=== PATIENT | female | born 1990 | race Caucasian/White ===

== ENCOUNTER 2023-05-03 14:02 | Outpatient (OUT) | payer OTHER, SELFPAY ==
--- NOTE | 2023-05-03 14:05 | US_ITS ---
[address] [address] Patient Name: ROCHELLE GUARDADO MRN: [id number] date: 1990 Sex: F Assigned Patient Location: US Current Patient Location: Accession/Order Number: [id number] Exam Date: 05/03/2023 14:07 Report Date: 05/04/2023 07:42 At the request of: JHON JIMENEZ Procedure: US OB >= 14 weeks Fetus EXAMINATION: US OB >= 14 weeks Fetus HISTORY: MISSED MENSES COMPARISON: No relevant comparison available. TECHNIQUE: Transabdominal sonographic examination was performed for obstetrical and evaluation. FINDINGS: Number: 1 Heart Rate: 130.0 bpm H.B. /min Amniotic Fluid Volume: Subjectively normal Placental Location: Fundal Cervix Length: 3.6 cm , closed The uterus is normal, anteverted, anteflexed The right ovary is not visualized Left ovary is normal BIOMETRY: BPD: 3.4 cm 16 weeks 3 days , greater than 97% HC: 13.0 cm 16 weeks 4 days, greater than 97% AC: 10.7 cm 16 weeks 4 days, greater than 97% FL: 1.9 cm 15 weeks 5 days , greater than 97% EFW:149.8 grams; 5 ounces, greater than 97% FL/AC: 18.0 FL/BPD: 57.4 HC/AC: 1.2 GESTATIONAL AGE: Age by EDC: 12 weeks 1 day Age by current US: 16 weeks 2 days ANTONIO by current US: 11/14/2023 ANTONIO by EDC: 10/16/2023 US/US OB >= 14 weeks Fetus IMPRESSION: Large for gestational age, this could be related to inaccurate clinical age Viable mabry intrauterine gestation measuring 16 weeks 2 days *Reference: [facility] Practice Guideline for the performance of Obstetric Ultrasound Examinations, February 18, 2007. Electronically authenticated by: ASHLEY TOBIN Date: 05/04/2023 07:42
== END 2023-05-03 14:03 | disposition home or self-care (01) ==
LOC: US 14:02
PROVIDERS: Visit Provider Obstetrics & Gynecology
DX: N92.6 Irregular menstruation, unspecified (principal); O36.62X0 Maternal care for excessive fetal growth, second trimester, not applicable or unspecified; Z3A.16 16 weeks gestation of pregnancy
CPT/HCPCS: 76815

== ENCOUNTER 2023-05-29 13:56 | Outpatient (OUT) | payer OTHER, SELFPAY ==
[2023-05-31 05:07] LABS: AFP Value 35.7 ng/mL (.); Gestat. Age Based On Ultrasound (.); Insulin Dep Diabetes No (.); Maternal Age At EDD 33.6 yr (.); OSBR Risk 1 IN 10000 (.); Results Report (.)
== END 2023-05-29 13:57 | disposition home or self-care (01) ==
LOC: LAB 13:59
PROVIDERS: PCP Family Medicine; Visit Provider Obstetrics & Gynecology
DX: Z34.92 Encounter for supervision of normal pregnancy, unspecified, second trimester (principal)
CPT/HCPCS: 36415; 82105

== ENCOUNTER 2023-06-05 12:59 | Outpatient (OUT) | payer OTHER, SELFPAY ==
--- NOTE | 2023-06-05 | US_ITS ---
[address] [address] Patient Name: ROCHELLE GUARDADO MRN: [id number] date: 1990 Sex: F Assigned Patient Location: US Current Patient Location: US Accession/Order Number: [id number] Exam Date: 06/05/2023 13:03 Report Date: 06/05/2023 14:18 At the request of: JHON JIMENEZ Procedure: US OB anatomy EXAMINATION: US OB anatomy, US OB cervical length HISTORY: ANATOMY COMPARISON: No relevant comparison available. TECHNIQUE: Transabdominal sonographic examination was performed for obstetrical and evaluation. FINDINGS: Number: 1 Heart Rate: 122.0 bpm H.B. /min Amniotic Fluid Volume: Subjectively normal position: Cephalic presentation, longitudinal lie Placental Location: And posterior. Placental edge is 4.1 cm from the internal os Cervix Length: 4.2 cm , closed Normal anatomy: Lateral ventricles, cerebellum, posterior fossa, orbits, four-chamber heart, RVOT, LVOT, diaphragm, stomach, kidneys, abdominal cord insertion, bladder, umbilical arteries, three-vessel cord, spine, extremities Suboptimal visualization: Nose/lips BIOMETRY: BPD: 5.0 cm 21 weeks 2 days , 21 weeks 2 days, 60% HC: 18.5 cm 20 weeks 6 days, 20 weeks 6 days, 33% AC: 16.1 cm 21 weeks 2 days, 21 weeks 2 days, 51% FL: 3.6 cm 21 weeks 2 days , 21 weeks 2 days, 52% EFW:407.6 grams; 14 ounces, 57% FL/AC: 22.1 FL/BPD: 70.8 HC/AC: 1.2 GESTATIONAL AGE: Age by EDC: 21 weeks 0 days Age by current US: 21 weeks 1 days ANTONIO by current US: 10/15/2023 ANTONIO by EDC: 10/16/2023 US/US OB anatomy IMPRESSION: Suboptimal visualization of the nose and lips Otherwise normal anatomy scan Closed cervix measuring 4.2 cm in length *Reference: [facility] Practice Guideline for the performance of Obstetric Ultrasound Examinations, February 18, 2007. Electronically authenticated by: ASHLEY TOBIN Date: 06/05/2023 14:18
--- NOTE | 2023-06-05 | US_ITS ---
[address] [address] Patient Name: ROCHELLE GUARDADO MRN: [id number] date: 1990 Sex: F Assigned Patient Location: US Current Patient Location: US Accession/Order Number: [id number] Exam Date: 06/05/2023 13:04 Report Date: 06/05/2023 14:18 At the request of: JHON JIMENEZ Procedure: US OB cervical length EXAMINATION: US OB anatomy, US OB cervical length HISTORY: ANATOMY COMPARISON: No relevant comparison available. TECHNIQUE: Transabdominal sonographic examination was performed for obstetrical and evaluation. FINDINGS: Number: 1 Heart Rate: 122.0 bpm H.B. /min Amniotic Fluid Volume: Subjectively normal position: Cephalic presentation, longitudinal lie Placental Location: And posterior. Placental edge is 4.1 cm from the internal os Cervix Length: 4.2 cm , closed Normal anatomy: Lateral ventricles, cerebellum, posterior fossa, orbits, four-chamber heart, RVOT, LVOT, diaphragm, stomach, kidneys, abdominal cord insertion, bladder, umbilical arteries, three-vessel cord, spine, extremities Suboptimal visualization: Nose/lips BIOMETRY: BPD: 5.0 cm 21 weeks 2 days , 21 weeks 2 days, 60% HC: 18.5 cm 20 weeks 6 days, 20 weeks 6 days, 33% AC: 16.1 cm 21 weeks 2 days, 21 weeks 2 days, 51% FL: 3.6 cm 21 weeks 2 days , 21 weeks 2 days, 52% EFW:407.6 grams; 14 ounces, 57% FL/AC: 22.1 FL/BPD: 70.8 HC/AC: 1.2 GESTATIONAL AGE: Age by EDC: 21 weeks 0 days Age by current US: 21 weeks 1 days ANTONIO by current US: 10/15/2023 ANTONIO by EDC: 10/16/2023 US/US OB cervical length IMPRESSION: Suboptimal visualization of the nose and lips Otherwise normal anatomy scan Closed cervix measuring 4.2 cm in length *Reference: [facility] Practice Guideline for the performance of Obstetric Ultrasound Examinations, February 18, 2007. Electronically authenticated by: ASHLEY TOBIN Date: 06/05/2023 14:18
== END 2023-06-05 13:00 | disposition home or self-care (01) ==
LOC: US 12:59
PROVIDERS: PCP Family Medicine; Visit Provider Obstetrics & Gynecology
DX: Z36.89 Encounter for other specified antenatal screening (principal); Z3A.21 21 weeks gestation of pregnancy
CPT/HCPCS: 76805; 76817

== ENCOUNTER 2023-06-09 10:26 | Outpatient (OUT) | payer OTHER, SELFPAY ==
--- OUTSIDE RECORDS SUMMARY | 2023-06-09 10:31 | XMS_ITS | CCD ---
Author Name Unknown Address [address] [place] [address] Organization [facility] Care Team Providers Care Communication Engineer Name Role Phone DR ИВАН NUR Attending Unavailable DR ИВАН NUR Consulting Unavailable DR ИВАН NUR Admitting Unavailable JHON JIMENEZ Attending Unavailable Problems Active Problems Problem Classification Problem Date Documented Da te Episodic/Chronic Other upper respiratory infections (1 source) Acute pharyngitis, unspecified; Translations: [ACUTE PHARYNGITIS UNSPECIFIED] Onset: 05-07-2021 Episodic Unclassified (3 sources) CONTACT W/AND (SUSP) EXPOS COVID-19; Translations: [CONTACT W/AND (SUSP) EXPOS COVID-19] Onset: 05-07-2021 Past or Other Problems Problem Classification Problem Date Documented Da te Episodic/Chronic Unclassified (1 source) CONTACT W/AND (SUSP) EXPOS COVID-19; Translations: [CONTACT W/AND (SUSP) EXPOS COVID-19] Onset: 05-03-2021 Results Test Name Value Interpretation Reference Range Facil ity Covid-19 PCR (CVDTBH)on 04-20 SARS-CoV-2 (COVID-19) RNA JOSEFINA+probe Ql (Unsp spec) Not detected Normal NOT DETECTED [facility] Comment on above: Result Comment: This test is not yet kathy roved or cleared by the [place] FDA. When there are no FDA-approved or cleared tests available, and other criteria are met, FDA can make tests available under an emergency access mechanism called an Emergency Use Authorization (EUA). The EUA for this test is supported by the Dough Catcher of Health and Human Service's (HHS's) declaration that circumstances exist to justify the emergency use of in vitro diagnostics for the detection and/or diagnosis of the virus that causes COVID-19. This EUA will remain in effect (meaning this test can be used) for the duration of the COVID-19 declaration justifying emergency of IVDs, unless it is terminated or revoked by FDA (after which the test may no longer be used). When diagnostic testing is negative, the possibility of a false negative should be considered in the context of a patient's recent exposures and the presence of clinical signs and symptoms consistent with SARS-CoV-2. Performed By: #### [facility] #### [facility] [address] [address] [address] Sebastián Santo Encounters Encounter Date Encounter Type Care Provider Facility Start: 06-05-2023 End: 06-05-2023 ambulatory JHON TONY Not Available Start: 05-03-2023 End: 05-03-2023 ambulatory JHON TONY Not Available Start: 05-03-2021 End: 05-03-[address] ИВАН NUR Facility: Payers Date Payer Category Payer Unknown [id number] [id number] 1990 Unknown [id number] [id number] 1990 Unknown [id number] 1959 Private Health Insurance [id number] 1959 Unknown [id number] Summary Purpose Family History No Family History Records FoundNo Family History Records Found Advance Directives No Advanced Directives Records FoundNo Advanced Directives Records Found Additional Source Comments INFORMATION SOURCE (unrecogn ized section and content) DATE CREATED AUTHOR 06/17/2021 [facility] DATE CREATED AUTHOR EMMIE FERRERA 06/06/2023 [facility] EPIC FOR RECORDS PERTAINING TO PATIENTS WHO ARE OR HAVE BEEN ENROLLED IN A CHEMICAL DEPENDENCY/SUBSTANCEABUSE PROGRAM, SOME INFORMATION MAY BE OMITTED. This clinical summary was aggregated from multiple sources. Caution should be exercised in using it in the provision of clinical care. This summary normalizes information from multiple sources, and as a consequence, information in this document may materially change the coding, format and clinical context of patient data. In addition, data may be omitted in some cases. CLINICAL DECISIONS SHOULD BE BASED ON THE PRIMARY CLINICAL RECORDS. [facility] [employer] [facility]. provides no warranty or guarantee of the accuracy or completeness of information in this document.
[2023-06-09 11:10] LABS: BOX Test Sent Out Y
[2023-06-09 11:31] LABS: Basophils Percent Auto 0.3 % (0.2-2.0); Eosinophils Absolute Auto 0.1 10^3/uL (0.0-0.7); Eosinophils Percent Auto 1.2 % (0.9-7.0); Hematocrit 33.3 % (36.0-48.0); Hemoglobin 10.9 g/dL (12.0-16.0); Immature Granulocytes Abs Auto 0.03 10^3/uL (0.00-0.03); Immature Granulocytes Pct Auto 0.4 % (0.0-0.5); Lymphocytes Absolute Auto 1.5 10^3/uL (1.2-3.8); Lymphocytes Percent Auto 19.6 % (20.5-60.0); Mean Corpuscular HGB Conc 32.7 g/dL (29.9-35.2); Mean Corpuscular Hemoglobin 29.4 pg (26.7-34.0); Mean Corpuscular Volume 89.8 fL (81.0-99.0); Mean Platelet Volume 11.7 fL (9.5-13.5); Monocytes Absolute Auto 0.4 10^3/uL (0.3-0.8); Neutrophils Absolute Auto 5.6 10^3/uL (1.4-6.5); Neutrophils Percent Auto 73.5 % (43.0-75.0); Platelet Count 260 10^3/uL (150-450); Red Blood Count 3.71 10^6/uL (4.20-5.40); Red Cell Distribution Width 12.6 % (11.0-15.0); White Blood Count 7.6 10^3/uL (4.0-11.0)
[2023-06-09 12:24] LABS: Estimated Average Glucose 100 mg/dL; Glycohemoglobin A1C 5.1 % (4.5-6.2)
[2023-06-10 08:11] LABS: HBsAg Screen Negative (Negative); HCV Ab Non Reactive (Non Reactive)
[2023-06-10 09:11] LABS: HIV Ab/p24 Ag Screen Non Reactive (Non Reactive)
[2023-06-10 10:07] LABS: Rapid Plasma Reagin, Quant Non Reactive titer (NonRea<1:1)
== END 2023-06-09 10:27 | disposition home or self-care (01) ==
LOC: LAB 10:28
PROVIDERS: PCP Family Medicine; Visit Provider Obstetrics & Gynecology
DX: N92.6 Irregular menstruation, unspecified (principal); Z36.0 Encounter for antenatal screening for chromosomal anomalies
CPT/HCPCS: 36415; 83036; 85025; 86592; 86762; 86803; 86850; 86900; 86901; 87086; 87340; 87389

== ENCOUNTER 2023-07-03 09:45 | Outpatient (OUT) | payer OTHER, SELFPAY ==
--- NOTE | 2023-07-03 09:48 | US_ITS ---
[address] [address] Patient Name: ROCHELLE GUARDADO MRN: [id number] date: 1990 Sex: F Assigned Patient Location: [facility] Current Patient Location: [facility] Accession/Order Number: [id number] Exam Date: 07/03/2023 09:48 Report Date: 07/03/2023 10:46 At the request of: JHON JIMENEZ Procedure: US OB incomplete anatomy EXAM: US OB incomplete anatomy HISTORY: INCOMPLETE ANATOMY COMPARISON: 06/05/2023 TECHNIQUE: Transabdominal FINDINGS: position: Cephalic presentation, longitudinal lie Heart rate: 124 beats minute Normal anatomy: Nose and lips US/US OB incomplete anatomy IMPRESSION: Normal nose and lips Electronically authenticated by: ASHLEY TOBIN Date: 07/03/2023 10:46
--- OUTSIDE RECORDS SUMMARY | 2023-07-03 09:56 | XMS_ITS | CCD ---
Author Name Unknown Address [email or web address] [place] [address] Organization [facility] Care Team Providers Care Bilingual Speech Therapist Name Role Phone DR ИВАН NUR Attending [...] spec) Not detected Normal NOT DETECTED [facility] Comment on above: Result Comment: This test is not yet kathy roved or cleared by the [place] FDA. When there are no FDA-approved or cleared tests available, and other criteria are met, FDA can make tests available under an emergency access mechanism called an Emergency Use Authorization (EUA). The EUA for this test is supported by the [employer] Joist of Health and Human Service's (HHS's) declaration [...] consistent with SARS-CoV-2. Performed By: #### [facility] #### [facility] [address] [address] [address] Sebastián Santo Encounters Encounter Date Encounter Type Care Provider Facility Start: 06-05-2023 End: 06-05-2023 ambulatory JHON TONY Not Available Start: 05-03-2023 End: 05-03-2023 ambulatory JHON TONY Not Available Start: 05-03-2021 End: 05-03-[address] ИВАН NUR Facility: Payers Date Payer Category Payer Unknown [id number] 1990 Unknown [id number] 1990 Unknown [id number] 1959 Private Health Insurance [id number] 1959 Unknown [id number] Summary Purpose Family History No Family History Records FoundNo Family History Records Found Advance Directives No Advanced Directives Records FoundNo Advanced Directives Records Found Additional Source Comments INFORMATION SOURCE (unrecogn ized section and content) DATE CREATED AUTHOR 06/17/2021 [facility] DATE CREATED AUTHOR EMMIE FERRERA 06/06/2023 [facility] EPIC FOR RECORDS PERTAINING TO PATIENTS [...] BE BASED ON THE PRIMARY CLINICAL RECORDS. [facility] [employer] [facility]. provides no warranty or guarantee of the accuracy or completeness of information in this document.
== END 2023-07-03 09:46 | disposition home or self-care (01) ==
LOC: NOMS 09:45
PROVIDERS: PCP Family Medicine; Visit Provider Obstetrics & Gynecology
DX: Z36.2 Encounter for other antenatal screening follow-up (principal)
CPT/HCPCS: 76815

== ENCOUNTER 2023-07-10 09:37 | Outpatient (OUT) | payer OTHER, SELFPAY ==
--- OUTSIDE RECORDS SUMMARY | 2023-07-03 11:18 | XMS_ITS | CCD ---
Author Name Unknown Address [address] [place] [address] Organization [facility] Care Team Providers Care Consumer Marketing Analyst Name Role Phone DR ИВАН NUR Attending Unavailable DR ИВАН NUR Consulting Unavailable DR ИАВН NUR Admitting Unavailable JHON JIMENEZ Attending Unavailable [...] spec) Not detected Normal NOT DETECTED [facility] Comment on above: Result Comment: This test is not yet kathy roved or cleared by the [place] FDA. When there are no FDA-approved or cleared tests available, and other criteria are met, FDA can make tests available under an emergency access mechanism called an Emergency Use Authorization (EUA). The EUA for this test is supported by the Normalizer of Health and Human Service's (HHS's) declaration [...] consistent with SARS-CoV-2. Performed By: #### [facility] #### [facility] [address] [address] [address] Sebastián Santo Encounters Encounter Date Encounter Type Care Provider Facility Start: 06-05-2023 End: 06-05-2023 ambulatory JHON TONY Not Available Start: 05-03-2023 End: 05-03-2023 ambulatory JHON TONY Not Available Start: 05-03-2021 End: 05-03-[address] ИВАН NUR Facility: Payers Date Payer Category Payer Unknown [id number] [id number] 1990 Unknown [id number] 1990 Unknown [id number] 1959 Private Health Insurance [id number] 1959 Unknown [id number] Summary Purpose Family History No Family History Records FoundNo Family History Records Found Advance Directives No Advanced Directives Records FoundNo Advanced Directives Records Found Additional Source Comments INFORMATION SOURCE (unrecogn ized section and content) DATE CREATED AUTHOR 06/17/2021 [facility] DATE CREATED AUTHOR EMMIE FERRERA 06/06/2023 [facility] EPIC FOR RECORDS PERTAINING TO PATIENTS [...] BE BASED ON THE PRIMARY CLINICAL RECORDS. [facility] [employer] [facility]. provides no warranty or guarantee of the accuracy or completeness of information in this document.
--- OUTSIDE RECORDS SUMMARY | 2023-07-10 09:41 | XMS_ITS | CCD ---
Author Name Unknown Address [address] [place] [address] Organization [facility] Care Team Providers Care Automobile Sales Representative Name Role Phone DR ИВАН MURPHY Attending Unavailable DR ИВАН MURPHY Consulting Unavailable DR ИВАН MURPHY Admitting Unavailable Иван Murphy MD Primary Care Provider [phone] JHON GIBSON Attending Unavailable JHON GIBSON Attending Unavailable Allergies Allergy Classification Reported Allergen(s) Allergy Type Date of Onset Reaction(s) Facility (3 sources) Bananas Propensity to adverse reactions 4 Swelling [facility] Work Phone: Medications Current Medications Medication Drug Class(es) Dates Sig (Normalized) Sig (Original) magnesium oxide 400 mg oral tablet (3 sources) Start: 05-03-2023 End: 08-31-2023 take 1 tablet by mouth once in the morning magnesium oxide (Mag-Ox) 400 mg tablet Indications: Second trimester Take 1 tablet (400 mg) by mouth in the morning. 30 tablet 3 05/03/2023 08/31/2023 Active pramipexole dihydrochloride 0.125 mg oral tablet (3 sources) Nonergot Dopamine Agonist Start: 02-05-2023 take 2 tablets by mouth once daily at bedtime pramipexole (Mirapex) 0.125 MG tablet TAKE 2 TABLETS BY MOUTH EVERY DAY AT BEDTIME 0 02/05/2023 Active Problems Active Problems Problem Classification Problem Date Documented Date Episodic/Chronic Immunizations and screening for infectious disease (4 sources) Patient encounter status; Translations: [Encounter for screening for infections with a predominantly sexual mode of transmission] 07-03-2023 Episodic Other and delivery including normal (2 sources) Second trimester ; Translations: [Encounter for supervision of normal , unspecified, second trimester] 06-29-2023 Episodic Other upper respiratory infections (1 source) Acute [...] Name Value Interpretation Reference Range Facil ity VAGINITIS (HTRX)on 4 BVAB 2,3 (BACTERIAL VAGINOSIS ASSOCIATED BACTERIA 2, 3); MOBILUNCUS SPP 0 [facility] BVAB 2,3 (BACTERIAL VAGINOSIS ASSOCIATED BACTERIA 2, 3); MOBILUNCUS SPP Not detected [facility] CHLAMYDIA TRACHOMATIS 0 [facility] CHLAMYDIA TRACHOMATIS Not detected [facility] GARDNERELLA VAGINALIS 0 [facility] GARDNERELLA VAGINALIS Not detected [facility] NEISSERIA GONORRHOEAE 0 [facility] NEISSERIA GONORRHOEAE Not detected [facility] TRICHOMONAS VAGINALIS 0 [facility] TRICHOMONAS VAGINALIS Not detected [facility] Urinalysis macro (dipstick) panel (U)on 07-03-2023 Bilirubin, UA Negative Negative - 4(70) +++ mg/dL [facility] Blood, UA Negative Negative - 50 Farzad/mcL [facility] Clarity, UA Clear [facility] re Color, UA Yellow [facility] Healthcar e Glucose, UA Negative Negative - 1999(110) ++++ mg/dL [facility] Interpretation and review of laboratory results Normal [facility] Ketones, UA Negative Negative - 160(16) ++++ mg/dL [facility] Leukocytes, UA Negative Negative - 500+++ Donnell/mcL [facility] Nitrite, UA Negative Negative - Positive [facility] pH, UA 6.0 5 - 9 [facility] Protein, UA Negative Negative - 1999(20) ++++ mg/dL [facility] Spec Grav, UA 1.020 1 - 1.03 [facility] Urobilinogen, UA 0.2 0.2 - 12 mg/dL [facility] Health[facility] e Cytology Cervical or vaginal smear or scraping studyon 12-05-2022 [facility] Health[facility] e Covid-19 PCR [facility]on 04-20 SARS-CoV-2 (COVID-19) RNA JOSEFINA+probe Ql (Unsp spec) Not detected Normal NOT DETECTED [facility] Comment on above: Result Comment: This test is not yet approved or cleared by the [place] FDA. When there are no FDA-approved or cleared tests available, and other criteria are met, FDA can make tests available under an emergency access mechanism called an Emergency Use Authorization (EUA). The EUA for this test is supported by the Pad Machine Operator of Health and Human Service's (HHS's) declaration [...] consistent with SARS-CoV-2. Performed By: #### [facility] #### [facility] [address] [place] [address] Dr. Sebastián Santo Vital Signs Date Time Vital Sign Value Performing Clinician Faci lity 07-03-2023 10:39-0500 Body weight 92.08 kg [employer] Work Phone: [facility] 07-03-2023 10:39-0500 Diastolic blood pressure 62 mm[Hg] [employer] Work Phone: [facility] 07-03-2023 10:39-0500 Systolic blood pressure 110 mm[Hg] [employer] Work Phone: [facility] Healthcare Encounters Encounter Date Encounter Type Care Provider Facility Start: 07-03-2023 External Result Encounter Jhon Paige DO Work Phone: [facility] Unsolicited Start: 07-03-2023 External Result Encounter Jhon Gibson DO Work Phone: [facility] Unsolicited Start: 07-03-2023 End: 07-03-2023 ambulatory JHON BROWNO Not Available Start: 07-03-2023 End: 07-03-2023 Office outpatient visit 15 minutes Jhon Gibson DO Work Phone: [facility] Comment on above: Second trimester pre gnancy; Screen for STD (sexually transmitted disease); Diabetes mellitus screening Start: 06-05-2023 End: 06-05-2023 ambulatory JHON BROWNO Not Available Start: 05-03-2023 End: 05-03-2023 ambulatory JHON BROWNO Not Available Start: 05-03-2021 End: 05-03-[address] ИВАН MURPHY Facility: Procedures Date Procedure Procedure Detail Performing Clinician Start: 07-03-2023 VAGINITIS (HTRX) Jhon Gibson DO Work Phone: Start: 07-03-2023 Urnls dip stick/tabl et rgnt non-auto w/o micrscp Jhon Browno DO Work Phone: Start: 12-05-2022 Microscopic observat ion [Identifier] in Cervix by Cyto stain Jhon Gibson DO Work Phone: Start: 12-05-2022 Cytp cerv/vag auto t hin layer prep mnl screen Jhon Gibson DO Work Phone: Plan of Treatment Date Care Activity Detail Author Start: 12-06-2027 Screening for malign ant neoplasm of cervix [facility] Start: 07-24-2023 End: 07-24-2023 Patient encounter procedure 07/24/2023 10:00 AM EST Routine [facility] [address] [place] [id number] Isa Avendano PA [address] [place] [address] [facility] Start: 07-03-2023 End: 07-03-2024 CBC panel - Blood by Automated count CBC Lab Routine Diabetes mellitus screening Expected: 07/03/2023 (Approximate), Expires: 07/03/2024 [facility] Comment on above: Expected: 07/03/2023 (Approximate), Expires: 07/03/2024 Start: 07-03-2023 End: 07-03-2024 Measurement of glucose 1 hour after glucose challenge for glucose tolerance test Glucose tolerance, 1 hour Lab Routine Diabetes mellitus screening Expected: 07/03/2023 (Approximate), Expires: 07/03/2024 [facility] Comment on above: Expected: 07/03/2023 (Approximate), Expires: 07/03/2024 Start: 01-19-2023 Influenza vaccination Influenza Vacc ine (#1) [facility] CHLAMYDIA TRACHOMATI S (GENITO/STI) CHLAMYDIA TRACHOMATIS (GENITO/STI) Lab Routine Screen for STD (sexually transmitted disease) Ordered: 07/03/2023 [facility] Comment on above: Ordered: 07/03/2023 Neisseria gonorrhoea e DNA [Presence] in Unspecified specimen by JOSEFINA with probe detection Neisseria gonorrhea DNA probe, direct Lab Routine Screen for STD (sexually transmitted disease) Ordered: 07/03/2023 [facility] Comment on above: Ordered: 07/03/2023 SURESWAB(R) ADVANCED VAGINITIS PLUS, TMA SURESWAB(R) ADVANCED VAGINITIS PLUS, TMA Pathology and Cytology Routine Screen for STD (sexually transmitted disease) Ordered: 07/03/2023 [facility] Work Phone: Comment on above: Ordered: 07/03/2023 Payers Date Payer Category Payer Medicaid [employer] [facility] [id number] 2022-Present [address] [address] [place] [address] [id number] 1990 Unknown [id number] 1990 Unknown [id number] 1259 1990 Unknown [id number] 1259 1990 Unknown [id number] 1259 1959 Private Health Insurance [id number] 1959 Unknown [id number] Social History Date Type Detail Facility Tobacco smoking stat [facility] Tobacco smoking consumption unknown [facility] Start: 01-23-2023 [facility] Start: 1990 Sex Assigned At Female [facility] Start: 05-01-2023 Gender identity Identifies as female gender (finding) [facility] Start: 05-01-2023 Sexual orientation Heterosexual (fin ding) [facility] History of Present illness Narrative 07-03-2023 Lizbet Pfeiffer LPN - 07/03/2023 10:50 AM EST Note Date & Type Note Facility 07-03-2023 History of Presen t illness Narrative Reason for Appointment: Patient ID: Merle Cyr is a 33 y.o. female who presents for Routine Visit Patient presents today for STD Check and Return OB appointment. Current Medications: has a current medication list which includes the following prescription(s): magnesium oxide and pramipexole. Medical History: Active Ambulatory Problems Diagnosis Date Noted No Active Ambulatory Problems Resolved Ambulatory Problems Diagnosis Date Noted No Resolved Ambulatory Problems No Additional Past Medical History No family history on file. Social History Tobacco Use Smoking status: Not on file Smokeless tobacco: Not on file Substance Use Topics Alcohol use: Not on file Drug use: Not on file History reviewed. No pertinent surgical history. Allergies Allergen Reactions Banana Swelling Review of Systems: Review of Systems Constitutional: Negative. HENT: Negative. Eyes: Negative. Respiratory: Negative. Cardiovascular: Negative. Gastrointestinal: Negative. Genitourinary: Negative. Musculoskeletal: Negative. Skin: Negative. Neurological: Negative. All other systems reviewed and are negative. Hematological: Negative. Endocrine: Negative. Allergic/Immunologic: Negative. Objective Physical Exam Constitutional: Appearance: Normal appearance. She is well-developed. Cardiovascular: Rate and Rhythm: Normal rate and regular rhythm. Pulmonary: Effort: Pulmonary effort is normal. Breath sounds: Normal breath sounds. Abdominal: General: Bowel sounds are normal. There is no distension. Palpations: Abdomen is soft. Tenderness: There is no abdominal tenderness. There is no guarding or rebound. Musculoskeletal: General: No swelling. Normal range of motion. Right lower leg: No edema. Left lower leg: No edema. Neurological: Mental Status: She is alert and oriented to person, place, and time. Skin: General: Skin is warm and dry. Psychiatric: Mood and Affect: Mood normal. Behavior: Behavior normal. Vitals and nursing note reviewed. Exam conducted with a cut off saw operator metal present. Vitals: There is no height or weight on file to calculate BMI. BP: 110/62 Patient's last menstrual period was 01/28/2023. Assessment/Plan Encounter Diagnoses Name Primary? Second trimester Screen for STD (sexually transmitted disease) Diabetes mellitus screening Patient presents today for an annual exam/routine obstetrics appointment. Patient is currently 25w0d . Patient is doing well and states she has no complaints. Pap/cultures was obtained without difficulty and patient was given [facility] order to have obtained. Follow Up: Patient is to return to our office in 4 weeks for routine OB appointment Documented by Lizbet Pfeiffer LPN on behalf of: Jhon Gibson DO documented in this encounter [facility] Evaluation note Note Date & Type Note Facility Evaluation note Diagnosis Second trimester state, incidental Screen for STD (sexually transmitted disease) Screening examination for venereal disease Diabetes mellitus screening Screening for diabetes mellitus documented in this encounter [facility] Summary Purpose Family History No Family History Records FoundNo Family History Records Found Advance Directives No Advanced Directives Records FoundNo Advanced Directives Records Found Additional Source Comments INFORMATION SOURCE (unrecogn ized section and content) DATE CREATED AUTHOR 06/17/2021 [facility] DATE CREATED AUTHOR AUTHOR'S ORGANIZ ATION 07/04/2023 [facility] dical Specialists EPIC Reason for Visit (unrecogniz ed section and content) Reason Comments Routine Visit Care Teams (unrecognized sec tion and content) Automobile Sales Representative Relationship Specialty Start Date End Date Иван Murphy MD [address] [place] [address] PCP - General Family Medicine 05/03/23 Automobile Sales Representative Relationship Specialty Start Date End Date Иван Murphy MD [address] [facility] [place] [phone] PCP - General Family Medicine 05/03/23 FOR RECORDS PERTAINING TO PATIENTS WHO ARE [...] BE BASED ON THE PRIMARY CLINICAL RECORDS. [facility]. provides no warranty or guarantee of the accuracy or completeness of information in this document.
[2023-07-10 10:45] LABS: Basophils Percent Auto 0.2 % (0.2-2.0); Eosinophils Absolute Auto 0.1 10^3/uL (0.0-0.7); Eosinophils Percent Auto 1.3 % (0.9-7.0); Hematocrit 33.3 % (36.0-48.0); Hemoglobin 10.8 g/dL (12.0-16.0); Immature Granulocytes Abs Auto 0.13 10^3/uL (0.00-0.03); Immature Granulocytes Pct Auto 1.2 % (0.0-0.5); Lymphocytes Absolute Auto 1.6 10^3/uL (1.2-3.8); Mean Corpuscular HGB Conc 32.4 g/dL (29.9-35.2); Mean Corpuscular Hemoglobin 29.4 pg (26.7-34.0); Mean Corpuscular Volume 90.7 fL (81.0-99.0); Mean Platelet Volume 10.7 fL (9.5-13.5); Monocytes Absolute Auto 0.6 10^3/uL (0.3-0.8); Monocytes Percent Auto 5.9 % (1.7-12.0); Neutrophils Absolute Auto 8.2 10^3/uL (1.4-6.5); Neutrophils Percent Auto 76.4 % (43.0-75.0); Platelet Count 264 10^3/uL (150-450); Red Blood Count 3.67 10^6/uL (4.20-5.40); Red Cell Distribution Width 12.7 % (11.0-15.0); White Blood Count 10.8 10^3/uL (4.0-11.0)
[2023-07-10 11:34] LABS: Glucose 1 Hour 133 mg/dL (<130)
== END 2023-07-10 09:38 | disposition home or self-care (01) ==
LOC: LAB 09:37
PROVIDERS: PCP Family Medicine; Visit Provider Obstetrics & Gynecology
DX: Z13.1 Encounter for screening for diabetes mellitus (principal)
CPT/HCPCS: 36415; 82950; 85025

== ENCOUNTER 2023-07-17 11:43 | Outpatient (OUT) | payer OTHER, SELFPAY ==
[2023-07-17 12:38] LABS: Glucose Fasting 83 mg/dL (<95)
[2023-07-17 13:20] LABS: Glucose 1 Hour 163 mg/dL (<180)
[2023-07-17 14:32] LABS: Glucose 2 Hour 120 mg/dL (<155)
[2023-07-17 15:30] LABS: Glucose 3 Hour 56 mg/dL (<140)
== END 2023-07-17 11:44 | disposition home or self-care (01) ==
LOC: LAB 11:43
PROVIDERS: PCP Family Medicine; Visit Provider Obstetrics & Gynecology
DX: R73.09 Other abnormal glucose (principal)
CPT/HCPCS: 36415; 82951; 82952

== ENCOUNTER 2023-08-21 13:52 | Outpatient (OUT) | payer OTHER, SELFPAY ==
--- NOTE | 2023-08-21 13:56 | US_ITS ---
[address] [address] Patient Name: ROCHELLE GUARDADO MRN: [id number] date: 1990 Sex: F Assigned Patient Location: [facility] Current Patient Location: [facility] Accession/Order Number: [id number] Exam Date: 08/21/2023 14:02 Report Date: 08/21/2023 15:01 At the request of: JHON JIMENEZ Procedure: US OB growth EXAMINATION: US OB growth HISTORY: SIZE INCONSISTENT WITH DATES COMPARISON: Ultrasound OB anatomy 06/05/2023 FINDINGS: Heart Rate: 123.0 bpm Number: 1.0 Position: CEPHALIC Amniotic Fluid Volume: 17.8 cm Maximum Vertical Pocket: 5.2 cm BIOMETRY: BPD: 8.2 cm cm; 32 weeks 6 days; 67% HC: 31.1 cmcm; 34 weeks 5 days ; 83% AC: 28.1 cm cm; 32 weeks 1 days; 52% FL: 6.3 cm cm; 32 weeks 3 days; 48% EFW: 1990.4 grams; 56% FL/AC: 22.3 FL/BPD: 76.6 HC/AC: 1.1 GESTATIONAL AGE: Age by EDC: 32 weeks 0 days ANTONIO by EDC: 10/16/2023 Age by US: 33 weeks 0 days ANTONIO by US: 10/09/2023 US/US OB growth IMPRESSION: 1. Single live intrauterine with growth detailed above. Electronically authenticated by: LEN GONZALEZ Date: 08/21/2023 15:01
== END 2023-08-21 13:53 | disposition home or self-care (01) ==
LOC: NOMS 13:53
PROVIDERS: PCP Family Medicine; Visit Provider Obstetrics & Gynecology
DX: O26.843 Uterine size-date discrepancy, third trimester (principal); Z3A.33 33 weeks gestation of pregnancy
CPT/HCPCS: 76816

== ENCOUNTER 2023-09-18 20:27 | Outpatient (REF) | payer OTHER, SELFPAY ==
--- OUTSIDE RECORDS SUMMARY | 2023-09-18 20:34 | XMS_ITS | CCD ---
Author Organization [facility] Care Team Providers Care Houseman Name Role Phone DR ИВАН NUR Attending Unavailable DR ИВАН NUR Consulting Unavailable DR ИВАН NUR Admitting Unavailable Иван Nur MD Primary Care Provider [phone] JHON GIBSON Attending Unavailable JHON GIBSON Attending Unavailable ISA CARRERA Attending Unavailable JHON GIBSON Attending Unavailable ISA CARRERA Attending Unavailable JHON GIBSON Attending Unavailable Allergies Allergy Classification Reported Allergen(s) Allergy Type Date of Onset Reaction(s) Facility (3 sources) Bananas Propensity to adverse reactions 4 Swelling [facility] Work Phone: Medications Current Medications Medication [...] Interpretation Reference Range Facil ity VAGINITIS (HTRX)on BVAB 2,3 (BACTERIAL VAGINOSIS ASSOCIATED BACTERIA 2, 3); MOBILUNCUS SPP 0 [facility] BVAB 2,3 (BACTERIAL VAGINOSIS ASSOCIATED BACTERIA 2, 3); MOBILUNCUS SPP Not detected [facility] CHLAMYDIA TRACHOMATIS 0 [facility] CHLAMYDIA TRACHOMATIS Not detected [facility] GARDNERELLA VAGINALIS 0 [facility] GARDNERELLA VAGINALIS Not detected [facility] NEISSERIA GONORRHOEAE 0 [facility] NEISSERIA GONORRHOEAE Not detected [facility] TRICHOMONAS VAGINALIS 0 [facility] TRICHOMONAS VAGINALIS Not detected [facility] Urinalysis macro (dipstick) panel (U)on 07-03-2023 Bilirubin, UA Negative Negative - 4(70) +++ mg/dL [facility] Blood, UA Negative Negative - 50 Farzad/mcL [facility] Clarity, [facility], [facility]A Yellow [facility] Health[facility] e Glucose, UA Negative Negative - 1999(110) ++++ mg/dL [facility] Interpretation and review of laboratory results Normal [facility] Ketones, UA Negative Negative - 160(16) ++++ mg/dL [facility] Leukocytes, UA Negative Negative - 500+++ Donnell/mcL [facility] Nitrite, UA Negative Negative - Positive [facility] pH, UA 6.0 5 - 9 [facility] Health[facility] Protein, UA Negative Negative - 1999(20) ++++ mg/dL [facility] Spec Grav, UA 1.020 1 - 1.03 [facility] care Urobilinogen, UA 0.2 0.2 - 12 mg/dL [facility] Cytology Cervical or vaginal smear or scraping studyon 12-05-2022 [facility] Covid-19 PCR ([facility])on 04-20 SARS-CoV-2 (COVID-19) RNA JOSEFINA+probe Ql (Unsp spec) Not detected Normal NOT DETECTED [facility] Comment on above: Result Comment: This test is not yet approved or cleared by the [place] FDA. When there are no FDA-approved or cleared tests available, and other criteria are met, FDA can make tests available under an emergency access mechanism called an Emergency Use Authorization (EUA). The EUA for this test is supported by the Records Clerk of Health and Human Service's (HHS's) declaration [...] consistent with SARS-CoV-2. Performed By: #### [facility] #### [facility] [address] [place] [address] Dr. Sebastián Santo Vital Signs Date Time Vital Sign Value Performing Clinician Faci lity 07-03-2023 10:39-0500 Body weight 92.08 kg [employer] Work Phone: [facility] 07-03-2023 10:39-0500 Diastolic blood pressure 62 mm[Hg] [employer] Work Phone: [facility] 07-03-2023 10:39-0500 Systolic blood pressure 110 mm[Hg] Jhon [employer] Work Phone: [facility] Encounters Encounter Date Encounter Type Care Provider Facility Start: 09-04-2023 End: 09-04-2023 ambulatory JHON PAIGE Not Available Start: 08-21-2023 End: 08-21-2023 ambulatory ISA CARRERA Not Available Start: 08-07-2023 End: 08-07-2023 ambulatory JHON PAIGE Not Available Start: 07-24-2023 End: 07-24-2023 ambulatory ISA CARRERA Not Available Start: 07-03-2023 External Result Encounter Jhon Paige DO Work Phone: [facility] Unsolicited Start: 07-03-2023 External Result Encounter Jhon Paige DO Work Phone: [facility] Unsolicited Start: 07-03-2023 End: 07-03-2023 ambulatory JHON PAIGE Not Available Start: 07-03-2023 End: 07-03-2023 Office outpatient visit 15 minutes Jhon Paige DO Work Phone: [facility] Comment on above: Second trimester pre gnancy; Screen for STD (sexually transmitted disease); Diabetes mellitus screening Start: 06-05-2023 End: 06-05-2023 ambulatory JHON PAIGE Not Available Start: 05-03-2023 End: 05-03-2023 ambulatory JHON PAIGE Not Available Start: 05-03-2021 End: 05-03-[address] ИВАН NUR Facility: Procedures Date Procedure Procedure Detail Performing Clinician Start: 07-03-2023 VAGINITIS (HTRX) Jhon Paige DO Work Phone: Start: 07-03-2023 Urnls dip stick/tabl et rgnt non-auto w/o micrscp Jhon Paige DO Work Phone: Start: 12-05-2022 Microscopic observat ion [Identifier] in Cervix by Cyto stain Jhon Paige DO Work Phone: Start: 12-05-2022 Cytp cerv/vag auto t hin layer prep mnl screen Jhon Paige DO Work Phone: Plan of Treatment Date Care Activity Detail Author Start: 12-06-2027 Screening for malign ant neoplasm of cervix [facility] Start: 07-24-2023 End: 07-24-2023 Patient encounter procedure 07/24/2023 10:00 AM EST Routine [facility] [address] [place] [address] Isa Carrera PA [address] [place] [address] [facility] Start: 07-03-2023 End: 07-03-2024 CBC panel - Blood by Automated count CBC Lab Routine Diabetes mellitus screening Expected: 07/03/2023 (Approximate), Expires: 07/03/2024 [facility] Comment on above: Expected: 07/03/2023 (Approximate), Expires: 07/03/2024 Start: 07-03-2023 End: 07-03-2024 Measurement of glucose 1 hour after glucose challenge for glucose tolerance test Glucose tolerance, 1 hour Lab Routine Diabetes mellitus screening Expected: 07/03/2023 (Approximate), Expires: 07/03/2024 [facility] Comment on above: Expected: 07/03/2023 (Approximate), Expires: 07/03/2024 Start: 01-19-2023 Influenza vaccination Influenza Vacc ine (#1) [facility] CHLAMYDIA TRACHOMATI S (GENITO/STI) CHLAMYDIA TRACHOMATIS (GENITO/STI) Lab Routine Screen for STD (sexually transmitted disease) Ordered: 07/03/2023 [facility] Comment on above: Ordered: 07/03/2023 Neisseria gonorrhoea e DNA [Presence] in Unspecified specimen by JOSEFINA with probe detection Neisseria gonorrhea DNA probe, direct Lab Routine Screen for STD (sexually transmitted disease) Ordered: 07/03/2023 [facility] Comment on above: Ordered: 07/03/2023 SURESWAB(R) ADVANCED VAGINITIS PLUS, TMA SURESWAB(R) ADVANCED VAGINITIS PLUS, TMA Pathology and Cytology Routine Screen for STD (sexually transmitted disease) Ordered: 07/03/2023 [facility] Work Phone: Comment on above: Ordered: 07/03/2023 Payers Date Payer Category Payer Medicaid [employer] [facility] [id number] 2022-Present [address] [address] [place] [address] [id number] 1990 Unknown [id number] 593 1990 Unknown [id number]. 1259 1990 Unknown [id number] [id number]. 1259 1990 Unknown [id number]. 1259 1990 Unknown [id number]. 9 1990 Unknown [id number] [id number]. 1259 1990 Unknown [id number]. 9 1990 Unknown [id number]. 1259 1959 Private Health Insurance [id number] 1959 Unknown [id number] Social History Date Type Detail Facility Tobacco smoking stat [facility] Tobacco smoking consumption unknown [facility] Start: [...] Narrative Reason for Appointment: Patient ID: Merle Guardado is a 33 y.o. female who presents [...] nursing note reviewed. Exam conducted with a import clerk present. Vitals: There is no height or [...] obtained without difficulty [facility]. Follow Up: Patient [...] and content) DATE CREATED AUTHOR 06/17/2021 [facility] DATE CREATED AUTHOR AUTHOR'S ORGANIZ ATION 09/05/2023 [facility] dical Specialists EPIC Reason for Visit (unrecogniz ed section and content) Reason Comments Routine Visit Care Teams (unrecognized sec tion and content) Houseman Relationship Specialty Start Date End Date Иван Nur MD [address] [place] [address] PCP - General Family Medicine 05/03/23 Houseman Relationship Specialty Start Date End Date Иван Nur MD [address] [place] [address] PCP - General Family Medicine 05/03/23 FOR [...] BE BASED ON THE PRIMARY CLINICAL RECORDS. [facility] whoactually [facility]. provides no warranty or guarantee of the accuracy or completeness of information in this document.
== END 2023-09-18 20:28 | disposition home or self-care (01) ==
LOC: LAB 20:27
PROVIDERS: PCP Family Medicine; Visit Provider Obstetrics & Gynecology
DX: Z34.93 Encounter for supervision of normal pregnancy, unspecified, third trimester (principal)
CPT/HCPCS: 87081

== ENCOUNTER 2023-10-17 16:28 | Outpatient (OUT) | payer OTHER, SELFPAY ==
--- NOTE | 2023-10-17 16:36 | US_ITS ---
[address] [address] Patient Name: ROCHELLE GUARDADO MRN: [id number] date: 1990 Sex: F Assigned Patient Location: US Current Patient Location: Accession/Order Number: [id number] Exam Date: 10/17/2023 16:44 Report Date: 10/18/2023 07:07 At the request of: JHON JIMENEZ Procedure: US OB BPP w non-stress EXAMINATION: US OB BPP w non-stress HISTORY: 40 WEEKS GESTATION OF Z3A.40 COMPARISON: No relevant comparison available. TECHNIQUE: Ultrasound biophysical profile was performed in the radiology department. non-reactive stress testing was performed by nursing staff in the birthing center. FINDINGS: BREATHING MOVEMENTS: 2.0 GROSS BODY MOVEMENTS: 2.0 TONE: 2.0 QUALITATIVE AMNIOTIC FLUID VOLUME: 2.0 PRESENTATION: CEPHALIC HEART RATE: 122.2 bpm H.B./min AMNIOTIC FLUID VOLUME: 8.9 cm cm GESTATIONAL AGE: 40 weeks 1 days CONCLUSION: Total biophysical profile score: 8.0 Electronically authenticated by: ASHLEY TOBIN Date: 10/18/2023 07:07
--- NOTE | 2023-10-17 16:37 | US_ITS ---
[address] [address] Patient Name: ROCHELLE GUARDADO MRN: [id number] date: 1990 Sex: F Assigned Patient Location: [facility] Current Patient Location: Accession/Order Number: [id number] Exam Date: 10/17/2023 16:44 Report Date: 10/18/2023 07:08 At the request of: JHON JIMENEZ Procedure: US OB growth EXAMINATION: US OB growth HISTORY: 40 WEEKS GESTATION OF Z3A.40 COMPARISON: No relevant comparison available. FINDINGS: Heart Rate: 122.2 bpm Amniotic Fluid Volume: 8.9 cm Number: 1.0 Position: Cephalic presentation, longitudinal lie Maximum Vertical Pocket: 0.8 cm cm 1.9 cm cm 2.4 cm cm 3.9 cm cm BIOMETRY: BPD: 9.7 cm cm; 39 weeks 4 days; HC: 35.5 cmcm; 41 weeks 3 days AC: 36.1 cm cm; 40 weeks 0 days FL: 7.3 cm cm; 37 weeks 3 days; EFW: 3827.3 grams, 8 lbs. 7 oz., 65% FL/AC: 20.3 FL/BPD: 75.7 HC/AC: 1.0 GESTATIONAL AGE: Age by EDC: 40 weeks 1 days ANTONIO by EDC: 10/16/2023 Age by US: 39 weeks 4 days ANTONIO by US: 12/20/2023 US/US OB growth IMPRESSION: Interval growth as detailed above Electronically authenticated by: ASHLEY TOBIN Date: 10/18/2023 07:08
== END 2023-10-17 17:40 | disposition home or self-care (01) ==
LOC: US 16:28 → FBC 16:29
PROVIDERS: PCP Family Medicine; Visit Provider Obstetrics & Gynecology
DX: O48.0 Post-term pregnancy (principal); Z3A.40 40 weeks gestation of pregnancy
CPT/HCPCS: 76816; 76818

== ENCOUNTER 2023-10-20 07:25 | Outpatient (OUT) | payer OTHER, SELFPAY ==
--- NOTE | 2023-10-20 | US_ITS ---
[address] [address] Patient Name: ROCHELLE GUARDADO MRN: [id number] date: 1990 Sex: F Assigned Patient Location: US Current Patient Location: Accession/Order Number: [id number] Exam Date: 10/20/2023 14:40 Report Date: 10/22/2023 08:50 At the request of: JHON JIMENEZ Procedure: US OB BPP w non-stress EXAMINATION: US OB BPP w non-stress HISTORY: POST TERM Z34.40 O48.0 COMPARISON: Ultrasound OB biophysical 10/17/2023 TECHNIQUE: Ultrasound biophysical profile was performed in the radiology department. BREATHING MOVEMENTS: 2.0 GROSS BODY MOVEMENTS: 2.0 TONE: 2.0 QUALITATIVE AMNIOTIC FLUID VOLUME: 2.0 PRESENTATION: CEPHALIC HEART RATE: 122.2 bpm bpm. AMNIOTIC FLUID VOLUME: 8.3 cm GESTATIONAL AGE: 40 weeks 4 days CONCLUSION: Total biophysical profile score 8.0. Electronically authenticated by: LEN GONZALEZ Date: 10/22/2023 08:50
--- OUTSIDE RECORDS SUMMARY | 2023-10-20 00:06 | XMS_ITS ---
Patient Summarization (C-CDA 2.1 CCD) Created on: October 20, 2023 MERLE GUARDADO~DEBBY BYRD : 1990 Sex: Female Author Organization Sample organization Care Team Providers Care Printing Equipment Mechanic Name Role Phone DR ИВАН NUR Attending Unavailable DR ИВАН NUR Consulting Unavailable DR ИВАН NUR Admitting Unavailable Иван Nur MD Primary Care Provider [phone] PAIGE, JHON Attending Unavailable PAIGE, JHON Attending Unavailable DEBI, ISA Attending Unavailable PAIGE, JHON Attending Unavailable DEBI, ISA Attending Unavailable PAIGE, JHON Attending Unavailable PAIGE, JHON Attending Unavailable DEBI, ISA Attending Unavailable PAIGE, JHON Attending Unavailable DEBI, ISA Attending Unavailable PAIGE, JHON Attending Unavailable Allergies Allergy Classification Reported Allergen(s) Allergy Type Date of Onset Reaction(s) Facility (3 sources) Bananas Propensity to adverse reactions 4 Swelling [facility] Work Phone: Encounters Encounter Date Encounter Type Care Provider Facility Start: 10-16-2023 End: 10-16-2023 ambulatory JHON PAIGE Not Available Start: 10-09-2023 End: 10-09-2023 ambulatory ISA DEBI Not Available Start: 10-02-2023 End: 10-02-2023 ambulatory JHON PAIGE Not Available Start: 09-25-2023 End: 09-25-2023 ambulatory ISA DEBI Not Available Start: 09-18-2023 End: 09-18-2023 ambulatory JHON PAIGE Not Available Start: 09-04-2023 End: 09-04-2023 ambulatory JHON PAIGE Not Available Start: 08-21-2023 End: 08-21-2023 ambulatory ISA DEBI Not Available Start: 08-07-2023 End: 08-07-2023 ambulatory [...] 05-03-2021 End: 05-03-[address] ИВАН NUR Facility:[facility] Medications Current Medications Medication Drug Class(es) Dates [...] EVERY DAY AT BEDTIME 0 02/05/2023 Active Payers Date Payer Category Payer Medicaid [employer] [employer] [facility] [id number] 2022-Present [address] [address] [place] [address] [id number] 1990 Unknown [id number] 2.16.840.1.776714.3.579.2. 593 1990 Unknown [id number] 2.16.840.1.574077.3.579.2. 1258 1990 Unknown [id number] 2.16.840.1.664937.3.579.2. 1258 1990 Unknown [id number] 2.16.840.1.253092.3.579.2. 1258 1990 Unknown [id number] 2.16.840.1.596760.3.579.2. 1258 1990 Unknown [id number] 2.16.840.1.024557.3.579.2. 1258 1990 Unknown [id number] 2.16.840.1.877573.3.579.2. 1258 1990 Unknown [id number] 2.16.840.1.690004.3.579.2. 1258 1990 Unknown [id number] 2.16.840.1.296824.3.579.2. 1258 1990 Unknown [id number] 2.16.840.1.564706.3.579.2. 1258 1990 Unknown [id number] 2.16.840.1.599993.3.579.2. 1258 1990 Unknown [id number] 2.16.840.1.620057.3.579.2. 1258 1990 Unknown [id number] 2.16.840.1.029901.3.579.2. 9 1959 Private Health Insurance [id number] 1959 Unknown [id number] Plan of Treatment Date Care Activity Detail Author Start: 12-06-2027 Screening for malign ant neoplasm of cervix [facility] Start: 07-24-2023 End: 07-24-2023 Patient encounter procedure 07/24/2023 10:00 AM EST Routine [facility] [address] [place] [id number] Isa Carrera PA [address] [place] [address] [facility] Start: 07-03-2023 End: 07-03-2024 CBC panel - Blood by Automated count CBC Lab Routine Diabetes mellitus screening Expected: 07/03/2023 (Approximate), Expires: 07/03/2024 [facility] Comment on above: Expected: 07/03/2023 (Approximate), Expires: 07/03/2024 Start: 07-03-2023 End: 07-03-2024 Measurement of glucose 1 hour after glucose challenge for glucose tolerance test Glucose tolerance, 1 hour Lab Routine Diabetes mellitus screening Expected: 07/03/2023 (Approximate), Expires: 07/03/2024 [facility] Comment on above: Expected: 07/03/2023 (Approximate), Expires: 07/03/2024 Start: 01-19-2023 Influenza vaccination Influenza Vacc ine (#1) [facility] CHLAMYDIA TRACHOMATI S (GENITO/STI) CHLAMYDIA TRACHOMATIS (GENITO/STI) Lab Routine Screen for STD (sexually transmitted disease) Ordered: 07/03/2023 [facility] Comment on above: Ordered: 07/03/2023 Neisseria gonorrhoea e DNA [Presence] in Unspecified specimen by JOSEFINA with probe detection Neisseria gonorrhea DNA probe, direct Lab Routine Screen for STD (sexually transmitted disease) Ordered: 07/03/2023 [facility] Comment on above: Ordered: 07/03/2023 SURESWAB(R) ADVANCED VAGINITIS PLUS, TMA SURESWAB(R) ADVANCED VAGINITIS PLUS, TMA Pathology and Cytology Routine Screen for STD (sexually transmitted disease) Ordered: 07/03/2023 [facility] Work Phone: Comment on above: Ordered: 07/03/2023 Problems Active Problems Problem Classification Problem Date [...] [CONTACT W/AND (SUSP) EXPOS COVID-19] Onset: 05-03-2021 Procedures Date Procedure Procedure Detail Performing Clinician Start: 07-03-2023 VAGINITIS (HTRX) [employer] Phone: Start: 07-03-2023 Urnls dip stick/tabl et rgnt non-auto w/o micrscp Jhon [employer] Phone: Start: 12-05-2022 Microscopic observat ion [Identifier] in Cervix by Cyto stain [employer] Phone: Start: 12-05-2022 Cytp cerv/vag auto t hin layer prep mnl screen [employer] Phone: Results Test Name Value Interpretation Reference Range Facil ity VAGINITIS (HTRX)on BVAB 2,3 (BACTERIAL VAGINOSIS ASSOCIATED BACTERIA 2, 3); MOBILUNCUS SPP 0 [facility] BVAB 2,3 (BACTERIAL VAGINOSIS ASSOCIATED BACTERIA 2, 3); MOBILUNCUS SPP Not detected [facility] Healthcare CHLAMYDIA TRACHOMATIS 0 [facility] CHLAMYDIA TRACHOMATIS Not detected [facility] GARDNERELLA VAGINALIS 0 [facility] GARDNERELLA VAGINALIS Not detected [facility] NEISSERIA GONORRHOEAE 0 [facility] NEISSERIA GONORRHOEAE Not detected [facility] TRICHOMONAS VAGINALIS 0 [facility] TRICHOMONAS VAGINALIS Not detected [facility] Health[facility] e Urinalysis macro (dipstick) panel (U)on 07-03-2023 Bilirubin, UA Negative Negative - 4(70) +++ mg/dL [facility] Blood, UA Negative Negative - 50 Farzad/mcL [facility] Clarity, UA Clear [facility] re Color, UA Yellow [facility] Healthcar e Glucose, UA Negative Negative - 1999(110) ++++ mg/dL [facility] Interpretation and review of laboratory results Normal [facility] Ketones, UA Negative Negative - 160(16) ++++ mg/dL [facility] Leukocytes, UA Negative Negative - 500+++ Donnell/mcL [facility] Nitrite, UA Negative Negative - Positive [facility] pH, UA 6.0 5 - 9 [facility] e Protein, UA Negative Negative - 1999(20) ++++ mg/dL [facility] Spec Grav, UA 1.020 1 - 1.03 [facility] Urobilinogen, UA 0.2 0.2 - 12 mg/dL [facility] Cytology Cervical or vaginal smear or scraping studyon 12-05-2022 [facility] e Covid-19 PCR ([facility])on 04-20 SARS-CoV-2 (COVID-19) RNA JOSEFINA+probe Ql (Unsp spec) Not detected Normal NOT DETECTED [facility] Comment on above: Result Comment: This test is not yet approved or cleared by the [place] FDA. When there are no FDA-approved or cleared tests available, and other criteria are met, FDA can make tests available under an emergency access mechanism called an Emergency Use Authorization (EUA). The EUA for this test is supported by the [place] of Health and Human Service's (HHS's) declaration [...] consistent with SARS-CoV-2. Performed By: #### C [facility] #### [facility] Laboratory [address] [address] [address] Sebastián Santo Social History Date Type Detail Facility Start: 05-01-2023 Gender identity Identifies as female gender (finding) [facility] Start: 05-01-2023 Sexual orientation Heterosexual (fin ding) [facility] Start: 01-23-2023 [facility] Start: 1990 Sex Assigned At Female [facility] Tobacco smoking stat [facility] Tobacco smoking consumption unknown [facility] Vital Signs Date Time Vital Sign Value Performing Clinician Faci lity 07-03-2023 10:39-0500 Body weight 92.08 kg Ringly DO Work Phone: [facility] 07-03-2023 10:39-0500 Diastolic blood pressure 62 mm[Hg] [email or web address] Paige DO Work Phone: [facility] 07-03-2023 10:39-0500 Systolic blood pressure 110 mm[Hg] [employer] DO Work Phone: [facility] History of Present illness Narrative 07-03-2023 Lizbet [...] nursing note reviewed. 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 Vitals: There is no height or [...] obtained without difficulty and [facility]. Follow Up: Patient [...] and content) DATE CREATED AUTHOR 06/17/2021 [facility] DATE CREATED AUTHOR AUTHOR'S ORGANIZ ATION 10/17/2023 [facility] dicor Specialists EPIC Reason for Visit (unrecogniz ed section and content) Reason Comments Routine Visit Care Teams (unrecognized sec tion and content) Printing Equipment Mechanic Relationship Specialty Start Date End Date Иван Nur MD [address] [place] [address] PCP - General Family Medicine 05/03/23 Printing Equipment Mechanic Relationship Specialty Start Date End Date Иван Nur MD [address] [place] [address] PCP - General Family Medicine 05/03/23 FOR [...] BE BASED ON THE PRIMARY CLINICAL RECORDS. [facility] [employer] [facility]. provides no warranty or guarantee of the accuracy or completeness of information in this document.
--- OUTSIDE RECORDS SUMMARY | 2023-10-20 08:10 | XMS_ITS | CCD ---
Author Organization [facility] Care Team Providers Care Credit Risk Modeler Name Role Phone DR ИВАН NUR Attending Unavailable LIUDMILA, DR OATES Consulting Unavailable DR ИВАН NUR Admitting Unavailable Иван Nur MD Primary Care Provider [phone] PAIGE, JHON Attending Unavailable PAIGE, JHON Attending [...] ASSOCIATED BACTERIA 2, 3); MOBILUNCUS SPP 0 [facility] BVAB 2,3 (BACTERIAL VAGINOSIS ASSOCIATED BACTERIA 2, 3); MOBILUNCUS SPP Not detected [facility] CHLAMYDIA TRACHOMATIS 0 [facility] CHLAMYDIA TRACHOMATIS Not detected [facility] GARDNERELLA VAGINALIS 0 [facility] GARDNERELLA VAGINALIS Not detected [facility] NEISSERIA GONORRHOEAE 0 [facility] NEISSERIA GONORRHOEAE Not detected [facility] TRICHOMONAS VAGINALIS 0 [facility] TRICHOMONAS VAGINALIS Not detected [facility] Health[facility] e Urinalysis macro (dipstick) panel (U)on 07-03-2023 Bilirubin, UA Negative Negative - 4(70) +++ mg/dL [facility] Blood, UA Negative Negative - 50 Farzad/mcL [facility] Clarity, UA Clear [facility] re Color, UA Yellow [facility] Glucose, UA Negative Negative - 2000(110) ++++ mg/dL [facility] Interpretation and review of laboratory results Normal [facility] Ketones, UA Negative Negative - 160(16) ++++ mg/dL [facility] Leukocytes, UA Negative Negative - 500+++ Donnell/mcL [facility] Nitrite, UA Negative Negative - Positive [facility] pH, UA 6.0 5 - 9 [facility] Healthcar e Protein, UA Negative Negative - 1999(20) ++++ mg/dL [facility] Spec Grav, UA 1.020 1 - 1.03 [facility] Urobilinogen, UA 0.2 0.2 - 12 mg/dL [facility] Health[facility] e Cytology Cervical or vaginal smear or scraping studyon 12-05-2022 [facility] e Covid-19 PCR ([facility])on 04-20 SARS-CoV-2 (COVID-19) RNA JOSEFINA+probe Ql (Unsp spec) Not detected Normal NOT DETECTED [facility] Comment on above: Result Comment: This test is not yet approved or cleared by the [place] FDA. When there are no FDA-approved or cleared tests available, and other criteria are met, FDA can make tests available under an emergency access mechanism called an Emergency Use Authorization (EUA). The EUA for this test is supported by the [place] of Health and Human Service's (HHS's) declaration [...] consistent with SARS-CoV-2. Performed By: #### C [facility] #### [facility] Laboratory [address] [place] [address] Dr. Sebastián Santo Vital Signs Date Time Vital Sign Value Performing Clinician Ubaldo antoine 07-03-2023 10:39-0500 Body weight 92.08 kg [employer] Work Phone: [facility] 07-03-2023 10:39-0500 Diastolic blood pressure 62 mm[Hg] [employer] Work Phone: [facility] 07-03-2023 10:390500 Systolic blood pressure 110 mm[Hg] Jhon Paige DO Work Phone: [facility] Healthcare Encounters Encounter Date Encounter Type Care Provider Facility Start: 10-16-2023 End: 10-16-2023 ambulatory JHON PAIGE Not Available Start: 10-09-2023 End: 10-09-2023 ambulatory ISA DEBI Not Available Start: 10-02-2023 End: 10-02-2023 ambulatory JHON PAIGE Not Available Start: 09-25-2023 End: 09-25-2023 ambulatory ISA DEBI Not Available Start: 09-18-2023 End: 09-18-2023 ambulatory JHON PAIGE Not Available Start: 09-04-2023 End: 09-04-2023 ambulatory HJON PAIGE Not Available Start: 08-21-2023 End: 08-21-2023 ambulatory ISA DEBI Not Available Start: 08-07-2023 End: 08-07-2023 ambulatory JHON PAIGE Not Available Start: 07-24-2023 End: 07-24-2023 ambulatory ISA DEBI Not Available Start: 07-03-2023 External Result Encounter Jhon Paige DO Work Phone: [facility] External Department Unsolicited Start: 07-03-2023 External Result Encounter Jhon Paige DO Work Phone: [facility] External Department Unsolicited Start: 07-03-2023 End: 07-03-2023 ambulatory JHON PAIGE Not Available Start: 07-03-2023 End: 07-03-2023 Office outpatient visit 15 minutes Jhon Paige DO Work Phone: [facility] OB Comment on above: Second trimester pre gnancy; Screen for STD (sexually transmitted disease); Diabetes mellitus screening Start: 06-05-2023 End: 06-05-2023 ambulatory JHON PAIGE Not Available Start: 05-03-2023 End: 05-03-2023 ambulatory JHON PAIGE Not Available Start: 05-03-2021 End: 05-03-[address] ИВАН NUR Facility:[facility]1 Procedures Date Procedure Procedure Detail Performing Clinician Start: 07-03-2023 VAGINITIS (HTRX) Jhon Paige DO Work Phone: Start: 07-03-2023 Urnls dip stick/tabl et rgnt non-auto w/o micrscp Jhon Paige DO Work Phone: Start: 12-05-2022 Microscopic observat ion [Identifier] in Cervix by Cyto stain [facility] DO Work Phone: Start: 12-05-2022 Cytp cerv/vag auto t hin layer prep mnl screen [facility] DO Work Phone: Plan of Treatment Date Care Activity Detail Author Start: 12-06-2027 Screening for malign ant neoplasm of cervix [facility] Start: 07-24-2023 End: 07-24-2023 Patient encounter procedure 07/24/2023 10:00 AM EST Routine [facility] [address] [place] [id number] Isa Avendano PA [address] [place] [address] [facility] Start: 07-03-2023 End: 07-03-2024 CBC panel - Blood by Automated count CBC Lab Routine Diabetes mellitus screening Expected: 07/03/2023 (Approximate), Expires: 07/03/2024 [facility] Comment on above: Expected: 07/03/2023 (Approximate), Expires: 07/03/2024 Start: 07-03-2023 End: 07-03-2024 Measurement of glucose 1 hour after glucose challenge for glucose tolerance test Glucose tolerance, 1 hour Lab Routine Diabetes mellitus screening Expected: 07/03/2023 (Approximate), Expires: 07/03/2024 [facility] Comment on above: Expected: 07/03/2023 (Approximate), Expires: 07/03/2024 Start: 01-19-2023 Influenza vaccination Influenza Vacc ine (#1) [facility] CHLAMYDIA TRACHOMATI S (GENITO/STI) CHLAMYDIA TRACHOMATIS (GENITO/STI) Lab Routine Screen for STD (sexually transmitted disease) Ordered: 07/03/2023 [facility] Comment on above: Ordered: 07/03/2023 Neisseria gonorrhoea e DNA [Presence] in Unspecified specimen by JOSEFINA with probe detection Neisseria gonorrhea DNA probe, direct Lab Routine Screen for STD (sexually transmitted disease) Ordered: 07/03/2023 [facility] Comment on above: Ordered: 07/03/2023 SURESWAB(R) ADVANCED VAGINITIS PLUS, TMA SURESWAB(R) ADVANCED VAGINITIS PLUS, TMA Pathology and Cytology Routine Screen for STD (sexually transmitted disease) Ordered: 07/03/2023 [facility] Work Phone: Comment on above: Ordered: 07/03/2023 Payers Date Payer Category Payer Medicaid [employer] [employer] [facility] [id number] 2022-Present [address] [address] [place] [address] [id number] 1990 Unknown [id number] 2.16.840.1.110916.3.579.2. 593 1990 Unknown [id number] 2.16.840.1.885789.3.579.2. 1258 1990 Unknown [id number] 2.16.840.1.499500.3.579.2. 1258 1990 Unknown [id number] 2.16.840.1.337730.3.579.2. 1258 1990 Unknown [id number] 2.16.840.1.464585.3.579.2. 1258 1990 Unknown [id number] 2.16.840.1.090681.3.579.2. 1258 1990 Unknown [id number] 2.16.840.1.980440.3.579.2. 1258 1990 Unknown [id number] 2.16.840.1.882372.3.579.2. 1258 1990 Unknown [id number] 2.16.840.1.792874.3.579.2. 1259 1990 Unknown [id number] 2.16.840.1.040795.3.579.2. 9 1990 Unknown [id number] 2.16.840.1.300842.3.579.2. 9 1990 Unknown [id number] 2.16.840.1.608389.3.579.2. 9 1990 Unknown [id number] 2.16.840.1.048115.3.579.2. 1259 1959 Private Health Insurance [id number] 1959 Unknown [id number] Social History Date Type Detail Facility Tobacco smoking stat [facility] Tobacco smoking consumption unknown [facility] Start: 01-23-2023 [facility] Start: 1990 Sex Assigned At Female [facility] Start: 05-01-2023 Gender identity Identifies as female gender (finding) [facility] Start: 05-01-2023 Sexual orientation Heterosexual (fin ding) [facility] History of Present illness Narrative 07-03-2023 Lizbet VegasJALEN meraz - 07/03/2023 10:50 AM EST Note Date [...] nursing note reviewed. Exam conducted with a customer field representative present. Vitals: There is no height or [...] obtained without difficulty and [facility]. Follow Up: [...] DATE CREATED AUTHOR 06/17/2021 [facility] DATE CREATED AUTHOR AUTHOR'S ORGANIZ ATION 10/17/2023 [facility]mn Specialists EPIC Reason for Visit (unrecogniz ed section and content) Reason Comments Routine Visit Care Teams (unrecognized sec tion and content) Credit Risk Modeler Relationship Specialty Start Date End Date Иван Nur MD [address] [place] [address] PCP - General Family Medicine 05/03/23 Credit Risk Modeler Relationship Specialty Start Date End Date Иван Nur MD [address] [place] [address] PCP - General Family Medicine 05/03/23 FOR [...] BE BASED ON THE PRIMARY CLINICAL RECORDS. [facility] [employer] [facility]. provides no warranty or guarantee of the accuracy or completeness of information in this document.
[2023-10-20 15:13] VITALS: BP 121/76; PULSE 99
== END 2023-10-20 15:40 | disposition home or self-care (01) ==
LOC: US 08:07 → FBC 14:31
PROVIDERS: PCP Family Medicine; Visit Provider Obstetrics & Gynecology
DX: O48.0 Post-term pregnancy (principal); Z3A.40 40 weeks gestation of pregnancy
CPT/HCPCS: 76818

== ENCOUNTER 2023-10-23 16:29 | Inpatient (IN) | payer OTHER, SELFPAY ==
[2023-10-23] VITALS (13 sets, daily range): BP systolic 98–135; BP diastolic 55–79; PULSE 85–97; TEMP 35.9–37.1
--- OUTSIDE RECORDS SUMMARY | 2023-10-23 16:42 | XMS_ITS | CCD ---
Author Organization [facility] Care Team Providers Care Hand Salter Name Role Phone DR ИВАН NUR Attending Unavailable LIUDMILA, DR OATES Consulting Unavailable DR ИВАН NUR Admitting Unavailable Иван Nur MD Primary Care Provider [phone] PAIGE, JHON Attending Unavailable PAIGE, JHON Attending [...] sources) Bananas Propensity to adverse reactions 4 [facility] Work Phone: Medications Current Medications Medication [...] BACTERIA 2, 3); MOBILUNCUS SPP 0 [facility] BVAB 2,3 (BACTERIAL VAGINOSIS ASSOCIATED BACTERIA 2, 3); MOBILUNCUS SPP Not detected [facility] CHLAMYDIA TRACHOMATIS 0 [facility] CHLAMYDIA TRACHOMATIS Not detected [facility] GARDNERELLA VAGINALIS 0 [facility] GARDNERELLA VAGINALIS Not detected [facility] NEISSERIA GONORRHOEAE 0 [facility] NEISSERIA GONORRHOEAE Not detected [facility] TRICHOMONAS VAGINALIS 0 [facility] TRICHOMONAS VAGINALIS Not detected [facility] Urinal[facility] macro (dipstick) panel (U)on 07-03-2023 Bilirubin, UA Negative Negative - 4(70) +++ mg/dL [facility] Blood, UA Negative Negative - 50 Farzad/mcL [facility] Clarity, UA [facility] re Color, UA Yellow [facility] Glucose, UA Negative Negative - 2000(110) ++++ mg/dL [facility] Interpretation and review of laboratory results Normal [facility] Ketones, UA Negative Negative - 160(16) ++++ mg/dL [facility] Leukocytes, UA Negative Negative - 500+++ Donnell/mcL [facility] Nitrite, UA Negative Negative - Positive [facility] pH, UA 6.0 5 - 9 [facility] Protein, UA Negative Negative - 1999(20) ++++ mg/dL [facility] Spec Grav, UA 1.020 1 - 1.03 [facility] Urobilinogen, UA 0.2 0.2 - 12 mg/dL [facility] Cytology Cervical or vaginal smear or scraping studyon 12-05-2022 [facility] e Covid-19 PCR ([facility])on 04-20 SARS-CoV-2 (COVID-19) RNA JOSEFINA+probe Ql (Unsp spec) Not detected Normal NOT DETECTED [facility] Comment on above: Result Comment: This test is not yet approved or cleared by the [place] FDA. When there are no FDA-approved or cleared tests available, and other criteria are met, FDA can make tests available under an emergency access mechanism called an Emergency Use Authorization (EUA). The EUA for this test is supported by the [place] of Health and Human Service's (HHS's) declaration [...] consistent with SARS-CoV-2. Performed By: #### C [facility] #### [facility] [address] [place] [address] Dr. Sebastián Santo Vital Signs Date Time Vital Sign Value Performing Clinician Ubaldo antoine 07-03-2023 10:39-0500 Body weight 92.08 kg [employer] Work Phone: [facility] 07-03-2023 10:39-0500 Diastolic blood pressure 62 mm[Hg] [employer] Work Phone: [facility] 07-03-2023 10:390500 Systolic blood pressure 110 mm[Hg] Jhon Paige DO Work Phone: [facility] Healthcare Encounters Encounter Date Encounter Type Care [...] Result Encounter Jhon Paige DO Work Phone: [facility] External Department Unsolicited Start: 07-03-2023 External Result Encounter Jhon Paige DO Work Phone: [facility] External Department Unsolicited Start: 07-03-2023 End: 07-03-2023 ambulatory JHON PAIGE Not Available Start: 07-03-2023 End: 07-03-2023 Office outpatient visit 15 minutes Jhon Paige DO Work Phone: [facility] B[facility] OB Comment on above: Second trimester [...] ion [Identifier] in Cervix by Cyto stain [facility] DO Work Phone: Start: 12-05-2022 Cytp cerv/vag auto t hin layer prep mnl screen [facility] DO Work Phone: Plan of Treatment Date Care Activity Detail Author Start: 12-06-2027 Screening for malign ant neoplasm of cervix [facility] Start: 07-24-2023 End: 07-24-2023 Patient encounter procedure 07/24/2023 10:00 AM EST Routine [facility] [address] [place] [id number] Isa Avendano PA [address] [place] [address] [facility] Start: 07-03-2023 End: 07-03-2024 CBC panel - Blood by Automated count CBC Lab Routine Diabetes mellitus screening Expected: 07/03/2023 (Approximate), Expires: 07/03/2024 [facility] Comment on above: Expected: 07/03/2023 (Approximate), Expires: 07/03/2024 Start: 07-03-2023 End: 07-03-2024 Measurement of glucose 1 hour after glucose challenge for glucose tolerance test Glucose tolerance, 1 hour Lab Routine Diabetes mellitus screening Expected: 07/03/2023 (Approximate), Expires: 07/03/2024 [facility] Comment on above: Expected: 07/03/2023 (Approximate), Expires: 07/03/2024 Start: 01-19-2023 Influenza vaccination Influenza Vacc ine (#1) [facility] CHLAMYDIA TRACHOMATI S (GENITO/STI) CHLAMYDIA TRACHOMATIS (GENITO/STI) Lab Routine Screen for STD (sexually transmitted disease) Ordered: 07/03/2023 [facility] Comment on above: Ordered: 07/03/2023 Neisseria gonorrhoea e DNA [Presence] in Unspecified specimen by JOSEFINA with probe detection Neisseria gonorrhea DNA probe, direct Lab Routine Screen for STD (sexually transmitted disease) Ordered: 07/03/2023 [facility] Comment on above: Ordered: 07/03/2023 SURESWAB(R) ADVANCED VAGINITIS PLUS, TMA SURESWAB(R) ADVANCED VAGINITIS PLUS, TMA Pathology and Cytology Routine Screen for STD (sexually transmitted disease) Ordered: 07/03/2023 [facility] Work Phone: Comment on above: Ordered: 07/03/2023 Payers Date Payer Category Payer Medicaid [employer] [facility] [id number] 2022-Present [address] [address] [place] [address] [id number] 1990 Unknown [id number] 2.16.840.1.039407.3.579.2. 593 1990 Unknown [id number] 2.16.840.1.765571.3.579.2. 1258 1990 Unknown [id number] 2.16.840.1.891527.3.579.2. 1258 1990 Unknown [id number] 2.16.840.1.457569.3.579.2. 1258 1990 Unknown [id number] 2.16.840.1.982133.3.579.2. 1258 1990 Unknown [id number] 2.16.840.1.348056.3.579.2. 1258 1990 Unknown [id number] 2.16.840.1.179692.3.579.2. 1258 1990 Unknown [id number] 2.16.840.1.990298.3.579.2. 1258 1990 Unknown [id number] 2.16.840.1.001406.3.579.2. 1259 1990 Unknown [id number] 2.16.840.1.121397.3.579.2. 9 1990 Unknown [id number] 2.16.840.1.495990.3.579.2. 9 1990 Unknown [id number] 2.16.840.1.528313.3.579.2. 9 1990 Unknown [id number] 2.16.840.1.061200.3.579.2. 1259 1959 Private Health Insurance [id number] 1959 Unknown [id number] Social History Date Type Detail Facility Tobacco smoking stat [facility] Tobacco smoking consumption unknown [facility] Start: [...] nursing note reviewed. Exam conducted with a nurse liaison present. Vitals: There is no height or [...] obtained without difficulty [facility]. Follow [...] DATE CREATED AUTHOR 06/17/2021 [facility] DATE CREATED AUTHOR AUTHOR'S ORGANIZ ATION 10/17/2023 [facility] d[facility] Specialists EPIC Reason for Visit (unrecogniz ed section and content) Reason Comments Routine Visit Care Teams (unrecognized sec tion and content) Hand Salter Relationship Specialty Start Date End Date Иван Nur MD [address] [place] [address] PCP - General Family Medicine 05/03/23 Hand Salter Relationship Specialty Start Date End Date Иван Nur MD [address] [place] [address] PCP - General Family Medicine 05/03/23 FOR [...] BE BASED ON THE PRIMARY CLINICAL RECORDS. [facility]. provides no warranty or guarantee of the accuracy or completeness of information in this document.
[2023-10-23 17:08] LABS: Hemoglobin 9.9 g/dL (12.0-16.0); Mean Corpuscular Hemoglobin 27.7 pg (26.7-34.0); Mean Corpuscular Volume 83.8 fL (81.0-99.0); Platelet Count 258 10^3/uL (150-450); Red Blood Count 3.58 10^6/uL (4.20-5.40); Red Cell Distribution Width 14.2 % (11.0-15.0); White Blood Count 7.7 10^3/uL (4.0-11.0)
[2023-10-23 17:34] LABS: Amphetamine Screen Urine NEGATIVE (NEGATIVE); Barbiturates Screen Urine NEGATIVE (NEGATIVE); Benzodiazepines Screen Urine NEGATIVE (NEGATIVE); Buprenorphine Screen Urine NEGATIVE (NEGATIVE); Cannabinoid Screen Urine NEGATIVE (NEGATIVE); Cocaine Screen Urine NEGATIVE (NEGATIVE); Methadone Screen Urine NEGATIVE (NEGATIVE); Methamphetamines Screen Urine NEGATIVE (NEGATIVE); Opiate Screen Urine NEGATIVE (NEGATIVE); Oxycodone Screen Urine NEGATIVE (NEGATIVE); Phencyclidine Screen Urine NEGATIVE (NEGATIVE); Tricyclic Antidepressant Urine NEGATIVE (NEGATIVE)
[2023-10-24] VITALS (52 sets, daily range): BP systolic 90–200; BP diastolic 51–99; PULSE 77–130; TEMP 36.4–36.8
[2023-10-24] MEDS: ZOLPIDEM TARTRATE 5 MG TABLET PO (01:50)
[2023-10-24] MEDS: 0.9 % SODIUM CHLORIDE 1,000 ML 125 ML IV ×3 (06:09→17:44)
[2023-10-24] MEDS: AMPICILLIN SODIUM 2,000 MG in 0.9 % SODIUM CHLORIDE 100 ML 200 MG IV (06:09)
[2023-10-24] MEDS: OXYTOCIN/0.9 % SODIUM CHLORIDE 10 UNITS/500 ML PLAST..BAG 6 UNIT IV ×2 (06:10→18:31)
[2023-10-24] MEDS: AMPICILLIN SODIUM 1,000 MG in 0.9 % SODIUM CHLORIDE 50 ML 100 MG IV ×3 (10:13→18:34)
[2023-10-24] MEDS: ROPIVACAINE HCL/PF 400 MG/200 ML PREMIX 8 MG EPIDURAL (12:47)
[2023-10-24] MEDS: LIDOCAINE HCL 1% 200 MG/20 ML MDV INJ (20:28)
[2023-10-24] MEDS: OXYTOCIN/0.9 % SODIUM CHLORIDE 20 UNITS/1,000 ML PLAST..BAG 125 UNIT IV (20:34)
--- NOTE | 2023-10-24 20:44 | PM.OBPRCVD ---
Procedure Intrapartal events: None Induction method: per pitocin protocol Delivery augmentation: rupture of membranes and pitocin Delivery monitor: external FHT and external uterine Route of delivery: Episiotomy Description: midline L&D Laceration Description: perineal - 2nd degree Delivery repair: Vicryl Estimated blood loss (mL): 350 Anesthesia type: Epidural Disposition: floor Infant Delivery date: 10/24/23 Gender: male presentation: vertex Placental delivery description: Spontaneous cord description: 3 Vessels and Nuchal Cord (TIMES 1)
[2023-10-24] MEDS: BENZOCAINE/MENTHOL 85 GRAM SPRAY BOTTLE 1 APPLIC TOPICAL (23:38)
[2023-10-24] MEDS: GLYCERIN/WITCH HAZEL PADS 1 PAD TOPICAL (23:38)
[2023-10-24] MEDS: IBUPROFEN 600 MG TABLET PO (23:38)
[2023-10-25] VITALS (8 sets, daily range): BP systolic 103–131; BP diastolic 58–69; PULSE 85–108; TEMP 36.3–36.9
[2023-10-25] MEDS: TEMAZEPAM 15 MG CAPSULE PO (03:34)
[2023-10-25 05:55] LABS: Basophils Percent Auto 0.1 % (0.2-2.0); Eosinophils Percent Auto 0.2 % (0.9-7.0); Hematocrit 24.1 % (36.0-48.0); Hemoglobin 7.8 g/dL (12.0-16.0); Immature Granulocytes Abs Auto 0.07 10^3/uL (0.00-0.03); Immature Granulocytes Pct Auto 0.6 % (0.0-0.5); Lymphocytes Absolute Auto 1.5 10^3/uL (1.2-3.8); Lymphocytes Percent Auto 12.4 % (20.5-60.0); Mean Corpuscular HGB Conc 32.4 g/dL (29.9-35.2); Mean Corpuscular Hemoglobin 27.9 pg (26.7-34.0); Mean Corpuscular Volume 86.1 fL (81.0-99.0); Mean Platelet Volume 11.4 fL (9.5-13.5); Monocytes Absolute Auto 0.8 10^3/uL (0.3-0.8); Monocytes Percent Auto 6.8 % (1.7-12.0); Neutrophils Absolute Auto 9.9 10^3/uL (1.4-6.5); Neutrophils Percent Auto 79.9 % (43.0-75.0); Platelet Count 231 10^3/uL (150-450); Red Cell Distribution Width 14.2 % (11.0-15.0); White Blood Count 12.3 10^3/uL (4.0-11.0)
[2023-10-25] MEDS: IBUPROFEN 600 MG TABLET PO ×3 (07:44→22:32)
[2023-10-25] MEDS: DOCUSATE SODIUM 100 MG CAPSULE PO ×2 (09:32→22:32)
--- NOTE | 2023-10-25 11:21 | PM.OBPN ---
OB - PN: Subj Subjective Patient comments: incisional pain (COMPLAINS OF PERINEAL DISCOMFORT, (HAD MIDLINE EPISIOTOMY AND SECOND DEGREE REPAIR)) [place] status: doing well and well Exam Constitutional Vital Signs, click to edit/add: Last Vital Signs Temp 97.4 F L 10/25/23 07:35 Pulse 85 10/25/23 07:36 Resp 14 10/25/23 07:35 BP 121/69 10/25/23 07:36 O2 Del Method Room Air 10/25/23 07:35 Documenting provider has reviewed patient's vital signs: yes Common normals: no apparent distress, average body habitus, oriented x3, no limitations, healthy appearing, alert and well nourished HENMT Common normals: normocephalic and head/scalp atraumatic Eye Common normals: PERRL Pupil: accommodation reflex normal Neck & C-Spine Common normals: full ROM and supple Respiratory Common normals: normal respiratory effort and no retractions Cardio Common normals: regular rate and regular rhythm GI Common normals: Normal to inspection, nondistended, normoactive bowel sounds present, soft to palpation and non-tender Common normals: no CVA tenderness Back & Pelvis Common normals: no thoracic nor lumbar tenderness Extremity Common normals: normal to inspection, full ROM and no calf tenderness Neuro Common normals: CN's II-XII intact bilaterally, moves all extremities, no focal motor deficits and no sensory deficits noted Psych Common normals: mental status grossly normal, thought process normal, cooperative, affect normal and speech normal Results Labs Labs: Short CBC 10/25/23 Range/Units 05:48 WBC 12.3 H (4.0-11.0) 10^3/uL Hgb 7.8 L (12.0-16.0) g/dL Hct 24.1 L (36.0-48.0) % Plt Count 231 (150-450) 10^3/uL OB - PN: A/P Assessment and Plan (1) Normal vaginal delivery: Assessment and Plan: BESIDES TOPICAL TREATMENTS, DISCUSSED USING SITZ BATH FOR PERINEAL DISCOMFORT FROM 2ND DEGREE REPAIR AFTER MIDLINE EPISIOTOMY. ALSO, DISCONTINUED RESTORIL FOR SLEEP WHICH DID NOT WORK. STARTED ZOLPIDEM 10 MG PH QHS. PATIENT IS BREAST FEEDING HOWEVER OK TO TAKE ZOLPIDEM. HEMOGLOBIN LOW BUT ASYMPTOMATIC. WILL START PO IRON QD. Plan SEE ABOVE Plan - Vaginal Delivery day: 1 Plan: routine care Time Spent with Patient Time: Total time spent is greater than 50% in coordination of care (as documented) at patient's floor/unit and/or counseling patient: Total time spent with greater than 50% in coordination of care (as documented) at patient's floor/unit and/or counseling patient: less than 15 minutes
[2023-10-25] MEDS: IRON PS COMPLEX/B12/FOLIC ACID CAPSULE 1 CAP PO (13:19)
[2023-10-25] MEDS: ZOLPIDEM TARTRATE 10 MG TABLET PO (22:34)
--- NOTE | 2023-10-26 08:01 | PM.OBPN ---
OB - PN: Subj Subjective Patient comments: no complaints and pain well controlled [place] status: doing well Exam Constitutional Vital Signs, click to edit/add: Last Vital Signs Temp 98.4 F 10/25/23 22:27 Pulse 108 H 10/25/23 22:27 Resp 16 10/25/23 22:27 BP 131/66 10/25/23 22:27 O2 Del Method Room Air 10/25/23 22:27 Documenting provider has reviewed patient's vital signs: yes Common normals: no apparent distress Respiratory Common normals: normal respiratory effort and clear to auscultation bilaterally Cardio Common normals: regular rate and regular rhythm GI Common normals: Normal to inspection, nondistended, normoactive bowel sounds present Extremity Common normals: normal to inspection and no calf tenderness OB - PN: A/P Assessment and Plan (1) Normal vaginal delivery: Plan - Vaginal Delivery day: 2 Plan: routine care, discharge home and follow up 6 weeks Time Spent with Patient Time: Total time spent is greater than 50% in coordination of care (as documented) at patient's floor/unit and/or counseling patient: Total time spent with greater than 50% in coordination of care (as documented) at patient's floor/unit and/or counseling patient: less than 15 minutes
[2023-10-26 08:30] VITALS: TEMP 36.7
[2023-10-26] MEDS: DOCUSATE SODIUM 100 MG CAPSULE PO (08:36)
[2023-10-26] MEDS: IBUPROFEN 600 MG TABLET PO (08:36)
[2023-10-26] MEDS: IRON PS COMPLEX/B12/FOLIC ACID CAPSULE 1 CAP PO (08:37)
[2023-10-26 08:40] VITALS: BP 111/64; PULSE 86
== END 2023-10-26 13:05 | disposition home or self-care (01) | DRG 560 ==
PROVIDERS: Admitting Provider Obstetrics & Gynecology; PCP Family Medicine; Visit Provider Obstetrics & Gynecology
DX: O48.0 Post-term pregnancy (principal); O99.824 Streptococcus B carrier state complicating childbirth; O70.1 Second degree perineal laceration during delivery; O69.81X0 Labor and delivery complicated by cord around neck, without compression, not applicable or unspecified; Z3A.41 41 weeks gestation of pregnancy; Z37.0 Single live birth
CPT/HCPCS: 36415; 59050; 59410; 76818; 80307; 85025; 85027; 86850; 86900; 86901; 96365; 96366; 96368; 96376

== ENCOUNTER 2023-10-30 12:13 | Outpatient (OUT) | payer OTHER, SELFPAY ==
[2023-10-30 12:18] VITALS: BP 115/79; PULSE 88; TEMP 36.8; O2SAT 96
--- OUTSIDE RECORDS SUMMARY | 2023-10-30 12:40 | XMS_ITS | CCD ---
Author Organization [facility] Care Team Providers Care Structural Engineering Project Manager Name Role Phone DR ИВАН NUR Attending Unavailable LIUDMILA, DR OATES Consulting Unavailable DR ИВАН NUR Admitting Unavailable Иван Nur MD Primary Care Provider [phone] PAIGE, JHON Attending Unavailable PAIGE, JHON Attending Unavailable DEBI, ISA Attending Unavailable PAIGE, JHON Attending Unavailable DEBI, ISA Attending Unavailable PAIGE, JHON Attending Unavailable PAIGE, JHON Attending Unavailable DEBI, ISA Attending Unavailable PAIGE, JHON Attending Unavailable DEBI, ISA Attending Unavailable PAIGE, JHON Attending Unavailable PAIGE, JHON Attending Unavailable Allergies [...] ASSOCIATED BACTERIA 2, 3); MOBILUNCUS SPP 0 [facility] BVAB 2,3 (BACTERIAL VAGINOSIS ASSOCIATED BACTERIA 2, 3); MOBILUNCUS SPP Not detected [facility] CHLAMYDIA TRACHOMATIS 0 [facility] CHLAMYDIA TRACHOMATIS Not detected [facility] GARDNERELLA VAGINALIS 0 [facility] GARDNERELLA VAGINALIS Not detected [facility] NEISSERIA GONORRHOEAE 0 [facility] NEISSERIA GONORRHOEAE Not detected [facility] TRICHOMONAS VAGINALIS 0 [facility] TRICHOMONAS VAGINALIS Not detected [facility] Urinalysis macro (dipstick) panel (U)on 07-03-2023 Bilirubin, UA Negative Negative - 4(70) +++ mg/dL [facility] Blood, UA Negative Negative - 50 Farzad/mcL [facility] Clarity, UA Clear [facility] re Color, UA Yellow [facility] Glucose, UA Negative Negative - 2000(110) ++++ mg/dL [facility] Interpretation and review of laboratory results Normal [facility] Ketones, UA Negative Negative - 160(16) ++++ mg/dL [facility] Leukocytes, UA Negative Negative - 500+++ Donnell/mcL [facility] Nitrite, UA Negative Negative - Positive [facility] pH, UA 6.0 5 - 9 [facility] e Protein, UA Negative Negative - 1999(20) ++++ mg/dL [facility] Spec Grav, UA 1.020 1 - 1.03 [facility] Urobilinogen, UA 0.2 0.2 - 12 mg/dL [facility] Cytology Cervical or vaginal smear or scraping studyon 12-05-2022 [facility])on 04-20 SARS-CoV-2 (COVID-19) RNA JOSEFINA+probe Ql (Unsp spec) Not detected Normal NOT DETECTED [facility] Comment on above: Result Comment: This test is not yet approved or cleared by the [place] FDA. When there are no FDA-approved or cleared tests available, and other criteria are met, FDA can make tests available under an emergency access mechanism called an Emergency Use Authorization (EUA). The EUA for this test is supported by the [place] of Health and Human Service's (HHS's) declaration [...] consistent with SARS-CoV-2. Performed By: #### [facility] #### [facility] [address] [place] [address] Dr. Sebastián Santo Vital Signs Date Time Vital Sign Value Performing Clinician Ubaldo antoine 07-03-2023 10:39-0500 Body weight 92.08 kg [employer] Work Phone: [facility] 07-03-2023 10:39-0500 Diastolic blood pressure 62 mm[Hg] [employer] DO Work Phone: [facility] 07-03-2023 10:390500 Systolic blood pressure 110 mm[Hg] Jhon Paige DO Work Phone: [facility] Encounters Encounter Date Encounter Type Care Provider Facility Start: 10-23-2023 End: 10-23-2023 ambulatory JHON PAIGE Not Available Start: 10-16-2023 End: 10-16-2023 ambulatory JHON PAIGE [...] Available Start: 08-07-2023 End: 08-07-2023 ambulatory JHON APIGE Not Available Start: 07-24-2023 End: 07-24-2023 ambulatory ISA DEBI Not Available Start: 07-03-2023 External Result Encounter Jhon Paige DO Work Phone: [facility] External Department Unsolicited Start: 07-03-2023 External Result Encounter Jhon Paige DO Work Phone: [facility] External Department Unsolicited Start: 07-03-2023 End: 07-03-2023 Office outpatient visit 15 minutes Jhon Paige DO Work Phone: [facility] Comment on above: Second trimester pre gnancy; Screen for STD (sexually transmitted disease); Diabetes mellitus screening Start: 07-03-2023 End: 07-03-2023 ambulatory JHON PAIGE Not Available Start: 06-05-2023 End: 06-05-2023 ambulatory JHON PAIGE Not Available Start: 05-03-2023 End: 05-03-2023 ambulatory JHON PAIGE Not Available Start: 05-03-2021 End: 05-03-[address] ИВАН NUR Facility:[facility] Procedures Date Procedure Procedure Detail Performing Clinician Start: 07-03-2023 VAGINITIS (HTRX) Jhon [facility] Work Phone: Start: 07-03-2023 Urnls dip stick/tabl et rgnt non-auto w/o micrscp [facility] Work Phone: Start: 12-05-2022 Microscopic observat ion [Identifier] in Cervix by Cyto stain Jhon [employer] DO Work Phone: Start: 12-05-2022 Cytp cerv/vag auto t hin layer prep mnl screen [facility] Work Phone: Plan of Treatment Date Care Activity Detail Author Start: 12-06-2027 Screening for malign ant neoplasm of cervix [facility] Start: 07-24-2023 End: 07-24-2023 Patient encounter procedure 07/24/2023 10:00 AM EST Routine [facility] [address] [phone] Isa Avendano PA [address] [place] [address] [facility] OB Start: 07-03-2023 End: 07-03-2024 CBC panel - Blood by Automated count CBC Lab Routine Diabetes mellitus screening Expected: 07/03/2023 (Approximate), Expires: 07/03/2024 [facility] Comment on above: Expected: 07/03/2023 (Approximate), Expires: 07/03/2024 Start: 07-03-2023 End: 07-03-2024 Measurement of glucose 1 hour after glucose challenge for glucose tolerance test Glucose tolerance, 1 hour Lab Routine Diabetes mellitus screening Expected: 07/03/2023 (Approximate), Expires: 07/03/2024 [facility] Comment on above: Expected: 07/03/2023 (Approximate), Expires: 07/03/2024 Start: 01-19-2023 Influenza vaccination Influenza Vacc ine (#1) [facility] CHLAMYDIA TRACHOMATI S (GENITO/STI) CHLAMYDIA TRACHOMATIS (GENITO/STI) Lab Routine Screen for STD (sexually transmitted disease) Ordered: 07/03/2023 [facility] Comment on above: Ordered: 07/03/2023 Neisseria gonorrhoea e DNA [Presence] in Unspecified specimen by JOSEFINA with probe detection Neisseria gonorrhea DNA probe, direct Lab Routine Screen for STD (sexually transmitted disease) Ordered: 07/03/2023 [facility] Comment on above: Ordered: 07/03/2023 SURESWAB(R) ADVANCED VAGINITIS PLUS, TMA SURESWAB(R) ADVANCED VAGINITIS PLUS, TMA Pathology and Cytology Routine Screen for STD (sexually transmitted disease) Ordered: 07/03/2023 [facility] Work Phone: Comment on above: Ordered: 07/03/2023 Payers Date Payer Category Payer Medicaid [employer] [facility] [id number] 2022-Present [address] [address] [place] [address] [id number] 1990 Unknown [id number] 2.16.840.1.962458.3.579.2. 593 1990 Unknown [id number] 2.16.840.1.776882.3.579.2. 1258 1990 Unknown [id number] 2.16.840.1.482121.3.579.2. 1258 1990 Unknown [id number] 2.16.840.1.491620.3.579.2. 1258 1990 Unknown [id number] 2.16.840.1.956162.3.579.2. 1258 1990 Unknown [id number] 2.16.840.1.416830.3.579.2. 1258 1990 Unknown [id number] 2.16.840.1.756728.3.579.2. 1258 1990 Unknown [id number] 2.16.840.1.337503.3.579.2. 9 1990 Unknown [id number] 2.16.840.1.100809.3.579.2. 1258 1990 Unknown [id number] 2.16.840.1.444065.3.579.2. 9 1990 Unknown [id number] 2.16.840.1.009128.3.579.2. 1258 1990 Unknown [id number] 2.16.840.1.799433.3.579.2. 1258 1990 Unknown [id number] 2.16.840.1.266526.3.579.2. 1258 1990 Unknown [id number] 2.16.840.1.903482.3.579.2. 1259 1959 Private Health Insurance [id number] 1959 Unknown [id number] Social History Date Type Detail Facility Tobacco smoking stat [facility] Tobacco smoking consumption unknown [facility] Start: 01-23-2023 [facility] Start: 1990 Sex Assigned At Female [facility] Start: 05-01-2023 Gender identity Identifies as female gender (finding) [facility] Start: 05-01-2023 Sexual orientation Heterosexual (fin ding) [facility] History of Present illness Narrative 07-03-2023 Lizbetareli Pfeiffer LPN - 07/03/2023 10:50 AM EST [...] nursing note reviewed. Exam conducted with a pharmacy tech customer service present. Vitals: There is no height or [...] obtained without difficulty and patient was given [facility] order to have obtained. Follow Up: Patient [...] content) DATE CREATED AUTHOR 06/17/2021 [facility] DATE CREATED AUTHOR AUTHOR'S ORGANIZ ATION 10/24/2023 [facility] dical Specialists EPIC Reason for Visit (unrecogniz ed section and content) Reason Comments Routine Visit Care Teams (unrecognized sec tion and content) Structural Engineering Project Manager Relationship Specialty Start Date End Date Иван Nur MD [address] [place] [address] PCP - General Family Medicine 05/03/23 Structural Engineering Project Manager Relationship Specialty Start Date End Date Иван Nur MD [address] [place] [address] PCP - General Family Medicine 05/03/23 FOR [...] BE BASED ON THE PRIMARY CLINICAL RECORDS. [facility]. provides no warranty or guarantee of the accuracy or completeness of information in this document.
--- NOTE | 2023-10-30 12:41 | PC.NURSE ---
Merle and 6 day old Ray arrive for follow up appointment. Merle VSS and assessment WNL. Milk is in and continues to use shield for latching. Has no concerns about care for self but would like to stop using the shield for feeds. Baby Ray with VSS and assessment WNL. Weight is up from discharge, 6-8 yellow stools and frequently feeding. Every 2 hours wakes for feed, nurses 20 min 1 breast and 15 on second breast using the shield. Baby to breast without shield and with asymmetrical latch and positioning latches easily without the shield. Parents surprised with latching. Baby released latch X2 and re latched easily. Mom confident in ability to continue feeding without shield. Aware of [facility] group and plans to attend 11/06/2023 for weight check and support.
== END 2023-10-30 12:47 | disposition home or self-care (01) ==
LOC: FBCO 12:13
PROVIDERS: PCP Family Medicine; Visit Provider Obstetrics & Gynecology
DX: Z39.2 Encounter for routine postpartum follow-up (principal)

== ENCOUNTER 2024-01-17 19:08 | Outpatient (REF) | payer OTHER, SELFPAY ==
--- OUTSIDE RECORDS SUMMARY | 2024-01-17 19:12 | XMS_ITS | CCD ---
Author Organization [facility] Care Team Providers Care Pumper Gauger Name Role Phone DR ИВАН NUR Attending Unavailable LIUDMILA, DR OATES Consulting Unavailable DR ИВАН NUR Admitting Unavailable Иван Nur MD Primary Care Provider [phone] PAIGE JHON Attending Unavailable PAIGE, JHON Attending Unavailable DEBI, ISA Attending Unavailable PAIGE, JHON Attending Unavailable DEBI, ISA Attending Unavailable PAIGE, JHON Attending Unavailable PAIGE, JHON Attending Unavailable DEBI, ISA Attending Unavailable PAIGE, JHON Attending Unavailable DEBI, ISA Attending Unavailable PAIGE, JHON Attending Unavailable PAIGE, JHON Attending Unavailable DEBI, ISA Attending Unavailable Allergies Allergy Classification Reported Allergen(s) [...] ASSOCIATED BACTERIA 2, 3); MOBILUNCUS SPP 0 [facility] BVAB 2,3 (BACTERIAL VAGINOSIS ASSOCIATED BACTERIA 2, 3); MOBILUNCUS SPP Not detected [facility] CHLAMYDIA TRACHOMATIS 0 [facility] CHLAMYDIA TRACHOMATIS Not detected [facility] GARDNERELLA VAGINALIS 0 [facility] GARDNERELLA VAGINALIS Not detected [facility] NEISSERIA GONORRHOEAE 0 [facility] NEISSERIA GONORRHOEAE Not detected [facility] TRICHOMONAS VAGINALIS 0 [facility] TRICHOMONAS VAGINALIS Not detected [facility] Urinalysis macro (dipstick) panel (U)on 07-03-2023 Bilirubin, UA Negative Negative - 4(70) +++ mg/dL [facility] Blood, UA Negative Negative - 50 Farzad/mcL [facility] Clarity, UA Clear [facility] re Color, UA Yellow [facility] Glucose, UA Negative Negative - 2000(110) ++++ mg/dL [facility] Interpretation and review of laboratory results Normal [facility] Ketones, UA Negative Negative - 160(16) ++++ mg/dL [facility] Leukocytes, UA Negative Negative - 500+++ Donnell/mcL [facility] Nitrite, UA Negative Negative - Positive [facility] pH, UA 6.0 5 - 9 [facility] e Protein, UA Negative Negative - 1999(20) ++++ mg/dL [facility] Spec Grav, UA 1.020 1 - 1.03 [facility] Urobilinogen, UA 0.2 0.2 - 12 mg/dL [facility] Cytology Cervical or vaginal smear or scraping studyon 12-05-2022 [facility] Covid-19 PCR ([facility])on 04-20 SARS-CoV-2 (COVID-19) RNA JOSEFINA+probe Ql (Unsp spec) Not detected Normal NOT DETECTED [facility] Comment on above: Result Comment: This test is not yet approved or cleared by the [place] FDA. When there are no FDA-approved or cleared tests available, and other criteria are met, FDA can make tests available under an emergency access mechanism called an Emergency Use Authorization (EUA). The EUA for this test is supported by the [place] of Health and Human Service's (HHS's) declaration [...] consistent with SARS-CoV-2. Performed By: #### C [facility] #### [facility] [address] [place] [address] Dr. Sebastián Santo Vital Signs Date Time Vital Sign Value Performing Clinician Ubaldo antoine 07-03-2023 10:39-0500 Body weight 92.08 kg [employer] Work Phone: [facility] 07-03-2023 10:39-0500 Diastolic blood pressure 62 mm[Hg] [employer] Work Phone: [facility] 07-03-2023 10:390500 Systolic blood pressure 110 mm[Hg] Jhon Paige DO Work Phone: [facility] Healthcare Encounters Encounter Date Encounter Type Care Provider Facility Start: 12-03-2023 End: 12-03-2023 ambulatory ISA DEBI Not Available Start: 10-23-2023 End: 10-23-2023 ambulatory JHON PAIGE [...] Result Encounter Jhon Paige DO Work Phone: [facility] External Department Unsolicited Start: 07-03-2023 End: 07-03-2023 Office outpatient visit 15 minutes Jhon Paige DO Work Phone: [facility] BCP OB Comment on above: Second [...] stick/tabl et rgnt non-auto w/o micrscp Jhon [facility] DO Work Phone: Start: 12-05-2022 Microscopic observat ion [Identifier] in Cervix by Cyto stain Jhon Paige DO Work Phone: Start: 12-05-2022 Cytp cerv/vag auto t hin layer prep mnl screen [facility] DO Work Phone: Plan of Treatment Date Care Activity Detail Author Start: 12-06-2027 Screening for malign ant neoplasm of cervix [facility] Healthcare Start: 07-24-2023 End: 07-24-2023 Patient encounter procedure 07/24/2023 10:00 AM EST Routine [facility] [address] [place] [address] Isa Avendano PA [address] [address] [facility] Start: 07-03-2023 End: 07-03-2024 CBC panel - Blood by Automated count CBC Lab Routine Diabetes mellitus screening Expected: 07/03/2023 (Approximate), Expires: 07/03/2024 [facility] Comment on above: Expected: 07/03/2023 (Approximate), Expires: 07/03/2024 Start: 07-03-2023 End: 07-03-2024 Measurement of glucose 1 hour after glucose challenge for glucose tolerance test Glucose tolerance, 1 hour Lab Routine Diabetes mellitus screening Expected: 07/03/2023 (Approximate), Expires: 07/03/2024 [facility] Comment on above: Expected: 07/03/2023 (Approximate), Expires: 07/03/2024 Start: 01-19-2023 Influenza vaccination Influenza Vacc ine (#1) [facility] CHLAMYDIA TRACHOMATI S (GENITO/STI) CHLAMYDIA TRACHOMATIS (GENITO/STI) Lab Routine Screen for STD (sexually transmitted disease) Ordered: 07/03/2023 [facility] Comment on above: Ordered: 07/03/2023 Neisseria gonorrhoea e DNA [Presence] in Unspecified specimen by JOSEFINA with probe detection Neisseria gonorrhea DNA probe, direct Lab Routine Screen for STD (sexually transmitted disease) Ordered: 07/03/2023 [facility] Comment on above: Ordered: 07/03/2023 SURESWAB(R) ADVANCED VAGINITIS PLUS, TMA SURESWAB(R) ADVANCED VAGINITIS PLUS, TMA Pathology and Cytology Routine Screen for STD (sexually transmitted disease) Ordered: 07/03/2023 [facility] Work Phone: Comment on above: Ordered: 07/03/2023 Payers Date Payer Category Payer Medicaid [employer] [facility] [id number] 2022-Present [address] [address] [place] [address] [id number] 1990 Unknown [id number] [id number]. 593 1990 Unknown [id number] 2.16840.1.919450.3.579.2. 1258 1990 Unknown [id number] 2.16840.1.964836.3.579.2. 1258 1990 Unknown [id number] 2.16.840.1.282381.3.579.2. 1258 1990 Unknown [id number] 2.16.840.1.169370.3.579.2. 1258 1990 Unknown [id number] 2.16.840.1.609024.3.579.2. 1258 1990 Unknown [id number] 2.16.840.1.207059.3.579.2. 1258 1990 Unknown [id number] 2.16.840.1.711410.3.579.2. 9 1990 Unknown [id number] 2.16.840.1.928681.3.579.2. 1258 1990 Unknown [id number] 2.16.840.1.576415.3.579.2. 1258 1990 Unknown [id number] 2.16.840.1.814868.3.579.2. 1258 1990 Unknown [id number] 2.16.840.1.544603.3.579.2. 1258 1990 Unknown [id number] 2.16.840.1.303011.3.579.2. 1258 1990 Unknown [id number] 2.16.840.1.232569.3.579.2. 1258 1990 Unknown [id number] 2.16.840.1.643295.3.579.2. 9 1959 Private Health Insurance [id number] 1959 Unknown [id number] Social History Date Type Detail Facility Tobacco smoking stat [facility] Tobacco smoking consumption unknown [facility] Start: 01-23-2023 [facility] Start: 1990 Sex Assigned At Female [facility] Start: 05-01-2023 Gender identity Identifies as female gender (finding) [facility] Start: 05-01-2023 Sexual orientation Heterosexual (fin ding) [facility] History of Present illness Narrative 07-03-2023 [...] nursing note reviewed. Exam conducted with a problem manager present. Vitals: There is no height or [...] without difficulty and patient was given [facility] order to have obtained. Follow Up: Patient [...] pital DATE CREATED AUTHOR AUTHOR'S ORGANIZ ATION 12/07/2023 [facility] EPIC Reason for Visit (unrecogniz ed section and content) Reason Comments Routine Visit Care Teams (unrecognized sec tion and content) Pumper Gauger Relationship Specialty Start Date End Date Иван Nur MD [address] [place] [address] PCP - General Family Medicine 05/03/23 Pumper Gauger Relationship Specialty Start Date End Date Иван Nur MD [address] [place] [address] PCP - General Family Medicine 05/03/23 FOR [...] BE BASED ON THE PRIMARY CLINICAL RECORDS. [facility] [employer] [facility]. provides no warranty or guarantee of the accuracy or completeness of information in this document.
[2024-01-23 13:08] LABS: Age Gdln ACOG Testing Note (.); HPV Aptima Negative (Negative); IGP, Aptima HPV, rfx 16/18,45 Note (.)
== END 2024-01-17 19:09 | disposition home or self-care (01) ==
LOC: LAB 19:08
PROVIDERS: PCP Family Medicine; Visit Provider Physician Assistant
DX: Z01.419 Encounter for gynecological examination (general) (routine) without abnormal findings (principal)
CPT/HCPCS: 87624; 88175

== ENCOUNTER 2024-07-29 11:46 | Outpatient (RCR) | payer OTHER, SELFPAY | END 2024-08-18 13:04 | disposition home or self-care (01) | LOC: LAB 11:46 | PROVIDERS: PCP Family Medicine; Visit Provider Obstetrics & Gynecology | DX: N92.6 Irregular menstruation, unspecified (principal) | CPT/HCPCS: 36415; 84702 ==

== ENCOUNTER 2024-09-01 13:07 | Outpatient (OUT) | payer OTHER, SELFPAY ==
[2024-09-01 13:57] LABS: Basophils Percent Auto 0.3 % (0.2-2.0); Eosinophils Absolute Auto 0.1 10^3/uL (0.0-0.7); Eosinophils Percent Auto 0.6 % (0.9-7.0); Hematocrit 36.4 % (36.0-48.0); Hemoglobin 11.9 g/dL (12.0-16.0); Immature Granulocytes Abs Auto 0.02 10^3/uL (0.00-0.03); Immature Granulocytes Pct Auto 0.3 % (0.0-0.5); Lymphocytes Absolute Auto 1.6 10^3/uL (1.2-3.8); Lymphocytes Percent Auto 20.7 % (20.5-60.0); Mean Corpuscular HGB Conc 32.7 g/dL (29.9-35.2); Mean Corpuscular Hemoglobin 27.7 pg (26.7-34.0); Mean Corpuscular Volume 84.8 fL (81.0-99.0); Monocytes Absolute Auto 0.4 10^3/uL (0.3-0.8); Monocytes Percent Auto 5.4 % (1.7-12.0); Neutrophils Absolute Auto 5.8 10^3/uL (1.4-6.5); Neutrophils Percent Auto 72.7 % (43.0-75.0); Platelet Count 277 10^3/uL (150-450); Red Blood Count 4.29 10^6/uL (4.20-5.40); Red Cell Distribution Width 12.8 % (11.0-15.0); White Blood Count 7.9 10^3/uL (4.0-11.0)
[2024-09-01 14:00] LABS: Estimated Average Glucose 103 mg/dL; Glycohemoglobin A1C 5.2 % (4.5-6.2)
[2024-09-01 14:49] LABS: Amphetamine Screen Urine NEGATIVE (NEGATIVE); Barbiturates Screen Urine NEGATIVE (NEGATIVE); Benzodiazepines Screen Urine NEGATIVE (NEGATIVE); Buprenorphine Screen Urine NEGATIVE (NEGATIVE); Cannabinoid Screen Urine NEGATIVE (NEGATIVE); Cocaine Screen Urine NEGATIVE (NEGATIVE); Methadone Screen Urine NEGATIVE (NEGATIVE); Methamphetamines Screen Urine NEGATIVE (NEGATIVE); Opiate Screen Urine NEGATIVE (NEGATIVE); Oxycodone Screen Urine NEGATIVE (NEGATIVE); Phencyclidine Screen Urine NEGATIVE (NEGATIVE); Tricyclic Antidepressant Urine NEGATIVE (NEGATIVE)
[2024-09-01 16:43] LABS: BOX Test Reference Lab UNITY; BOX Test Sent Out UNITY BOX
[2024-09-02 06:07] LABS: HIV Ab/p24 Ag Screen Non Reactive (Non Reactive)
[2024-09-02 07:07] LABS: HBsAg Screen Negative (Negative); HCV Ab Non Reactive (Non Reactive)
[2024-09-02 12:08] LABS: Rapid Plasma Reagin, Quant Non Reactive titer (NonRea<1:1)
== END 2024-09-01 13:08 | disposition home or self-care (01) ==
LOC: LAB 13:10
PROVIDERS: PCP Family Medicine; Visit Provider Obstetrics & Gynecology
DX: Z34.01 Encounter for supervision of normal first pregnancy, first trimester (principal); Z36.0 Encounter for antenatal screening for chromosomal anomalies; N92.6 Irregular menstruation, unspecified
CPT/HCPCS: 36415; 80307; 83036; 85025; 86592; 86762; 86803; 86850; 86900; 86901; 87086; 87340; 87389

== ENCOUNTER 2024-11-01 10:33 | Outpatient (OUT) | payer OTHER, SELFPAY ==
--- OUTSIDE RECORDS SUMMARY | 2024-11-01 10:37 | XMS_ITS | CCD ---
Author Organization [facility] Care Team Providers Care Hoop Machine Operator Name Role Phone DR ИВАН MURPHY Attending Unavailable DR ИВАН MURPHY Consulting Unavailable DR ИВАН MURPHY Admitting Unavailable Иван Murphy MD Primary Care Provider [phone] Иван Murphy MD Primary Care Provider [phone] JHON GIBSON Attending Unavailable JHON GIBSON Attending Unavailable JHON GIBSON Attending Unavailable ISA CARRERA Attending Unavailable ISA CARRERA Attending Unavailable Allergies Allergy Classification Reported Allergen(s) Allergy Type Date of Onset Reaction(s) Facility (16 sources) [facility] Propensity to adverse reactions 4 [facility] Work Phone: Medications Current Medications Medication Drug Class(es) Dates Sig (Normalized) Sig (Original) diphenhydrAMINE hydrochloride 25 mg oral tablet (5 sources) Histamine-1 Receptor Antagonist diphenhydrAMINE (BENADryl) 25 MG tablet Take 25 mg by mouth as needed at bedtime for itching Active magnesium oxide 400 mg oral tablet (3 sources) Start: 05-03-2023 End: 08-31-2023 take 1 tablet by mouth once in the morning magnesium oxide (Mag-Ox) 400 mg tablet Indications: Second trimester Take 1 tablet (400 mg) by mouth in the morning. 30 tablet 3 05/03/2023 08/31/2023 Active norethindrone 0.35 mg oral tablet (7 sources) Start: 12-03-2023 End: 12-02-2024 take 1 tablet by mouth once daily norethindrone (Micronor) 0.35 MG tablet Indications: 6 weeks follow-up Take 1 tablet (0.35 mg) by mouth Daily 28 tablet 11 12/03/2023 08/15/2024 Discontinued (Ineffective) pramipexole dihydrochloride 0.125 mg oral tablet (3 sources) Nonergot Dopamine Agonist Start: 02-05-2023 take 2 tablets by mouth once daily at bedtime pramipexole (Mirapex) 0.125 MG tablet TAKE 2 TABLETS BY MOUTH EVERY DAY AT BEDTIME 0 02/05/2023 Active Completed/Discontinued Medications Medication Drug Class(es) Dates Sig (Normalized) Sig (Original) citalopram 20 mg oral tablet (10 sources) Serotonin Reuptake Inhibitor Start: 12-03-2023 End: 09-15-2024 take 1 tablet by mouth once daily citalopram (CeleXA) 20 MG tablet Indications: 6 weeks follow-up Take 1 tablet (20 mg) by mouth Daily 30 tablet 5 12/03/2023 09/15/2024 Discontinued venlafaxine 75 mg oral tablet (9 sources) Serotonin and Norepinephrine Reuptake Inhibitor Start: 01-17-2024 End: 09-15-2024 take 1 tablet by mouth once daily venlafaxine (Effexor) 75 MG tablet Indications: Anxiety, generalized (CMS/HCC) Take 1 tablet (75 mg) by mouth Daily 30 tablet 2 01/17/2024 09/15/2024 Discontinued Problems Active Problems Problem Classification Problem Date Documented Date Episodic/Chronic Anxiety disorders (2 sources) Generalized anxiety disorder; Translations: [Generalized anxiety disorder] 01-17-2024 Chronic Immunizations and screening for infectious disease (6 sources) Patient encounter status; Translations: [Encounter for screening for infections with a predominantly sexual mode of transmission] 07-03-2023 Episodic Menstrual disorders (1 source) Missed period; Translations: [Irregular menstruation, unspecified] 08-15-2024 Chronic Other and delivery including normal (7 sources) Second trimester ; Translations: [Encounter for supervision of normal , unspecified, second trimester] 06-29-2023 Episodic Other upper respiratory infections (1 source) Acute pharyngitis, unspecified; Translations: [ACUTE PHARYNGITIS UNSPECIFIED] Onset: 05-07-2021 Episodic Polyhydramnios and other problems of amniotic cavity (2 sources) Subchorionic hematoma; Translations: [Other specified disorders of amniotic fluid and membranes, second trimester, not applicable or unspecified] 09-15-2024 Episodic Residual codes; unclassified (1 source) Gestation period, 11 weeks; Translations: [11 weeks gestation of ] 08-15-2024 Episodic Residual codes; unclassified (2 sources) Gestation period, 16 weeks; Translations: [16 weeks gestation of ] 09-15-2024 Episodic Residual codes; unclassified (1 source) Gestation period, 20 weeks; Translations: [20 weeks gestation of ] 10-16-2024 Episodic Unclassified (3 sources) CONTACT W/AND (SUSP) EXPOS COVID-19; Translations: [CONTACT W/AND (SUSP) EXPOS COVID-19] Onset: 05-07-2021 Past or Other Problems Problem Classification Problem Date Documented Da te Episodic/Chronic Blindness and vision defects (2 sources) Blurring of visual image; Translations: [Other visual disturbances] 01-17-2024 Episodic Conditions associated with dizziness or vertigo (2 sources) Dizziness; Translations: [Dizziness and giddiness] 01-17-2024 Episodic Prolonged (13 sources) Post-term of 40 to 42 weeks; Translations: [Post-term ] Onset: 10-16-2023 10-16-2023 Episodic Residual codes; unclassified (13 sources) Gestation period, 40 weeks; Translations: [40 weeks gestation of ] Onset: 10-16-2023 10-16-2023 Episodic Unclassified (1 source) CONTACT W/AND (SUSP) EXPOS COVID-19; Translations: [CONTACT W/AND (SUSP) EXPOS COVID-19] Onset: 05-03-2021 Results Test Name Value Interpretation Reference Range Facility RECURRENT VAGINITIS (HTRX)on 10-17-2024 [facility]AE [facility] ATOP[facility]BI[facility] VAGINAE Not detected [facility] Healthcare BVAB 2,3 (BACTERIAL VAGINOSIS ASSOCIATED BACTERIA 2, 3); MOBILUNCUS SPP 0 [facility] BVAB 2,3 (BACTERIAL VAGINOSIS ASSOCIATED BACTERIA 2, 3); MOBILUNCUS SPP Not detected [facility] AQUILINO ALBICANS, PARAPSILOSIS, TROPICALIS 0 [facility] AQUILINO ALBICANS, PARAPSILOSIS, TROPICALIS Not detected [facility] Healthcare AQUILINO GLABRATA 0 [facility] AQUILINO GLABRATA Not detected [facility] KRUSEI Not detected [facility] CHLAMYDIA TRACHOMATIS 0 [facility] CHLAMYDIA TRACHOMATIS Not detected [facility] GARDNERELLA VAGINALIS 0 [facility] GARDNERELLA VAGINALIS Not detected [facility] MEGASPHAERA (TYPES 1, 2) 0 [facility] MEGASPHAERA (TYPES 1, 2) Not detected [facility] MYCOPLASMA GENITALIUM 0 [facility] MYCOPLASMA GENITALIUM Not detected [facility] NEISSERIA GONORRHOEAE 0 [facility] NEISSERIA GONORRHOEAE Not detected [facility] TRICHOMONAS VAGINALIS 0 [facility] TRICHOMONAS VAGINALIS Not detected [facility] Urinalysis macro (dipstick) panel (U)on 10-16-2024 Bilirubin, UA Negative Negative - 4(70) +++ mg/dL [facility] Blood, UA Negative Negative - 50 Farzad/mcL [facility] Clarity, UA Clear [facility], UA Yellow [facility] Healthcar e Glucose, UA Negative Negative - 1999(110) ++++ mg/dL [facility] Interpretation and review of laboratory results Abnormal [facility] Ketones, UA Negative Negative - 160(16) ++++ mg/dL [facility] Leukocytes, UA Trace Negative - 500+++ Donnell/mcL [facility] Nitrite, UA Negative Negative - Positive [facility] pH, UA 7 5 - [facility] Protein, UA Negative Negative - 1999(20) ++++ mg/dL [facility] Spec Grav, UA 1.015 1 - 1.03 [facility] Urobilinogen, UA 0.2 0.2 - 12 mg/dL [facility] OB FOLLOW UP TRANSABDOMIN AL APPROACHon 09-15-2024 US OB FOLLOW UP TRANSABDOMINAL APPROACH EXAM: US OB FOLLOW UP TRANSABDOMINAL APPROACH HISTORY: Follow up endometrial cyst versus subchorionic hemorrhage. ANTONIO 03/01/2025. . COMPARISON: U/S Ob 08/15/2024 TECHNIQUE: Two-dimensional transvaginal grayscale, color and spectral Doppler ultrasound imaging of the pelvis was performed. FINDINGS: The uterus demonstrates a normal homogeneous echotexture. The cervical os is closed. No fluid is present within the cul-de-sac. There is a single, live intrauterine gestation identified with a heart rate of 132 beats per minute and a crown-rump length measurement of 10.6 cm, correlating to a gestational age of 16 weeks 3 days (+/- 10 days). There is no subchorionic hemorrhage visualized. A yolk sac is not visualized. A posterior placenta is noted. IMPRESSION: 1. Single, live intrauterine gestation 16 weeks, 1 days by LMP. Today's ultrasound measurements correlate with a gestational age of 16 weeks 3 days (+/- 10 days). The cystic structure visualized adjacent to the gestational sac on the prior study is not appreciated on today's exam. Interpreted by: Electronically signed by WILLIS FITZPATRICK II, MD, PHD at 16-Sep-2024 07:13:40 PM [facility] Normal Not Available Comment on above: Order Comment: Estim ated Date of Delivery: 03/01/25 Gestational Age as of 09/15/2024: 16w1d Urinalysis macro (dipstick) panel (U)Ordered By: Steph Brooks on 09-15-2024 Bilirubin, UA Negative Negative - 4(70) +++ mg/dL [facility] [employer] Work Phone: Blood, UA Negative Negative - 50 Farzad/mcL [facility] [employer] Work Phone: Clarity, UA Clear [employer] Work Phone: Color, UA Yellow [employer] [facility] Work Phone: Glucose, UA Negative Negative - 1999(110) ++++ mg/dL [employer] Work Phone: Interpretation and review of laboratory results Normal [facility] [employer] Work Phone: Ketones, UA Negative Negative - 160(16) ++++ mg/dL [employer] Work Phone: Leukocytes, UA Negative Negative - 500+++ Donnell/mcL [employer] [facility] Work Phone: Nitrite, UA Negative Negative - Positive [employer] Work Phone: pH, UA 7 5 - 9 [employer] Work Phone: Protein, UA Negative Negative - 2000(20) ++++ mg/dL [employer] Work Phone: Spec Grav, UA 1.02 1 - 1.03 [facility] [employer] care Work Phone: Urobilinogen, UA 0.2 0.2 - 12 mg/dL [facility] [employer] Work Phone: [facility] [employer] Work Phone: MLR HEMOGLOBIN A1Con 025 Glucose [Mass/Vol] 103 mg/dL [facility] HbA1c (Bld) [Mass fraction] 5.2 % 4.5 - 6.2 % [facility] Comment on above: ADA RECOMMENDED LIMI T 4.0 - 6.0 ADA THERAPEUTIC TARGET < 7.0 ACTION SUGGESTED > 7.0 [facility] [employer] HCG ( test) Ql (U)o n 08-15-2024 Interpretation and review of laboratory results Abnormal [facility] Preg Test, Ur Positive Negative [facility] US OB TRANSVAGINALon 025 US OB TRANSVAGINAL EXAM: US OB TRANSVAGINAL HISTORY: Dating. COMPARISON: None available. TECHNIQUE: Two-dimensional transvaginal grayscale ultrasound imaging of the pelvis was performed. Color Doppler evaluation of the ovaries was also performed. FINDINGS: The uterus demonstrates a normal homogeneous echotexture. The cervix measures 3.6 cm in length and the cervical os is closed. The right ovary measures 2.5 x 1.3 x 1.5 cm and demonstrates a normal echotexture. There is normal color Doppler flow. The left ovary measures 2.8 x 2.1 x 2.2 cm and demonstrates a normal echotexture. There is normal color Doppler flow. There is a presumed corpus luteal cyst visualized. No fluid is present within the cul-de-sac. There is a single, live intrauterine gestation identified with a heart rate of 169 beats per minute and a crown-rump length measurement of 5 cm, correlating to a gestational age of 11 weeks 5 days (+/- 7 days). There is a 1.7 cm cystic structure adjacent to the gestational sac. A yolk sac is visualized. IMPRESSION: 1. Single, live intrauterine gestation with today's ultrasound measurements correlating to a gestational age of 11 weeks 5 days (+/- 7 days). ANTONIO by today's ultrasound is 03/01/2025. 2. Cystic structure adjacent to the gestational sac. This may represent a subchorionic hemorrhage or an endometrial cyst. A short-term follow-up ultrasound is recommended to monitor for resolution. 3. Normal color Doppler evaluation of the bilateral ovaries. Electronically Signed:Electronically signed by WILLIS FITZPATRICK II, MD, PHD at 18-Aug-2024 10:45:55 AM [facility] Normal Not Available Comment on above: Order Comment: US OB TRANSVAGINAL No LMP recorded. Urinalysis macro (dipstick) panel (U)on 08-15-2024 Bilirubin, UA Negative Negative - 4(70) +++ mg/dL [facility] Blood, UA Negative Negative - 50 Farzad/mcL [facility] Clarity, UA Clear [facility] [employer] Color, UA Yellow [facility] [employer] Glucose, UA Negative Negative - 1999(110) ++++ mg/dL [facility] Interpretation and review of laboratory results Normal [facility] Ketones, UA Negative Negative - 160(16) ++++ mg/dL [facility] Leukocytes, UA Negative Negative - 500+++ Donnell/mcL [facility] Nitrite, UA Negative Negative - Positive [facility] pH, UA 6 5 - 9 [facility] [employer] Protein, UA Negative Negative - 1999(20) ++++ mg/dL [facility] Spec Grav, UA 1.02 1 - 1.03 [facility] Urobilinogen, UA 0.2 0.2 - 12 mg/dL [facility] [employer] [facility] Healthcar e TBH PREG QUANT HCGon 025 HCG QUANTITATIVE 95838 mIU/mL [facility] Comment on above: 5-50 0.2-1 WEEK 50-500 1-2 WEEKS 100-5,000 2-3 WEEKS 500-10,000 3-4 WEEKS 1,000-50,000 4-5 WEEKS 10,000-100,000 5-6 WEEKS 15,000-200,000 6-8 WEEKS 10,000-100,000 2-3 MONTHS [facility] TBH PREG QUANT HCGon 025 HCG QUANTITATIVE 26577 mIU/mL [facility]care Comment on above: 5-50 0.2-1 WEEK 50-500 1-2 WEEKS 100-5,000 2-3 WEEKS 500-10,000 3-4 WEEKS 1,000-50,000 4-5 WEEKS 10,000-100,000 5-6 WEEKS 15,000-200,000 6-8 WEEKS 10,000-100,000 2-3 MONTHS [facility] [employer] IGP,APTIMA HPV,AGE GDLNon AGE GDLN ACOG TESTING Note . [facility] Comment on above: TESTS RESULT FLAG UN ITS REF RANGE LAB Clinician Provided Cytology Information Source.............Cervix;Endocervix No. of containers..01 ThinPrep Vial Age Algo ACOG Tatianan... FLAG LEGEND: L-Low Normal,H-High Normal,LL-Alert Low,HH-Alert High <-Panic Low,>-Panic High,A-Abnormal,AA-Critical Abnormal Performed at: 01 =[address] [id number] Betty Rodriguez MD, HPV APTIMA Negative Negative [facility] [employer] Comment on above: This nucleic acid am plification test detects fourteen high- risk HPV types (16,18,31,33,35,39,45,51,52,56,58,59,66,68) without differentiation. Performed at: =[address] [id number] Courtesy Car Driver: Betty Rodriguez MD, Phone: [phone] Performed at: [address] [place] [id number] Courtesy Car Driver: Betty Rodriguez MD, Phone: [phone] IGP, APTIMA HPV, RFX 16/18,45 Note . [facility] Comment on above: TESTS RESULT FLAG UN ITS REF RANGE LAB DIAGNOSIS: 02 NEGATIVE FOR INTRAEPITHELIAL LESION OR MALIGNANCY. Specimen adequacy: 02 Satisfactory for evaluation. No endocervical component is identified. Performed by: Rhiannon Garcia, Game Protector . 02 Note: Note 02 The Pap smear is a screening test designed to aid in the detection of premalignant and malignant conditions of the uterine cervix. It is not a diagnostic procedure and should not be used as the sole means of detecting cervical cancer. Both false-positive and false-negative reports do occur. Test Methodology: Note 02 The [employer](R[employer] Abrading Machine Tender was unable to read this specimen. Therefore a manual review was performed. FLAG LEGEND: L-Low Normal,H-High Normal,LL-Alert Low,HH-Alert High <-Panic Low,>-Panic High,A-Abnormal,AA-Critical Abnormal Performed at: 02 [facility] [address] [place] [address] Betty Rodriguez MD, HPV Genotype Reflex Note 02 Criteria not met, HPV Genotype not performed. Criteria not met, HPV Genotype not performed. BRUSH-SPATULA CERVIX ENDOCERVIX [facility] Healthcar e VAGINITIS (HTRX)on BVAB 2,3 (BACTERIAL VAGINOSIS ASSOCIATED BACTERIA 2, 3); MOBILUNCUS SPP 0 [facility] BVAB 2,3 (BACTERIAL VAGINOSIS ASSOCIATED BACTERIA 2, 3); MOBILUNCUS SPP Not detected [facility] CHLAMYDIA TRACHOMATIS 0 [facility] CHLAMYDIA TRACHOMATIS Not detected [facility] GARDNERELLA VAGINALIS 0 [facility] GARDNERELLA VAGINALIS Not detected [facility] NEISSERIA GONORRHOEAE 0 [facility] NEISSERIA GONORRHOEAE Not detected [facility] TRICHOMONAS VAGINALIS 0 [facility] TRICHOMONAS VAGINALIS Not detected [facility] Urinalysis macro (dipstick) panel (U)on 07-03-2023 Bilirubin, UA Negative Negative - 4(70) +++ mg/dL [facility] Blood, UA Negative Negative - 50 Farzad/mcL [facility] Clarity, UA Clear [facility] re Color, UA Yellow [facility] e Glucose, UA Negative Negative - 1999(110) ++++ mg/dL [facility] Interpretation and review of laboratory results Normal [facility] Ketones, UA Negative Negative - 160(16) ++++ mg/dL [facility] Leukocytes, UA Negative Negative - 500+++ Donnell/mcL [facility] Nitrite, UA Negative Negative - Positive [facility] pH, UA 6.0 5 - 9 [facility] e Protein, UA Negative Negative - 1999(20) ++++ mg/dL [facility] Spec Grav, UA 1.020 1 - 1.03 [facility] Urobilinogen, UA 0.2 0.2 - 12 mg/dL [facility] Cytology Cervical or vaginal smear or scraping studyon 12-05-2022 [facility] Covid-19 PCR (CVDTB)on 04-20 SARS-CoV-2 (COVID-19) RNA JOSEFINA+probe Ql (Unsp [...] for this test is supported by the [place] of Health and Human Service's (HHS's) declaration [...] SARS-CoV-2. Performed By: #### C [facility] #### [facility] [address] [place] [address] Dr. Sebastián Santo Vital Signs Date Time Vital Sign Value Performing Clinician Ubaldo lity 10-16-2024 10:34-0400 Body weight 95.94 kg Jhon Paige DO Work Phone: [facility] 10-16-2024 10:34-0400 Diastolic blood pressure 66 mm[Hg] Jhon Paige DO Work Phone: [facility] 10-16-2024 10:34-0400 Systolic blood pressure 100 mm[Hg] Jhon Paige DO Work Phone: [facility] 09-15-2024 11:39-0400 Body weight 94.4 kg Jhon Paige DO Work Phone: [facility] 09-15-2024 11:39-0400 Diastolic blood pressure 60 mm[Hg] Jhon Paige DO Work Phone: [facility] 09-15-2024 11:39-0400 Systolic blood pressure 100 mm[Hg] Jhon Paige DO Work Phone: [facility] 08-15-2024 10:30-0400 Body weight 92.53 kg [facility] Nurse [facility] 08-15-2024 10:30-0400 Diastolic blood pressure 72 mm[Hg] [facility] Nurse [facility] 08-15-2024 10:30-0400 Systolic blood pressure 118 mm[Hg] [facility] 01-17-2024 10:37-0400 Body weight 86.82 kg Isa LOERA Work Phone: [facility] 01-17-2024 10:37-0400 Diastolic blood pressure 74 mm[Hg] Isa LOERA Work Phone: [facility] 01-17-2024 10:37-0400 Systolic blood pressure 118 mm[Hg] Isa LOERA Work Phone: [facility] 07-03-2023 10:39-0500 Body weight 92.08 kg Jhon Paige DO Work Phone: [facility] 07-03-2023 10:39-0500 Diastolic blood pressure 62 mm[Hg] Jhon Paige DO Work Phone: [facility] 07-03-2023 10:39-0500 Systolic blood pressure 110 mm[Hg] Jhon Paige DO Work Phone: [facility] Healthcare Encounters Encounter Date Encounter Type Care Provider Facility Start: 10-16-2024 End: 10-16-2024 Bamboo flowsheet Jhon Paige DO Work Phone: [facility] Start: 10-16-2024 End: 10-17-2024 Bamboo flowsheet Jhon Paige DO Work Phone: [facility] Start: 10-16-2024 End: 10-17-2024 External Result Encounter Jhon Paige DO Work Phone: [facility] External Department Unsolicited Start: 10-16-2024 End: 10-16-2024 flow sheet Jhon Paige DO Work Phone: [facility] Comment on above: Screening, , for anatomic survey; Second trimester ; STD exposure; 20 weeks gestation of Start: 10-16-2024 End: 10-16-2024 ambulatory JHON PAIGE Not Available Start: 09-15-2024 End: 09-15-2024 Office outpatient visit 15 minutes Jhon Paige DO Work Phone: [facility] Comment on above: Subchorionic hematom a in second trimester, single or unspecified fetus; Second trimester ; 16 weeks gestation of Start: 09-15-2024 End: 09-15-2024 ambulatory JHON PAIGE Not Available Start: 09-01-2024 End: 09-01-2024 [facility] Result Encounter Jhon Paige DO Work Phone: [facility] External Department Unsolicited Start: 09-01-2024 End: 09-01-2024 [facility] Result Encounter Jhon Paige DO Work Phone: [facility] External Department Unsolicited Start: 08-15-2024 End: 08-15-2024 Office outpatient visit 5 minutes [facility] Pa[facility] Nurse [facility] Comment on above: GA: 11w5d Start: 08-15-2024 End: 08-15-2024 ambulatory JHON PAIGE Not Available Start: 07-31-2024 End: 07-31-2024 [facility] Result Encounter Jhon Paige DO Work Phone: [facility] External Department Unsolicited Start: 07-31-2024 End: 07-31-2024 [facility] Result Encounter Jhon Paige DO Work Phone: [facility] External Department Unsolicited Start: 07-29-2024 End: 07-29-2024 [facility] Result Encounter Hjon Paige DO Work Phone: [facility] External Department Unsolicited Start: 07-29-2024 End: 07-29-2024 [facility] Result Encounter Jhon Paige DO Work Phone: [facility] External Department Unsolicited Start: 01-17-2024 End: 01-17-2024 Bamboo flowsheet Isa LOERA Work Phone: [facility] Start: 01-17-2024 End: 01-23-2024 Bamboo flowsheet Isa LOERA Work Phone: [facility] Start: 01-17-2024 End: 01-23-2024 [facility] Result Encounter Isa LOERA Work Phone: [facility] External Department Unsolicited Start: 01-17-2024 End: 01-17-2024 Office outpatient visit 15 minutes Isa LOERA Work Phone: [facility] Comment on above: Well woman exam with routine gynecological exam; Anxiety, generalized (CMS/HCC); Dizziness; Vision blurred Start: 01-17-2024 End: 01-17-2024 Patient encounter procedure Isa LOERA Work Phone: [facility] Work Phone: Start: 01-17-2024 End: 01-17-2024 ambulatory ISA DEBI Not Available Start: 12-03-2023 End: 12-03-2023 ambulatory ISA CARRERA Not Available Start: 10-23-2023 End: 10-23-2023 ambulatory JHON PAIGE Not Available Start: 07-03-2023 External Result Encounter Core y Paige DO Work Phone: [facility] External Department Unsolicited Start: 07-03-2023 External Result Encounter Core y Paige DO Work Phone: [facility] External Department Unsolicited Start: 07-03-2023 End: 07-03-2023 Office outpatient visit 15 minutes Jhon Paige DO Work Phone: [facility] Comment on above: Second trimester pre gnancy; Screen for STD (sexually transmitted disease); Diabetes mellitus screening Start: 05-03-2021 End: 05-03-[address] ИВАН MURPHY Facility: Procedures Date Procedure Procedure Detail Performing Clinician Start: 10-16-2024 RECURRENT VAGINITIS (HTRX) Jhon Paige DO Work Phone: Start: 10-16-2024 Urnls dip stick/tabl et rgnt non-auto w/o micrscp Jhon Paige DO Work Phone: Start: 09-15-2024 Urnls dip stick/tabl et rgnt non-auto w/o micrscp Jhon Paige DO Work Phone: Start: 09-01-2024 MLR HEMOGLOBIN A1C Core y Paige DO Work Phone: Start: 08-15-2024 End: 08-15-2024 Urnls dip stick/tablet rgnt non-auto w/o micrscp Jhon Paige DO Work Phone: Start: 07-31-2024 [facility] Core y Paige DO Work Phone: Start: 07-29-2024 [facility] Core y Paige DO Work Phone: Start: 01-17-2024 IGP,APTIMA HPV,AGE GDLN Isa LOERA Work Phone: Start: 01-17-2024 Microscopic observat ion [Identifier] in Cervix by Cyto stain Jhon Desall DO Work Phone: Start: 07-03-2023 VAGINITIS (HTRX) Jhon xAd Work Phone: Start: 07-03-2023 Urnls dip stick/tabl et rgnt non-auto w/o micrscp Jhon Paige DO Work Phone: Start: 12-05-2022 Microscopic observat ion [Identifier] in Cervix by Cyto stain Jhon xAd Work Phone: Start: 12-05-2022 Cytp cerv/vag auto t hin layer prep mnl screen Jhon xAd Work Phone: Plan of Treatment Date Care Activity Detail Author Start: 12-06-2027 Screening for malign ant neoplasm of cervix [facility] Start: 12-05-2027 Screening for malign ant neoplasm of cervix [facility] Start: 01-16-2027 Screening for malign ant neoplasm of cervix Pap Smear [facility] Start: 01-26-2025 End: 01-26-2025 Patient encounter procedure 01/26/2025 11:00 AM EDT Office Visit [facility] [address] [place] [place] [id number] Isa Carrera PA [address] [place] [address] [facility] Start: 01-21-2025 End: 01-21-2025 Patient encounter procedure 01/21/2025 10:00 AM EDT Office Visit [facility] [address] [place] [place] [phone] Isa Carrera PA [address] [place] [address] [facility] Start: 01-19-2025 Influenza vaccination Influenz a Vaccine (Season Ended) [facility] Start: 11-17-2024 End: 11-17-2024 Patient encounter procedure 11/17/2024 10:10 AM EDT Routine [facility] [address] [place] [place] [phone] Jhon Gibson DO [address] [place] [address] [facility] Start: 10-16-2024 End: 11-16-2024 Alpha fetoprotein, maternal Alpha fetoprotein, maternal Lab Routine 20 weeks gestation of Expected: 10/16/2024 (Approximate), Expires: 11/16/2024 [facility] Comment on above: Expected: 10/16/2024 (Approximate), Expires: 11/16/2024 Start: 10-16-2024 End: 01-16-2025 US for US OB 14+ weeks anatomy scan Imaging Routine Screening, , for anatomic survey Expected: 10/16/2024, Expires: 01/16/2025 [facility] Comment on above: Expected: 10/16/2024 , Expires: 01/16/2025 Start: 10-16-2024 End: 10-16-2024 Patient encounter procedure [facility] Comment on above: Arrived Start: 09-15-2024 End: 01-15-2025 US for [facility] Work Phone: Comment on above: Expected: 09/15/2024 , Expires: 01/15/2025 Start: 09-15-2024 End: 09-15-2024 Patient encounter procedure 09/15/2024 11:30 AM EDT Routine [facility] [address] [place] [place] [address] Jhon Gibson, DO [address] [place] [address] [facility] Start: 09-15-2024 End: 09-15-2024 Professional / ancillary services management 09/15/2024 11:00 AM EDT Ancillary Procedure [facility] [address] [place] [place] [phone] [facility] Start: 09-15-2024 End: 09-15-2024 Patient encounter procedure 09/15/2024 10:10 AM EDT Routine [facility] [address] [place] [place] [phone] Jhon Gibson, DO [address] [place] [address] [facility] Start: 08-15-2024 End: 08-15-2025 ABO/Rh ABO/Rh Lab Routine Missed menses , unspecified gestational age Expected: 08/15/2024 (Approximate), Expires: 08/15/2025 [facility] Comment on above: Expected: 08/15/2024 (Approximate), Expires: 08/15/2025 Start: 08-15-2024 End: 08-15-2025 Blood type and Indirect antibody screen panel - Blood Type and screen Lab Routine Missed menses , unspecified gestational age Expected: 08/15/2024 (Approximate), Expires: 08/15/2025 [facility] Work Phone: Comment on above: Expected: 08/15/2024 (Approximate), Expires: 08/15/2025 Start: 08-15-2024 End: 08-15-2025 Drugs of abuse panel - Urine by Screen method Rapid drug screen, urine Lab Routine , unspecified gestational age Encounter for supervision of normal first in first trimester Expected: 08/15/2024 (Approximate), Expires: 08/15/2025 [facility] Comment on above: Expected: 08/15/2024 (Approximate), Expires: 08/15/2025 Start: 08-15-2024 End: 08-15-2024 ambulatory 08/15/2024 10:00 AM EDT Initial [facility] [address] [address] [facility] Start: 08-15-2024 End: 08-15-2024 Professional / ancillary services management 08/15/2024 9:30 AM EDT Ancillary Procedure [facility] [address] [address] [facility] Start: 01-20-2024 Influenza vaccination Influenza Vacc ine (#1) [facility] Start: 01-17-2024 End: 01-16-2025 CBC panel - Blood by Automated count CBC Lab Routine Dizziness Vision blurred Expected: 01/17/2024 (Approximate), Expires: 01/16/2025 [facility] Comment on above: Expected: 01/17/2024 (Approximate), Expires: 01/16/2025 Start: 01-17-2024 End: 01-16-2025 Thyrotropin [Units/volume] in Serum or Plasma TSH Lab Routine Dizziness Vision blurred Expected: 01/17/2024 (Approximate), Expires: 01/16/2025 [facility] Comment on above: Expected: 01/17/2024 (Approximate), Expires: 01/16/2025 Start: 01-17-2024 End: 01-17-2024 Patient encounter procedure 01/17/2024 10:00 AM EDT Office Visit [facility] [address] [place] [phone] Isa Carrera PA [address] [place], [place] [phone] Arrived [facility] Comment on above: Arrived Start: 07-24-2023 End: 07-24-2023 Patient encounter procedure 07/24/2023 10:00 AM EST Routine [facility] [address] [place] [address] Isa Carrera PA [address] [place] [address] [place] [address] [facility] Start: 07-03-2023 End: 07-03-2024 CBC panel - Blood by Automated count CBC Lab Routine Diabetes mellitus screening Expected: 07/03/2023 (Approximate), Expires: 07/03/2024 [facility] Comment on above: Expected: 07/03/2023 (Approximate), Expires: 07/03/2024 Start: 07-03-2023 End: 07-03-2024 Measurement of glucose 1 hour after glucose challenge for glucose tolerance test Glucose tolerance, 1 hour Lab Routine Diabetes mellitus screening Expected: 07/03/2023 (Approximate), Expires: 07/03/2024 [facility] Comment on above: Expected: 07/03/2023 (Approximate), Expires: 07/03/2024 Start: 01-19-2023 Influenza vaccination Influenza Vacc ine (#1) [facility] Bacteria identified in Urine by Culture Urine culture Microbiology Routine Missed menses Ordered: 08/15/2024 [facility] Comment on above: Ordered: 08/15/2024 CBC W Auto Different ial panel - Blood CBC and differential Lab Routine Missed menses , unspecified gestational age Ordered: 08/15/2024 [facility] Comment on above: Ordered: 08/15/2024 CHLAMYDIA TRACHOMATI S (GENITO/STI) CHLAMYDIA TRACHOMATIS (GENITO/STI) Lab Routine Screen for STD (sexually transmitted disease) Ordered: 07/03/2023 [facility] Comment on above: Ordered: 07/03/2023 CHLAMYDIA TRACHOMATI S (GENITO/STI) CHLAMYDIA TRACHOMATIS (GENITO/STI) Lab Routine STD exposure Ordered: 10/16/2024 [facility] Comment on above: Ordered: 10/16/2024 Cytology Cervical or vaginal smear or scraping study Pap Smear Pathology and Cytology Routine Well woman exam with routine gynecological exam Ordered: 01/17/2024 [facility] Work Phone: Comment on above: Ordered: 01/17/2024 Hemoglobin A1c/Hemoglobin.total in Blood Hemoglobin A1c Lab Routine Missed menses , unspecified gestational age Ordered: 08/15/2024 [facility] Comment on above: Ordered: 08/15/2024 Hepatitis B virus surface Ag [Presence] in Serum or Plasma by Immunoassay Hepatitis B surface antigen Lab Routine Missed menses , unspecified gestational age Ordered: 08/15/2024 [facility] Comment on above: Ordered: 08/15/2024 Hepatitis C virus Ab [Presence] in Serum or Plasma by Immunoassay Hepatitis C antibody Lab Routine Missed menses , unspecified gestational age Ordered: 08/15/2024 [facility] Comment on above: Ordered: 08/15/2024 HIV-1/HIV-2 antigen/antibody combination immunoassay HIV-1 and HIV-2 antibodies Lab Routine Missed menses , unspecified gestational age Ordered: 08/15/2024 [facility] Comment on above: Ordered: 08/15/2024 Human papilloma viru s DNA [Presence] in Unspecified specimen by Probe with amplification HPV DNA probe, amplified Microbiology Routine Well woman exam with routine gynecological exam Ordered: 01/17/2024 [facility] Comment on above: Ordered: 01/17/2024 Neisseria gonorrhoea e DNA [Presence] in Unspecified specimen by JOSEFINA with probe detection Neisseria gonorrhea DNA probe, direct Lab Routine Screen for STD (sexually transmitted disease) Ordered: 07/03/2023 [facility] Comment on above: Ordered: 07/03/2023 Neisseria gonorrhoea e DNA [Presence] in Unspecified specimen by JOSEFINA with probe detection Neisseria gonorrhea DNA probe, direct Lab Routine STD exposure Ordered: 10/16/2024 [facility] Comment on above: Ordered: 10/16/2024 Reagin Ab [Presence] in Serum by RPR RPR Lab Routine Missed menses , unspecified gestational age Ordered: 08/15/2024 [facility] Comment on above: Ordered: 08/15/2024 Rubella antibody, IgG Rubella an tibody, IgG Lab Routine Missed menses , unspecified gestational age Ordered: 08/15/2024 [facility] Comment on above: Ordered: 08/15/2024 SURESWAB(R) ADVANCED VAGINITIS PLUS, TMA SURESWAB(R) ADVANCED VAGINITIS PLUS, TMA Pathology and Cytology Routine Screen for STD (sexually transmitted disease) Ordered: 07/03/2023 [facility] Work Phone: Comment on above: Ordered: 07/03/2023 SURESWAB(R) ADVANCED VAGINITIS PLUS, TMA SURESWAB(R) ADVANCED VAGINITIS PLUS, TMA Pathology and Cytology Routine STD exposure Ordered: 10/16/2024 [facility] [employer] Work Phone: Comment on above: Ordered: 10/16/2024 Payers Date Payer Category Payer Medicaid [employer] [facility] [id number] 2022-Present [address] [address] [place] [address] [id number] 2022 Medicaid (Managed Care) [facility] [id number] 1990 Unknown [id number] 1990 Unknown [id number] 1258 1990 Unknown [id number] 1258 1990 Unknown [id number] 1258 1990 Unknown [id number] 1258 1990 Unknown [id number] 1258 1990 Unknown [id number] 1259 1990 Unknown [id number] 1259 1990 Unknown [id number] 1259 1959 Private Health Insurance [id number] 1959 Unknown [id number] Social History Date Type Detail Facility Tobacco smoking stat [facility] Tobacco smoking consumption unknown [facility] Start: 01-23-2023 [facility] Start: 1990 Sex Assigned At Female [facility] Start: 05-01-2023 Gender identity Identifies as female gender (finding) [facility] Start: 05-01-2023 Sexual orientation Heterosexual (fin ding) [facility] History of Present illness Narrative 10-16-2024 Ivonne Levy LPN - 10/16/2024 10:10 AM EDT Note Date & Type Note Facility 10-16-2024 History of Presen t illness Narrative Reason for Appointment: Patient ID: Merle Cyr is a 34 y.o. female who presents for Routine Visit Patient presents today for Return OB appointment. MEDICATIONS Current Outpatient Medications Medication Instructions diphenhydrAMINE (BENADRYL) 25 mg, Nightly PRN ALLERGIES Allergies Allergen Reactions Banana Swelling PROBLEMS Active Ambulatory Problems Diagnosis Date Noted Post-term , 40-42 weeks of gestation 10/16/2023 40 weeks gestation of 10/16/2023 Resolved Ambulatory Problems Diagnosis Date Noted No Resolved Ambulatory Problems No Additional Past Medical History HISTORY PAST MEDICAL HISTORY SOCIAL HISTORY No past medical history on file. Social History Tobacco Use Smoking status: Not on file Smokeless tobacco: Not on file Substance Use Topics Alcohol use: Not on file Drug use: Not on file FAMILY HISTORY No family history on file. SURGICAL HISTORY No past surgical history on file. REVIEW OF SYSTEMS Review of Systems: Review of Systems Constitutional: Negative. HENT: Negative. Eyes: Negative. Respiratory: Negative. Cardiovascular: Negative. Gastrointestinal: Negative. Genitourinary: Negative. Musculoskeletal: Negative. Skin: Negative. Neurological: Negative. All other systems reviewed and are negative. Hematological: Negative. Endocrine: Negative. Allergic/Immunologic: Negative. OBJECTIVE Objective: Physical Exam Constitutional: Appearance: Normal appearance. She is well-developed. Genitourinary: Vulva normal. Cardiovascular: Rate and Rhythm: Normal rate and [...] nursing note reviewed. Exam conducted with a college director present. Vitals: There is no height or weight on file to calculate BMI. BP: 100/66 No LMP recorded. Patient is . ASSESSMENT & PLAN ICD-10-CM 1. Screening, , for anatomic survey Z36.89 US OB 14+ weeks anatomy scan US OB 14+ weeks anatomy scan 2. Second trimester Z34.92 POCT urinalysis dipstick manually resulted 3. STD exposure Z20.2 SURESWAB(R) ADVANCED VAGINITIS PLUS, TMA CHLAMYDIA TRACHOMATIS (GENITO/STI) Neisseria gonorrhea DNA probe, direct 4. 20 weeks gestation of Z3A.20 Alpha fetoprotein, maternal Alpha fetoprotein, maternal Patient presents today for a routine obstetrics appointment. Patient is currently 20w4d with a Estimated Date of Delivery: 03/01/25. Patient was given orders for MSAFP and anatomy scan. Obtained vaginal cultures at today's appointment. Patient to return to clinic in 4 weeks for routine OB appointment. Documented by Ivonne Levy LPN... on behalf of: Jhon Gibson DO documented in this encounter [facility] History of Present illness Narrative 09-15-2024 Ivonne Levy LPN - 09/15/2024 11:30 AM EDT Note Date & Type Note Facility 09-15-2024 History of Presen t illness Narrative Reason for Appointment: Patient ID: Merle Cyr is a 34 y.o. female who presents for Routine Visit Patient presents today for Return OB appointment. MEDICATIONS Current Outpatient Medications Medication Instructions diphenhydrAMINE (BENADRYL) 25 mg, Nightly PRN ALLERGIES Allergies Allergen Reactions Banana Swelling PROBLEMS Active Ambulatory Problems Diagnosis Date Noted Post-term , 40-42 weeks of gestation 10/16/2023 40 weeks gestation of 10/16/2023 Resolved Ambulatory Problems Diagnosis Date Noted No Resolved Ambulatory Problems No Additional Past Medical History HISTORY PAST MEDICAL HISTORY SOCIAL HISTORY History reviewed. No pertinent past medical history. Social History Tobacco Use Smoking status: Not on file Smokeless tobacco: Not on file Substance Use Topics Alcohol use: Not on file Drug use: Not on file FAMILY HISTORY No family history on file. SURGICAL HISTORY History reviewed. No pertinent surgical history. REVIEW OF SYSTEMS Review of Systems: Review of Systems OBJECTIVE Objective: OBGyn Exam Vitals: There is no height or weight on file to calculate BMI. BP: 100/60 No LMP recorded. Patient is . ASSESSMENT & PLAN ICD-10-CM 1. Subchorionic hematoma in second trimester, single or unspecified fetus O41.8X20 US OB follow up transabdominal approach O46.8X2 2. Second trimester Z34.92 POCT urinalysis dipstick manually resulted 3. 16 weeks gestation of Z3A.16 New OB: Patient presents today for 1st time obstetrics appointment with provider. Patient is currently 16w1d . Patients history has been reviewed in great detail including any potential risks. Patient stated she currently has no complaints. Expectations throughout regarding labs, ultrasounds, and appointments have been discussed with the patient in detail. It was reiterated that the patient is to drink 6-8 glasses of water a day, eat 6 small meals a day, do not consume raw or undercooked meat, and stay away from [facility]. Patient has been consulted regarding any further do's and don'ts of . Patient voiced understanding and all questions and concerns were answered. Advised patient to take Baby Aspirin 81mg daily. Discussed that right before ANTONIO patient will turn AMA, but will defer referral at this time. Orders Placed This Encounter Procedures US OB follow up transabdominal approach POCT urinalysis dipstick manually resulted Follow Up: Patient is to return in 4 weeks for routine OB appointment. Documented by Ivonne Levy LPN on behalf of: Jhon Gibson DO documented in this encounter [facility] History of Present illness Narrative 08-15-2024 Trena Roman REBECCA - 08/15/2024 10:00 AM EDT Note Date & Type Note Facility 08-15-2024 History of Presen t illness Narrative Reason for Appointment: Patient ID: Merle Cyr is a 34 y.o. female who presents for Amenorrhea Patient presents today for a Nurse OB Intake appointment. Patient is 11w5d with a Estimated Date of Delivery: 03/01/25 OB History Para Term AB Living 2 1 1 1 SAB IAB Ectopic Multiple Live Births 1 # Outcome Date GA Lbr Grayson/2nd Weight Sex Type Anes PTL Lv 2 Current 1 Term 10/24/23 41w1d M Vag-Spont Y ARLENE Current Medications: has a current medication list which includes the following prescription(s): citalopram and venlafaxine. Medical History: Active Ambulatory Problems Diagnosis Date Noted Post-term , 40-42 weeks of gestation 10/16/2023 40 weeks gestation of 10/16/2023 Resolved Ambulatory Problems Diagnosis Date Noted No Resolved Ambulatory Problems No Additional Past Medical History No family history on file. Social History Tobacco Use Smoking status: Not on file Smokeless tobacco: Not on file Substance Use Topics Alcohol use: Not on file Drug use: Not on file History reviewed. No pertinent surgical history. Allergies Allergen Reactions Banana Swelling Vitals: There is no height or weight on file to calculate BMI. BP: 118/72 No LMP recorded. Patient is . Assessment/Plan Diagnoses and all orders for this visit: Missed menses - Type and screen; Future - ABO/Rh; Future - CBC and differential - Hemoglobin A1c - RPR - Rubella antibody, IgG - Hepatitis B surface antigen - Hepatitis C antibody - HIV-1 and HIV-2 antibodies - Urine culture - POCT , urine manually resulted - POCT urinalysis dipstick manually resulted , unspecified gestational age - Type and screen; Future - ABO/Rh; Future - CBC and differential - Hemoglobin A1c - RPR - Rubella antibody, IgG - Hepatitis B surface antigen - Hepatitis C antibody - HIV-1 and HIV-2 antibodies - Rapid drug screen, urine; Future Encounter for supervision of normal first in first trimester - Rapid drug screen, urine; Future 11 weeks gestation of Nurse Note: Pt unsure of Baisden Billion to one at this time. Pt was advised to make sure she does both labs and Baisden together if she decides. Follow Up: Patient is to have labs drawn at directed and return to office for initial OB appointment with provider. Patient may call office as needed with any concerns or questions. Nurse Visit Completed by: Trena Roman MA documented in this encounter [facility] History of Present illness Narrative 01-17-2024 EVARISTO Jessica - 01/17/2024 10:00 AM EDT Note Date & Type Note Facility 01-17-2024 History of Presen t illness Narrative Reason for Appointment: Patient ID: Merle Cyr is a 33 y.o. female who presents for Well Women Visit Patient presents today for Annual Exam. MEDICATIONS Current Outpatient Medications Medication Instructions citalopram (CELEXA) 20 mg, Oral, Daily norethindrone (MICRONOR) 0.35 mg, Oral, Daily ALLERGIES Allergies Allergen Reactions Banana Swelling PROBLEMS Active Ambulatory Problems Diagnosis Date Noted Post-term , 40-42 weeks of gestation 10/16/2023 40 weeks gestation of 10/16/2023 Resolved Ambulatory Problems Diagnosis Date Noted No Resolved Ambulatory Problems No Additional Past Medical History HISTORY PAST MEDICAL HISTORY SOCIAL HISTORY History reviewed. No pertinent past medical history. Social History Tobacco Use Smoking status: Not on file Smokeless tobacco: Not on file Substance Use Topics Alcohol use: Not on file Drug use: Not on file FAMILY HISTORY No family history on file. SURGICAL HISTORY History reviewed. No pertinent surgical history. REVIEW OF SYSTEMS Review of Systems: Review of Systems Constitutional: Negative. HENT: Negative. Eyes: Negative. Respiratory: Negative. Cardiovascular: Negative. Gastrointestinal: Negative. Genitourinary: Negative. Musculoskeletal: Negative. Skin: Negative. Neurological: Negative. All other systems reviewed and are negative. Hematological: Negative. Endocrine: Negative. Allergic/Immunologic: Negative. OBJECTIVE Objective: Physical Exam Constitutional: Appearance: Normal appearance. Genitourinary: Right Adnexa: not tender and no mass present. Left Adnexa: not tender and no mass present. No cervical discharge. Breasts: Breasts are soft. Right: Normal. Left: Normal. HENT: Head: Normocephalic. Nose: Nose normal. Mouth/Throat: Mouth: Mucous membranes are moist. Cardiovascular: Rate and Rhythm: Normal rate. Pulmonary: Effort: Pulmonary effort is normal. Abdominal: General: Bowel sounds are normal. Palpations: Abdomen is soft. Musculoskeletal: General: Normal range of motion. Cervical back: Normal range of motion. Neurological: General: No focal deficit present. Mental Status: She is alert. Skin: General: Skin is warm and dry. Psychiatric: Mood and Affect: Mood normal. Vitals and nursing note reviewed. Exam conducted with a college director present. Vitals: There is no height or weight on file to calculate BMI. BP: 118/74 No LMP recorded. ASSESSMENT & PLAN ICD-10-CM 1. Well woman exam with routine gynecological exam Z01.419 Pap Smear HPV DNA probe, amplified Annual Exam: Patient presents today for an annual exam. Patient states she is doing well except for depression, pt feels celexa not helping. We are going to wean the celexa down and start patient on effexor. Pap obtained with out difficulty. Pt also states she is losing her hair and feeling lightheaded occasionally. CBC and Tsh ordered. Orders Placed This Encounter Procedures HPV DNA probe, amplified Follow Up: Patient is to return in one year for annual unless needed otherwise. Documented by Mary Chauhan LPN on behalf of: EVARISTO Jessica documented in this encounter [facility] History of Present illness Narrative [...] nursing note reviewed. Exam conducted with a college director present. Vitals: There is no height or [...] obtained without difficulty and patient was given [facility] order to have obtained. Follow Up: [...] mellitus documented in this encounter [facility] Evaluation note Note Date & Type Note Facility Evaluation note Diagnosis Well woman exam with routine gynecological exam Routine gynecological examination Anxiety, generalized (CMS/HCC) Dizziness Dizziness and giddiness Vision blurred Other specified visual disturbances documented in this encounter [facility] Evaluation note Note Date & Type Note Facility Evaluation note Diagnosis Missed menses , unspecified gestational age Encounter for supervision of normal first in first trimester 11 weeks gestation of documented in this encounter [facility] Evaluation note Note Date & Type Note Facility Evaluation note Diagnosis Subchorionic hematoma in second trimester, single or unspecified fetus Second trimester state, incidental 16 weeks gestation of documented in this encounter [facility] Evaluation note Note Date & Type Note Facility Evaluation note Diagnosis Screening, , for anatomic survey Encounter for anatomic survey Second trimester state, incidental STD exposure 20 weeks gestation of documented in this encounter [facility] Summary Purpose Family History No Family History Records FoundNo Family History Records Found Advance Directives No Advanced Directives Records FoundNo Advanced Directives Records Found Additional Source Comments INFORMATION SOURCE (unrecogn ized section and content) DATE CREATED AUTHOR 06/17/2021 Loyd Armas [facility] DATE CREATED AUTHOR AUTHOR'S ORGANIZ ATION 10/18/2024 [facility] EPIC Reason for Visit (unrecogniz ed section and content) Reason Comments Routine Visit Reason Comments Well Women Visit Reason Comments Amenorrhea Care Teams (unrecognized sec tion and content) Hoop Machine Operator Relationship Specialty Start Date End Date Иван Murphy MD [address] [place] [address] PCP - General Family Medicine 05/03/23 Hoop Machine Operator Relationship Specialty Start Date End Date Иван Murphy MD [address] [place] [address] PCP - General Family Medicine 05/03/23 Hoop Machine Operator Relationship Specialty Start Date End Date Иван Murphy MD [address] [place] [facility] [place] [address] PCP - General Family Medicine 05/03/23 Hoop Machine Operator Relationship Specialty Start Date End Date Иван Murphy MD [address] [place] [facility] [address] PCP - General Family Medicine 05/03/23 Hoop Machine Operator Relationship Specialty Start Date End Date Иван Murphy MD [address] [place] [facility] [address] PCP - General Family Medicine 05/03/23 Hoop Machine Operator Relationship Specialty Start Date End Date Иван Murphy MD [address] [place] [facility] [address] PCP - General Family Medicine 05/03/23 Hoop Machine Operator Relationship Specialty Start Date End Date Иван Murphy MD [address] [place] [facility] [address] PCP - General Family Medicine 05/03/23 Hoop Machine Operator Relationship Specialty Start Date End Date Иван Murphy MD [address] [place] [facility] [place] [address] PCP - General Family Medicine 05/03/23 Hoop Machine Operator Relationship Specialty Start Date End Date Иван Murphy MD [address] [place] [facility] [place] [address] PCP - General Family Medicine 05/03/23 FOR [...] BE BASED ON THE PRIMARY CLINICAL RECORDS. [facility]. provides no warranty or guarantee of the accuracy or completeness of information in this document.
[2024-11-04 23:08] LABS: AFP Value 52.2 ng/mL (.); Gest. Age on Collection Date 22.9 weeks (.); Gestat. Age Based On Ultrasound (.); Insulin Dep Diabetes No (.); OSBR Risk 1 IN 10000 (.); Results Report (.)
== END 2024-11-01 10:34 | disposition home or self-care (01) ==
PROVIDERS: PCP Family Medicine; Visit Provider Obstetrics & Gynecology
DX: Z34.92 Encounter for supervision of normal pregnancy, unspecified, second trimester (principal); Z3A.20 20 weeks gestation of pregnancy
CPT/HCPCS: 36415; 82105

== ENCOUNTER 2024-11-08 10:20 | Outpatient (OUT) | payer OTHER, SELFPAY ==
--- OUTSIDE RECORDS SUMMARY | 2024-06-25 10:15 | XMS_ITS ---
Author Organization The [facility] in [place] Address [address] [place] [address] Care Team Providers Care Prop Attendant Name Role Phone Arcadio Murphy Primary Care [...] 06/25/2024 Encounters Encounter Location Date Provider Diagnosis [facility] [address] [place] [address] 06/25/2024 Arcadio Murphy GERD (gastroesophage al reflux [...] Merle CYR NDOB: [birth year] (34 yo F)Acc No.[id number]:06/25/2024 Progress Note Patient: Merle MONROE Provider: Gabriela Murphy ([facility])MD :1990 A ge:34 Y S ex:Female Date:06/25/2024 Address:[address] [place] [address] [place], [id number] Check In:02:06 PM ESTCheck O ut:02:29 PM [...] (Check Out) true * Provider: Gabriela Murphy ([facility])MD Date: 0 06/25/2024 Generated for Printi ng/Faxing/eTransmitting on: 0 11/08/2024 10:22 AM EDT History and Physical Notes * [...] rge, inflammation, or lesions MOUTH: mucous membranes amandepe st, normal oropharynx and posterior pharynx without [...]
--- OUTSIDE RECORDS SUMMARY | 2024-06-26 05:03 | XMS_ITS ---
Author Organization The [facility] in [place] Address [address] [place] [address] Care Team Providers Care Laundry Worker Name Role Phone Arcadio Murphy Primary Care Provider REASON FOR VISIT Ozempic Encounters Encounter Location Date Provider Diagnosis [facility] [address] [place] [address] 06/26/2024 Arcadio Murphy Plan Of Treatment No Information Progress Notes * Merle GUARDADO NDOB: [birth year] (34 yo F)Acc No.[id number]:06/26/2024 Patient: Juliocesar LA Merle Vaughn :1990 A ge:34 Y S ex:Female Address:[address] [place] [address], [phone] * true * Date: Generated for Printi ng/Fagurinderg/eTransmitting on: 0 11/08/2024 10:22 AM EDT
--- OUTSIDE RECORDS SUMMARY | 2024-07-29 11:39 | XMS_ITS ---
Author Organization The [facility] in [place] Address [address] [place] [address] Care Team Providers Care Gas Fitter Apprentice Name Role Phone Arcadio Murphy Primary Care Provider REASON FOR VISIT Encounters Encounter Location Date Provider Diagnosis [facility] [address] [place] [address] 07/29/2024 Arcadio Murphy Plan Of Treatment No Information Progress Notes * Merle GUARDADO NDOB: [birth year] (34 yo F)Acc No.[id number]:07/29/2024 Patient: Calvin MONROElolis Vaughn :1990 A ge:34 Y S ex:Female Address:[address] [place] [address], [phone] * true * Date: Generated for Printi ng/Faxing/eTransmitting on: 0 11/08/2024 10:23 AM EDT
--- NOTE | 2024-11-08 | US_ITS ---
The [address] [address] Patient Name: ROCHELLE GUARDADO MRN: [id number] date: 1990 Sex: F Assigned Patient Location: Current Patient Location: Accession/Order Number: [id number] Exam Date: 11/10/2024 07:47 Report Date: 11/10/2024 07:56 At the request of: JHON JIMENEZ DO Procedure: US OB anatomy CLINICAL DATA: anatomy COMPARISON: None OB CERVICAL LENGTH The cervix was evaluated with the transvaginal probe. There is mild funneling. The estimated cervical length is 3.6 cm. US/US OB cervical length IMPRESSION: CERVICAL FINDINGS, DESCRIBED. ULTRASOUND OB ANATOMY There is a single live intrauterine gestation in variable presentation. The amniotic fluid volume is subjectively normal. There is cardiac and somatic activity with heart rate of 142 beats per minutes. The placenta is posterior and as visualized within normal limits for appearance and position. The pony roll finisher had difficulty visualizing the spine and 4 extremities due to position and movement. The stomach, bladder, kidneys, three-vessel cord with insertion, facial features, four-chamber heart with right and left outflow tracts, diaphragm and male genitalia are seen. The following measurements were obtained: Biparietal diameter 5.5 cm 22 weeks 6 days 13% Head circumference 20.9 cm 23 weeks 0 days 8% Abdominal circumference 18.8 cm 23 weeks 4 days 33% Femur length 4.1 cm 23 weeks 1 day 16% The composite ultrasound age based on these measurements is 23 weeks 1 day +/- 1 week 4 days. The estimated date of delivery is March 06, 2025. The estimated weight is 1 lb. 5 oz. +/- 3 ounces (19%) IMPRESSION: SINGLE LIVE INTRAUTERINE GESTATION WITH ULTRASOUND AGE OF 23 WEEKS 1 DAY. SUBOPTIMAL VISUALIZATION OF THE SPINE AND EXTREMITIES. Impression dictated by: Lizbet Carmona M.D. 11/10/2024 7:56 AM Dictation Location: [place] [address] Electronically authenticated by: [id number] Y Date: 11/10/2024 07:56
--- NOTE | 2024-11-08 | US_ITS ---
The [address] [address] Patient Name: ROCHELLE GUARDADO MRN: [id number] date: 1990 Sex: F Assigned Patient Location: Current Patient Location: Accession/Order Number: [id number] Exam Date: 11/10/2024 07:47 Report Date: 11/10/2024 07:56 At the request of: JHON JIMENEZ DO Procedure: US OB anatomy CLINICAL DATA: anatomy COMPARISON: None OB CERVICAL LENGTH The cervix was evaluated with the transvaginal probe. There is mild funneling. The estimated cervical length is 3.6 cm. US/US OB anatomy IMPRESSION: CERVICAL FINDINGS, DESCRIBED. ULTRASOUND OB ANATOMY There is a single live intrauterine gestation in variable presentation. The amniotic fluid volume is subjectively normal. There is cardiac and somatic activity with heart rate of 142 beats per minutes. The placenta is posterior and as visualized within normal limits for appearance and position. The corporate coordinator had difficulty visualizing the spine and 4 extremities due to position and movement. The stomach, bladder, kidneys, three-vessel cord with insertion, facial features, four-chamber heart with right and left outflow tracts, diaphragm and male genitalia are seen. The following measurements were obtained: Biparietal diameter 5.5 cm 22 weeks 6 days 13% Head circumference 20.9 cm 23 weeks 0 days 8% Abdominal circumference 18.8 cm 23 weeks 4 days 33% Femur length 4.1 cm 23 weeks 1 day 16% The composite ultrasound age based on these measurements is 23 weeks 1 day +/- 1 week 4 days. The estimated date of delivery is March 06, 2025. The estimated weight is 1 lb. 5 oz. +/- 3 ounces (19%) IMPRESSION: SINGLE LIVE INTRAUTERINE GESTATION WITH ULTRASOUND AGE OF 23 WEEKS 1 DAY. SUBOPTIMAL VISUALIZATION OF THE SPINE AND EXTREMITIES. Impression dictated by: Lizbet Carmona M.D. 11/10/2024 7:56 AM Dictation Location: [place] [address] Electronically authenticated by: [id number] Y Date: 11/10/2024 07:56
--- OUTSIDE RECORDS SUMMARY | 2024-11-08 10:22 | XMS_ITS | Encounter Summary ---
Author Organization [facility] Address [address] [place] [address] Care Team Providers Care Low Heel Builder Name Role Phone Chencho Murphy MD Primary Care Provider [phone] Encounter Details Date Type Department Care Team (Late st Contact Info) Description 10/18/2023 Clinisync Result Encounter [facility] External Department Unsolicited Jhon Gibson DO [facility] [address] [place], [facility] Social History Tobacco Use Types Packs/Day Years Used Date Smoking Tobacco: Never Assessed Comments Yes Sex and Gender Information Value Date Recorded Sex Assigned at Female 05/01/2023 11:06 AM EST Legal Sex Female 9:44 AM EST Gender Identity Female 05/01/2023 11:06 AM EST Sexual Orientation Straight 05/01/2023 11 :06 AM EST documented as of this encounter Plan of Treatment Upcoming Encounters Date Type Department Care Team (Late st Contact Info) Description 11/17/2024 10:10 AM EDT Routine [facility] [address] [place] [address] Jhon Gibson DO [address] [place] [address] 01/26/2025 11:00 AM EDT Office Visit [facility] [address] [place] [address] Isa Avendano PA [address] [place] [address] [phone] (work) documented as of this encounter Procedures Procedure Name Priority Date/Time Associated Diagnosis Comments US OB BPP W NON-STRESS 10/18/2023 7:07 AM EDT documented in this encounter Results * US OB BPP W NON-STRESS (10/18/2023 7:07 AM EDT) Anatomical Region Laterality Modality Other 10/18/2023 7:07 AM EDT Narrative 10/18/2023 7:10 AM EDT [place] [id number] Ultrasound Report Signed Patient: MERLE GUARDADO MR#: [id number] : 1990 Acct:[id number] Age/Sex: 33 / F ADM Date: 10/17/23 Loc: US Attending Dr: Jhon Gibson D.O. Ordering Physician: Jhon Gibson D.O. Date of Service: 10/17/23 Procedure(s): US OB BPP w non-stress Accession Number(s): [id number] cc: Jhon Gibson D.O.; Chencho Murphy M.D. [address] [id number] Patient Name: MERLE GUARDADO MRN: [id number] date: 1990 Sex: F Assigned Patient Location: US Current Patient Location: Accession/Order Number: [id number] Exam Date: 10/17/2023 16:44 Report Date: 10/18/2023 07:07 At the request of: JHON GIBSON Procedure: US OB BPP w non-stress EXAMINATION: US OB BPP w non-stress HISTORY: 40 WEEKS GESTATION OF Z3A.40 COMPARISON: No relevant comparison available. TECHNIQUE: Ultrasound biophysical profile was performed in the radiology department. non-reactive stress testing was performed by nursing staff in the birthing center. FINDINGS: BREATHING MOVEMENTS: 2.0 GROSS BODY MOVEMENTS: 2.0 TONE: 2.0 QUALITATIVE AMNIOTIC FLUID VOLUME: 2.0 PRESENTATION: CEPHALIC HEART RATE: 122.2 bpm H.B./min AMNIOTIC FLUID VOLUME: 8.9 cm cm GESTATIONAL AGE: 40 weeks 1 days CONCLUSION: Total biophysical profile score: 8.0 Electronically authenticated by: ASHLEY TOBIN Date: 10/18/2023 07:07 Dictated By: Ashley Tobin M.D. Signed By: 10/18/23709 DD/ 6 TD/TT: Rotor Casting Machine Setup Operator: Procedure Note Radiology, Radiologist, MD - 10/18/2023 [place] [address] Ultrasound Report Signed Patient: MERLE GUARDADO NMR#: [id number] : 1990Acct:[id number] Age/Sex: 33 / FADM Date: 10/17/23 Loc: US Attending Dr: Jhon Gibson D.O. Ordering Physician: Jhon Gibson D.O. Date of Service: 10/17/23 Procedure(s): US OB BPP w non-stress Accession Number(s): [id number] cc: Jhon Gibson D.O.; Chencho Murphy M.D. The [place] [id number] Patient Name: MERLE GUARDADO MRN: [id number] date: 1990 Sex: F Assigned Patient Location: US Current Patient Location: Accession/Order Number: [id number] Exam Date: 10/17/2023 16:44 Report Date: 10/18/2023 07:07 At the request of: JHON GIBSON Procedure: US OB BPP w non-stress EXAMINATION: US OB BPP w non-stress HISTORY: 40 WEEKS GESTATION OF Z3A.40 COMPARISON: No relevant comparison available. TECHNIQUE: Ultrasound biophysical profile was performed in the radiology department. non-reactive stress testing was performed by nursingstaff in the birthing center. FINDINGS: BREATHING MOVEMENTS: 2.0 GROSS BODY MOVEMENTS: 2.0 TONE: 2.0 QUALITATIVE AMNIOTIC FLUID VOLUME: 2.0 PRESENTATION: CEPHALIC HEART RATE: 122.2 bpm H.B./min AMNIOTIC FLUID VOLUME: 8.9 cm cm GESTATIONAL AGE: 40 weeks 1 days CONCLUSION: Total biophysical profile score: 8.0 Electronically authenticated by: ASHLEY TOBIN Date: 10/18/2023 07:07 Dictated By: Ashley Tobin M.D. Signed By:10/18/2310 DD/ 6 TD/TT: Rotor Casting Machine Setup Operator: us Jhon Gibson DO [facility] Final Result documented in this encounter Visit Diagnoses Not on filedocumented in this encounter Care Teams Low Heel Builder Relationship Specialty Start Date End Date Chencho Murphy MD [address] [place] [address] PCP - General Family Medicine 05/03/23 documented as of this encounter
--- OUTSIDE RECORDS SUMMARY | 2024-11-08 10:23 | XMS_ITS | Encounter Summary ---
Author Organization [facility] Address [address] [place] [address] Care Team Providers Care Assurance Specialist Name Role Phone Chencho Murphy MD Primary Care Provider [phone] Encounter Details Date Type Department Care Team (Late st Contact Info) Description 12/03/2023 Abstract [facility] [address] [place] [address] [place] Gibson DO [address] [place], [place] [address] Social History Tobacco Use Types Packs/Day Years [...] AM EDT Routine [facility] [address] [place] [address] [place] Gibson DO [address] [place], [place] [id number] 01/26/2025 11:00 AM EDT Office Visit [facility] OB [address] [place] [address] Isa Avendano PA [address] [place] [address] [place], [place] [id number] documented as of this encounter Visit Diagnoses Not on filedocumented in this encounter Care Teams Assurance Specialist Relationship Specialty Start Date End Date Chencho Murphy MD [address] [place] [address] PCP - General Family Medicine 05/03/23 documented as of this encounter
--- OUTSIDE RECORDS SUMMARY | 2024-11-08 10:23 | XMS_ITS | Clinical Summary ---
Author Organization [facility] Address [address] [place] [address] Care Team Providers Care Octave Board Racker Name Role Phone Chencho Murphy MD Primary Care Provider [phone] Allergies Active Allergy Reactions Criticality Noted Date Comments Banana Swelling 05/02/2014 Medications diphenhydrAMINE (BENADryl) 25 MG tablet Take 25 mg by mouth as needed at bedtime for itching Active Active Problems Problem Noted Date Diagnosed Date Post-term , 40-42 weeks of gestation ([facility]) 10/16/2023 40 weeks gestation of ([facility]) 2023 Estimated Date of Delivery Comme nts Yes 03/01/2025 Based on Ultraso und Encounters Date Type Department Care Team Description 11/01/2024 Clinisync Result Encounter [facility] External Department Unsolicited Boston Gibson DO 10/16/2024 10:10 AM EDT Routine [facility] [address] [place] [address] Boston Gibson DO Screening, , for anatomic survey ([facility]); Second trimester ([facility]); STD exposure; 20 weeks gestation of ([facility]) 10/16/2024 External Result Encounter [facility] External Department Unsolicited Boston Gibson, 10/16/2024 Bamboo flowsheet [facility] [address] [place] [address] Boston Gibson DO 09/15/2024 11:30 AM EDT Routine [facility] [address] [place] [phone] Boston Gibson DO Subchorionic hematoma in second trimester, single or unspecified fetus ([facility]); Second trimester ([facility]); 16 weeks gestation of ([facility]) 09/15/2024 11:00 AM EDT Ancillary Procedure [facility] [place] [address] [place] [phone] Subchorionic hematoma in second trimester, single or unspecified fetus ([facility]) 09/01/2024 Clinisync Result Encounter [facility] External Department Unsolicited Boston Gibson DO 08/20/2024 Telephone [facility] [place] [address] [place] [phone] Mary Chauhan LPN 08/15/2024 10:00 AM EDT Initial [facility] [place] [address] [place] [phone] GA: [id number] 08/15/2024 9:30 AM EDT Ancillary Procedure [facility] [place] [address] [place] [address] Missed menses from Last 3 Months Social History Tobacco Use Types Packs/Day Years Used Date Smoking Tobacco: Never Assessed Estimated Date of Delivery Comme nts Yes 03/01/2025 Based on Ultraso und Sex and Gender Information Value Date Recorded Sex Assigned at Female 05/01/2023 11:06 AM EST Legal Sex Female 9:44 AM EST Gender Identity Female 05/01/2023 11:06 AM EST Sexual Orientation Straight 05/01/2023 11 :06 AM EST Last Filed Vital Signs Vital Sign Reading Time Taken Comments Blood Pressure 100/66 10/16/2024 10:34 AM EDT Pulse - - Temperature - - Respiratory Rate - - Oxygen Saturation - - Inhaled Oxygen Concentration - - Weight 95.9 kg (211 lb 8 oz) 10/16/2024 10:34 AM EDT Height - - Body Mass Index - - Plan of Treatment Upcoming Encounters Date Type Department Care Team (Late st Contact Info) Description 11/17/2024 10:10 AM EDT Routine [facility] [address] [facility] [place] [place] [address] Boston Gibson DO [address] [facility] [address] [place] [place], [place] [phone] 01/26/2025 11:00 AM EDT Office Visit [facility] [address] [facility] [address] Isa Avendano PA [address] [facility] [place] [address] Health Maintenance Due Date Last Done Comments Influenza Vaccine (Season Ended) 2025 Pap Smear 01/16/2027 01/17/2024, 12/05/2022 Cervical Cancer Screening 12/05/2027 HPV/Cotest 12/05/2027 12/04/2022 Procedures Procedure Name Priority Date/Time Associated Diagnosis Comments AFP, SERUM, OPEN SPINA BIFIDA Routine 11/01/2024 10:45 AM EDT RECURRENT VAGINITIS (HTRX) Routine 10/16/2024 11:40 AM EDT POCT URINALYSIS DIPSTICK Routine 10/16/2024 10:39 AM EDT Second trimester ([facility]) POCT URINALYSIS DIPSTICK Routine 09/15/2024 11:45 AM EDT Second trimester ([facility]) US OB FOLLOW UP TRANSABDOMINAL APPROACH Routine 09/15/2024 11:28 AM EDT Subchorionic hematoma in second trimester, single or unspecified fetus ([facility]) HBSAG SCREEN Routine 09/01/2024 1:30 PM EDT RAPID PLASMA REAGIN, QUANT Routine 09/01/2024 1:30 PM EDT HCV ANTIBODY RFX TO QUANT PCR Routine 09/01/2024 1:30 PM EDT ALL RUBELLA IGG AB Routine 09/01/2024 1: 30 PM EDT HIV AB/P24 AG WITH REFLEX Routine 09/01/2024 1:30 PM EDT BOX TEST Routine 09/01/2024 1:30 PM EDT ALL TYPE AND SCREEN Routine 09/01/2024 1 :30 PM EDT ALL CBC WITH AUTO DIFF Routine 1:30 PM EDT MLR HEMOGLOBIN A1C Routine 09/01/2024 1: 30 PM EDT [facility] DRUG SCREEN RAPID (URINE) Routine 09/01/2024 1:15 PM EDT POCT , URINE Routine 08/15/2024 10:35 AM EDT Missed menses POCT URINALYSIS DIPSTICK Routine 08/15/2024 10:34 AM EDT Missed menses US OB TRANSVAGINAL Routine 08/15/2024 9: 53 AM EDT Missed menses PAP SMEAR Routine 01/17/2024 12:00 AM EDT from Last 3 Months or Most Recently Relevant to Health Maintenance Results * AFP, SERUM, OPEN SPINA BIFIDA (11/01/2024 10:45 AM EDT) RESULTS Report . [facility] TEST RESULTS: *Screen Negative* . [facility] GEST. AGE ON COLLECTION DATE 22.9 . weeks [facility] GESTAT. AGE BASED ON Ultrasound . [facility] Comment: 20.6 on 10/16/2024 Recalculations are not recommended when gestational dating by LMP and ultrasound are within 10 days. [age]TONIO [age] [facility] RACE . [facility] WEIGHT 211 . lbs [facility] INSULIN DEP DIABETES No . [facility] MULTIPLE GESTATION No . TB AFP VALUE 52.2 . ng/mL [facility] AFP MOM 0.77 . [facility] [place] [address] [place] [address] . [facility] INTERPRETATION Comment . [facility] Comment: Interpretation: Screen Negative This result is screen negative for OSB. The AFP MoM calculated is based on the gestational age provided. MS-AFP can identify up to 80% of open neural tube defects. Closed neural tube defects and some open defects may not be detected by this test. This test does not screen for Down Syndrome or Trisomy 18. If screening for Down Syndrome or Trisomy 18 is desired, contact [facility] to discuss available options. The [employer] [employer] recommends amniocentesis be offered to women age 35 and older. COMMENT: Comment . [facility] Comment: Romelia Villarreal, Ph.D., [facility] Director References: Available Upon Request. Multiples Of Median Cutoffs For AFP Elevations Feliz 2.5 Black 2.8 IDD 2.0 Twins 4.5 Abbreviation Definitions IDD - Insulin Dep Diabetes OSBR - Open Spina Bifida Risk For further inquiries contact [employer] [facility] at [phone]. This test was developed and its performance characteristics determined by [employer]. It has not been cleared or approved by the Food and Drug Administration. Performed at: [facility] [address] [id number] Health Researcher: Andres Faust [facility], Phone: [phone] 11/01/2024 10:4 5 AM EDT 11/01/2024 10:46 AM EDT Narrative RICHARD - 11/04/2024 11:08 PM EDT N N ULTRASOUND [id number] 4 20 N 1 Y 211 N N N N N White/ us Boston Paige DO LAB BLOOD ORDERABLES Final Resul t [facility] * RECURRENT VAGINITIS (HTRX) (10/16/2024 11:40 AM EDT) ATOPOBIUM VAGINAE 0.000 19.961 - 24.689 ppm 10/17/2024 6:31 AM EDT [facility] ATOPOBIUM VAGINAE Not Detected 19.961 - 24.689 ppm 10/17/2024 6:31 AM EDT [facility] BVAB 2,3 (BACTERIAL VAGINOSIS ASSOCIATED BACTERIA 2, 3); MOBILUNCUS SPP 0.000 19.961 - 24.689 ppm 10/17/2024 6:31 AM EDT [facility] BVAB 2,3 (BACTERIAL VAGINOSIS ASSOCIATED BACTERIA 2, 3); MOBILUNCUS SPP Not Detected 19.961 - 24.689 ppm 10/17/2024 6:31 AM EDT [facility] AQUILINO ALBICANS, PARAPSILOSIS, TROPICALIS 0.000 19.961 - 30.770 ppm 10/17/2024 6:31 AM EDT [facility] AQUILINO ALBICANS, PARAPSILOSIS, TROPICALIS Not Detected 19.961 - 30.770 ppm 10/17/2024 6:31 AM EDT [facility] AQUILINO GLABRATA 0.000 23.000 - 32.138 ppm 10/17/2024 6:31 AM EDT [facility] AQUILINO GLABRATA Not Detected 23.000 - 32.138 ppm 10/17/2024 6:31 AM EDT [facility] AQUILINO KRUSEI 0.000 23.000 - 32.271 ppm 10/17/2024 6:31 AM EDT [facility] AQUILINO KRUSEI Not Detected 23.000 - 32.271 ppm 10/17/2024 6:31 AM EDT [facility] CHLAMYDIA TRACHOMATIS 0.000 23.000 - 31.467 ppm 10/17/2024 6:31 AM EDT [facility] CHLAMYDIA TRACHOMATIS Not Detected 23.000 - 31.467 ppm 10/17/2024 6:31 AM EDT [facility] GARDNERELLA VAGINALIS 0.000 19.961 - 24.689 ppm 10/17/2024 6:31 AM EDT [facility] GARDNERELLA VAGINALIS Not Detected 19.961 - 24.689 ppm 10/17/2024 6:31 AM EDT [facility] MEGASPHAERA (TYPES 1, 2) 0.000 19.961 - 24.689 ppm 10/17/2024 6:31 AM EDT [facility] MEGASPHAERA (TYPES 1, 2) Not Detected 19.961 - 24.689 ppm 10/17/2024 6:31 AM EDT [facility] NEISSERIA GONORRHOEAE 0.000 23.000 - 32.117 ppm 10/17/2024 6:31 AM EDT [facility] NEISSERIA GONORRHOEAE Not Detected 23.000 - 32.117 ppm 10/17/2024 6:31 AM EDT [facility] TRICHOMONAS VAGINALIS 0.000 23.000 - 32.119 ppm 10/17/2024 6:31 AM EDT [facility] TRICHOMONAS VAGINALIS Not Detected 23.000 - 32.119 ppm 10/17/2024 6:31 AM EDT [facility] MYCOPLASMA GENITALIUM 0.000 19.961 - 24.689 ppm 10/17/2024 6:31 AM EDT [facility] MYCOPLASMA GENITALIUM Not Detected 19.961 - 24.689 ppm 10/17/2024 6:31 AM EDT [facility] Tissue 10/16/2024 11:4 0 AM EDT 10/17/2024 1:49 AM EDT us Boston Gibson DO LAB BLOOD ORDERABLES Final Resul t [facility] [address] [place] [address] * (ABNORMAL) POCT urinalysis dipstick manually resulted (10/16/2024 10:39 AM EDT) Only the most recent of3 resultswithin the time period is included. Color, UA Yellow Clarity, UA Clear Glucose, UA Negative Negative - 2000(110) ++++ mg/dL Bilirubin, UA Negative Negative - 4(70) +++ mg/dL Ketones, UA Negative Negative - 160(16) ++++ mg/dL Spec Grav, UA 1.015 1 - 1.03 Blood, UA Negative Negative - 50 Farzad/mcL pH, UA 7.0 5 - 9 Protein, UA Negative Negative - 2000(20) ++++ mg/dL Urobilinogen, UA 0.2 0.2 - 12 mg/dL Leukocytes, UA Trace Negative - 500+++ Donnell/mcL Nitrite, UA Negative Negative - Positive Urine 10/16/2024 10:3 9 AM EDT us Boston Paige DO POINT OF CARE TEST ENTER/EDIT OR DERABLES Final Result * US OB follow up transabdominal approach (09/15/2024 11:28 AM EDT) Anatomical Region Laterality Modality Body Ultrasound 09/16/2024 7:14 PM EDT Narrative 09/16/2024 7:14 PM EDT EXAM: US OB FOLLOW UP TRANSABDOMINAL APPROACH [...] II, MD, PHD at 16-Sep-2024 07:13:40 PM [facility] Procedure Note Willis Fitzpatrick MD - 09/16/2024 EXAM: US OB FOLLOW UP TRANSABDOMINAL APPROACH HISTORY: Follow up endometrial cyst versus subchorionic hemorrhage. EDD1. . COMPARISON: U/S Ob 08/15/2024 TECHNIQUE: Two-dimensional transvaginal grayscale, color and spectralDoppler ultrasound imaging of the pelvis was performed. FINDINGS: The uterus demonstrates a normal homogeneous echotexture. The cervical osis closed. No fluid is present within the cul-de-sac. There is a single, live intrauterine gestation identified with a fetalheart rate of 132 beats per minute and a crown-rump length measurement of10.6 cm, correlating to a gestational age of 16 weeks 3 days (+/- 10days). There is no subchorionic hemorrhage visualized. A yolk sac is notvisualized. A posterior placenta is noted. IMPRESSION: 1. Single, live intrauterine gestation 16 weeks, 1 days by LMP. Today'sultrasound measurements correlate with a gestational age of 16 weeks 3days (+/- 10 days). The cystic structure visualized adjacent to the gestational sac on theprior study is not appreciated on today's exam. Interpreted by: Electronically signed by WILLIS FITZPATRICK II, MD, PHD [id number] 07:13:40 PM [facility] us Boston Paige DO IMG OB US PROCEDURES Final Resul t * BOX TEST (09/01/2024 1:30 PM EDT) BOX TEST SENT OUT [employer] BOX [facility] BOX1 [employer] [facility] BOX2 09/01/24 [facility] 09/01/2024 1:30 PM EDT 09/01/2024 1:43 PM EDT Narrative RICHARD - 09/01/2024 4:43 PM EDT UNITY BOX us Boston Paige DO LAB BLOOD ORDERABLES Final Resul t [facility] * HBSAG SCREEN (09/01/2024 1:30 PM EDT) [facility] HBSAG SCREEN Negative Negative [facility] Comment: Performed at: [address] [id number] Health Researcher: Drake Brooks PhD, Phone: [phone] 09/01/2024 1:30 PM EDT 09/01/2024 1:43 PM EDT Narrative [facility] - 09/02/2024 12:08 PM EDT us Boston Paige DO LAB BLOOD ORDERABLES Final Resul t Performing Organization Address [facility]/ZIP Co de Phone Number [facility] * RAPID PLASMA REAGIN, QUANT (09/01/2024 1:30 PM EDT) [facility] RAPID PLASMA REAGIN, QUANT Non Reactive NonRea<1: 1 titer [facility] Comment: Please Note: This test does not meet current guidelines for screening and diagnosis of syphilis. This test is intended for following treatment response in patients being treated for syphilis infection. To screen for syphilis infection, a reflex cascade that includes both RPR and a treponema-specific assay should be utilized, such as Treponema pallidum (Syphilis) Screening [place] (280573) or Rapid Plasma Reagin (RPR) Test With Reflex to Quantitative RPR and Confirmatory Treponema pallidum Antibodies ([id number]). Performed at: [address] [id number] Health Researcher: Drake Brooks PhD, Phone: [phone] 09/01/2024 1:30 PM EDT 09/01/2024 1:43 PM EDT Narrative CLINISYNC - 09/02/2024 12:08 PM EDT us Boston Paige DO LAB BLOOD ORDERABLES Final Resul t [facility] * HIV AB/P24 AG WITH REFLEX (09/01/2024 1:30 PM EDT) [facility] HIV AB/P24 AG SCREEN Non Reactive Non Reactive [facility] Comment: HIV-1/HIV-2 antibodies and HIV-1 p24 antigen were NOT detected. There is no laboratory evidence of HIV infection. HIV Negative Performed at: [address] [id number] Health Researcher: Drake Brooks PhD, Phone: [phone] 09/01/2024 1:30 PM EDT 09/01/2024 1:43 PM EDT Narrative CLINISYNC - 09/02/2024 6:07 AM EDT [employer] DO LAB BLOOD ORDERABLES Final Resul t Performing Organization Address [facility] Co de Phone Number [facility] TB * HCV ANTIBODY RFX TO QUANT PCR (09/01/2024 1:30 PM EDT) Pathologist [facility] HCV AB Non Reactive Non Reactive [facility] INTERPRETATION: Comment . [facility] Comment: Not infected with HCV unless early or acute infection is suspected (which may be delayed in an immunocompromised individual), or other evidence exists to indicate HCV infection. Performed at: [address] [id number] Health Researcher: Drake Brooks PhD, Phone: [phone] 09/01/2024 1:30 PM EDT 09/01/2024 1:43 PM EDT Narrative CLINISYNC - 09/02/2024 8:09 AM EDT [employer] DO LAB BLOOD ORDERABLES Final Resul t [facility] TB * MLR HEMOGLOBIN A1C (09/01/2024 1:30 PM EDT) Pathologist [facility] GLYCOHEMOGLOBIN A1C 5.2 4.5 - 6.2 % [facility] Comment: ADA RECOMMENDED LIMIT 4.0 - 6.0 ADA THERAPEUTIC TARGET < 7.0 ACTION SUGGESTED > 7.0 ESTIMATED AVERAGE GLUCOSE 103 mg/dL [facility] 09/01/2024 1:30 PM EDT 09/01/2024 1:43 PM EDT Narrative CLINISYNC - 09/01/2024 2:01 PM EDT Boston Paige DO CLINISYNC Final Result Performing Organization Address City/[facility]/ZIP Co de Phone Number [facility] * ALL TYPE AND SCREEN (09/01/2024 1:30 PM EDT) Pathologist [facility] BLOOD TYPE A Positive [facility] ANTIBODY SCREEN NEGATIVE [facility] 09/01/2024 1:30 PM EDT 09/01/2024 1:43 PM EDT Narrative CLINISYNC - 09/01/2024 3:35 PM EDT [facility] , Boston Paige DO CLINISYNC Final Result Performing Organization Address [facility] Co de Phone Number [facility] * ALL RUBELLA IGG AB (09/01/2024 1:30 PM EDT) [facility] RUBELLA ANTIBODIES, IGG 2.60 Immune >0.99 index [facility] Comment: Non-immune <0.90 Equivocal 0.90 - 0.99 Immune >0.99 Performed at: [facility] [address] [id number] Health Researcher: Drake Brooks PhD, Phone: [phone] 09/01/2024 1:30 PM EDT 09/01/2024 1:43 PM EDT Narrative CLINISYNC - 09/02/2024 8:09 AM EDT Boston Paige DO CLINISYNC Final Result [facility] * (ABNORMAL) ALL CBC WITH AUTO DIFF (09/01/2024 1:30 PM EDT) [facility] WBC 7.9 4.0 - 11.0 10 3/uL TBH TBH RBC 4.29 4.20 - 5.40 10 6/uL TBH TBH HGB 11.9(L) 12.0 - 16.0 g/dL TBH TBH HCT 36.4 36.0 - 48.0 % TBH TBH MCV 84.8 81.0 - 99.0 fL TBH TBH MCH 27.7 26.7 - 34.0 pg TBH TBH MCHC 32.7 29.9 - 35.2 g/dL TBH TBH RDW 12.8 11.0 - 15.0 % TBH TBH PLT 277 150 - 450 10 3/uL TBH TBH MPV 11.0 9.5 - 13.5 fL TBH NEUTROPHILS PERCENT AUTO 72.7 43.0 - 75.0 % TBH LYMPHOCYTES PERCENT AUTO 20.7 20.5 - 60.0 % TBH MONOCYTES PERCENT AUTO 5.4 1.7 - 12.0 % TBH TBH EO % 0.6(L) 0.9 - 7.0 % TBH BASOPHILS PERCENT AUTO 0.3 0.2 - 2.0 % TBH IMMATURE GRANULOCYTES PCT AUTO 0.3 0.0 - 0.5 % TBH NEUTROPHILS ABSOLUTE AUTO 5.8 1.4 - 6.5 10 3/uL TBH LYMPHOCYTES ABSOLUTE AUTO 1.6 1.2 - 3.8 10 3/uL TBH MONOCYTES ABSOLUTE AUTO 0.4 0.3 - 0.8 10 3/uL TBH TBH EO # 0.1 0.0 - 0.7 10 3/uL TBH BASOPHILS ABSOLUTE AUTO 0.0 0.0 - 0.1 10 3/uL TBH IMMATURE GRANULOCYTES ABS AUTO 0.02 0.00 - 0.03 10 3/uL [facility] 09/01/2024 1:30 PM EDT 09/01/2024 1:43 PM EDT Narrative CLINISYNC - 09/01/2024 2:06 PM EDT us Boston Paige DO CLINISYNC Final Result [facility] * TB DRUG SCREEN RAPID (URINE) (09/01/2024 1:15 PM EDT) [facility] CANNABINOID SCREEN URINE NEGATIVE NEGATIVE TBH PHENCYCLIDINE SCREEN URINE NEGATIVE NEGATIVE TBH COCAINE SCREEN URINE NEGATIVE NEGATIVE TBH METHAMPHETAMINES SCREEN URINE NEGATIVE NEGATIVE TBH OPIATE SCREEN URINE NEGATIVE NEGATIVE TBH AMPHETAMINE SCREEN URINE NEGATIVE NEGATIVE TBH BENZODIAZEPINES SCREEN URINE NEGATIVE NEGATIVE TBH TRICYCLIC ANTIDEPRESSANT URINE NEGATIVE NEGATIVE TBH METHADONE SCREEN URINE NEGATIVE NEGATIVE TBH BARBITURATES SCREEN URINE NEGATIVE NEGATIVE TBH OXYCODONE SCREEN URINE NEGATIVE NEGATIVE TBH BUPRENORPHINE SCREEN URINE NEGATIVE NEGATIVE [facility] Comment: DRUG CLASS TEST SYSTEM CUT-OFF CONCENTRATIONS ARE FOLLOWS: AMP (Amphetamine): 500 ng/mL BAR (Barbiturates): 200 ng/mL BZO (Benzodiazepines): 150 ng/mL BUP (Buprenorphine): 10 ng/mL HARLAN (Cocaine): 150 ng/mL mAMP (Methamphetamine): 500 ng/mL MTD (Methadone): 200 ng/mL OPI (Opiates): 100 ng/mL OXY (Oxycodone): 100 ng/mL PCP (Phencyclidine): 25 ng/mL THC (Cannabinoids): 50 ng/mL TCA (Trycyclic Antidepressants): 300 ng/mL 09/01/2024 1:15 PM EDT 09/01/2024 1:43 PM EDT Narrative CLINISYNC - 09/01/2024 2:49 PM EDT us Boston Paige DO CLINISYNC Final Result [facility] * (ABNORMAL) POCT , urine manually resulted (08/15/2024 10:35 AM EDT) Preg Test, Ur Positive Negative Urine 08/15/2024 10:3 5 AM EDT us Boston Paige DO POINT OF CARE TEST ENTER/EDIT OR DERABLES Final Result * US OB transvaginal (08/15/2024 9:53 AM EDT) Anatomical Region Laterality Modality Body Ultrasound 08/18/2024 10:4 7 AM EDT Narrative 08/18/2024 10:47 AM EDT EXAM: US OB TRANSVAGINAL HISTORY: Dating. COMPARISON: [...] II, MD, PHD at 18-Aug-2024 10:45:55 AM [facility] Procedure Note Willis Fitzpatrick MD - 08/18/2024 EXAM: US OB TRANSVAGINAL HISTORY: Dating. COMPARISON: None available. TECHNIQUE: Two-dimensional transvaginal grayscale ultrasound imaging ofthe pelvis was performed. Color Doppler evaluation of the ovaries was alsoperformed. FINDINGS: The uterus demonstrates a normal homogeneous echotexture. The cervixmeasures 3.6 cm in length and the cervical os is closed. The right ovary measures 2.5 x 1.3 x 1.5 cm and demonstrates a normalechotexture. There is normal color Doppler flow. The left ovary measures 2.8 x 2.1 x 2.2 cm and demonstrates a normalechotexture. There is normal color Doppler flow. There is a presumedcorpus luteal cyst visualized. No fluid is present within the cul-de-sac. There is a single, live intrauterine gestation identified with a fetalheart rate of 169 beats per minute and a crown-rump length measurement of5 cm, correlating to a gestational age of 11 weeks 5 days (+/- 7 days).There is a 1.7 cm cystic structure adjacent to the gestational sac. Ayolk sac is visualized. IMPRESSION: 1. Single, live intrauterine gestation with today's ultrasoundmeasurements correlating to a gestational age of 11 weeks 5 days (+/- 7days). ANTONIO by today's ultrasound is 03/01/2025. 2. Cystic structure adjacent to the gestational sac. This may represent asubchorionic hemorrhage or an endometrial cyst. A short-term follow-upultrasound is recommended to monitor for resolution. 3. Normal color Doppler evaluation of the bilateral ovaries. Electronically Signed:Electronically signed by WILLIS FITZPATRICK II, MD, PHDat 18-Aug-2024 10:45:55 AM [facility] us Boston Gibson DO G OB US PROCEDURES Final Resul t * Pap Smear (01/17/2024 12:00 AM EDT) Swab Cervical swab / Unknown us Paige Nurse [facility] Ob LAB CYTOLOGY ORDERABLES Final Result EXTERNAL LAB from Last 3 Months or Most Recently Relevant to Health Maintenance Insurance [employer] [employer] Care Teams Octave Board Racker Relationship Specialty Start Date End Date Chencho Murphy MD [address] [place] [id number] PCP - General Family Medicine 05/03/23
--- OUTSIDE RECORDS SUMMARY | 2024-11-08 10:23 | XMS_ITS | Patient Health Record ---
Author Organization [facility] in [place] Address [address] [place] [address] Care Team Providers Care Licensed Investment Sales Assistant Name Role Phone Arcadio Murphy Primary Care Provider Allergies No Known Allergies Results Component Value Reference Range Notes PREG QUANT HCG Reviewed date:07/29/2024 03:40:12 PM Interpretation: Performing Lab: Notes/Report: [facility] , HCG Quantitative 96153 5-50 0.2-1 WEEK 50-500 1-2 WEEKS 100-5,000 2-3 WEEKS 500-10,000 3-4 WEEKS 1,000-50,000 4-5 WEEKS 10,000-100,000 5-6 WEEKS 15,000-200,000 6-8 WEEKS 10,000-100,000 2-3 MONTHS Performing Lab: see note ML - [facility] LB CBC AUTO DIFF Reviewed date:09/01/2024 08:29:17 PM Interpretation: Performing Lab: Notes/Report: [facility] , White Blood Count 7.9 4.0-11.0 10 3/uL Red Blood Count 4.29 4.20-5.40 10 6/uL Hemoglobin 11.9 12.0-16.0 g/dL Hematocrit 36.4 36.0-48.0 % Mean Corpuscular Volume 84.8 81.0-99.0 fL Mean Corpuscular Hemoglobin 27.7 26.7-34.0 pg Mean Corpuscular HGB Conc 32.7 29.9-35.2 g/dL Red Cell Distribution Width 12.8 11.0-15.0 % Platelet Count 277 150-450 10 3/uL Mean Platelet Volume 11.0 9.5-13.5 fL Neutrophils Percent Auto 72.7 43.0-75.0 % Lymphocytes Percent Auto 20.7 20.5-60.0 % Monocytes Percent Auto 5.4 1.7-12.0 % Eosinophils Percent Auto 0.6 0.9-7.0 % Basophils Percent Auto 0.3 0.2-2.0 % Immature Granulocytes Pct Auto 0.3 0.0-0.5 % Neutrophils Absolute Auto 5.8 1.4-6.5 10 3/uL Lymphocytes Absolute Auto 1.6 1.2-3.8 10 3/uL Monocytes Absolute Auto 0.4 0.3-0.8 10 3/uL Eosinophils Absolute Auto 0.1 0.0-0.7 10 3/uL Basophils Absolute Auto 0.0 0.0-0.1 10 3/uL Immature Granulocytes Abs Auto 0.02 0.00-0.03 10 3/uL Performing Lab: see note ML - [facility] LB Type and Screen Reviewed date:09/01/2024 08:29:17 PM Interpretation: Performing Lab: Notes/Report: [facility] , Blood Type A Positive Antibody Screen NEGATIVE Rapid Plasma Reagin, Quant Reviewed date:09/02/2024 01:10:40 PM Interpretation: Performing Lab: Notes/Report: [facility] , Rapid Plasma Reagin, Quant Non Reactive NonRea<1:1 titer Please Note: This test does not meet current guidelines for screening and diagnosis of syphilis. This test is intended for following treatment response in patients being treated for syphilis infection. To screen for syphilis infection, a reflex cascade that includes both RPR and a treponema-specific assay should be utilized, such as Treponema pallidum (Syphilis) Screening Meriwether (381317) or Rapid Plasma Reagin (RPR) Test With Reflex to Quantitative RPR and Confirmatory Treponema pallidum Antibodies (491288). Performed at: [address] [id number] Bottom Presser: Drake Brooks PhD, Phone: [phone] Performing Lab: see note [facility] LB HBsAg Screen Reviewed date:09/02/2024 01:10:40 PM Interpretation: Performing Lab: Notes/Report: [facility] , HBsAg Screen Negative Negative Performed at: [address] [id number] Bottom Presser: Drake Brooks PhD, Phone: [phone] Performing Lab: see note [facility] Urine Culture, Routine Reviewed date:09/03/2024 09:46:27 AM Interpretation: Performing Lab: Notes/Report: [facility] , Urine Culture, Routine See Below For Report Urine Culture, Routine Urine Culture, Routine Mixed urogenital geno Urine Culture, Routine Urine Culture, Routine 10,000-25,000 colony forming units per mL Urine Culture, Routine Urine Culture, Routine Performed at: [facility] Urine Culture, Routine Urine Culture, Routine [address] [place] [id number] Urine Culture, Routine Urine Culture, Routine Bottom Presser: Drake Brooks PhD, Phone: [phone] Urine Culture, Routine Performing Lab: see note - [facility] SEE REPORT - Access Liaison Id information not found for OBX-specific marketing producer legend HCV Antibody RFX to Quant PC R Reviewed date:09/02/2024 01:10:40 PM Interpretation: Performing Lab: Notes/Report: [facility] , HCV Ab Non Reactive Non Reactive Interpretation: Comment . Not infected with HCV unless early or acute infection is suspected (which may be delayed in an immunocompromised individual), or other evidence exists to indicate HCV infection. Performed at: [address] [id number] Bottom Presser: Drake Brooks PhD, Phone: [phone] Performing Lab: see note [facility] HIV Ab/p24 Ag with Reflex Reviewed date:09/02/2024 01:10:40 PM Interpretation: Performing Lab: Notes/Report: [facility] , HIV Ab/p24 Ag Screen Non Reactive Non Reactive HIV-1/HIV-2 antibodies and HIV-1 p24 antigen were NOT detected. There is no laboratory evidence of HIV infection. HIV Negative Performed at: [address] [id number] Bottom Presser: Drake Brooks PhD, Phone: [phone] Performing Lab: see note [facility] RUBELLA AB IGG Reviewed date:09/02/2024 01:10:40 PM Interpretation: Performing Lab: Notes/Report: [facility] , Rubella Antibodies, IgG 2.60 Immune >0.99 inde x Non-immune <0.90 Equivocal 0.90 - 0.99 Immune >0.99 Performed at: [address] [id number] Bottom Presser: Drake Brooks PhD, Phone: [phone] Performing Lab: see note - [facility] LB GLYCOHEMOGLOBIN A1C Reviewed date:09/01/2024 08:29:17 PM Interpretation: Performing Lab: Notes/Report: [facility] , Glycohemoglobin A1C 5.2 4.5-6.2 % ADA RECOMMENDED LIMIT 4.0 - 6.0 ADA THERAPEUTIC TARGET < 7.0 ACTION SUGGESTED > 7.0 Estimated Average Glucose 103 Performing Lab: see note ML - [facility] DRUG SCREEN RAPID (URINE) Reviewed date:09/01/2024 08:29:17 PM Interpretation: Performing Lab: Notes/Report: [facility] , Cannabinoid Screen Urine NEGATIVE NEGATIVE Phencyclidine Screen Urine NEGATIVE NEGATIVE Cocaine Screen Urine NEGATIVE NEGATIVE Methamphetamines Screen Urine NEGATIVE NEGATIVE Opiate Screen Urine NEGATIVE NEGATIVE Amphetamine Screen Urine NEGATIVE NEGATIVE Benzodiazepines Screen Urine NEGATIVE NEGATIVE Tricyclic Antidepressant Urine NEGATIVE NEGATIVE Methadone Screen Urine NEGATIVE NEGATIVE Barbiturates Screen Urine NEGATIVE NEGATIVE Oxycodone Screen Urine NEGATIVE NEGATIVE Buprenorphine Screen Urine NEGATIVE NEGATIVE DRUG CLASS TEST SYSTEM CUT-OFF CONCENTRATIONS ARE FOLLOWS: AMP (Amphetamine): 500 ng/mL BAR (Barbiturates): 200 ng/mL BZO (Benzodiazepines): 150 ng/mL BUP (Buprenorphine): 10 ng/mL HARLAN (Cocaine): 150 ng/mL mAMP (Methamphetamine): 500 ng/mL MTD (Methadone): 200 ng/mL OPI (Opiates): 100 ng/mL OXY (Oxycodone): 100 ng/mL PCP (Phencyclidine): 25 ng/mL THC (Cannabinoids): 50 ng/mL TCA (Trycyclic Antidepressants): 300 ng/mL Performing Lab: see note ML - [facility] LB PREG QUANT HCG Reviewed date:07/31/2024 06:53:05 PM Interpretation: Performing Lab: Notes/Report: [facility] , HCG Quantitative 84489 5-50 0.2-1 WEEK 50-500 1-2 WEEKS 100-5,000 2-3 WEEKS 500-10,000 3-4 WEEKS 1,000-50,000 4-5 WEEKS 10,000-100,000 5-6 WEEKS 15,000-200,000 6-8 WEEKS 10,000-100,000 2-3 MONTHS Performing Lab: see note ML - [facility] LB IGP,Aptima HPV,Age Gdln Reviewed date:01/23/2024 07:20:06 PM Interpretation: Performing Lab: Notes/Report: BRUSH-SPATULA CERVIX ENDOCERVIX [facility] , Age Gdln ACOG Testing Note . TESTS RESULT FLAG UNITS REF RANGE LAB Clinician Provided Cytology Information Source.............Cerv ix;Endocervix No. of containers..01 ThinPrep Vial Age Algo ACOG Tatianna... 30-65 01 FLAG LEGEND: L-Low Normal,H-High Normal,LL-Alert Low,HH-Alert High <-Panic Low,>-Panic High,A-Abnormal,AA-Crit ical Abnormal Performed at: 01 =G [facility] [address] [facility] [place] [address] Betty Rodriguez MD, IGP, Aptima HPV, rfx 16/18,45 Note . TESTS RESULT FLAG UNITS REF RANGE LAB DIAGNOSIS: 02 NEGATIVE FOR INTRAEPITHELIAL LESION OR MALIGNANCY. Specimen adequacy: 02 Satisfactory for evaluation. No endocervical component is identified. Performed by: 02 Rhiannon Garcia [employer] Counter Clerk . 02 Note: Note 02 The Pap smear is a screening test designed to aid in the detection of premalignant and malignant conditions of the uterine cervix. It is not a diagnostic procedure and should not be used as the sole means of detecting cervical cancer. Both false-positive and false-negative reports do occur. Test Methodology: Note 02 The [employer] Bulb Assembler was unable to read this specimen. Therefore a manual review was performed. FLAG LEGEND: L-Low Normal,H-High Normal,LL-Alert Low,HH-Alert High <-Panic Low,>-Panic High,A-Abnormal,AA-Crit ical Abnormal Performed at: [address] [address] Betty Rodriguez MD, HPV Genotype Reflex Note 02 Criteria not met, HPV Genotype not performed. Criteria not met, HPV Genotype not performed. HPV Aptima Negative Negative This nucleic acid amplification test detects fourteen high- risk HPV types (16,18,31,33,35,39,45,5 1,52,56,58,59,66,68) without differentiation. Performed at: = - [address] [id number] Bottom Presser: Betty Rodriguez MD, Phone: [phone] Performed at: [address] [id number] Bottom Presser: Betty Rodriguez MD, Phone: [phone] Performing Lab: see note LC - [facility] LB AFP, Serum, Open Spina Bifid a Reviewed date:11/05/2024 05:29:19 PM Interpretation: Performing Lab: Notes/Report: N N ULTRASOUND [id number] 4 20 N 1 Y 211 N N N N N White/ [facility] , Results Report . Test Results: *Screen Negative* . Gest. Age on Collection Date 22.9 . weeks Gestat. Age Based On Ultrasound . 20.6 on 10/16/2024 Recalculations are not recommended when gestational dating by LMP and ultrasound are within 10 days. M[age]TONIO 35.0 . yr Race . Weight 211 . lbs Insulin Dep Diabetes No . Multiple Gestation No . AFP Value 52.2 . ng/mL AFP MoM 0.77 . [place]BR [place] 1 [place] [address] . Interpretation Comment . Interpretation: Screen Negative This result is screen [...] Customer Services to discuss available options. The [employer] recommends amniocentesis be offered to women age 35 and older. Comment: Comment . Romelia Villarreal, Ph.D., [facility] Director References: Available Upon Request. Multiples Of Median Cutoffs For AFP Elevations Feliz 2.5 Black 2.8 IDD 2.0 Twins 4.5 Abbreviation Definitions IDD - Insulin Dep Diabetes OSBR - Open Spina Bifida Risk For further inquiries contact [employer] [facility] at [phone]. This test was developed and its performance characteristics determined by [employer]. It has not been cleared or approved by the Food and Drug Administration. Performed at: [facility] [address] [place], [place] [id number] Bottom Presser: Andres Faust [facility], Phone: [phone] Performing Lab: see note [facility] LB Box Test Reviewed date:09/01/2024 08:29:17 PM Interpretation: Performing Lab: Notes/Report: [facility] , BOX Test Sent Out UNITY BOX BOX Test Reference Lab UNITY BOX Test Date Sent 09/01/24 Performing Lab: see note ML - [facility] LB Reason For Referral No Information Medications Medication SIG (Take, Route, Frequency, Duration) [...] ast year? No Points 0 Interpretation Negative Problems Problem Type SNOMED Code ICD Code Onset Dates Problem Status W/U Status Risk Notes Problem Acne vulgaris (30986970) Acne vulgaris (L70.0) Active confirmed Problem Gastroesophageal reflux disease (600002681) GERD (gastroesoph ageal reflux disease) (K21.9) Active confirmed Problem Seasonal allergic rhinitis (J30.2) Active confirmed Vital Signs Blood pressure diastolic 80 mm Hg 06/25/2024 Height 58 in 06/25/2024 Blood pressure systolic 108 mm Hg 06/25/2024 Weight 200.0 lbs 06/25/2024 BMI 41.8 kg/m2 06/25/2024 Encounters Encounter Location Date Provider Diagnosis [facility] [address] [place] [address] 06/26/2024 Arcadio Murphy [facility] [address] [place] [address] 07/29/2024 Arcadio Murphy [facility] [address] [place] [address] 02/27/2024 Arcadio Hoy Acne vulgaris L70.0 [facility] [address] [place] [address] 06/25/2024 Arcadio Hoy GERD (gastroesophage al reflux disease) K21.9 Assessments Encounter Date Diagnosis (ICD Code) Assessment Notes Treatment Notes Treatment Clinical Notes Section Notes 02/27/2024 Acne vulgaris (ICD-10 - L70.0) 06/25/2024 GERD (gastroesophage al reflux disease) (ICD-10 - K21.9) Plan Of Treatment No Information Insurance Providers Payer Name Payer Address Payer Phone Subscriber Number Group Number Insured Name Patient Relationship to Insured Coverage Start Date Coverage End Date [employer] [place] [employer] [address] [address] [place] [address] [id number] Merle Cyr Self - patient is the insured Medical (General) History Medical History History ICD Code Seasonal allergic rhinitis J30.2 GERD (gastroesophageal reflux disease) K 21.9 Depression F32.A
--- OUTSIDE RECORDS SUMMARY | 2024-11-08 10:23 | XMS_ITS | Encounter Summary ---
Author Organization [facility] Address [address] [place] [address] Care Team Providers Care Research Associate Name Role Phone Chencho Murphy MD Primary Care Provider [phone] Encounter Details Date Type Department Care Team (Late st Contact Info) Description 08/21/2023 Abstract [facility] [address] [facility] [place] [address] Steph Brooks LPN [address] Siobhan [place] [address] Social History Tobacco Use Types Packs/Day Years [...] AM EDT Routine [facility] [address] [facility] [place] [address] [place] Gibson [address] [place], [place] [id number] 01/26/2025 11:00 AM EDT Office Visit [facility] [address] [facility] [place] [address] Isa Avendano PA [address] [place] [address] [place], [place] [id number] documented as of this encounter Visit Diagnoses Not on filedocumented in this encounter Care Teams Research Associate Relationship Specialty Start Date End Date Chencho Murphy MD [address] [facility] [place] [address] PCP - General Family Medicine 05/03/23 documented as of this encounter
--- OUTSIDE RECORDS SUMMARY | 2024-11-08 10:23 | XMS_ITS | Encounter Summary ---
Author Organization [facility] Address [address] [place] [address] Care Team Providers Care Lastex Operator Name Role Phone Chencho Murphy MD Primary Care Provider [phone] Encounter Details Date Type Department Care Team (Late st Contact Info) Description 10/18/2023 Clinisync Result Encounter [facility] External Department Unsolicited Jhon Gibson DO [facility] Aam[address] [place], [facility] Social History Tobacco Use Types Packs/Day Years [...] Routine [facility] [address] [place] [address] Jhon Gibson DO [address] [place] [address] 01/26/2025 11:00 AM EDT Office Visit [facility] [address] [place] [address] Isa Avendano PA [address] [place] [address] [phone] (work) documented as of this encounter Procedures Procedure Name Priority Date/Time Associated Diagnosis Comments US OB GROWTH 10/18/2023 7:08 AM EDT documented in this encounter Results * US OB GROWTH (10/18/2023 7:08 AM EDT) Anatomical Region Laterality Modality Other 10/18/2023 7:08 AM EDT Narrative 10/18/2023 7:11 AM EDT [address] [address] Ultrasound Report Signed Patient: MERLE GUARDADO MR#: [id number] : 1990 Acct:[id number] Age/Sex: 33 / F ADM Date: 10/17/23 Loc: US Attending Dr: Jhon Gibson D.O. Ordering Physician: Jhon Gibson D.O. Date of Service: 10/17/23 Procedure(s): US OB growth Accession Number(s): [id number] cc: Jhon Gibson D.O.; Chencho Murphy M.D. [address] [address] Patient Name: MERLE GUARDADO MRN: [id number] date: 1990 Sex: F Assigned Patient Location: [facility] Current Patient Location: US Accession/Order Number: [id number] Exam Date: 10/17/2023 16:44 Report Date: 10/18/2023 07:08 At the request of: JHON GIBSON Procedure: US OB growth EXAMINATION: US OB growth HISTORY: 40 WEEKS GESTATION OF Z3A.40 COMPARISON: No relevant comparison available. FINDINGS: Heart Rate: 122.2 bpm Amniotic Fluid Volume: 8.9 cm Number: 1.0 Position: Cephalic presentation, longitudinal lie Maximum Vertical Pocket: 0.8 cm cm 1.9 cm cm 2.4 cm cm 3.9 cm cm BIOMETRY: BPD: 9.7 cm cm; 39 weeks 4 days; HC: 35.5 cmcm; 41 weeks 3 days AC: 36.1 cm cm; 40 weeks 0 days FL: 7.3 cm cm; 37 weeks 3 days; EFW: 3827.3 grams, 8 lbs. 7 oz., 65% FL/AC: 20.3 FL/BPD: 75.7 HC/AC: 1.0 GESTATIONAL AGE: Age by EDC: 40 weeks 1 days ANTONIO by EDC: 10/16/2023 Age by US: 39 weeks 4 days ANTONIO by US: 12/20/2023 US/US OB growth IMPRESSION: Interval growth as detailed above Electronically authenticated by: ASHLEY TOBIN Date: 10/18/2023 07:08 Dictated By: Ashley Tobin M.D. Signed By: 10/18/23710 DD/ 7 TD/TT: Rn [facility]: Procedure Note Radiology, Radiologist, MD - 10/18/2023 [place] [address] Ultrasound Report Signed Patient: MERLE GUARDADO NMR#: [id number] : 1990Acct:[id number] Age/Sex: 33 / FADM Date: 10/17/23 Loc: US Attending Dr: Jhon Gibson D.O. Ordering Physician: Jhon Gibson D.O. Date of Service: 10/17/23 Procedure(s): US OB growth Accession Number(s): [id number] cc: Jhon Gibson D.O.; Chencho Murphy M.D. The [place] [address] Patient Name: MERLE GUARDADO MRN: [id number] date: 1990 Sex: F Assigned Patient Location: [facility] Current Patient Location: US Accession/Order Number: [id number] Exam Date: 10/17/2023 16:44 Report Date: 10/18/2023 07:08 At the request of: JHON GIBSON Procedure: US OB growth EXAMINATION: US OB growth HISTORY: 40 WEEKS GESTATION OF Z3A.40 COMPARISON: No relevant comparison available. FINDINGS: Heart Rate: 122.2 bpm Amniotic Fluid Volume: 8.9 cm Number: 1.0 Position: Cephalic presentation, longitudinal lie Maximum Vertical Pocket: 0.8 cm cm 1.9 cm cm 2.4 cm cm 3.9 cm cm BIOMETRY: BPD: 9.7 cm cm; 39 weeks 4 days; HC: 35.5 cmcm; 41 weeks 3 days AC: 36.1 cm cm; 40 weeks 0 days FL: 7.3 cm cm; 37 weeks 3 days; EFW: 3827.3 grams, 8 lbs. 7 oz., 65% FL/AC: 20.3 FL/BPD: 75.7 HC/AC: 1.0 GESTATIONAL AGE: Age by EDC: 40 weeks 1 days ANTONIO by EDC: 10/16/2023 Age by US: 39 weeks 4 days ANTONIO by US: 12/20/2023 US/US OB growth IMPRESSION: Interval growth as detailed above Electronically authenticated by: ASHLEY TOBIN Date: 10/18/2023 07:08 Dictated By: Ashley Tobin M.D. Signed By:10/18/23710 DD/ TD/TT: Rn Community Health: us Jhon Paige DO [facility] Final Result documented in this encounter Visit Diagnoses Not on filedocumented in this encounter Care Teams Lastex Operator Relationship Specialty Start Date End Date Chencho Murphy MD [address] [place] [address] PCP - General Family Medicine 05/03/23 documented as of this encounter
--- OUTSIDE RECORDS SUMMARY | 2024-11-08 10:23 | XMS_ITS | Encounter Summary ---
Author Organization [facility] Address [address] [place] [address] Care Team Providers Care Ruby Rails Developer Name Role Phone Chencho Murphy MD Primary Care Provider [phone] Encounter Details Date Type Department Care Team (Late st Contact Info) Description 08/20/2024 Telephone [facility] [address] [facility] [place] [address] Mayr Chauhan LPN [address] [place] [address] Social History Tobacco Use Types Packs/Day Years [...] Description 11/17/2024 10:10 AM EDT Routine [facility] OB [address] [facility] [place] [address] [place] Gibson [address] [address] 01/26/2025 11:00 AM EDT Office Visit [facility] OB [address] [place] [address] Isa Avendano PA [address] [facility] [address] [place], [place] [id number] documented as of this encounter Visit Diagnoses Not on filedocumented in this encounter Care Teams Ruby Rails Developer Relationship Specialty Start Date End Date Chencho Murphy MD [address] [facility] [place] [place] [address] PCP - General Family Medicine 05/03/23 documented as of this encounter
--- OUTSIDE RECORDS SUMMARY | 2024-11-08 10:23 | XMS_ITS | Encounter Summary ---
Author Organization [facility] Address [address] [place] [address] Care Team Providers Care Organ Pipe Finisher Name Role Phone Chencho Murphy MD Primary Care Provider [phone] Encounter Details Date Type Department Care Team (Late st Contact Info) Description 07/03/2023 Clinisync Result Encounter [facility]S External Department Unsolicited Jhon Gibson DO [facility] Aamir Henriquez, [facility]11 Social History Tobacco Use Types Packs/Day [...] Routine [facility] B[facility] OB [address] [place] [address] Jhon Gibson DO [address] [place] [address] 01/26/2025 11:00 AM EDT Office Visit [facility] BCP OB [address] [place] [address] Isa Avendano PA [address] [place] [address] [phone] (work) documented as of this encounter Procedures Procedure Name Priority Date/Time Associated Diagnosis Comments US OB INCOMPLETE ANATOMY 07/03/2023 10:46 AM EST documented in this encounter Results * US OB INCOMPLETE ANATOMY (07/03/2023 10:46 AM EST) Anatomical Region Laterality Modality Other 07/03/2023 10:4 6 AM EST Narrative 07/03/2023 10:48 AM EST [address] [address] Ultrasound Report Signed Patient: MERLE GUARDADO MR#: [id number] : 1990 Acct:[id number] Age/Sex: 33 / F ADM Date: 07/03/23 Loc: NOMS Attending Dr: Jhon Gibson D.O. Ordering Physician: Jhon Gibson D.O. Date of Service: 07/03/23 Procedure(s): US OB incomplete anatomy Accession Number(s): [id number] cc: Jhon Gibson D.O.; Chencho Murphy M.D. [address] [address] Patient Name: MERLE GUARDADO MRN: [id number] date: 1990 Sex: F Assigned Patient Location: [facility] Current Patient Location: [facility] Accession/Order Number: [id number] Exam Date: 07/03/2023 09:48 Report Date: 07/03/2023 10:46 At the request of: JHON GIBSON Procedure: US OB incomplete anatomy EXAM: US OB incomplete anatomy HISTORY: INCOMPLETE ANATOMY COMPARISON: 06/05/2023 TECHNIQUE: Transabdominal FINDINGS: position: Cephalic presentation, longitudinal lie Heart rate: 124 beats minute Normal anatomy: Nose and lips US/US OB incomplete anatomy IMPRESSION: Normal nose and lips Electronically authenticated by: ASHLEY TOBIN Date: 07/03/2023 10:46 Dictated By: Ashley Tobin M.D. Signed By: 07/03/231047 DD/ 45 TD/TT: Continuous Wave Operator: Procedure Note Radiology, Radiologist, - 07/03/2023 [place] [address] Ultrasound Report Signed Patient: MERLE GUARDADO NMR#: [id number] : 1990Acct:[id number] Age/Sex: 33 / FADM Date: 07/03/23 Loc: [facility]OMS Attending Dr: Jhon Gibson D.O. Ordering Physician: Jhon Gibson D.O. Date of Service: 07/03/23 Procedure(s): US OB incomplete anatomy Accession Number(s): [id number] cc: Jhon Gibson D.O.; Chencho Murphy M.D. [address] [place] [address] Patient Name: MERLE GUARDADO MRN: [facility]:[id number] date: 1990 Sex: F Assigned Patient Location: [facility] Current Patient Location: [facility] Accession/Order Number: [id number] Exam Date: 07/03/2023 09:48 Report Date: 07/03/2023 10:46 At the request of: JHON GIBSON Procedure: US OB incomplete anatomy EXAM: US OB incomplete anatomy HISTORY: INCOMPLETE ANATOMY COMPARISON: 06/05/2023 TECHNIQUE: Transabdominal FINDINGS: position: Cephalic presentation, longitudinal lie Heart rate: 124 beats minute Normal anatomy: Nose and lips US/US OB incomplete anatomy IMPRESSION: Normal nose and lips Electronically authenticated by: ASHLEY TOBIN Date: 07/03/2023 10:46 Dictated By: Ashley Tobin M.D. Signed By:07/03/231047 DD/ 45 TD/TT: Continuous Wave Operator: Jhon Gibson DO [facility] Final Result documented in this encounter Visit Diagnoses Not on filedocumented in this encounter Care Teams Organ Pipe Finisher Relationship Specialty Start Date End Date Chencho Murphy MD [address] [place] [address] PCP - General Family Medicine 05/03/23 documented as of this encounter
--- OUTSIDE RECORDS SUMMARY | 2024-11-08 10:23 | XMS_ITS | Encounter Summary ---
Author Organization [facility] Address [address] [place] [address] Care Team Providers Care Power Distributor Name Role Phone Chencho Murphy MD Primary Care Provider [phone] Encounter Details Date Type Department Care Team (Late st Contact Info) Description 08/21/2023 Clinisync Result Encounter NOMS External Department Unsolicited Jhon Gibson DO [facility] Aamir [place], [facility]11 Social History Tobacco Use Types Packs/Day [...] Routine [facility] BCP OB [address] [place] [address] Jhon Gibson DO [address] [place] [address] 01/26/2025 11:00 AM EDT Office Visit [facility] BCP OB [address] [place] [address] Isa Avendano PA [address] [place] [address] [phone] (work) documented as of this encounter Procedures Procedure Name Priority Date/Time Associated Diagnosis Comments US OB GROWTH 08/21/2023 3:01 PM EDT documented in this encounter Results * US OB GROWTH (08/21/2023 3:01 PM EDT) Anatomical Region Laterality Modality Other 08/21/2023 3:01 PM EDT Narrative 08/21/2023 3:03 PM EDT [address] [address] Ultrasound Report Signed Patient: MERLE GUARDADO MR#: [id number] : 1990 Acct:[id number] Age/Sex: 33 / F ADM Date: 08/21/23 Loc: NOMS Attending Dr: Jhon Gibson D.O. Ordering Physician: Jhon Gibson D.O. Date of Service: 08/21/23 Procedure(s): US OB growth Accession Number(s): [id number] cc: Jhon Gibson D.O.; Chencho Murphy M.D. [address] [address] Patient Name: MERLE GUARDADO MRN: [id number] date: 1990 Sex: F Assigned Patient Location: [facility] Current Patient Location: [facility] Accession/Order Number: [id number] Exam Date: 08/21/2023 14:02 Report Date: 08/21/2023 15:01 At the request of: JHON GIBSON Procedure: US OB growth EXAMINATION: US OB growth HISTORY: SIZE INCONSISTENT WITH DATES COMPARISON: Ultrasound OB anatomy 06/05/2023 FINDINGS: Heart Rate: 123.0 bpm Number: 1.0 Position: CEPHALIC Amniotic Fluid Volume: 17.8 cm Maximum Vertical Pocket: 5.2 cm BIOMETRY: BPD: 8.2 cm cm; 32 weeks 6 days; 67% HC: 31.1 cmcm; 34 weeks 5 days ; 83% AC: 28.1 cm cm; 32 weeks 1 days; 52% FL: 6.3 cm cm; 32 weeks 3 days; 48% EFW: 1990.4 grams; 56% FL/AC: 22.3 FL/BPD: 76.6 HC/AC: 1.1 GESTATIONAL AGE: Age by EDC: 32 weeks 0 days ANTONIO by EDC: 10/16/2023 Age by US: 33 weeks 0 days ANTONIO by US: 10/09/2023 US/US OB growth IMPRESSION: 1. Single live intrauterine with growth detailed above. Electronically authenticated by: BRYCE RADER Date: 08/21/2023 15:01 Dictated By: Bryce Rader M.D. Signed By: 08/21/23 1503 DD/ 1501 TD/TT: Television News Reporter: Procedure Note Radiology, Radiologist, - 08/21/2023 [place] [address] Ultrasound Report Signed Patient: MERLE GUARDADO NMR#: [id number] : 1990Acct:[id number] Age/Sex: 33 / FADM Date: 08/21/23 Loc: [facility] Attending Dr: Jhon Gibson D.O. Ordering Physician: Jhon Gibson D.O. Date of Service: 08/21/23 Procedure(s): US OB growth Accession Number(s): [id number] cc: Jhon Gibson D.O.; Chencho Murphy M.D. [address] [place] [address] Patient Name: MERLE GUARDADO MRN: [id number] date: 1990 Sex: F Assigned Patient Location: [facility] Current Patient Location: [facility] Accession/Order Number: [id number] Exam Date: 08/21/2023 14:02 Report Date: 08/21/2023 15:01 At the request of: JHON GIBSON Procedure: US OB growth EXAMINATION: US OB growth HISTORY: SIZE INCONSISTENT WITH DATES COMPARISON: Ultrasound OB anatomy 06/05/2023 FINDINGS: Heart Rate: 123.0 bpm Number: 1.0 Position: CEPHALIC Amniotic Fluid Volume: 17.8 cm Maximum Vertical Pocket: 5.2 cm BIOMETRY: BPD: 8.2 cm cm; 32 weeks 6 days; 67% HC: 31.1 cmcm; 34 weeks 5 days ; 83% AC: 28.1 cm cm; 32 weeks 1 days; 52% FL: 6.3 cm cm; 32 weeks 3 days; 48% EFW: 1990.4 grams; 56% FL/AC: 22.3 FL/BPD: 76.6 HC/AC: 1.1 GESTATIONAL AGE: Age by EDC: 32 weeks 0 days ANTONIO by EDC: 10/16/2023 Age by US: 33 weeks 0 days ANTONIO by US: 10/09/2023 US/US OB growth IMPRESSION: 1. Single live intrauterine with growth detailed above. Electronically authenticated by: BRYCE RADER Date: 08/21/2023 15:01 Dictated By: Bryce Rader M.D. Signed By:08/21/23 1503 DD/ 1501 TD/TT: Television News Reporter: us Jhon Paige DO [facility] Final Result documented in this encounter Visit Diagnoses Not on filedocumented in this encounter Care Teams Power Distributor Relationship Specialty Start Date End Date Chencho Murphy MD [address] [place] [address] PCP - General Family Medicine 05/03/23 documented as of this encounter
--- OUTSIDE RECORDS SUMMARY | 2024-11-08 10:23 | XMS_ITS | Encounter Summary ---
Author Organization [facility] Address [address] [place] [address] Care Team Providers Care Sales Center Manager Name Role Phone Chencho Murphy MD Primary Care Provider [phone] Encounter Details Date Type Department Care Team (Late st Contact Info) Description 06/05/2023 Clinisync Result Encounter NOMS External Department Unsolicited Jhon Gibson DO [facility] [address] [place], [facility]11 Social History Tobacco Use Types Packs/Day [...] Routine [facility] BCP OB [address] [place] [address] Jhon Gibson DO [address] [place] [address] 01/26/2025 11:00 AM EDT Office Visit [facility] BCP OB [address] [place] [address] Isa Avendano PA [address] [place] [address] (work) documented as of this encounter Procedures Procedure Name Priority Date/Time Associated Diagnosis Comments US OB CERVICAL LENGTH 06/05/2023 2:18 PM EST documented in this encounter Results * US OB CERVICAL LENGTH (06/05/2023 2:18 PM EST) Anatomical Region Laterality Modality Other 06/05/2023 2:18 PM EST Narrative 06/05/2023 2:20 PM EST [address] [address] Ultrasound Report Signed Patient: MERLE GUARDADO MR#: [id number] : 1990 Acct:[id number] Age/Sex: 33 / F ADM Date: 06/05/23 Loc: US Attending Dr: Jhon Gibson D.O. Ordering Physician: Jhon Gibson D.O. Date of Service: 06/05/23 Procedure(s): US OB cervical length Accession Number(s): [id number] cc: Jhon Gibson D.O.; Chencho Murphy M.D. [address] [address] Patient Name: MERLE GUARDADO MRN: [id number] date: 1990 Sex: F Assigned Patient Location: US Current Patient Location: US Accession/Order Number: [id number] Exam Date: 06/05/2023 13:04 Report Date: 06/05/2023 14:18 At the request of: JHON GIBSON Procedure: US OB cervical length EXAMINATION: US OB anatomy, US OB cervical length HISTORY: ANATOMY COMPARISON: No relevant comparison available. TECHNIQUE: Transabdominal sonographic examination was performed for obstetrical and evaluation. FINDINGS: Number: 1 Heart Rate: 122.0 bpm H.B. /min Amniotic Fluid Volume: Subjectively normal position: Cephalic presentation, longitudinal lie Placental Location: And posterior. Placental edge is 4.1 cm from the internal os Cervix Length: 4.2 cm , closed Normal anatomy: Lateral ventricles, cerebellum, posterior fossa, orbits, four-chamber heart, RVOT, LVOT, diaphragm, stomach, kidneys, abdominal cord insertion, bladder, umbilical arteries, three-vessel cord, spine, extremities Suboptimal visualization: Nose/lips BIOMETRY: BPD: 5.0 cm 21 weeks 2 days , 21 weeks 2 days, 60% HC: 18.5 cm 20 weeks 6 days, 20 weeks 6 days, 33% AC: 16.1 cm 21 weeks 2 days, 21 weeks 2 days, 51% FL: 3.6 cm 21 weeks 2 days , 21 weeks 2 days, 52% EFW:407.6 grams; 14 ounces, 57% FL/AC: 22.1 FL/BPD: 70.8 HC/AC: 1.2 GESTATIONAL AGE: Age by EDC: 21 weeks 0 days Age by current US: 21 weeks 1 days ANTONIO by current US: 10/15/2023 ANTONIO by EDC: 10/16/2023 US/US OB cervical length IMPRESSION: Suboptimal visualization of the nose and lips Otherwise normal anatomy scan Closed cervix measuring 4.2 cm in length *Reference: [employer] Practice Guideline for the performance of Obstetric Ultrasound Examinations, February 18, 2007. Electronically authenticated by: ASHLEY TOBIN Date: 06/05/2023 14:18 Dictated By: Ashley Tobin M.D. Signed By: 06/05/23 1420 DD/ 1418 TD/TT: Dental Instrument Maker: Procedure Note Radiology, Radiologist, MD - 06/05/2023 [place] [address] Ultrasound Report Signed Patient: MERLE GUARDADO [facility]#: [id number] : 1990Acct:[id number] Age/Sex: 33 / FADM Date: 06/05/23 Loc: US Attending Dr: Jhon Gibson D.O. Ordering Physician: Jhon Gibson D.O. Date of Service: 06/05/23 Procedure(s): US OB cervical length Accession Number(s): [id number] cc: Jhon Gibson D.O.; Chencho Murphy M.D. The [place] [address] Patient Name: MERLE GUARDADO MRN: [id number] date: 1990 Sex: F Assigned Patient Location: US Current Patient Location: US Accession/Order Number: [id number] Exam Date: 06/05/2023 13:04 Report Date: 06/05/2023 14:18 At the request of: JHON GIBSON Procedure: US OB cervical length EXAMINATION: US OB anatomy, US OB cervical length HISTORY: ANATOMY COMPARISON: No relevant comparison available. TECHNIQUE: Transabdominal sonographic examination was performed for obstetrical and evaluation. FINDINGS: Number: 1 Heart Rate: 122.0 bpm H.B. /min Amniotic Fluid Volume: Subjectively normal position: Cephalic presentation, longitudinal lie Placental Location: And posterior. Placental edge is 4.1 cm from theinternal os Cervix Length: 4.2 cm , closed Normal anatomy: Lateral ventricles, cerebellum, posterior fossa, orbits, four-chamber heart, RVOT, LVOT, diaphragm, stomach, kidneys, abdominalcord insertion, bladder, umbilical arteries, three-vessel cord, spine,extremities Suboptimal visualization: Nose/lips BIOMETRY: BPD: 5.0 cm 21 weeks 2 days , 21 weeks 2 days, 60% HC: 18.5 cm 20 weeks 6 days, 20 weeks 6 days, 33% AC: 16.1 cm 21 weeks 2 days, 21 weeks 2 days, 51% FL: 3.6 cm 21 weeks 2 days , 21 weeks 2 days, 52% EFW:407.6 grams; 14 ounces, 57% FL/AC: 22.1 FL/BPD: 70.8 HC/AC: 1.2 GESTATIONAL AGE: Age by EDC: 21 weeks 0 days Age by current US: 21 weeks 1 days ANTONIO by current US: 10/15/2023 ANTONIO by EDC: 10/16/2023 US/US OB cervical length IMPRESSION: Suboptimal visualization of the nose and lips Otherwise normal anatomy scan Closed cervix measuring 4.2 cm in length *Reference: [employer] Practice Guideline for the performance of Obstetric Ultrasound Examinations, February 18, 2007. Electronically authenticated by: ASHLEY TOBIN Date: 06/05/2023 14:18 Dictated By: Ashley Tobin M.D. Signed By:06/05/23 1420 DD/ 1418 TD/TT: Dental Instrument Maker: us Jhon Gibson DO [facility] Final Result documented in this encounter Visit Diagnoses Not on filedocumented in this encounter Care Teams Sales Center Manager Relationship Specialty Start Date End Date Chencho Murphy MD [address] [place] [address] PCP - General Family Medicine 05/03/23 documented as of this encounter
--- OUTSIDE RECORDS SUMMARY | 2024-11-08 10:23 | XMS_ITS | Encounter Summary ---
Author Organization [facility] Address [address] [place] [address] Care Team Providers Care Wolf Hunter Name Role Phone Chencho Murphy MD Primary Care Provider [phone] Encounter Details Date Type Department Care Team (Late st Contact Info) Description 10/22/2023 Clinisync Result Encounter NOMS External Department Unsolicited Jhon Gibson DO [facility] [address] [place], [facility]11 Social History Tobacco Use Types Packs/Day Years [...] Routine [facility] BCP OB [address] [place] [address] Jhon Gibson DO [address] [place] [address] 01/26/2025 11:00 AM EDT Office Visit [facility] BCP OB [address] [place] [address] Isa Avendano PA [address] [place] [address] [phone] (work) documented as of this encounter Procedures Procedure Name Priority Date/Time Associated Diagnosis Comments US OB BPP W NON-STRESS 10/22/2023 8:50 AM EDT documented in this encounter Results * US OB BPP W NON-STRESS (10/22/2023 8:50 AM EDT) Anatomical Region Laterality Modality Other 10/22/2023 8:50 AM EDT Narrative 10/22/2023 8:53 AM EDT [place] [id number] Ultrasound Report Signed Patient: MERLE GUARDADO MR#: [id number] : 1990 Acct:[id number] Age/Sex: 33 / F ADM Date: 10/20/23 Loc: US Attending Dr: Jhon Gibson D.O. Ordering Physician: Jhon Gibson D.O. Date of Service: 10/20/23 Procedure(s): US OB BPP w non-stress Accession Number(s): [id number] cc: Jhon Gibson D.O.; Chencho Murphy M.D. [address] [id number] Patient Name: MERLE GUARDADO MRN: [id number] date: 1990 Sex: F Assigned Patient Location: US Current Patient Location: Accession/Order Number: [id number] Exam Date: 10/20/2023 14:40 Report Date: 10/22/2023 08:50 At the request of: JHON GIBSON Procedure: US OB BPP w non-stress EXAMINATION: US OB BPP w non-stress HISTORY: POST TERM Z34.40 O48.0 COMPARISON: Ultrasound OB biophysical 10/17/2023 TECHNIQUE: Ultrasound biophysical profile was performed in the radiology department. BREATHING MOVEMENTS: 2.0 GROSS BODY MOVEMENTS: 2.0 TONE: 2.0 QUALITATIVE AMNIOTIC FLUID VOLUME: 2.0 PRESENTATION: CEPHALIC HEART RATE: 122.2 bpm bpm. AMNIOTIC FLUID VOLUME: 8.3 cm GESTATIONAL AGE: 40 weeks 4 days CONCLUSION: Total biophysical profile score 8.0. Electronically authenticated by: BRYCE RADER Date: 10/22/2023 08:50 Dictated By: Bryce Rader M.D. Signed By: 10/22/23 0853 DD/ 0850 TD/TT: Marker Maker: Procedure Note Radiology, Radiologist, MD - 10/22/2023 [place] [address] Ultrasound Report Signed Patient: MERLE GUARDADO NMR#: [id number] : 1990Acct:[id number] Age/Sex: 33 / FADM Date: 10/20/23 Loc: US Attending Dr: Jhon Gibson D.O. Ordering Physician: Jhon Gibson D.O. Date of Service: 10/20/23 Procedure(s): US OB BPP w non-stress Accession Number(s): [id number] cc: Jhon Gibson D.O.; Chencho Murphy M.D. The [place] [id number] Patient Name: MERLE GUARDADO MRN: [id number] date: 1990 Sex: F Assigned Patient Location: US Current Patient Location: Accession/Order Number: [id number] Exam Date: 10/20/2023 14:40 Report Date: 10/22/2023 08:50 At the request of: JHON GIBSON Procedure: US OB BPP w non-stress EXAMINATION: US OB BPP w non-stress HISTORY: POST TERM Z34.40 O48.0 COMPARISON: Ultrasound OB biophysical 10/17/2023 TECHNIQUE: Ultrasound biophysical profile was performed in the radiology department. BREATHING MOVEMENTS: 2.0 GROSS BODY MOVEMENTS: 2.0 TONE: 2.0 QUALITATIVE AMNIOTIC FLUID VOLUME: 2.0 PRESENTATION: CEPHALIC HEART RATE: 122.2 bpm bpm. AMNIOTIC FLUID VOLUME: 8.3 cm GESTATIONAL AGE: 40 weeks 4 days CONCLUSION: Total biophysical profile score 8.0. Electronically authenticated by: BRYCE RADER Date: 10/22/2023 08:50 Dictated By: Bryce Rader M.D. Signed By:10/22/2353 DD/ TD/TT: Marker Maker: us Jhon Paige DO [facility] Final Result documented in this encounter Visit Diagnoses Not on filedocumented in this encounter Care Teams Wolf Hunter Relationship Specialty Start Date End Date Chencho Murphy MD [address] [place] [address] PCP - General Family Medicine 05/03/23 documented as of this encounter
--- OUTSIDE RECORDS SUMMARY | 2024-11-08 10:23 | XMS_ITS | Encounter Summary ---
Author Organization [facility] Address [address] [place] [address] Care Team Providers Care Executive Advisor Name Role Phone Chencho Murphy MD Primary Care Provider [phone] Encounter Details Date Type Department Care Team (Late st Contact Info) Description 01/23/2024 Orders Only [facility] [address] [place] [address] Steph Brooks LPN [address] [place] Siobhan [place] [address] Social History Tobacco Use Types Packs/Day Years Used Date Smoking Tobacco: Never Assessed Comments No Sex and Gender Information Value Date Recorded [...] AM EDT Routine [facility] [address] [place] [address] [place] Gibson [address] Ivette [place], [place] [id number] 01/26/2025 11:00 AM EDT Office Visit [facility] OB [address] [place] [address] Isa Avendano PA [address] [place] [address] [place] [address] documented as of this encounter Procedures Procedure Name Priority Date/Time Associated Diagnosis Comments PAP SMEAR Routine 01/17/2024 12:00 AM EDT documented in this encounter Results * Pap Smear (01/17/2024 12:00 AM EDT) Swab Cervical swab / Unknown us Paige Nurse [facility] Bcp Ob LAB CYTOLOGY ORDERABLES Final Result EXTERNAL LAB documented in this encounter Visit Diagnoses Not on filedocumented in this encounter Care Teams Executive Advisor Relationship Specialty Start Date End Date Chencho Murphy MD [address] [facility] [place] [address] PCP - General Family Medicine 05/03/23 documented as of this encounter
--- OUTSIDE RECORDS SUMMARY | 2024-11-08 10:23 | XMS_ITS | Encounter Summary ---
Author Organization [facility] Address [address] [place] [address] Care Team Providers Care Supervisor Alteration Workroom Name Role Phone Chencho Murphy MD Primary Care Provider [phone] Encounter Details Date Type Department Care Team (Late st Contact Info) Description 06/05/2023 Clinisync Result Encounter [facility] External Department Unsolicited Jhon Gibson DO [facility] Aamir Henriquez, [facility]11 Social History Tobacco Use Types Packs/Day Years [...] Routine [facility] [address] [place] [address] Jhon Gibson DO [address] [place] [address] 01/26/2025 11:00 AM EDT Office Visit [facility] [address] [place] [address] Isa Avendano PA [address] [place] [address] (work) documented as of this encounter Procedures Procedure Name Priority Date/Time Associated Diagnosis Comments US OB ANATOMY 06/05/2023 2:18 PM EST documented in this encounter Results * US OB ANATOMY (06/05/2023 2:18 PM EST) Anatomical Region Laterality Modality Other 06/05/2023 2:18 PM EST Narrative 06/05/2023 2:20 PM EST [address] [address] Ultrasound Report Signed Patient: MERLE GUARDADO MR#: [id number] : 1990 Acct:[id number] Age/Sex: 33 / F ADM Date: 06/05/23 Loc: US Attending Dr: Jhon Gibson D.O. Ordering Physician: Jhon Gibson D.O. Date of Service: 06/05/23 Procedure(s): US OB anatomy Accession Number(s): [id number] cc: Jhon Gibson D.O.; Chencho Murphy M.D. [address] [address] Patient Name: MERLE GUARDADO MRN: [id number] date: 1990 Sex: F Assigned Patient Location: US Current Patient Location: US Accession/Order Number: [id number] Exam Date: 06/05/2023 13:03 Report Date: 06/05/2023 14:18 At the request of: JHON GIBSON Procedure: US OB anatomy EXAMINATION: US OB anatomy, US OB cervical [...] 10/15/2023 ANTONIO by EDC: 10/16/2023 US/US OB anatomy IMPRESSION: Suboptimal visualization of the nose and lips Otherwise normal anatomy scan Closed cervix measuring 4.2 cm in length *Reference: AIUM Practice Guideline for the performance of Obstetric Ultrasound Examinations, February 18, 2007. Electronically authenticated by: ASHLEY TOBIN Date: 06/05/2023 14:18 Dictated By: Ashley Tobin M.D. Signed By: 06/05/23 1420 DD/ 1418 TD/TT: Contact And Service Clerks Supervisor: Procedure Note Radiology, Radiologist, - 06/05/2023 [place] [address] Ultrasound Report Signed Patient: MERLE GUARDADO [facility]#: [id number] : 1990Acct:[id number] Age/Sex: 33 / FADM Date: 06/05/23 Loc: US Attending Dr: Jhon Gibson D.O. Ordering Physician: Jhon Gibson D.O. Date of Service: 06/05/23 Procedure(s): US OB anatomy Accession Number(s): [id number] cc: Jhon Gibson D.O.; Chencho Murphy M.D. [place] [address] Patient Name: MERLE GUARDADO MRN: [id number] date: 1990 Sex: F Assigned Patient Location: US Current Patient Location: US Accession/Order Number: [id number] Exam Date: 06/05/2023 13:03 Report Date: 06/05/2023 14:18 At the request of: JHON GIBSON Procedure: US OB anatomy EXAMINATION: US OB anatomy, US OB cervical [...] 10/15/2023 ANTONIO by EDC: 10/16/2023 US/US OB anatomy IMPRESSION: Suboptimal visualization of the nose and lips Otherwise normal anatomy scan Closed cervix measuring 4.2 cm in length *Reference: AIUM Practice Guideline for the performance of Obstetric Ultrasound Examinations, February 18, 2007. Electronically authenticated by: ASHLEY TOBIN Date: 06/05/2023 14:18 Dictated By: Ashley Tobin M.D. Signed By:06/05/23 1420 DD/ 1418 TD/TT: Contact And Service Clerks Supervisor: us Jhon Gibson DO [facility] Final Result documented in this encounter Visit Diagnoses Not on filedocumented in this encounter Care Teams Supervisor Alteration Workroom Relationship Specialty Start Date End Date Chencho Murphy MD [address] [place] [address] PCP - General Family Medicine 05/03/23 documented as of this encounter
--- OUTSIDE RECORDS SUMMARY | 2024-11-08 10:23 | XMS_ITS | Encounter Summary ---
Author Organization [facility] Address [address] [place] [address] Care Team Providers Care Manager Loan Name Role Phone Chencho Murphy MD Primary Care Provider [phone] Encounter Details Date Type Department Care Team (Late st Contact Info) Description 10/25/2023 Abstract [facility] [address] [facility] [address] [place] [address] Steph Brooks LPN [address] [place] Siobhan [place] [address] Social History Tobacco Use Types Packs/Day Years [...] AM EDT Routine [facility] [address] [facility] [place] [address] [place] Gibson [address] Ivette [place], [place] [id number] 01/26/2025 11:00 AM EDT Office Visit [facility] [address] [facility] [place] [address] Isa Avendano PA [address] [place] [address] [place], [place] [id number] documented as of this encounter Visit Diagnoses Not on filedocumented in this encounter Care Teams Manager Loan Relationship Specialty Start Date End Date Chencho Murphy MD [address] [facility] [place] [address] PCP - General Family Medicine 05/03/23 documented as of this encounter
--- OUTSIDE RECORDS SUMMARY | 2024-11-08 10:23 | XMS_ITS | Encounter Summary ---
Author Organization [facility] Address [address] [place] [address] Care Team Providers Care Research Technician Name Role Phone Chencho Murphy MD Primary Care Provider [phone] Encounter Details Date Type Department Care Team (Late st Contact Info) Description 10/24/2023 Abstract [facility] [address] [place] [address] [place] Gibson DO [address] [place], [place] [address] Social History Tobacco Use Types Packs/Day Years [...] Routine [facility] OB [address] [place] [address] Boston Gibson DO [address] [place], [place] [id number] 01/26/2025 11:00 AM EDT Office Visit [facility] OB [address] [place] [address] Isa Avendano PA [address] [place] [address] Dr [place], [place] [id number] documented as of this encounter Visit Diagnoses Not on filedocumented in this encounter Care Teams Research Technician Relationship Specialty Start Date End Date Chencho Murphy MD [address] [facility] [place] [address] PCP - General Family Medicine 05/03/23 documented as of this encounter
--- OUTSIDE RECORDS SUMMARY | 2024-11-08 10:23 | XMS_ITS | Encounter Summary ---
Author Organization [facility] Address [address] [place] [address] Care Team Providers Care Assembler Brazer Name Role Phone Chencho Murphy MD Primary Care Provider [phone] Encounter Details Date Type Department Care Team (Late st Contact Info) Description 07/03/2023 Abstract [facility] [address] [facility] [place] [address] Steph Brooks LPN [address] [place] Siobhan [place] [address] Social History Tobacco Use Types Packs/Day Years [...] AM EDT Routine [facility] [address] [facility] [place] [place] [address] [place] Gibson [address] [place], [place] [id number] 01/26/2025 11:00 AM EDT Office Visit [facility] [address] [facility] [place] [address] Isa Avendano PA [address] [place] [address] Dr [place], [place] [phone] documented as of this encounter Visit Diagnoses Not on filedocumented in this encounter Care Teams Assembler Brazer Relationship Specialty Start Date End Date Chencho Murphy MD [address] [facility] [place] [address] PCP - General Family Medicine 05/03/23 documented as of this encounter
--- OUTSIDE RECORDS SUMMARY | 2024-11-08 10:23 | XMS_ITS | Encounter Summary ---
Author Organization [facility] Address [address] [place] [address] Care Team Providers Care Superintendent Sanitation Name Role Phone Chencho Murphy MD Primary Care Provider [phone] Encounter Details Date Type Department Care Team (Late st Contact Info) Description 11/01/2024 Clinisync Result Encounter [facility] External Department Unsolicited Boston Gibson DO [address] [place], [facility]11 Social History Tobacco Use Types [...] Routine [facility] OB [address] [place] [address] Boston Gibson DO [address] [place] [address] 01/26/2025 11:00 AM EDT Office Visit [facility] [address] [place] [address] Isa Avendano PA [address] [place] [address] [place] [address] documented as of this encounter Procedures Procedure Name Priority Date/Time Associated Diagnosis Comments AFP, SERUM, OPEN SPINA BIFIDA Routine 11/01/2024 10:45 AM EDT documented in this encounter Results * AFP, SERUM, OPEN SPINA BIFIDA (11/01/2024 10:45 AM EDT) RESULTS Report . [facility] TEST RESULTS: *Screen Negative* . [facility] GEST. AGE ON COLLECTION DATE 22.9 . weeks [facility] GESTAT. AGE BASED ON Ultrasound . [facility] Comment: 20.6 on 10/16/2024 Recalculations are not recommended when gestational dating by LMP and ultrasound are within 10 days. MAT[age] ANTONIO [age] . [age] [facility] RACE . [facility] WEIGHT 211 . lbs [facility] INSULIN DEP DIABETES No . [facility] MULTIPLE GESTATION No . H AFP VALUE 52.2 . ng/mL [facility] AFP MOM 0.77 . [facility] [place] [address] [place] [address] . [facility] INTERPRETATION Comment . [facility] Comment: Interpretation: Screen Negative This result is [...] Customer Services to discuss available options. The [employer] [place] recommends amniocentesis be offered to women age 35 and older. COMMENT: Comment . [facility] Comment: Romelia Villarreal, Ph.D., [facility] Director References: Available Upon Request. Multiples Of Median Cutoffs For AFP Elevations Feliz 2.5 Black 2.8 IDD 2.0 Twins 4.5 Abbreviation Definitions IDD - Insulin Dep Diabetes OSBR - Open Spina Bifida Risk For further inquiries contact [employer] at [phone]. This test was developed and its performance characteristics determined by [facility]. It has not been cleared or approved by the Food and Drug Administration. Performed at: [facility] [address] [place], [place] [id number] Gaming Dealer: Andres Faust [facility], Phone: [phone] 11/01/2024 10:4 5 AM EDT 11/01/2024 10:46 AM EDT Narrative [facility] - 11/04/2024 11:08 PM EDT N N ULTRASOUND [id number] 4 20 N 1 Y 211 N N N N N White/ us Boston Paige DO LAB BLOOD ORDERABLES Final Resul t [facility] documented in this encounter Visit Diagnoses Not on filedocumented in this encounter Care Teams Superintendent Sanitation Relationship Specialty Start Date End Date Chencho Murphy MD [address] [place] [address] PCP - General Family Medicine 05/03/23 documented as of this encounter
--- OUTSIDE RECORDS SUMMARY | 2024-11-08 10:23 | XMS_ITS | Clinical Summary ---
Author Organization [facility] tem Address [id number] [address] [place] [address] Care Team Providers Care Lead Portfolio Manager Name Role Phone Chencho Murphy MD Primary Care Provider [phone] Allergies Active Allergy Reactions Criticality Noted Date Comments Banana 12/04/2022 Medications * This document contains information received from the source organization and may not represent a complete record from that organization. hydrOXYzine (ATARAX) 25 mg tablet Take 25 mg by mouth 3 (three) times a day as needed for itching. Active ibuprofen (ADVIL,MOTRIN) 100 mg/5 mL suspensionIndic ations:pain Take 10 mL (200 mg total) by mouth every 4 (four) hours as needed for pain Indications: pain. Active diphenhydrAMINE (BENADRYL) 25 mg capsule Take 1 capsule (25 mg total) by mouth every 6 (six) hours as needed for allergies or sleep. Active Active Problems No known active problems Family History Medical History Relation Name Comments Diabetes Brother Kidney disease Maternal Grandfather Emphysema Maternal Grandmother Skin cancer Maternal Grandmother Migraines Mother Dementia Paternal Grandfather Hernia Paternal Grandfather Diabetes Paternal Grandmother Epilepsy Paternal Grandmother Heart attack Paternal Grandmother No Known Problems Sister Colon cancer Neg Hx Ovarian cancer Neg Hx Uterine cancer Neg Hx Relation Name Status Comments Brother Alive Father Alive Maternal Grandfather Maternal Grandmother Mother Alive Paternal Grandfather Paternal Grandmother Sister Alive Social History Tobacco Use Types Packs/Day Years Used Date Smoking Tobacco: Every Day Cigarettes 0.5 17 Smokeless Tobacco: Never Tobacco Cessation:Ready to Q uit: Yes; Counseling Given: Yes Alcohol Use Standard Drinks/Week Comments Not Currently 0 (1 standard drink = 0.6 oz pur e alcohol) PHQ-2 Answer Date Recorded Total Score 4 12/04/2022 Childcare Answer Date Recorded Childcare Unknown 10/30/2018 Employment Answer Date Recorded Employment Unknown 10/30/2018 Hunger Screening Answer Date Recorded Within the past 12 months we worried whether our food would run out before we got money to buy more. Never True 12/04/2022 Within the past 12 months th e food we bought just didn't last and we didn't have money to get more. Never True 12/04/2022 Purpose - Life Answer Date Recorded Purpose and direction in life Unknown Comments No Sex and Gender Information Value Date Recorded Sex Assigned at Not on file Legal Sex Female 11:43 AM EDT Gender Identity Not on file Sexual Orientation Not on file Last Filed Vital Signs Vital Sign Reading Time Taken Comments Blood Pressure 118/74 12/04/2022 1:59 PM EDT Pulse 85 01/24/2021 11:03 AM EDT Temperature 36.8 C (98.2 F) 01/24/2021 11:03 AM EDT Respiratory Rate 20 01/24/2021 11:03 AM EDT Oxygen Saturation 100% 01/24/2021 11:03 AM EDT Inhaled Oxygen Concentration - - Weight 77 kg (169 lb 12.8 oz) 12/04/2022 1:59 PM EDT Height 170.2 cm (5' 7 ) 01/24/2021 11:03 AM EDT Body Mass Index 26.59 01/24/2021 11:03 AM EDT Plan of Treatment Health Maintenance Due Date Last Done Comments DTaP,Tdap and Td Vaccines (6 - Tdap) 2001 11/28/1996, 01/08/1995, 1990, Additional history exists Adult BMI Screening 12/05/2023 12/04/2022 Depression Screening 12/05/2023 12/04/2022 Tobacco Screening 12/05/2023 12/04/2022 COVID-19 Vaccine (3 - 2023-2 5 season) 2024 06/28/2020, 05/31/2020 Influenza Vaccine 01/19/2025 Pap Smear 12/05/2025 12/05/2022, 11/18, 12/04/2022, Additional history exists Medical Devices Not on file Procedures Procedure Name Priority Date/Time Associated Diagnosis Comments HIGH RISK HPV W/DANIEL Routine 12/04/2022 4:31 PM EDT Cervical smear, as part of routine gynecological examination from Last 3 Months or Most Recently Relevant to Health Maintenance Results * High risk HPV w/daniel (12/04/2022 4:31 PM EDT) Hpv specimen type ThinPrep 12/06/2022 4:[address] [facility] Hpv 16 Negative Negative^N egative 12/07/2022 1:26 PM EDT [facility] Hpv 18 Negative Negative^N egative 12/07/2022 1:26 PM EDT [facility] Other high risk hpv Negative Negative^N egative 12/07/2022 1:26 PM EDT [facility] Comment: HPV types 31,33,35,39,45,52,56,58,59,66 and 68 DNA were undetectable. THINP 12/04/2022 4:31 PM EDT 12/06/2022 4:33 PM EDT us Devika Ryan COMMUTATOR UNDERCUTTER-CNM LAB BLOOD ORDERABLES Fin al Result [facility] [address] [facility] [place] [address] [facility] [address] [facility] [place] [address] from Last 3 Months or Most Recently Relevant to Health Maintenance Insurance [facility] MEDICAID Care Teams Lead Portfolio Manager Relationship Specialty Start Date End Date Chencho Murphy MD PCP - General 09/21/17
--- OUTSIDE RECORDS SUMMARY | 2024-11-08 10:23 | XMS_ITS | Encounter Summary ---
Author Organization [facility] Address [address] [place] [address] Care Team Providers Care Outpatient Scheduler Name Role Phone Chencho Murphy MD Primary Care Provider [phone] Encounter Details Date Type Department Care Team (Late st Contact Info) Description 05/04/2023 Clinisync Result Encounter [facility] External Department Unsolicited Jhon Gibson DO [facility] Aamir [place], [facility]11 Social History Tobacco Use Types Packs/Day [...] Routine [facility] OB [address] [place] [address] Jhon Gibson DO [address] [place] [address] 01/26/2025 11:00 AM EDT Office Visit [facility] OB [address] [place] [address] Isa Avendano PA [address] [place] [address] [phone] (work) documented as of this encounter Procedures Procedure Name Priority Date/Time Associated Diagnosis Comments US OB G= 14 WEEKS FETUS 05/04/2023 7:42 AM EST documented in this encounter Results * US OB G= 14 WEEKS FETUS (05/04/2023 7:42 AM EST) Anatomical Region Laterality Modality Other 05/04/2023 7:42 AM EST Narrative 05/04/2023 7:45 AM EST [address] [address] Ultrasound Report Signed Patient: MERLE GUARDADO MR#: [id number] : 1990 Acct:[id number] Age/Sex: 33 / F ADM Date: 05/03/23 Loc: US Attending Dr: Jhon Gibson D.O. Ordering Physician: Jhon Gibson D.O. Date of Service: 05/03/23 Procedure(s): US OB >= 14 weeks Fetus Accession Number(s): [id number] cc: Jhon Gibson D.O.; Physician,Non-Staff M.Haider [address] [address] Patient Name: MERLE GUARDADO MRN: [id number] date: 1990 Sex: F Assigned Patient Location: US Current Patient Location: Accession/Order Number: [id number] Exam Date: 05/03/2023 14:07 Report Date: 05/04/2023 07:42 At the request of: JHON GIBSNO Procedure: US OB >= 14 weeks Fetus EXAMINATION: US OB >= 14 weeks Fetus HISTORY: MISSED MENSES COMPARISON: No relevant comparison available. TECHNIQUE: Transabdominal sonographic examination was performed for obstetrical and evaluation. FINDINGS: Number: 1 Heart Rate: 130.0 bpm H.B. /min Amniotic Fluid Volume: Subjectively normal Placental Location: Fundal Cervix Length: 3.6 cm , closed The uterus is normal, anteverted, anteflexed The right ovary is not visualized Left ovary is normal BIOMETRY: BPD: 3.4 cm 16 weeks 3 days , greater than 97% HC: 13.0 cm 16 weeks 4 days, greater than 97% AC: 10.7 cm 16 weeks 4 days, greater than 97% FL: 1.9 cm 15 weeks 5 days , greater than 97% EFW:149.8 grams; 5 ounces, greater than 97% FL/AC: 18.0 FL/BPD: 57.4 HC/AC: 1.2 GESTATIONAL AGE: Age by EDC: 12 weeks 1 day Age by current US: 16 weeks 2 days ANTONIO by current US: 11/14/2023 ANTONIO by EDC: 10/16/2023 US/US OB >= 14 weeks Fetus IMPRESSION: Large for gestational age, this could be related to inaccurate clinical age Viable mabry intrauterine gestation measuring 16 weeks 2 days *Reference: AIUM Practice Guideline for the performance of Obstetric Ultrasound Examinations, February 18, 2007. Electronically authenticated by: ASHLEY TOBIN Date: 05/04/2023 07:42 Dictated By: Ashley Tobin M.D. Signed By: 05/04/2345 DD/ TD/TT: Beef Killer: Procedure Note Radiology, Radiologist, MD - 05/04/2023 [place] [address] Ultrasound Report Signed Patient: MERLE GUARDADO NMR#: [id number] : 1990Acct:[id number] Age/Sex: 33 / FADM Date: 05/03/23 Loc: US Attending Dr: Jhon Gibson D.O. Ordering Physician: Jhon Gibson D.O. Date of Service: 05/03/23 Procedure(s): US OB >= 14 weeks Fetus Accession Number(s): [id number] cc: Jhon Gibson D.O.; Physician,Non-Staff [facility] [address] [address] Patient Name: MERLE GUARDADO MRN: [id number] date: 1990 Sex: F Assigned Patient Location: US Current Patient Location: Accession/Order Number: [id number] Exam Date: 05/03/2023 14:07 Report Date: 05/04/2023 07:42 At the request of: JHON GIBSON Procedure: US OB >= 14 weeks Fetus EXAMINATION: US OB >= 14 weeks Fetus HISTORY: MISSED MENSES COMPARISON: No relevant comparison available. TECHNIQUE: Transabdominal sonographic examination was performed for obstetrical and evaluation. FINDINGS: Number: 1 Heart Rate: 130.0 bpm H.B. /min Amniotic Fluid Volume: Subjectively normal Placental Location: Fundal Cervix Length: 3.6 cm , closed The uterus is normal, anteverted, anteflexed The right ovary is not visualized Left ovary is normal BIOMETRY: BPD: 3.4 cm 16 weeks 3 days , greater than 97% HC: 13.0 cm 16 weeks 4 days, greater than 97% AC: 10.7 cm 16 weeks 4 days, greater than 97% FL: 1.9 cm 15 weeks 5 days , greater than 97% EFW:149.8 grams; 5 ounces, greater than 97% FL/AC: 18.0 FL/BPD: 57.4 HC/AC: 1.2 GESTATIONAL AGE: Age by EDC: 12 weeks 1 day Age by current US: 16 weeks 2 days ANTONIO by current US: 11/14/2023 ANTONIO by EDC: 10/16/2023 US/US OB >= 14 weeks Fetus IMPRESSION: Large for gestational age, this could be related to inaccurate clinicalage Viable mabry intrauterine gestation measuring 16 weeks 2 days *Reference: AIUM Practice Guideline for the performance of Obstetric Ultrasound Examinations, February 18, 2007. Electronically authenticated by: ASHLEY TOBIN Date: 05/04/2023 07:42 Dictated By: Ashley Tobin M.D. Signed By:05/04/2345 DD/ TD/TT: Beef Killer: us Jhon Gibson DO [facility] Final Result documented in this encounter Visit Diagnoses Not on filedocumented in this encounter Care Teams Outpatient Scheduler Relationship Specialty Start Date End Date Chencho Murphy MD [address] [place] [address] PCP - General Family Medicine 05/03/23 documented as of this encounter
--- OUTSIDE RECORDS SUMMARY | 2024-11-08 10:24 | XMS_ITS | CCD ---
Author Organization [facility] Care Team Providers Care Lacquer Sizer Name Role Phone DR ИВАН MURPHY Attending Unavailable DR ИВАН MURPHY Consulting Unavailable DR ИВАН MURPHY Admitting Unavailable Иван Murphy MD Primary Care Provider [phone] Иван Murphy MD Primary Care Provider [phone] JHON GIBSON Attending Unavailable JHON GIBSON Attending Unavailable JHON GIBSON Attending Unavailable ISA CARRERA Attending Unavailable ISA CARREAR Attending Unavailable Allergies Allergy Classification Reported Allergen(s) Allergy Type Date of Onset Reaction(s) Facility (18 sources) [facility] Propensity to adverse reactions 4 [facility] Work Phone: Medications Current Medications Medication Drug Class(es) Dates Sig (Normalized) Sig (Original) diphenhydrAMINE hydrochloride 25 mg oral tablet (7 sources) Histamine-1 Receptor Antagonist diphenhydrAMINE (BENADryl) 25 [...] Chronic Immunizations and screening for infectious disease (8 sources) Patient encounter status; Translations: [Encounter for screening for infections with a predominantly sexual mode of transmission] 07-03-2023 Episodic Menstrual disorders (1 source) Missed period; Translations: [Irregular menstruation, unspecified] 08-15-2024 Chronic Other and delivery including normal (8 sources) Second trimester ; Translations: [Encounter for [...] of ] 09-15-2024 Episodic Residual codes; unclassified (2 sources) Gestation period, 20 weeks; Translations: [20 weeks [...] Translations: [Dizziness and giddiness] 01-17-2024 Episodic Prolonged (15 sources) Post-term of 40 to 42 weeks; Translations: [Post-term ] Onset: 10-16-2023 10-16-2023 Episodic Residual codes; unclassified (15 sources) Gestation period, 40 weeks; Translations: [40 weeks gestation of ] Onset: 10-16-2023 10-16-2023 Episodic Unclassified (1 source) CONTACT W/AND (SUSP) EXPOS COVID-19; Translations: [CONTACT W/AND (SUSP) EXPOS COVID-19] Onset: 05-03-2021 Results Test Name Value Interpretation Reference Range Facility AFP, SERUM, OPEN SPINA BIFID Aon 11-04-2024 AFP MOM 0.77 . [facility] AFP VALUE 52.2 ng/mL . [facility] COMMENT: Comment . [facility] Comment on above: Romelia Villarreal , Ph.D., [facility] Director References: Available Upon Request. Multiples Of Median Cutoffs For AFP Elevations Feliz 2.5 Black 2.8 IDD 2.0 Twins 4.5 Abbreviation Definitions IDD - Insulin Dep Diabetes OSBR - Open Spina Bifida Risk For further inquiries contact [facility] [facility] at [phone]. This test was developed and its performance characteristics determined by [employer]. It has not been cleared or approved by the Food and Drug Administration. Performed at: [facility] - [facility] [address], [place] [id number] [employer] Performer: Andres Faust [facility], Phone: [phone] GEST. AGE ON COLLECTION DATE 22.9 . weeks [facility] GESTAT. AGE BASED ON Ultrasound . [facility] Comment on above: 20.6 on 10/16/2024 Recalculations are not recommended when gestational dating by LMP and ultrasound are within 10 days. INSULIN DEP DIABETES No . [facility] INTERPRETATION Comment . [facility]care Comment on above: Interpretation: Scre en Negative This result is screen negative for [...] Customer Services to discuss available options. The [place] [employer] recommends amniocentesis be offered to women age 35 and older. [age] [facility] MULTIPLE GESTATION No . [facility] [place] [address] [place] [address] . [facility] RACE . [facility] RES[facility] Report . [facility] TEST RESULTS: Negative . [facility] WEIGHT 211 . lbs [facility] N N ULTRASOUND [id number] 20 N 1 Y 211 N N N N N White/ [facility] e RECURRENT VAGINITIS (HTRX)on 10-17-2024 ATOPOBIUM VAGINAE 0 [facility] ATOPOBIUM VAGINAE Not detected [facility] BVAB 2,3 (BACTERIAL VAGINOSIS ASSOCIATED BACTERIA 2, 3); MOBILUNCUS SPP 0 [facility] BVAB 2,3 (BACTERIAL VAGINOSIS ASSOCIATED BACTERIA 2, 3); MOBILUNCUS SPP Not detected [facility] AQUILINO ALBICANS, PARAPSILOSIS, TROPICALIS 0 [facility] AQUILINO ALBICANS, PARAPSILOSIS, TROPICALIS Not detected [facility] AQUILINO GLABRATA 0 [facility] AQUILINO GLABRATA Not detected [facility] AQUILINO KRUSEI 0 [facility] AQUILINO KRUSEI Not detected [facility] CHLAMYDIA TRACHOMATIS 0 [facility] CHLAMYDIA TRACHOMATIS Not detected [facility] GARDNERELLA VAGINALIS 0 [facility] GARDNERELLA VAGINALIS Not detected [facility] MEGASPHAERA (TYPES 1, 2) 0 [facility] MEGASPHAERA (TYPES 1, 2) Not detected [facility] MYCOPLASMA GENITALIUM 0 [facility] MYCOPLASMA GENITALIUM Not detected [facility] NEISSERIA GONORRHOEAE 0 [facility] NEISSERIA GONORRHOEAE Not detected [facility] TRICHOMONAS VAGINALIS 0 [facility] TRICHOMONAS VAGINALIS Not detected [facility] Urinalysis macro (dipstick) panel (U)on 10-16-2024 Bilirubin, UA Negative Negative - 4(70) +++ mg/dL [facility] Blood, UA Negative Negative - 50 Farzad/mcL [facility] Clarity, UA Clear [facility] Color, UA Yellow [facility] Glucose, UA Negative Negative - 1999(110) ++++ mg/dL [facility] Interpretation and review of laboratory results Abnormal [facility] Ketones, UA Negative Negative - 160(16) ++++ mg/dL [facility] Leukocytes, UA Trace Negative - 500+++ Donnell/mcL [facility] Nitrite, UA Negative Negative - Positive [facility] pH, UA 7 5 - 9 [facility] Protein, UA Negative Negative - 1999(20) ++++ mg/dL [facility] Spec Grav, UA 1.015 1 - 1.03 [facility] Urobilinogen, UA 0.2 0.2 - 12 mg/dL [facility] US OB FOLLOW UP [...] II, MD, PHD at 16-Sep-2024 07:13:40 PM [facility] Normal Not Available Comment on above: Order Comment: Estim ated Date of Delivery: 03/01/25 Gestational Age as of 09/15/2024: 16w1d Urinalysis macro (dipstick) panel (U)Ordered By: Steph Brooks on 09-15-2024 Bilirubin, UA Negative Negative - 4(70) +++ mg/dL [facility] [employer] Work Phone: Blood, UA Negative Negative - 50 Farzad/mcL [employer] Work Phone: Clarity, UA Clear [employer] [facility] Work Phone: Color, UA Yellow [employer] Work Phone: Glucose, UA Negative Negative - 1999(110) ++++ mg/dL [employer] Work Phone: Interpretation and review of laboratory results Normal [facility] [employer] Work Phone: Ketones, UA Negative Negative - 160(16) ++++ mg/dL [employer] Work Phone: Leukocytes, UA Negative Negative - 500+++ Donnell/mcL [facility] Work Phone: Nitrite, UA Negative Negative - Positive [employer] Work Phone: pH, UA 7 5 - 9 [employer] Work Phone: Protein, UA Negative Negative - 2000(20) ++++ mg/dL [employer] Work Phone: Spec Grav, UA 1.02 1 - 1.03 [facility] [employer] [facility] Work Phone: Urobilinogen, UA 0.2 0.2 - 12 mg/dL [facility] [employer] Work Phone: [facility] [employer] Work Phone: MLR HEMOGLOBIN A1Con 025 Glucose [Mass/Vol] 103 mg/dL [facility] HbA1c (Bld) [Mass fraction] 5.2 % 4.5 - 6.2 % [facility] Comment on above: ADA RECOMMENDED LIMI T 4.0 - 6.0 ADA THERAPEUTIC TARGET < 7.0 ACTION SUGGESTED > 7.0 [facility] [employer] HCG ( test) Ql (U)o n 08-15-2024 Interpretation and review of laboratory results Abnormal [facility] Preg Test, Ur Positive Negative [facility] [employer] US OB TRANSVAGINALon 025 US OB [...] PHD at 18-Aug-2024 10:45:55 AM [facility] Normal Not Available Comment on above: Order Comment: US OB TRANSVAGINAL No LMP recorded. Urinalysis macro (dipstick) panel (U)on 08-15-2024 Bilirubin, UA Negative Negative - 4(70) +++ mg/dL [facility] Blood, UA Negative Negative - 50 Farzad/mcL [facility] Clarity, UA Clear [facility] [employer] re Color, UA Yellow [facility] [employer] Glucose, UA Negative Negative - 1999(110) ++++ mg/dL [facility] Interpretation and review of laboratory results Normal [facility] Ketones, UA Negative Negative - 160(16) ++++ mg/dL [facility] Leukocytes, UA Negative Negative - 500+++ Donnell/mcL [facility] Nitrite, UA Negative Negative - Positive [facility] pH, UA 6 5 - 9 [facility] [employer] Protein, UA Negative Negative - 1999(20) ++++ mg/dL [facility] Spec Grav, UA 1.02 1 - 1.03 [facility] Urobilinogen, UA 0.2 0.2 - 12 mg/dL [facility] PREG QUANT HCGon 025 HCG QUANTITATIVE 85062 mIU/mL [facility] Comment on above: 5-50 0.2-1 WEEK 50-500 1-2 WEEKS 100-5,000 2-3 WEEKS 500-10,000 3-4 WEEKS 1,000-50,000 4-5 WEEKS 10,000-100,000 5-6 WEEKS 15,000-200,000 6-8 WEEKS 10,000-100,000 2-3 MONTHS [facility] e TBH PREG QUANT HCGon 025 HCG QUANTITATIVE 64384 mIU/mL [facility] Comment on above: 5-50 0.2-1 WEEK 50-500 1-2 WEEKS 100-5,000 2-3 WEEKS 500-10,000 3-4 WEEKS 1,000-50,000 4-5 WEEKS 10,000-100,000 5-6 WEEKS 15,000-200,000 6-8 WEEKS 10,000-100,000 2-3 MONTHS [facility] [employer] IGP,APTIMA HPV,AGE GDLNon AGE GDLN ACOG TESTING Note . [facility] Comment on above: TESTS RESULT FLAG UN ITS REF RANGE LAB Clinician Provided Cytology Information Source.............Cervix;Endocervix No. of containers..01 ThinPrep Vial Age Algo ACOG Tatianna... FLAG LEGEND: L-Low Normal,H-High Normal,LL-Alert Low,HH-Alert High <-Panic Low,>-Panic High,A-Abnormal,AA-Critical Abnormal Performed at: 01 =[address] [place] [address] Betty Rodriguez MD, HPV APTIMA Negative Negative [facility] [employer] Comment on above: This nucleic acid am plification test detects fourteen high- risk HPV types (16,18,31,33,35,39,45,51,52,56,58,59,66,68) without differentiation. Performed at: =[address] [id number] [employer] Performer: Betty Rodriguez MD, Phone: [phone] Performed at: [address], [place] [id number] [employer] Performer: Betty Rodriguez MD, Phone: [phone] IGP, APTIMA HPV, RFX 16/18,45 Note . [facility] Comment on above: TESTS RESULT FLAG UN ITS REF RANGE LAB DIAGNOSIS: 02 NEGATIVE FOR INTRAEPITHELIAL LESION OR MALIGNANCY. Specimen adequacy: 02 Satisfactory for evaluation. No endocervical component is identified. Performed by: Rhiannon Garcia, Filter Bed Placer . 02 Note: Note 02 The Pap smear is a screening test designed to aid in the detection of premalignant and malignant conditions of the uterine cervix. It is not a diagnostic procedure and should not be used as the sole means of detecting cervical cancer. Both false-positive and false-negative reports do occur. Test Methodology: Note 02 The [employer] was unable to read this specimen. Therefore a manual review was performed. FLAG LEGEND: L-Low Normal,H-High Normal,LL-Alert Low,HH-Alert High <-Panic Low,>-Panic High,A-Abnormal,AA-Critical Abnormal Performed at: [address] [place] [address] Betty Rodriguez MD, HPV Genotype Reflex Note 02 Criteria not met, HPV Genotype not performed. Criteria not met, HPV Genotype not performed. BRUSH-SPATULA CERVIX ENDOCERVIX [facility] VAGINITIS (HTRX)on BVAB 2,3 (BACTERIAL VAGINOSIS ASSOCIATED BACTERIA 2, 3); MOBILUNCUS SPP 0 [facility] BVAB 2,3 (BACTERIAL VAGINOSIS ASSOCIATED BACTERIA 2, 3); MOBILUNCUS SPP Not detected [facility] CHLAMYDIA TRACHOMATIS 0 [facility] CHLAMYDIA TRACHOMATIS Not detected [facility] GARDNERELLA VAGINALIS 0 [facility] GARDNERELLA VAGINALIS Not detected [facility] NEISSERIA GONORRHOEAE 0 [facility] NEISSERIA GONORRHOEAE Not detected [facility] TRICHOMONAS VAGINALIS 0 [facility] TRICHOMONAS VAGINALIS Not detected [facility] Urinalysis macro (dipstick) panel (U)on 07-03-2023 Bilirubin, UA Negative Negative - 4(70) +++ mg/dL [facility] Blood, UA Negative Negative - 50 Farzad/mcL [facility] Clarity, UA Clear [facility] re Color, UA Yellow [facility] e Glucose, UA Negative Negative - 1999(110) ++++ mg/dL [facility] Interpretation and review of laboratory results Normal [facility] Ketones, UA Negative Negative - 160(16) ++++ mg/dL [facility] Leukocytes, UA Negative Negative - 500+++ Donnell/mcL [facility] Nitrite, UA Negative Negative - Positive [facility] pH, UA 6.0 5 - 9 [facility] e Protein, UA Negative Negative - 2000(20) ++++ mg/dL [facility] Spec Grav, UA 1.020 1 - 1.03 [facility] Urobilinogen, UA 0.2 0.2 - 12 mg/dL [facility] Cytology Cervical or vaginal smear or scraping studyon 12-05-2022 [facility] Covid-19 PCR (CVDTBH)on 04-20 SARS-CoV-2 (COVID-19) RNA JOSEFINA+probe Ql (Unsp spec) Not detected Normal NOT DETECTED [facility] Comment on above: Result Comment: This test is not yet approved or cleared by the [place] FDA. When there are no FDA-approved or cleared tests available, and other criteria are met, FDA can make tests available under an emergency access mechanism called an Emergency Use Authorization (EUA). The EUA for this test is supported by the Flight Operation Coordinator of Health and Human Service's (HHS's) declaration [...] SARS-CoV-2. Performed By: #### C [facility] #### [facility] [address] [place] [address] Dr. Sebastián Santo Vital Signs Date Time Vital Sign Value Performing Clinician Ubaldo antoine 10-16-2024 10:34-0400 Body weight 95.94 kg Jhon Paige DO Work Phone: [facility] 10-16-2024 10:34-0400 Diastolic blood pressure 66 mm[Hg] Jhon Paige DO Work Phone: [facility] 10-16-2024 10:34-0400 Systolic blood pressure 100 mm[Hg] Jhon Paige DO Work Phone: [facility] 09-15-2024 11:39-0400 Body weight 94.4 kg Jhon Paige DO Work Phone: [facility] 09-15-2024 11:39-0400 Diastolic blood pressure 60 mm[Hg] Jhon Paige DO Work Phone: [facility] 09-15-2024 11:39-0400 Systolic blood pressure 100 mm[Hg] Jhon Paige DO Work Phone: [facility] 08-15-2024 10:30-0400 Body weight 92.53 kg Noms Nurse [facility] 08-15-2024 10:30-0400 Diastolic blood pressure 72 mm[Hg] [facility] Nurse [facility] 08-15-2024 10:30-0400 Systolic blood pressure 118 mm[Hg] [facility] Nurse [facility] 01-17-2024 10:37-0400 Body weight 86.82 kg Isa LOERA Work Phone: [facility] 01-17-2024 10:37-0400 Diastolic blood pressure 74 mm[Hg] Isa LOERA Work Phone: [facility] 01-17-2024 10:37-0400 Systolic blood pressure 118 mm[Hg] Isa LOERA Work Phone: [facility] 07-03-2023 10:39-0500 Body weight 92.08 kg Jhon Paige DO Work Phone: [facility] 07-03-2023 10:39-0500 Diastolic blood pressure 62 mm[Hg] Jhon Paige DO Work Phone: [facility] 07-03-2023 10:39-0500 Systolic blood pressure 110 mm[Hg] Jhon Paige DO Work Phone: [facility] Healthcare Encounters Encounter Date Encounter Type Care Provider Facility Start: 11-01-2024 End: 11-04-2024 Clinisync Result Encounter Jhon Paige DO Work Phone: [facility] Unsolicited Start: 11-01-2024 End: 11-04-2024 Cl[facility]ync Result Encounter Jhon Paige DO Work Phone: [facility]olic[facility] Start: 10-16-2024 End: 10-16-2024 Bamboo flowsheet Jhon Paige DO Work Phone: [facility] Start: 10-16-2024 End: 10-17-2024 Bamboo flowsheet Jhon Paige DO Work Phone: [facility] Start: 10-16-2024 End: 10-17-2024 External Result Encounter Jhon Paige DO Work Phone: [facility]olic[facility] Start: 10-16-2024 End: 10-16-2024 flow sheet Jhon Paige DO Work Phone: [facility] Comment on above: Screening, , for anatomic survey; Second trimester ; STD exposure; 20 weeks gestation of Start: 10-16-2024 End: 10-16-2024 ambulatory JHON PAIGE Not Available Start: 09-15-2024 End: 09-15-2024 Office outpatient visit 15 minutes Jhon Paige DO Work Phone: [facility] Comment on above: Subchorionic hematom [...] External Department Unsolicited Start: 01-17-2024 End: 01-17-2024 Mariya LOERA Work Phone: [facility] Start: 01-17-2024 End: 01-23-2024 Bamboo flowsheet Isa LOERA Work Phone: [facility] Start: 01-17-2024 End: 01-23-2024 [facility]inisync Result Encounter Isa LOERA [facility] Start: 01-17-2024 End: 01-17-2024 Office outpatient visit 15 minutes Isa LOERA Work Phone: [facility] Comment on above: Well woman exam with routine gynecological exam; Anxiety, generalized (CMS/HCC); Dizziness; Vision blurred Start: 01-17-2024 End: 01-17-2024 Patient encounter procedure Isa LOERA Work Phone: [facility] Work Phone: Start: 01-17-2024 End: 01-17-2024 ambulatory ISA CARRERA Not Available Start: 12-03-2023 End: 12-03-2023 ambulatory ISA DEBI Not Available Start: 10-23-2023 End: 10-23-2023 ambulatory JHON PAIGE Not Available Start: 07-03-2023 External Result Encounter Core y Paige DO Work Phone: [facility] Un[facility]olic[facility] Start: 07-03-2023 External Result Encounter Core y Paige DO Work Phone: [facility] Start: 07-03-2023 End: 07-03-2023 Office outpatient visit 15 minutes Jhon Paige DO Work Phone: [facility] Comment on above: Second trimester pre gnancy; Screen for STD (sexually transmitted disease); Diabetes mellitus screening Start: 05-03-2021 End: 05-03-[address] ИВАН MURPHY Facility:[facility]1 Procedures Date Procedure Procedure Detail Performing Clinician Start: 11-01-2024 AFP, SERUM, OPEN SPI NA BIFIDA Jhon Paige DO Work Phone: Start: 10-16-2024 RECURRENT VAGINITIS (HTRX) Jhon Paige [...] Phone: Start: 01-17-2024 IGP,APTIMA HPV,AGE GDLN Isa Carrera PA Work Phone: Start: 01-17-2024 Microscopic observat ion [Identifier] in Cervix by Cyto stain Jhon Paige DO Work Phone: Start: 07-03-2023 VAGINITIS (HTRX) Jhon Paige DO [...] Screening for malign ant neoplasm of cervix [facility] Start: 12-05-2027 Screening for malign ant neoplasm of cervix [facility] Start: 01-16-2027 Screening for malign ant neoplasm of cervix Pap Smear [facility] Start: 01-26-2025 End: 01-26-2025 Patient encounter procedure 01/26/2025 11:00 AM EDT Office Visit [facility] [address] [place] [id number] Isa Carrera, PA [address] [place] [address] [facility] Start: 01-21-2025 End: 01-21-2025 Patient encounter procedure 01/21/2025 10:00 AM EDT Office Visit [facility] [address] [place] [id number] Isa Carrera, PA [address] [place] [address] [facility] Start: 01-19-2025 Influenza vaccination Influenz a Vaccine (Season Ended) [facility] Start: 11-17-2024 End: 11-17-2024 Patient encounter procedure 11/17/2024 10:[address] [facility] [address] [place] [id number] Jhon Gibson DO [address] [place] [address] [facility] Start: 10-16-2024 End: 11-16-2024 Alpha fetoprotein, maternal Alpha fetoprotein, maternal Lab Routine 20 weeks gestation of Expected: 10/16/2024 (Approximate), Expires: 11/16/2024 [facility] Comment on above: Expected: 10/16/2024 (Approximate), Expires: 11/16/2024 Start: 10-16-2024 End: 01-16-2025 US for US OB 14+ weeks anatomy scan Imaging Routine Screening, , for anatomic survey Expected: 10/16/2024, Expires: 01/16/2025 [facility] Comment on above: Expected: 10/16/2024 , Expires: 01/16/2025 Start: 10-16-2024 End: 10-16-2024 Patient encounter procedure [facility] Comment on above: Arrived Start: 09-15-2024 End: 01-15-2025 US for [facility] Work Phone: Comment on above: Expected: 09/15/2024 , Expires: 01/15/2025 Start: 09-15-2024 End: 09-15-2024 Patient encounter procedure 09/15/2024 11:30 AM EDT Routine [facility] [address] [place] [id number] Jhon Gibson, DO [address] [place] [address] [facility] Start: 09-15-2024 End: 09-15-2024 Professional / ancillary services management 09/15/2024 11:00 AM EDT Ancillary Procedure [facility] [address] [place] [phone] [facility] Start: 09-15-2024 End: 09-15-2024 Patient encounter procedure 09/15/2024 10:10 AM EDT Routine [facility] [address] [place] [address] Jhon Gibson, DO [address] [place] [address] [facility] Start: 08-15-2024 End: 08-15-2025 ABO/Rh ABO/Rh Lab Routine Missed menses , unspecified gestational age Expected: 08/15/2024 (Approximate), Expires: 08/15/2025 [facility] Comment on above: Expected: 08/15/2024 (Approximate), Expires: 08/15/2025 Start: 08-15-2024 End: 08-15-2025 Blood type and Indirect antibody screen panel - Blood Type and screen Lab Routine Missed menses , unspecified gestational age Expected: 08/15/2024 (Approximate), Expires: 08/15/2025 [facility] Work Phone: Comment on above: Expected: 08/15/2024 (Approximate), Expires: 08/15/2025 Start: 08-15-2024 End: 08-15-2025 Drugs of abuse panel - Urine by Screen method Rapid drug screen, urine Lab Routine , unspecified gestational age Encounter for supervision of normal first in first trimester Expected: 08/15/2024 (Approximate), Expires: 08/15/2025 [facility] Comment on above: Expected: 08/15/2024 (Approximate), Expires: 08/15/2025 Start: 08-15-2024 End: 08-15-2024 ambulatory 08/15/2024 10:00 AM EDT Initial [facility] [address] [place] [address] [facility] Start: 08-15-2024 End: 08-15-2024 Professional / ancillary services management 08/15/2024 9:30 AM EDT Ancillary Procedure [facility] [address] [place] [address] [facility] Start: 01-20-2024 Influenza vaccination Influenza Vacc ine (#1) [facility] Start: 01-17-2024 End: 01-16-2025 CBC panel - Blood by Automated count CBC Lab Routine Dizziness Vision blurred Expected: 01/17/2024 (Approximate), Expires: 01/16/2025 [facility] Comment on above: Expected: 01/17/2024 (Approximate), Expires: 01/16/2025 Start: 01-17-2024 End: 01-16-2025 Thyrotropin [Units/volume] in Serum or Plasma TSH Lab Routine Dizziness Vision blurred Expected: 01/17/2024 (Approximate), Expires: 01/16/2025 [facility] Comment on above: Expected: 01/17/2024 (Approximate), Expires: 01/16/2025 Start: 01-17-2024 End: 01-17-2024 Patient encounter procedure 01/17/2024 10:00 AM EDT Office Visit [facility] [address] [place] [id number] Isa Carrera, PA [address] [place], [place] [id number] Arrived [facility] Comment on above: Arrived Start: 07-24-2023 End: 07-24-2023 Patient encounter procedure 07/24/2023 10:[address] [facility] [address] [place] [address] Isa Carrera PA [address] [place], [place] [id number] [facility] Start: 07-03-2023 End: 07-03-2024 CBC panel - Blood by Automated count CBC Lab Routine Diabetes mellitus screening Expected: 07/03/2023 (Approximate), Expires: 07/03/2024 [facility] Comment on above: Expected: 07/03/2023 (Approximate), Expires: 07/03/2024 Start: 07-03-2023 End: 07-03-2024 Measurement of glucose 1 hour after glucose challenge for glucose tolerance test Glucose tolerance, 1 hour Lab Routine Diabetes mellitus screening Expected: 07/03/2023 (Approximate), Expires: 07/03/2024 [facility] Comment on above: Expected: 07/03/2023 (Approximate), Expires: 07/03/2024 Start: 01-19-2023 Influenza vaccination Influenza Vacc ine (#1) [facility] Bacteria identified in Urine by Culture Urine culture Microbiology Routine Missed menses Ordered: 08/15/2024 [facility] Comment on above: Ordered: 08/15/2024 CBC W Auto Different ial panel - Blood CBC and differential Lab Routine Missed menses , unspecified gestational age Ordered: 08/15/2024 [facility] Comment on above: Ordered: 08/15/2024 CHLAMYDIA TRACHOMATI S (GENITO/STI) CHLAMYDIA TRACHOMATIS (GENITO/STI) Lab Routine Screen for STD (sexually transmitted disease) Ordered: 07/03/2023 [facility] Comment on above: Ordered: 07/03/2023 CHLAMYDIA TRACHOMATI S (GENITO/STI) CHLAMYDIA TRACHOMATIS (GENITO/STI) Lab Routine STD exposure Ordered: 10/16/2024 [facility] Comment on above: Ordered: 10/16/2024 Cytology Cervical or vaginal smear or scraping study Pap Smear Pathology and Cytology Routine Well woman exam with routine gynecological exam Ordered: 01/17/2024 [facility] Work Phone: Comment on above: Ordered: 01/17/2024 Hemoglobin A1c/Hemoglobin.total in Blood Hemoglobin A1c Lab Routine Missed menses , unspecified gestational age Ordered: 08/15/2024 [facility] Comment on above: Ordered: 08/15/2024 Hepatitis B virus surface Ag [Presence] in Serum or Plasma by Immunoassay Hepatitis B surface antigen Lab Routine Missed menses , unspecified gestational age Ordered: 08/15/2024 [facility] Comment on above: Ordered: 08/15/2024 Hepatitis C virus Ab [Presence] in Serum or Plasma by Immunoassay Hepatitis C antibody Lab Routine Missed menses , unspecified gestational age Ordered: 08/15/2024 [facility] Comment on above: Ordered: 08/15/2024 HIV-1/HIV-2 antigen/antibody combination immunoassay HIV-1 and HIV-2 antibodies Lab Routine Missed menses , unspecified gestational age Ordered: 08/15/2024 [facility] Comment on above: Ordered: 08/15/2024 Human papilloma viru s DNA [Presence] in Unspecified specimen by Probe with amplification HPV DNA probe, amplified Microbiology Routine Well woman exam with routine gynecological exam Ordered: 01/17/2024 [facility] Comment on above: Ordered: 01/17/2024 Neisseria gonorrhoea e DNA [Presence] in Unspecified specimen by JOSEFINA with probe detection Neisseria gonorrhea DNA probe, direct Lab Routine Screen for STD (sexually transmitted disease) Ordered: 07/03/2023 [facility] Comment on above: Ordered: 07/03/2023 Neisseria gonorrhoea e DNA [Presence] in Unspecified specimen by JOSEFINA with probe detection Neisseria gonorrhea DNA probe, direct Lab Routine STD exposure Ordered: 10/16/2024 [facility] Comment on above: Ordered: 10/16/2024 Reagin Ab [Presence] in Serum by RPR RPR Lab Routine Missed menses , unspecified gestational age Ordered: 08/15/2024 [facility] Comment on above: Ordered: 08/15/2024 Rubella antibody, IgG Rubella an tibody, IgG Lab Routine Missed menses , unspecified gestational age Ordered: 08/15/2024 [facility] Comment on above: Ordered: 08/15/2024 SURESWAB(R) ADVANCED VAGINITIS PLUS, TMA SURESWAB(R) ADVANCED VAGINITIS PLUS, TMA Pathology and Cytology Routine Screen for STD (sexually transmitted disease) Ordered: 07/03/2023 [facility] Work Phone: Comment on above: Ordered: 07/03/2023 SURESWAB(R) ADVANCED VAGINITIS PLUS, TMA SURESWAB(R) ADVANCED VAGINITIS PLUS, TMA Pathology and Cytology Routine STD exposure Ordered: 10/16/2024 [facility] Work Phone: Comment on above: Ordered: 10/16/2024 Payers Date Payer Category Payer Medicaid [employer] [facility] [id number] 2022-Present [address] [place] [id number] 2022 Medicaid (Managed Care) [facility] [id number] 1990 Unknown [id number]. 593 1990 Unknown [id number] [id number]. 1259 1990 Unknown [id number] 2.16.840.1.198063.3.579.2. 9 1990 Unknown [id number] 2.16.840.1.872631.3.579.2. 1258 1990 Unknown [id number] [id number]. 1258 1990 Unknown [id number] [id number]. 1258 1990 Unknown [id number] 2.16.840.1.639086.3.579.2. 1258 1990 Unknown [id number] 2.16.840.1.372718.3.579.2. 1258 1990 Unknown [id number]. 9 1959 Private Health Insurance [id number] 1959 Unknown [id number] Social History Date Type Detail Facility Tobacco [...] nursing note reviewed. Exam conducted with a snow fence erector present. Vitals: There is no height or [...] or undercooked meat, and stay away from [facility]. Patient has been consulted regarding any further [...] of Present illness Narrative 08-15-2024 Trena Roman MA - 08/15/2024 10:00 AM EDT Note Date [...] gestation of Nurse Note: Pt unsure of [place] [employer] to one at this time. Pt was advised to make sure she does both labs and [place] together if she decides. Follow Up: Patient [...] nursing note reviewed. Exam conducted with a snow fence erector present. Vitals: There is no height or [...] History of Present illness Narrative 07-03-2023 Lizbet PfeifferJALEN - 07/03/2023 10:50 AM EST Note Date [...] nursing note reviewed. Exam conducted with a snow fence erector present. Vitals: There is no height or [...] obtained without difficulty and patient was given msAFP order to have obtained. Follow Up: Patient [...] weeks gestation of documented in this encounter [facility] Summary Purpose Family History No Family History Records FoundNo Family History Records Found Advance Directives No Advanced Directives Records FoundNo Advanced Directives Records Found Additional Source Comments INFORMATION SOURCE (unrecogn ized section and content) DATE CREATED AUTHOR 06/17/2021 [facility] DATE CREATED AUTHOR AUTHOR'S ORGANIZ ATION 10/18/2024 [facility] Reason for Visit (unrecogniz ed section and content) Reason Comments Routine Visit Reason Comments Well Women Visit Reason Comments Amenorrhea Care Teams (unrecognized sec tion and content) Lacquer Sizer Relationship Specialty Start Date End Date Иван Murphy MD [address] [facility], [place] [address] PCP - General Family Medicine 05/03/23 Lacquer Sizer Relationship Specialty Start Date End Date Иван Murphy MD [address] [facility], [place] [address] PCP - General Family Medicine 05/03/23 Lacquer Sizer Relationship Specialty Start Date End Date Иван Murphy MD [address] [facility], [place] [address] PCP - General Family Medicine 05/03/23 Lacquer Sizer Relationship Specialty Start Date End Date Иван Murphy MD [address] [facility], [place] [address] PCP - General Family Medicine 05/03/23 Lacquer Sizer Relationship Specialty Start Date End Date Иван Murphy MD [address] [facility], [place] [address] PCP - General Family Medicine 05/03/23 Lacquer Sizer Relationship Specialty Start Date End Date Иван Murphy MD [address] [facility], [place] [address] PCP - General Family Medicine 05/03/23 Lacquer Sizer Relationship Specialty Start Date End Date Иван Murphy MD [address] [facility], [place] [address] PCP - General Family Medicine 05/03/23 Lacquer Sizer Relationship Specialty Start Date End Date Иван Murphy MD [address] [facility], [place] [address] PCP - General Family Medicine 05/03/23 Lacquer Sizer Relationship Specialty Start Date End Date Иван Murphy MD [address] [place] [address] PCP - General Family Medicine 05/03/23 FOR [...] BE BASED ON THE PRIMARY CLINICAL RECORDS. [facility] [employer] [facility]. provides no warranty or guarantee of the accuracy or completeness of information in this document.
== END 2024-11-08 10:21 | disposition home or self-care (01) ==
LOC: US 10:20
PROVIDERS: PCP Family Medicine; Visit Provider Obstetrics & Gynecology
DX: Z36.89 Encounter for other specified antenatal screening (principal); Z3A.23 23 weeks gestation of pregnancy
CPT/HCPCS: 76805; 76817

== ENCOUNTER 2024-11-22 10:08 | Outpatient (OUT) | payer OTHER, SELFPAY ==
--- NOTE | 2024-11-22 | US_ITS ---
[address] [address] Patient Name: ROCHELLE GUARDADO MRN: [id number] date: 1990 Sex: F Assigned Patient Location: Current Patient Location: Accession/Order Number: [id number] Exam Date: 11/22/2024 14:25 Report Date: 11/22/2024 14:27 At the request of: JHON JIMENEZ DO Procedure: US OB cervical length Obstetrical ultrasound for incomplete anatomy HISTORY: Suboptimal visualization spine and extremities. Variable presentation of fetus. heart rate 37 bpm. Somatic motion identified. Gestational age 25 weeks 6 days. Estimated delivery 03/01/2025. Adequate visualization of the spine and all extremities. US/US OB incomplete anatomy IMPRESSION: Visualization of spine and extremities. Ultrasound for cervical length of the uterus Cervical length is 4 cm. The cervical os is closed. IMPRESSION: Cervical length 4 cm. Impression dictated by: Nir Quinones M.D. 11/22/2024 2:27 PM Dictation Location: [employer] Electronically authenticated by: [id number] Y Date: 11/22/2024 14:27
--- NOTE | 2024-11-22 | US_ITS ---
[address] [address] Patient Name: ROCHELLE GUARDADO MRN: [id number] date: 1990 Sex: F Assigned Patient Location: Current Patient Location: Accession/Order Number: [id number] Exam Date: 11/22/2024 14:25 Report Date: 11/22/2024 14:27 At the request of: JHON JIMENEZ DO Procedure: US OB cervical length Obstetrical ultrasound for incomplete anatomy HISTORY: Suboptimal visualization spine and extremities. Variable presentation of fetus. heart rate 37 bpm. Somatic motion identified. Gestational age 25 weeks 6 days. Estimated delivery 03/01/2025. Adequate visualization of the spine and all extremities. US/US OB cervical length IMPRESSION: Visualization of spine and extremities. Ultrasound for cervical length of the uterus Cervical length is 4 cm. The cervical os is closed. IMPRESSION: Cervical length 4 cm. Impression dictated by: Nir Quinones M.D. 11/22/2024 2:27 PM Dictation Location: [employer] Electronically authenticated by: [id number] Y Date: 11/22/2024 14:27
--- OUTSIDE RECORDS SUMMARY | 2024-11-22 10:11 | XMS_ITS | CCD ---
Author Organization [facility] Care Team Providers Care Agriscience Teacher Name Role Phone DR ИВАН MURPHY Attending Unavailable DR ИВАН MURPHY Consulting Unavailable DR ИВАН MURPHY Admitting Unavailable Иван Murphy MD Primary Care Provider [phone] Иван Murphy MD Primary Care Provider [phone] JHON GIBSON Attending Unavailable JHON GIBSON Attending Unavailable JHON GIBSON Attending Unavailable ISA CARRERA Attending Unavailable ISA CARRERA Attending Unavailable Allergies Allergy Classification Reported Allergen(s) Allergy Type Date of Onset Reaction(s) Facility (20 sources) [facility] Propensity to adverse reactions [facility] Work Phone: Medications Current Medications Medication Drug Class(es) Dates Sig (Normalized) Sig (Original) diphenhydrAMINE hydrochloride 25 mg oral tablet (12 sources) Histamine-1 Receptor Antagonist diphenhydrAMINE (BENADryl) 25 [...] Chronic Immunizations and screening for infectious disease (10 sources) Patient encounter status; Translations: [Encounter for screening for infections with a predominantly sexual mode of transmission] 07-03-2023 Episodic Menstrual disorders (1 source) Missed period; Translations: [Irregular menstruation, unspecified] 08-15-2024 Chronic Other and delivery including normal (10 sources) Second trimester ; Translations: [Encounter for [...] [20 weeks gestation of ] 10-16-2024 Episodic Residual codes; unclassified (2 sources) Gestation period, 25 weeks; Translations: [25 weeks gestation of ] 11-17-2024 Episodic Unclassified (3 sources) CONTACT W/AND (SUSP) EXPOS COVID-19; Translations: [CONTACT W/AND (SUSP) EXPOS COVID-19] Onset: 05-07-2021 Past or Other Problems Problem Classification Problem Date Documented Da te Episodic/Chronic Blindness and vision defects (2 sources) Blurring of visual image; Translations: [Other visual disturbances] 01-17-2024 Episodic Conditions associated with dizziness or vertigo (2 sources) Dizziness; Translations: [Dizziness and giddiness] 01-17-2024 Episodic Prolonged (20 sources) Post-term of 40 to 42 weeks; Translations: [Post-term ] Onset: 10-16-2023 10-16-2023 Episodic Residual codes; unclassified (20 sources) Gestation period, 40 weeks; Translations: [40 weeks gestation of ] Onset: 10-16-2023 10-16-2023 Episodic Unclassified (1 source) CONTACT W/AND (SUSP) EXPOS COVID-19; Translations: [CONTACT W/AND (SUSP) EXPOS COVID-19] Onset: 05-03-2021 Results Test Name Value Interpretation Reference Range Facility No Panel InformationOrdered By: Radiologist Radiology on 11-10-2024 [facility] Work Phone: No Panel Informationon 11-10 Radiology Study observation (narrative) [facility] US OB ANATOMYon 11-10-[address] [address] Ultrasound Report Signed Patient: MERLE CYR MR#: [id number] : 1990 Acct:[id number] Age/Sex: 34 / F ADM Date: 11/08/24 Loc: US Attending Dr: Jhon Gibson D.O. Ordering Physician: Jhon Gibson D.O. Date of Service: 11/08/24 Procedure(s): US OB anatomy Accession Number(s): [id number] cc: Jhon Gibson D.O.; Иван Murphy M.D. [place] [address] Patient Name: MERLE CYR MRN: [facility]:[id number] date: 1990 Sex: F Assigned Patient Location: Current Patient Location: Accession/Order Number: [id number] Exam Date: 11/10/2024 07:47 Report Date: 11/10/2024 07:56 At the request of: JHON GIBSON DO Procedure: US OB anatomy CLINICAL DATA: anatomy COMPARISON: None OB CERVICAL LENGTH The cervix was evaluated with the transvaginal probe. There is mild funneling. The estimated cervical length is 3.6 cm. US/US OB anatomy IMPRESSION: CERVICAL FINDINGS, DESCRIBED. ULTRASOUND OB ANATOMY There is a single live intrauterine gestation in variable presentation. The amniotic fluid volume is subjectively normal. There is cardiac and somatic activity with heart rate of 142 beats per minutes. The placenta is posterior and as visualized within normal limits for appearance and position. The executive receptionist had difficulty visualizing the spine and 4 extremities due to position and movement. The stomach, bladder, kidneys, three-vessel cord with insertion, facial features, four-chamber heart with right and left outflow tracts, diaphragm and male genitalia are seen. The following measurements were obtained: Biparietal diameter 5.5 cm 22 weeks 6 days 13% Head circumference 20.9 cm 23 weeks 0 days 8% Abdominal circumference 18.8 cm 23 weeks 4 days 33% Femur length 4.1 cm 23 weeks 1 day 16% The composite ultrasound age based on these measurements is 23 weeks 1 day +/- 1 week 4 days. The estimated date of delivery is March 06, 2025. The estimated weight is 1 lb. 5 oz. +/- 3 ounces (19%) IMPRESSION: SINGLE LIVE INTRAUTERINE GESTATION WITH ULTRASOUND AGE OF 23 WEEKS 1 DAY. SUBOPTIMAL VISUALIZATION OF THE SPINE AND EXTREMITIES. Impression dictated by: Lizbet Carmona M.D. 11/10/2024 7:56 AM Dictation Location: [place] [address] Electronically authenticated by: [id number] Y Date: 11/10/2024 07:56 Dictated By: Lizbet Carmona M.D. Signed By: 11/10/24 0759 DD/ 0756 TD/TT: Glassworker: [facility] Radiology, Radiologist, MD - 11/10/2024 [place] [address] Ultrasound Report Signed Patient: MRELE CYR MR#: [id number] : 1990 Acct:[id number] Age/Sex: 34 / F ADM Date: 11/08/24 Loc: US Attending Dr: Jhon Gibson D.O. Ordering Physician: Jhon Gibson D.O. Date of Service: 11/08/24 Procedure(s): US OB anatomy Accession Number(s): [id number] cc: Jhon Gibson D.O.; Иван Murphy M.D. The [place] [address] Patient Name: MERLE CYR MRN: [facility]:[id number] date: 1990 Sex: F Assigned Patient Location: Current Patient Location: Accession/Order Number: [id number] Exam Date: 11/10/2024 07:47 Report Date: 11/10/2024 07:56 At the request of: JHON GIBSON DO Procedure: US OB anatomy CLINICAL DATA: anatomy COMPARISON: None OB CERVICAL LENGTH The cervix was evaluated with the transvaginal probe. There is mild funneling. The estimated cervical length is 3.6 cm. US/US OB anatomy IMPRESSION: CERVICAL FINDINGS, DESCRIBED. ULTRASOUND OB ANATOMY There is a single live intrauterine gestation in variable presentation. The amniotic fluid volume is subjectively normal. There is cardiac and somatic activity with heart rate of 142 beats per minutes. The placenta is posterior and as visualized within normal limits for appearance and position. The executive receptionist had difficulty visualizing the spine and 4 extremities due to position and movement. The stomach, bladder, kidneys, three-vessel cord with insertion, facial features, four-chamber heart with right and left outflow tracts, diaphragm and male genitalia are seen. The following measurements were obtained: Biparietal diameter 5.5 cm 22 weeks 6 days 13% Head circumference 20.9 cm 23 weeks 0 days 8% Abdominal circumference 18.8 cm 23 weeks 4 days 33% Femur length 4.1 cm 23 weeks 1 day 16% The composite ultrasound age based on these measurements is 23 weeks 1 day +/- 1 week 4 days. The estimated date of delivery is March 06, 2025. The estimated weight is 1 lb. 5 oz. +/- 3 ounces (19%) IMPRESSION: SINGLE LIVE INTRAUTERINE GESTATION WITH ULTRASOUND AGE OF 23 WEEKS 1 DAY. SUBOPTIMAL VISUALIZATION OF THE SPINE AND EXTREMITIES. Impression dictated by: Lizbet Carmona M.D. 11/10/2024 7:56 AM Dictation Location: [place] [address] Electronically authenticated by: [id number] Y Date: 11/10/2024 07:56 Dictated By: Lizbet Carmona M.D. Signed By: 11/10/24 0759 DD/ 0756 TD/TT: Glassworker: [facility] OB CERVICAL LENGTHon 10-[address] [place] [address] Ultrasound Report Signed Patient: MERLE CYR MR#: [id number] : 1990 Acct:[id number] Age/Sex: 34 / F ADM Date: 11/08/24 Loc: US Attending Dr: Jhon Gibson D.O. Ordering Physician: Jhon Gibson D.O. Date of Service: 11/08/24 Procedure(s): US OB cervical length Accession Number(s): [id number] cc: Jhon Gibson D.O.; Иван Murphy M.D. [address] [address] Patient Name: MERLE CYR MRN: [id number] date: 1990 Sex: F Assigned Patient Location: US Current Patient Location: Accession/Order Number: [id number] Exam Date: 11/10/2024 07:47 Report Date: 11/10/2024 07:56 At the request of: JHON GIBSON DO Procedure: US OB anatomy CLINICAL DATA: anatomy COMPARISON: None OB CERVICAL LENGTH The cervix was evaluated with the transvaginal probe. There is mild funneling. The estimated cervical length is 3.6 cm. US/US OB cervical length IMPRESSION: CERVICAL FINDINGS, DESCRIBED. ULTRASOUND OB ANATOMY There is a single live intrauterine gestation in variable presentation. The amniotic fluid volume is subjectively normal. There is cardiac and somatic activity with heart rate of 142 beats per minutes. The placenta is posterior and as visualized within normal limits for appearance and position. The executive receptionist had difficulty visualizing the spine and 4 extremities due to position and movement. The stomach, bladder, kidneys, three-vessel cord with insertion, facial features, four-chamber heart with right and left outflow tracts, diaphragm and male genitalia are seen. The following measurements were obtained: Biparietal diameter 5.5 cm 22 weeks 6 days 13% Head circumference 20.9 cm 23 weeks 0 days 8% Abdominal circumference 18.8 cm 23 weeks 4 days 33% Femur length 4.1 cm 23 weeks 1 day 16% The composite ultrasound age based on these measurements is 23 weeks 1 day +/- 1 week 4 days. The estimated date of delivery is March 06, 2025. The estimated weight is 1 lb. 5 oz. +/- 3 ounces (19%) IMPRESSION: SINGLE LIVE INTRAUTERINE GESTATION WITH ULTRASOUND AGE OF 23 WEEKS 1 DAY. SUBOPTIMAL VISUALIZATION OF THE SPINE AND EXTREMITIES. Impression dictated by: Lizbet Carmona M.D. 11/10/2024 7:56 AM Dictation Location: [place] [address] Electronically authenticated by: [id number] Y Date: 11/10/2024 07:56 Dictated By: Lizbet Carmona M.D. Signed By: 11/10/24 0759 DD/ 0756 TD/TT: Glassworker: [facility] Radiology, Radiologist, - 11/10/2024 [place] [address] Ultrasound Report Signed Patient: MERLE CYR MR#: [id number] : 1990 Acct:[id number] Age/Sex: 34 / F ADM Date: 11/08/24 Loc: US Attending Dr: Jhon Gibson D.O. Ordering Physician: Jhon Gibson D.O. Date of Service: 11/08/24 Procedure(s): US OB cervical length Accession Number(s): [id number] cc: Jhon Gibson D.O.; Иван Murphy M.D. [place] [address] Patient Name: MERLE CYR MRN: [id number] date: 1990 Sex: F Assigned Patient Location: US Current Patient Location: Accession/Order Number: [id number] Exam Date: 11/10/2024 07:47 Report Date: 11/10/2024 07:56 At the request of: JHON GIBSON DO Procedure: US OB anatomy CLINICAL DATA: anatomy COMPARISON: None OB CERVICAL LENGTH The cervix was evaluated with the transvaginal probe. There is mild funneling. The estimated cervical length is 3.6 cm. US/US OB cervical length IMPRESSION: CERVICAL FINDINGS, DESCRIBED. ULTRASOUND OB ANATOMY There is a single live intrauterine gestation in variable presentation. The amniotic fluid volume is subjectively normal. There is cardiac and somatic activity with heart rate of 142 beats per minutes. The placenta is posterior and as visualized within normal limits for appearance and position. The executive receptionist had difficulty visualizing the spine and 4 extremities due to position and movement. The stomach, bladder, kidneys, three-vessel cord with insertion, facial features, four-chamber heart with right and left outflow tracts, diaphragm and male genitalia are seen. The following measurements were obtained: Biparietal diameter 5.5 cm 22 weeks 6 days 13% Head circumference 20.9 cm 23 weeks 0 days 8% Abdominal circumference 18.8 cm 23 weeks 4 days 33% Femur length 4.1 cm 23 weeks 1 day 16% The composite ultrasound age based on these measurements is 23 weeks 1 day +/- 1 week 4 days. The estimated date of delivery is March 06, 2025. The estimated weight is 1 lb. 5 oz. +/- 3 ounces (19%) IMPRESSION: SINGLE LIVE INTRAUTERINE GESTATION WITH ULTRASOUND AGE OF 23 WEEKS 1 DAY. SUBOPTIMAL VISUALIZATION OF THE SPINE AND EXTREMITIES. Impression dictated by: Lizbet Carmona M.D. 11/10/2024 7:56 AM Dictation Location: [place] [address] Electronically authenticated by: [id number] Y Date: 11/10/2024 07:56 Dictated By: Lizbet Carmona M.D. Signed By: 11/10/24 0759 DD/ 0756 TD/TT: Glassworker: [facility] AFP, SERUM, OPEN SPINA BIFID Aon 11-04-2024 AFP MOM 0.77 . [facility] AFP VALUE 52.2 ng/mL . [facility] COMMENT: Comment . [facility] Comment on above: Romelia Villarreal , Ph.D., [facility] Director References: Available Upon Request. Multiples Of Median Cutoffs For AFP Elevations Feliz 2.5 Black 2.8 IDD 2.0 Twins 4.5 Abbreviation Definitions IDD - Insulin Dep Diabetes OSBR - Open Spina Bifida Risk For further inquiries contact [facility] at [phone]. This test was developed and its performance characteristics determined by [employer]. It has not been cleared or approved by the Food and Drug Administration. Performed at: [facility] [address] [id number] Sand Molder: Andres Faust [facility], Phone: [phone] GEST. AGE ON COLLECTION DATE 22.9 . weeks [facility] GESTAT. AGE BASED ON Ultrasound . [facility] Comment on above: 20.6 on 10/16/2024 Recalculations are not recommended when gestational dating by LMP and ultrasound are within 10 days. INSULIN DEP DIABETES No . [facility] INTERPRETATION Comment . [facility] Comment on above: Interpretation: Scre en Negative [...] Customer Services to discuss available options. The [place] [employer] recommends amniocentesis be offered to women age 35 and older. [age] [facility] MULTIPLE GESTATION No . [facility] [place] [address] . [facility] RACE . [facility] RESULTS Report . [facility] TEST RESULTS: Negative . [facility] WEIGHT 211 . lbs [facility] N N ULTRASOUND [id number] 4 20 N 1 Y 211 N N N N N White/ [facility] RECURRENT VAGINITIS (HTRX)on 10-17-2024 ATOPOBIUM VAGINAE 0 [facility] ATOPOBIUM VAGINAE Not detected [facility] BVAB 2,3 (BACTERIAL VAGINOSIS ASSOCIATED BACTERIA 2, 3); MOBILUNCUS SPP 0 [facility] BVAB 2,3 (BACTERIAL VAGINOSIS ASSOCIATED BACTERIA 2, 3); MOBILUNCUS SPP Not detected [facility] AQUILINO ALBICANS, PARAPSILOSIS, TROPICALIS 0 [facility] AQUILINO ALBICANS, PARAPSILOSIS, TROPICALIS Not detected [facility] AUQILINO GLABRATA 0 [facility] AQUILINO GLABRATA Not detected [facility] AQUILINO KRUSEI 0 [facility] AQUILINO KRUSEI Not detected [facility] CHLAMYDIA TRACHOMATIS 0 [facility] CHLAMYDIA TRACHOMATIS Not detected N [facility] GARDNERELLA VAGINALIS 0 [facility] GARDNERELLA VAGINALIS Not detected N [facility] MEGASPHAERA (TYPES 1, 2) 0 [facility] MEGASPHAERA (TYPES 1, 2) Not detected [facility] MYCOPLASMA GENITALIUM 0 [facility] MYCOPLASMA GENITALIUM Not detected N [facility] NEISSERIA GONORRHOEAE 0 [facility] NEISSERIA GONORRHOEAE Not detected N [facility] TRICHOMONAS VAGINALIS 0 [facility] TRICHOMONAS VAGINALIS Not detected N [facility] Urinalysis macro (dipstick) panel (U)on 10-16-2024 Bilirubin, UA Negative Negative - 4(70) +++ mg/dL [facility] Blood, UA Negative Negative - 50 Farzad/mcL [facility] Clarity, UA Clear [facility] Color, UA Yellow [facility] Glucose, UA Negative Negative - 2000(110) ++++ mg/dL [facility] Interpretation and review of laboratory results Abnormal [facility] Ketones, UA Negative Negative - 160(16) ++++ mg/dL [facility] Leukocytes, UA Trace Negative - 500+++ Donnell/mcL [facility] Nitrite, UA Negative Negative - Positive [facility] pH, UA 7 5 - 9 [facility] Protein, UA Negative Negative - 2000(20) ++++ mg/dL [facility] Spec Grav, UA 1.015 1 - 1.03 [facility] Urobilinogen, UA 0.2 0.2 - 12 mg/dL [facility] US OB FOLLOW UP TRANSABDOMIN AL APPROACHon [...] II, MD, PHD at 16-Sep-2024 07:13:40 PM [facility] [place] PM Pediatricsradiology Normal Not Available Comment on above: Order Comment: Estim ated Date of Delivery: 03/01/25 Gestational Age as of 09/15/2024: 16w1d Urinalysis macro (dipstick) panel (U)Ordered By: Steph Brooks on 09-15-2024 Bilirubin, UA Negative Negative - 4(70) +++ mg/dL [facility] Work Phone: Blood, UA Negative Negative - 50 Farzad/mcL [facility] Work Phone: Clarity, UA Clear [facility] Work Phone: Color, UA Yellow [facility] Work Phone: Glucose, UA Negative Negative - 1999(110) ++++ mg/dL [facility] Work Phone: Interpretation and review of laboratory results Normal [facility] Work Phone: Ketones, UA Negative Negative - 160(16) ++++ mg/dL [facility] Work Phone: Leukocytes, UA Negative Negative - 500+++ Donnell/mcL [facility] Work Phone: Nitrite, UA Negative Negative - Positive [facility] Work Phone: pH, UA 7 5 - 9 [facility] Work Phone: Protein, UA Negative Negative - 1999(20) ++++ mg/dL [facility] Work Phone: Spec Grav, UA 1.02 1 - 1.03 [facility] Work Phone: Urobilinogen, UA 0.2 0.2 - 12 mg/dL [facility] Work Phone: [facility] Work Phone: MLR HEMOGLOBIN A1Con 025 Glucose [Mass/Vol] 103 mg/dL [facility] HbA1c (Bld) [Mass fraction] 5.2 % 4.5 - 6.2 % [facility] Comment on above: ADA RECOMMENDED LIMI T 4.0 - 6.0 ADA THERAPEUTIC TARGET < 7.0 ACTION SUGGESTED > 7.0 [facility] HCG ( test) Ql (U)o n 08-15-2024 Interpretation and review of laboratory results Abnormal [facility] Preg Test, Ur Positive Negative [facility] US OB TRANSVAGINALon 025 US OB TRANSVAGINAL [...] Doppler evaluation of the bilateral ovaries. Electronically Signed:Electronicall y signed by WILLIS FITZPATRICK II, MD, PHD at 18-Aug-2024 10:45:55 AM [facility] [place] Teleradiology Normal Not Available Comment on above: Order Comment: US OB TRANSVAGINAL No LMP recorded. Urinalysis macro (dipstick) panel (U)on 08-15-2024 Bilirubin, UA Negative Negative - 4(70) +++ mg/dL [facility] Blood, UA Negative Negative - 50 Farzad/mcL [facility] Clarity, UA Clear [facility] Color, UA Yellow [facility] Glucose, UA Negative Negative - 1999(110) ++++ mg/dL [facility] Interpretation and review of laboratory results Normal [facility] Ketones, UA Negative Negative - 160(16) ++++ mg/dL [facility] Leukocytes, UA Negative Negative - 500+++ Donnell/mcL [facility] Nitrite, UA Negative Negative - Positive [facility] pH, UA 6 5 - 9 [facility] Protein, UA Negative Negative - 1999(20) ++++ mg/dL [facility] Spec Grav, UA 1.02 1 - 1.03 [facility] Urobilinogen, UA 0.2 0.2 - 12 mg/dL [facility] PREG QUANT HCGon 025 HCG QUANTITATIVE 36819 mIU/mL [facility] Comment on above: 5-50 0.2-1 WEEK 50-500 1-2 WEEKS 100-5,000 2-3 WEEKS 500-10,000 3-4 WEEKS 1,000-50,000 4-5 WEEKS 10,000-100,000 5-6 WEEKS 15,000-200,000 6-8 WEEKS 10,000-100,000 2-[facility]ANT HCGon 025 HCG QUANTITATIVE 38754 mIU/mL [facility] Comment on above: 5-50 0.2-1 WEEK 50-500 1-2 WEEKS 100-5,000 2-3 WEEKS 500-10,000 3-4 WEEKS 1,000-50,000 4-5 WEEKS 10,000-100,000 5-6 WEEKS 15,000-200,000 6-8 WEEKS 10,000-100,000 2-3 MONTHS [facility] IGP,APTIMA HPV,AGE GDLNon -2023 AGE GDLN ACOG TESTING Note . [facility] Comment on above: TESTS RESULT FLAG UN ITS REF RANGE LAB Clinician Provided Cytology Information Source.............Cervix;Endocervix No. of containers..01 ThinPrep Vial Age Algo ACOG Tatianna... FLAG LEGEND: L-Low Normal,H-High Normal,LL-Alert Low,HH-Alert High <-Panic Low,>-Panic High,A-Abnormal,AA-Critical Abnormal Performed at: 01 [address] [place] [address] Betty Rodriguez MD, HPV APTIMA Negative Negative [facility] Comment on above: This nucleic acid am plification test detects fourteen high- risk HPV types (16,18,31,33,35,39,45,51,52,56,58,59,66,68) without differentiation. Performed at: =[address] [id number] Sand Molder: Betty Rodriguez MD, Phone: [phone] Performed at: [address] [id number] Sand Molder: Betty Rodriguez MD, Phone: [phone] IGP, APTIMA HPV, RFX 16/18,45 Note . [facility] Comment on above: TESTS RESULT FLAG U NITS REF RANGE LAB DIAGNOSIS: 02 NEGATIVE FOR INTRAEPITHELIAL LESION OR MALIGNANCY. Specimen adequacy: 02 Satisfactory for evaluation. No endocervical component is identified. Performed by: Srinivasa Garcia, Aircraft Parts Assembler . 02 Note: Note 02 The Pap smear is a screening test designed to aid in the detection of premalignant and malignant conditions of the uterine cervix. It is not a diagnostic procedure and should not be used as the sole means of detecting cervical cancer. Both false-positive and false-negative reports do occur. Test Methodology: Note 02 The [employer] 3D(R) Recruiting Coordinator was unable to read this specimen. Therefore a manual review was performed. FLAG LEGEND: L-Low Normal,H-High Normal,LL-Alert Low,HH-Alert High <-Panic Low,>-Panic High,A-Abnormal,AA-Critical Abnormal Performed at: [address] [address] Betty Rodriguez MD, HPV Genotype Reflex Note 02 Criteria not met, HPV Genotype not performed. Criteria not met, HPV Genotype not performed. BRUSH-SPATULA CERVIX ENDOCERVIX [facility] VAGINITIS (HTRX)on BVAB 2,3 (BACTERIAL VAGINOSIS ASSOCIATED BACTERIA 2, 3); MOBILUNCUS SPP 0 [facility] BVAB 2,3 (BACTERIAL VAGINOSIS ASSOCIATED BACTERIA 2, 3); MOBILUNCUS SPP Not detected [facility] CHLAMYDIA TRACHOMATIS 0 [facility] CHLAMYDIA TRACHOMATIS Not detected N [facility] GARDNERELLA VAGINALIS 0 [facility] GARDNERELLA VAGINALIS Not detected N [facility] NEISSERIA GONORRHOEAE 0 [facility] NEISSERIA GONORRHOEAE Not detected N [facility] TRICHOMONAS VAGINALIS 0 [facility] TRICHOMONAS VAGINALIS Not detected N [facility] Urinalysis macro (dipstick) panel (U)on 07-03-2023 Bilirubin, UA Negative Negative - 4(70) +++ mg/dL [facility] Blood, UA Negative Negative - 50 Farzad/mcL [facility] Clarity, UA Clear [facility] Color, UA Yellow [facility] Glucose, UA Negative Negative - 1999(110) ++++ mg/dL [facility] Interpretation and review of laboratory results Normal [facility] Ketones, UA Negative Negative - 160(16) ++++ mg/dL [facility] Leukocytes, UA Negative Negative - 500+++ Donnell/mcL [facility] Nitrite, UA Negative Negative - Positive [facility] pH, UA 6.0 5 - 9 [facility] Protein, UA Negative Negative - 1999(20) ++++ mg/dL [facility] Spec Grav, UA 1.020 1 - 1.03 [facility] Urobilinogen, UA 0.2 0.2 - 12 mg/dL Critical access hospital Cytology Cervical or vaginal smear or scraping studyon 12-05-2022 [facility] Covid-19 PCR ([facility])on 04-20 SARS-CoV-2 (COVID-19) RNA JOSEFINA+probe Ql (Unsp spec) Not detected Normal NOT DETECTED [facility] Comment on above: Result Comment: This test is not yet approved or cleared by the [place] FDA. When there are no FDA-approved or cleared tests available, and other criteria are met, FDA can make tests available under an emergency access mechanism called an Emergency Use Authorization (EUA). The EUA for this test is supported by the [place] of Health and Human Service's (HHS's) declaration [...] consistent with SARS-CoV-2. Performed By: #### [facility] #### [facility] [address] [place] [address] Dr. Sebastián Santo Vital Signs Date Time Vital Sign Value Performing Clinician Faci lity 11-17-2024 10:13040 Body weight 95.25 kg [employer] Work Phone: [facility] 11-17-2024 10:13-0400 Diastolic blood pressure 72 mm[Hg] [employer] Work Phone: [facility] 11-17-2024 10:13-0400 Systolic blood pressure 102 mm[Hg] [employer] Work Phone: [facility] 10-16-2024 10:34-0400 Body weight 95.94 kg Jhon Paige DO Work Phone: [facility] 10-16-2024 10:34-0400 Diastolic blood pressure 66 mm[Hg] Jhon Paige DO Work Phone: [facility] 10-16-2024 10:34-0400 Systolic blood pressure 100 mm[Hg] Jhon Paige DO Work Phone: [facility] 09-15-2024 11:39-0400 Body weight 94.4 kg Jhon Paige DO Work Phone: [facility] 09-15-2024 11:39-0400 Diastolic blood pressure 60 mm[Hg] Jhon Paige DO Work Phone: [facility] 09-15-2024 11:39-0400 Systolic blood pressure 100 mm[Hg] Jhon Paige DO Work Phone: [facility] 08-15-2024 10:30-0400 Body weight 92.53 kg [facility] Nurse [facility] 08-15-2024 10:30-0400 Diastolic blood pressure 72 mm[Hg] [facility] Nurse [facility] 08-15-2024 10:30-0400 Systolic blood pressure 118 mm[Hg] Nom Nurse [facility] 01-17-2024 10:37-0400 Body weight 86.82 kg Isa LOERA Work Phone: [facility] 01-17-2024 10:37-0400 Diastolic blood pressure 74 mm[Hg] Isa LOERA Work Phone: [facility] 01-17-2024 10:37-0400 Systolic blood pressure 118 mm[Hg] Isa LOERA Work Phone: [facility] 07-03-2023 10:39-0500 Body weight 92.08 kg Jhon Paige DO Work Phone: [facility] 07-03-2023 10:39-0500 Diastolic blood pressure 62 mm[Hg] Jhon Paige DO Work Phone: [facility] 07-03-2023 10:39-7180 Systolic blood pressure 110 mm[Hg] Jhon Paige DO Work Phone: [facility] Encounters Encounter Date Encounter Type Care Provider Facility Start: 11-17-2024 End: 11-17-2024 Bamboo flowsheet Jhon Paige DO Work Phone: [facility] Start: 11-17-2024 End: 11-17-2024 Bamboo flowsheet Jhon Paige DO Work Phone: [facility] Start: 11-17-2024 End: 11-17-2024 Office outpatient visit 15 minutes Jhon Paige DO Work Phone: [facility] Comment on above: Second trimester pre gnancy ([facility]); 25 weeks gestation of ([facility]); Diabetes mellitus screening Start: 11-17-2024 End: 11-17-2024 ambulatory JHON PAIGE Not Available Start: 11-10-2024 End: 11-10-2024 Clinisync Result Encounter Jhon Paige DO Work Phone: [facility] Unsolicited Start: 11-10-2024 End: 11-10-2024 Clinisync Result Encounter Jhon Paige DO Work [...] flow sheet Jhon Paige DO Work Phone: [facility] Comment on above: Screening, , [...] 01-23-2024 Bamboo flowsheet Isa LOERA Work Phone: [facility] Start: 01-17-2024 End: 01-23-2024 Clinisync Result Encounter Isa LOERA Work Phone: [facility] External Department Unsolicited Start: 01-17-2024 End: 01-17-2024 Office outpatient visit 15 minutes Isa LOERA Work Phone: [facility] Comment on above: Well woman exam with routine gynecological exam; Anxiety, generalized (CMS/HCC); Dizziness; Vision blurred Start: 01-17-2024 End: 01-17-2024 Patient encounter procedure Isa LOERA Work Phone: [facility] Work Phone: Start: 01-17-2024 End: 01-17-2024 ambulatory ISA CARRERA Not Available Start: 12-03-2023 End: 12-03-2023 ambulatory ISA CARRERA Not Available Start: 07-03-2023 External Result Encounter Core y Paige DO Work Phone: [facility] External Department Unsolicited Start: 07-03-2023 External Result Encounter Core y Paige DO Work Phone: [facility] External Department Unsolicited Start: 07-03-2023 End: 07-03-2023 Office outpatient visit 15 minutes Jhon Paige DO Work Phone: [facility] Comment on above: Second trimester pre gnancy; Screen for STD (sexually transmitted disease); Diabetes mellitus screening Start: 05-03-2021 End: 05-03-[address] ИВАН MURPHY Facility:H1 Procedures Date Procedure Procedure Detail Performing Clinician Start: 11-10-2024 US OB ANATOMY Jhon Sundeep io DO Work Phone: Start: 11-10-2024 US OB CERVICAL LENGTH C orey Paige DO Work Phone: Start: 11-01-2024 AFP, SERUM, OPEN SPI NA [...] Screening for malign ant neoplasm of cervix [facility] Start: 12-05-2027 Screening for malign ant neoplasm of cervix [facility] Start: 01-16-2027 Screening for malign ant neoplasm of cervix Pap Smear [facility] Start: 01-26-2025 End: 01-26-2025 Patient encounter procedure 01/26/2025 11:00 AM EDT Office Visit [facility] [address] [place] [phone] Isa Carrera, PA [address] [facility] [address] [place], [place] [id number] [facility] Start: 01-21-2025 End: 01-21-2025 Patient encounter procedure 01/21/2025 10:00 AM EDT Office Visit [facility] [address] [place] [phone] Isa Carrera, PA [address] [facility] [address] [facility] Start: 01-19-2025 Influenza vaccination Influenz a Vaccine (Season Ended) [facility] Start: 12-08-2024 End: 12-08-2024 Patient encounter procedure 12/08/2024 9:20 AM EDT Routine [facility] [address] [place] [phone] Isa Carrera, PA [address] [place] [address] [facility] Start: 11-17-2024 End: 11-17-2025 CBC panel - Blood by Automated count CBC Lab Routine Diabetes mellitus screening Expected: 11/17/2024 (Approximate), Expires: 11/17/2025 [facility] Work Phone: Comment on above: Expected: 11/17/2024 (Approximate), Expires: 11/17/2025 Start: 11-17-2024 End: 11-17-2025 Measurement of glucose 1 hour after glucose challenge for glucose tolerance test Glucose tolerance, 1 hour Lab Routine Diabetes mellitus screening Expected: 11/17/2024 (Approximate), Expires: 11/17/2025 [facility] Comment on above: Expected: 11/17/2024 (Approximate), Expires: 11/17/2025 Start: 11-17-2024 End: 11-17-2024 Patient encounter procedure [facility] Comment on above: Arrived Start: 10-16-2024 End: 11-16-2024 Alpha fetoprotein, maternal Alpha fetoprotein, maternal Lab Routine 20 weeks gestation of Expected: 10/16/2024 (Approximate), Expires: 11/16/2024 [facility] Comment on above: Expected: 10/16/2024 (Approximate), Expires: 11/16/2024 Start: 10-16-2024 End: 01-16-2025 US for US OB 14+ weeks anatomy scan Imaging Routine Screening, , for anatomic survey Expected: 10/16/2024, Expires: 01/16/2025 [facility] Comment on above: Expected: 10/16/2024 , Expires: 01/16/2025 Start: 10-16-2024 End: 10-16-2024 Patient encounter procedure [facility] Comment on above: Arrived Start: 09-15-2024 End: 01-15-2025 US for [facility] Work Phone: Comment on above: Expected: 09/15/2024 , Expires: 01/15/2025 Start: 09-15-2024 End: 09-15-2024 Patient encounter procedure 09/15/2024 11:30 AM EDT Routine [facility] [address] [place] [phone] Jhon Gibson, [address] [place] [address] [facility] Start: 09-15-2024 End: 09-15-2024 Professional / ancillary services management 09/15/2024 11:00 AM EDT Ancillary Procedure [facility] [address] [place] [address] [facility] Start: 09-15-2024 End: 09-15-2024 Patient encounter procedure 09/15/2024 10:10 AM EDT Routine [facility] [address] [place] [address] Jhon Gibson, DO [address] [facility] [place] [address] [facility] Start: 08-15-2024 End: 08-15-2025 ABO/Rh ABO/Rh Lab Routine Missed menses , unspecified gestational age Expected: 08/15/2024 (Approximate), Expires: 08/15/2025 [facility] Comment on above: Expected: 08/15/2024 (Approximate), Expires: 08/15/2025 Start: 08-15-2024 End: 08-15-2025 Blood type and Indirect antibody screen panel - Blood Type and screen Lab Routine Missed menses , unspecified gestational age Expected: 08/15/2024 (Approximate), Expires: 08/15/2025 [facility] Work Phone: Comment on above: Expected: 08/15/2024 (Approximate), Expires: 08/15/2025 Start: 08-15-2024 End: 08-15-2025 Drugs of abuse panel - Urine by Screen method Rapid drug screen, urine Lab Routine , unspecified gestational age Encounter for supervision of normal first in first trimester Expected: 08/15/2024 (Approximate), Expires: 08/15/2025 [facility] Comment on above: Expected: 08/15/2024 (Approximate), Expires: 08/15/2025 Start: 08-15-2024 End: 08-15-2024 ambulatory 08/15/2024 10:00 AM EDT Initial [facility] [address] [place] [phone] [facility] Start: 08-15-2024 End: 08-15-2024 Professional / ancillary services management 08/15/2024 9:30 AM EDT Ancillary Procedure [facility] [address] [place] [phone] [facility] Start: 01-20-2024 Influenza vaccination Influenza Vacc ine (#1) [facility] Start: 01-17-2024 End: 01-16-2025 CBC panel - Blood by Automated count CBC Lab Routine Dizziness Vision blurred Expected: 01/17/2024 (Approximate), Expires: 01/16/2025 [facility] Comment on above: Expected: 01/17/2024 (Approximate), Expires: 01/16/2025 Start: 01-17-2024 End: 01-16-2025 Thyrotropin [Units/volume] in Serum or Plasma TSH Lab Routine Dizziness Vision blurred Expected: 01/17/2024 (Approximate), Expires: 01/16/2025 [facility] Comment on above: Expected: 01/17/2024 (Approximate), Expires: 01/16/2025 Start: 01-17-2024 End: 01-17-2024 Patient encounter procedure 01/17/2024 10:00 AM EDT Office Visit [facility] [address] [facility] [place] [address] Isa Carrera PA [address] [place] [address] [place] [address] Arrived [facility] Comment on above: Arrived Start: 07-24-2023 End: 07-24-2023 Patient encounter procedure 07/24/2023 10:00 AM EST Routine [facility] [address] [place] [address] Isa Carrera PA [address] [facility] [place] [address] [facility] Start: 07-03-2023 End: 07-03-2024 CBC panel - Blood by Automated count CBC Lab Routine Diabetes mellitus screening Expected: 07/03/2023 (Approximate), Expires: 07/03/2024 [facility] Comment on above: Expected: 07/03/2023 (Approximate), Expires: 07/03/2024 Start: 07-03-2023 End: 07-03-2024 Measurement of glucose 1 hour after glucose challenge for glucose tolerance test Glucose tolerance, 1 hour Lab Routine Diabetes mellitus screening Expected: 07/03/2023 (Approximate), Expires: 07/03/2024 [facility] Comment on above: Expected: 07/03/2023 (Approximate), Expires: 07/03/2024 Start: 01-19-2023 Influenza vaccination Influenza Vacc ine (#1) [facility] Bacteria identified in Urine by Culture Urine culture Microbiology Routine Missed menses Ordered: 08/15/2024 [facility] Comment on above: Ordered: 08/15/2024 CBC W Auto Different ial panel - Blood CBC and differential Lab Routine Missed menses , unspecified gestational age Ordered: 08/15/2024 [facility] Comment on above: Ordered: 08/15/2024 CHLAMYDIA TRACHOMATI S (GENITO/STI) CHLAMYDIA TRACHOMATIS (GENITO/STI) Lab Routine Screen for STD (sexually transmitted disease) Ordered: 07/03/2023 [facility] Comment on above: Ordered: 07/03/2023 CHLAMYDIA TRACHOMATI S (GENITO/STI) CHLAMYDIA TRACHOMATIS (GENITO/STI) Lab Routine STD exposure Ordered: 10/16/2024 [facility] Comment on above: Ordered: 10/16/2024 Cytology Cervical or vaginal smear or scraping study Pap Smear Pathology and Cytology Routine Well woman exam with routine gynecological exam Ordered: 01/17/2024 [facility] Work Phone: Comment on above: Ordered: 01/17/2024 Hemoglobin A1c/Hemoglobin.total in Blood Hemoglobin A1c Lab Routine Missed menses , unspecified gestational age Ordered: 08/15/2024 [facility] Comment on above: Ordered: 08/15/2024 Hepatitis B virus surface Ag [Presence] in Serum or Plasma by Immunoassay Hepatitis B surface antigen Lab Routine Missed menses , unspecified gestational age Ordered: 08/15/2024 [facility] Comment on above: Ordered: 08/15/2024 Hepatitis C virus Ab [Presence] in Serum or Plasma by Immunoassay Hepatitis C antibody Lab Routine Missed menses , unspecified gestational age Ordered: 08/15/2024 [facility] Comment on above: Ordered: 08/15/2024 HIV-1/HIV-2 antigen/antibody combination immunoassay HIV-1 and HIV-2 antibodies Lab Routine Missed menses , unspecified gestational age Ordered: 08/15/2024 [facility] Comment on above: Ordered: 08/15/2024 Human papilloma viru s DNA [Presence] in Unspecified specimen by Probe with amplification HPV DNA probe, amplified Microbiology Routine Well woman exam with routine gynecological exam Ordered: 01/17/2024 [facility] Comment on above: Ordered: 01/17/2024 Neisseria gonorrhoea e DNA [Presence] in Unspecified specimen by JOSEFINA with probe detection Neisseria gonorrhea DNA probe, direct Lab Routine Screen for STD (sexually transmitted disease) Ordered: 07/03/2023 [facility] Comment on above: Ordered: 07/03/2023 Neisseria gonorrhoea e DNA [Presence] in Unspecified specimen by JOSEFINA with probe detection Neisseria gonorrhea DNA probe, direct Lab Routine STD exposure Ordered: 10/16/2024 [facility] Comment on above: Ordered: 10/16/2024 Reagin Ab [Presence] in Serum by RPR RPR Lab Routine Missed menses , unspecified gestational age Ordered: 08/15/2024 [facility] Comment on above: Ordered: 08/15/2024 Rubella antibody, IgG Rubella an tibody, IgG Lab Routine Missed menses , unspecified gestational age Ordered: 08/15/2024 [facility] Comment on above: Ordered: 08/15/2024 SURESWAB(R) ADVANCED VAGINITIS PLUS, TMA SURESWAB(R) ADVANCED VAGINITIS PLUS, TMA Pathology and Cytology Routine Screen for STD (sexually transmitted disease) Ordered: 07/03/2023 [facility] Work Phone: Comment on above: Ordered: 07/03/2023 SURESWAB(R) ADVANCED VAGINITIS PLUS, TMA SURESWAB(R) ADVANCED VAGINITIS PLUS, TMA Pathology and Cytology Routine STD exposure Ordered: 10/16/2024 [facility] Work Phone: Comment on above: Ordered: 10/16/2024 Payers Date Payer Category Payer Medicaid [place] [employer] [facility] [id number] 2022-Present [address] [address] [place] [address] [id number] 2022 Medicaid (Managed Care) ADRI LUIL [id number] 1990 Unknown [id number] 1990 Unknown [id number] 1258 1990 Unknown [id number] 1258 1990 Unknown [id number] 1258 1990 Unknown [id number] 1258 1990 Unknown [id number]. 1258 1990 Unknown [id number]. 1258 1990 Unknown [id number] 1258 1990 Unknown [id number] 1259 1959 Private Health Insurance [id number] 1959 Unknown [id number] Social History Date Type Detail Facility Tobacco smoking stat [facility] Tobacco smoking consumption unknown [facility] Start: 01-23-2023 [facility] Start: 1990 Sex Assigned At Female [facility] Start: 05-01-2023 Gender identity Identifies as female gender (finding) [facility] Start: 05-01-2023 Sexual orientation Heterosexual (fin ding) [facility] Clinical Notes 07-03-2023 to 11-17-2024 Lizbet Pfeiffer, [facility] - 11/17/2024 10:10 AM EDTSusamarisa Levy, [facility] - 10/16/2024 10:10 AM EDTSusamarisa Levy, [facility] - 09/15/2024 11:30 AM EDTMryanne Roman, [place] - 08/15/2024 10:00 AM EDT Note Date & Type Note Facility 11-17-2024 History of Presen t illness Narrative Reason for Appointment: Patient ID: Merle Cyr is a 34 y.o. female who presents for Routine Visit Patient presents today for Return OB appointment. MEDICATIONS Current Outpatient Medications Medication Instructions diphenhydrAMINE (BENADRYL) 25 mg, Nightly PRN ALLERGIES Allergies Allergen Reactions Banana Swelling PROBLEMS Active Ambulatory Problems Diagnosis Date Noted Post-term , 40-42 weeks of gestation ([facility]) 10/16/2023 40 weeks gestation of ([facility]) 10/16/2023 Resolved Ambulatory Problems Diagnosis Date Noted [...] nursing note reviewed. Exam conducted with a computer programming professor present. Vitals: There is no height or weight on file to calculate BMI. BP: 102/72 No LMP recorded. Patient is . ASSESSMENT & PLAN ICD-10-CM 1. Second trimester ([facility]) Z34.92 2. 25 weeks gestation of ([facility]) Z3A.25 3. Diabetes mellitus screening Z13.1 CBC Glucose tolerance, 1 hour CBC Glucose tolerance, 1 hour Return OB: Patient presents today for a routine obstetrics appointment. Patient is currently 25w1d . Patient states she is doing well but has complaints of being tired due to current . Patient has verbalizes frequent movement. labor precautions was discussed/given. Pt given glucola and cbc before next appt. Along with repeat ultrasound Orders Placed This Encounter Procedures CBC Glucose tolerance, 1 hour Follow Up: Patient is to return to office in 3 week for routine OB appointment. Documented by Lizbet Pfeiffer LPN on behalf of: Jhon Gibson DO documented in this encounter [facility] 10-16-2024 History of Presen t illness Narrative [...] nursing note reviewed. Exam conducted with a computer programming professor present. Vitals: There is no height or [...] Jhon Gibson DO documented in this encounter [facility] 09-15-2024 History of Presen t illness Narrative [...] or undercooked meat, and [facility] away [facility]. Patient has been consulted regarding any further [...] Jhon Gibson DO documented in this encounter [facility] 08-15-2024 History of Presen t illness Narrative [...] gestation of Nurse Note: Pt unsure of Cameron Billion to one at this time. Pt was advised to make sure she does both labs and Cameron together if she decides. Follow Up: Patient is to have labs drawn at directed and return to office for initial OB appointment with provider. Patient may call office as needed with any concerns or questions. Nurse Visit Completed by: Trena Roman MA documented in this encounter [facility] 01-17-2024 History of Presen t illness Narrative [...] nursing note reviewed. Exam conducted with a computer programming professor present. Vitals: There is no height or [...] of: EVARISTO Jessica documented in this encounter [facility] 07-03-2023 History of Presen t illness Narrative [...] nursing note reviewed. Exam conducted with a computer programming professor present. Vitals: There is no height or [...] in this encounter [facility] Evaluation note Diagnosis Second trimester state, incidental Screen for STD (sexually transmitted disease) Screening examination for venereal disease Diabetes mellitus screening Screening for diabetes mellitus documented [facility]* Diagnosis Well woman exam with routine gynecological exam Routine gynecological examination Anxiety, generalized (CMS/HCC) Dizziness Dizziness and giddiness Vision blurred Other specified visual disturbances [facility] Diagnosis Missed menses , unspecified gestational age Encounter for supervision of normal first in first trimester 11 weeks gestation of documented [facility] Diagnosis Subchorionic hematoma in second trimester, single or unspecified fetus Second trimester state, incidental 16 weeks gestation of [facility]* Diagnosis Screening, , for anatomic survey Encounter for anatomic survey Second trimester state, incidental STD exposure 20 weeks gestation of documented [facility] Diagnosis Second trimester ([facility]) state, incidental 25 weeks gestation of ([facility]) Diabetes mellitus screening Screening for diabetes mellitus documented in this encounter [facility] Summary Purpose Family History No Family History Records FoundNo Family History Records Found Advance Directives No Advanced Directives Records FoundNo Advanced Directives Records Found Additional Source Comments INFORMATION SOURCE (unrecogn ized section and content) DATE CREATED AUTHOR 06/17/2021 [facility] DATE CREATED AUTHOR AUTHOR'S ORGANIZ ATION 11/17/2024 [facility] EPIC Reason for Visit (unrecogniz ed section and content) Reason Comments Routine Visit Reason Comments Well Women Visit Reason Comments Amenorrhea Care Teams (unrecognized sec tion and content) Agriscience Teacher Relationship Specialty Start Date End Date Иван Murphy MD [address] [place] [address] PCP - General Family Medicine 05/03/23 Agriscience Teacher Relationship Specialty Start Date End Date Иван Murphy MD [address] [place] [facility] [address] PCP - General Family Medicine 05/03/23 Agriscience Teacher Relationship Specialty Start Date End Date Иван Murphy MD [address] [place] [facility] [address] PCP - General Family Medicine 05/03/23 Agriscience Teacher Relationship Specialty Start Date End Date Иван Murphy MD [address] [place] [facility] [address] PCP - General Family Medicine 05/03/23 Agriscience Teacher Relationship Specialty Start Date End Date Иван Murphy MD [address] [facility], [facility] PCP - General Family Medicine 05/03/23 Agriscience Teacher Relationship Specialty Start Date End Date Иван Murphy MD [address] [place] [facility] [address] PCP - General Family Medicine 05/03/23 Agriscience Teacher Relationship Specialty Start Date End Date Иван Murphy MD [address] [place] [facility] [address] PCP - General Family Medicine 05/03/23 Agriscience Teacher Relationship Specialty Start Date End Date Иван Murphy MD [address] [place] [facility] [address] PCP - General Family Medicine 05/03/23 Agriscience Teacher Relationship Specialty Start Date End Date Иван Murphy MD [address] [place] [address] PCP - General Family Medicine 05/03/23 Agriscience Teacher Relationship Specialty Start Date End Date Иван Murphy MD [address] [facility] [place] [id number] PCP - General Family Medicine 05/03/23 FOR [...] BE BASED ON THE PRIMARY CLINICAL RECORDS. [facility]. provides no warranty or guarantee of the accuracy or completeness of information in this document.
== END 2024-11-22 10:09 | disposition home or self-care (01) ==
LOC: US 10:09
PROVIDERS: PCP Family Medicine; Visit Provider Obstetrics & Gynecology
DX: Z36.2 Encounter for other antenatal screening follow-up (principal); Z36.86 Encounter for antenatal screening for cervical length; O41.8X20 Other specified disorders of amniotic fluid and membranes, second trimester, not applicable or unspecified; O46.8X2 Other antepartum hemorrhage, second trimester; Z3A.25 25 weeks gestation of pregnancy
CPT/HCPCS: 76815; 76817

== ENCOUNTER 2024-12-05 09:30 | Outpatient (OUT) | payer OTHER, SELFPAY ==
--- OUTSIDE RECORDS SUMMARY | 2024-06-25 10:15 | XMS_ITS ---
Author Organization The [facility] [place] Address [address] [place] [address] Care Team Providers Care Instrument Sterilizer Name Role Phone Arcadio Murphy Primary Care [...] 06/25/2024 Encounters Encounter Location Date Provider Diagnosis [facility] [address] [place] [address] 06/25/2024 Arcadio Murphy GERD (gastroesophage al reflux [...] 28 days 06/25/2024 Progress Notes * Merle GUARDADO NDOB: [birth year] (34 yo F)Acc No.[id number]:06/25/2024 Progress Note Patient: Merle MONROE Provider: Gabriela Murphy ([facility])MD :1990 A ge:34 Y S ex:Female Date:06/25/2024 Address:[address] [place] [address], [place], [id number] Check In:02:06 PM ESTCheck O ut:02:29 PM EST Subjective: * Chief Complaints: * W eight management * HPI: G eneral: weiogh -. * ROS: E ENT: hearing changes d enies. v isual changes d enies.�non-healing mouth sores d enies. s wollen glands or neck lumps d enies. h oarseness d enies. s ore throat d enies. d ifficulty swallowing d enies. n ose bleeds d enies. n fabian congestion d enies. e ar ache d enies. e ar discharge�denies. r inging in ears d enies. l ight sensitivity d enies. e ye pain d enies. b lurring d enies. e ye irritation d enies. d ouble vision d enies.�vision loss d enies. G eneral/Constitutional: Sweats: D enies. F atigue d enies. S leep problems d enies. A norexia d enies. M alaise d enies. W eight loss d enies.�Fatigue or Weakness d enies. F ever or [...] frequent cough d enies. C oughing up blood�denies. D ifficulty breathing d enies. P roductive cough d enies. S noring�denies. S hortness of breath that awakens from [...] NOSE: n o deformity, discharge, inflammation, or lesions.� MOUTH: m ucous membranes moist, normal oropharynx and posterior pharynx without lesions or exudates, tongue normal, dentition normal. NECK: n eloy supple, no masses or palpable cervical nodes, trachea midline, thyroid without nodules, masses, tenderness, or enlargement. CHEST: n o chest wall deformity, no chest wall tenderness.� LUNGS: n ormal respiratory effort and clear [...] HK (Check Out) true * Provider: Gabriela CHEN)MD Date: 06/25/2024 Generated for Printi ng/Fagurinderg/eTransmitting on: 0 12/05/2024 09:33 AM EDT History and Physical Notes * [...]
--- OUTSIDE RECORDS SUMMARY | 2024-06-26 05:03 | XMS_ITS ---
Author Organization The [facility] in [place] Address [address] [place] [address] Care Team Providers Care Quantometer Operator Name Role Phone Arcadio Murphy Primary Care Provider REASON FOR VISIT Ozempic Encounters Encounter Location Date Provider Diagnosis [facility] [address] [place] [address] 06/26/2024 Arcadio Murphy Plan Of Treatment No Information Progress Notes * Merle GUARDADO NDOB: [birth year] (34 yo F)Acc No.[id number]:06/26/2024 Patient: Juliocesar LA Merle Vaughn :1990 A ge:34 Y S ex:Female Address:[address] [place] [address], [phone] * true * Date: Generated for Printi ng/Fagurinderg/eTransmitting on: 0 12/05/2024 09:32 AM EDT
--- OUTSIDE RECORDS SUMMARY | 2024-07-29 11:39 | XMS_ITS ---
Author Organization [facility] [place] Address [address] [place] [address] Care Team Providers Care Sales Representative Consultant Name Role Phone Arcadio Murphy Primary Care Provider REASON FOR VISIT Encounters Encounter Location Date Provider Diagnosis [facility] [address] [place] [address] 07/29/2024 Arcadio Murphy Plan Of Treatment No Information Progress Notes * Merle GUARDADO NDOB: [birth year] (34 yo F)Acc No.[id number]:07/29/2024 Patient: Calvin MONROElolis Vaughn :1990 A ge:34 Y S ex:Female Address:[address] [place] [address], [id number] * true * Date: Generated for Printi ng/Faxing/eTransmitting on: 0 12/05/2024 09:33 AM EDT
--- OUTSIDE RECORDS SUMMARY | 2024-12-05 09:33 | XMS_ITS | Clinical Summary ---
Author Organization [employer] [facility] tem Address [id number] [address] [place] [address] Care Team Providers Care Instrument Setter Name Role Phone Chencho Murphy MD Primary Care Provider [phone] Allergies Active Allergy Reactions Criticality Noted Date [...] specimen type ThinPrep 12/06/2022 4:31 PM EDT [facility] Hpv 16 Negative Negative^N egative 12/07/2022 1:26 PM EDT [facility] Hpv 18 Negative Negative^N egative 12/07/2022 1:26 PM EDT [facility] Other high risk hpv Negative Negative^N egative 12/07/2022 1:26 PM EDT [facility] Comment: HPV types 31,33,35,39,45,52,56,58,59,66 and 68 DNA were undetectable. THINP 12/04/2022 4:31 PM EDT 12/06/2022 4:33 PM EDT us Devika Ryan [employer] [facility] BLOOD ORDERABLES Fin al Result [facility] [address] [facility] [place] [address] [facility] [address] [place] [address] from Last 3 Months or Most Recently Relevant to Health Maintenance Insurance [facility] MEDICAID Care Teams Instrument Setter Relationship Specialty Start Date End Date Chencho Murphy MD PCP - General 09/21/17
--- OUTSIDE RECORDS SUMMARY | 2024-12-05 09:33 | XMS_ITS | Encounter Summary ---
Author Organization [facility] Address [address] [place] [address] Care Team Providers Care Computer Applications Instructor Name Role Phone Chencho Murphy MD Primary Care Provider [phone] Encounter Details Date Type Department Care Team (Late st Contact Info) Description 08/20/2024 Telephone [facility] [address] [place] [address] [place] [address] Mary Chauhan LPN [facility] [place] [address] Social History Tobacco Use Types Packs/Day Years [...] Care Team (Late st Contact Info) Description 12/08/2024 9:20 AM EDT Routine [facility] [address] [place] [address] [place] [address] Isa Avendano PA [facility] [address] [place] [phone] 01/26/2025 11:00 AM EDT Office Visit [facility] [address] [place] [phone] Isa Avendano PA [address] [place] [address] documented as of this encounter Visit Diagnoses Not on filedocumented in this encounter Care Teams Computer Applications Instructor Relationship Specialty Start Date End Date Chencho Murphy MD [address] [facility] [place] [id number] PCP - General Family Medicine 05/03/23 documented as of this encounter
--- OUTSIDE RECORDS SUMMARY | 2024-12-05 09:33 | XMS_ITS ---
Author Organization [facility] Source Produ ction (ClinicalSummary Clone) Address Unknown Care Team Providers Care Truss Driver Helper Name Role Phone Unavailable Primary Care Physician Unavailab le Results * [UNITY] ANEUPLOIDY NIPT Performed by: [employer] Value Range Date Fraction 6.1% 09/07/2024 05 :49 pm UTC Rh(D) NIPT RhD DETECTED 09/07/2024 05:4 9 pm UTC Sex Chromosome Aneuploidy NOT DETECTED 05:49 pm UTC Monosomy X LOW RISK <1 in 10,000 2024 05:49 pm UTC Trisomy 13 LOW RISK <1 in 10,000 2024 05:49 pm UTC Trisomy 18 LOW RISK <1 in 10,000 2024 05:49 pm UTC Trisomy 21 LOW RISK <1 in 10,000 2024 05:49 pm UTC Sex MALE 09/07/2024 05:4 9 pm UTC Gestation GALLO 09/08/19 05:49 pm UTC For detailed report, see PDF See PDF 09/07/2024 05:49 pm UTC 09/07/2024 05:4 9 pm UTC Social History Observation Value Start Date End Date
--- OUTSIDE RECORDS SUMMARY | 2024-12-05 09:33 | XMS_ITS | Patient Health Record ---
Author Organization The [facility] in [place] Address [address] [place] [address] Care Team Providers Care Photographic Reproduction Technician Name Role Phone Arcadio Murphy Primary Care Provider Allergies No Known Allergies Results Component Value Reference Range Notes DRUG SCREEN RAPID (URINE) Reviewed date:09/01/2024 08:29:17 PM Interpretation: Performing Lab: Notes/Report: [facility] , Cannabinoid Screen Urine NEGATIVE NEGATIVE Phencyclidine Screen Urine NEGATIVE NEGATIVE Cocaine Screen Urine NEGATIVE NEGATIVE Methamphetamines Screen Urine NEGATIVE NEGATIVE Opiate Screen Urine NEGATIVE NEGATIVE Amphetamine Screen Urine NEGATIVE NEGATIVE Benzodiazepines Screen Urine NEGATIVE NEGATIVE Tricyclic Antidepressant Urine NEGATIVE NEGATIVE Methadone Screen Urine NEGATIVE NEGATIVE Barbiturates Screen Urine NEGATIVE NEGATIVE Oxycodone Screen Urine NEGATIVE NEGATIVE Buprenorphine Screen Urine NEGATIVE NEGATIVE OXY (Oxycodone): 100 ng/mL BUP (Buprenorphine): 10 ng/mL BZO (Benzodiazepines): 150 ng/mL AMP (Amphetamine): 500 ng/mL OPI (Opiates): 100 ng/mL MTD (Methadone): 200 ng/mL DRUG CLASS TEST SYSTEM CUT-OFF CONCENTRATIONS ARE BAR (Barbiturates): 200 ng/mL FOLLOWS: THC (Cannabinoids): 50 ng/mL TCA (Trycyclic Antidepressants): 300 ng/mL PCP (Phencyclidine): 25 ng/mL HARLAN (Cocaine): 150 ng/mL mAMP (Methamphetamine): 500 ng/mL Performing Lab: see note ML - The [facility] LB GLYCOHEMOGLOBIN A1C Reviewed date:09/01/2024 08:29:17 PM Interpretation: Performing Lab: Notes/Report: [facility] , Glycohemoglobin A1C 5.2 4.5-6.2 % > 7.0 ADA RECOMMENDED LIMIT 4.0 - 6.0 ACTION SUGGESTED ADA THERAPEUTIC TARGET < 7.0 Estimated Average Glucose 103 Performing Lab: see note - [facility] RUBELLA AB IGG Reviewed date:09/02/2024 01:10:40 PM Interpretation: Performing Lab: Notes/Report: [facility] , Rubella Antibodies, IgG 2.60 Immune > 0.99 index Performed at: [facility] Kitchen Chef: Drake Brooks PhD, Phone: [phone] Immune >0.99 Equivocal 0.90 - 0.[address] [place] [address] [phone] Non-immune <0.90 Performing Lab: see note [facility] HCV Antibody RFX to Quant PC R Reviewed date:09/02/2024 01:10:40 PM Interpretation: Performing Lab: Notes/Report: [facility] , HCV Ab Non Reactive Non Reactive Interpretation: Comment . Kitchen Chef: Drake Brooks PhD, Phone: [phone] Performed at: [address] [id number] infection. individual), or other evidence exists to indicate HCV Not infected with HCV unless early or acute infection is suspected (which may be delayed in an immunocompromised Performing Lab: see note [facility] Urine Culture, Routine Reviewed date:09/03/2024 09:46:27 AM Interpretation: Performing Lab: Notes/Report: [facility] , Urine Culture, Routine See Below For Report Urine Culture, Routine Urine Culture, Routine Mixed urogenital geno Urine Culture, Routine Urine Culture, Routine 10,000-25,000 col jazmin forming units per mL Urine Culture, Routine Urine Culture, Routine Performed at: [facility] Urine Culture, Routine Urine Culture, Routine [address] [place] [address] [phone] Urine Culture, Routine Urine Culture, Routine Kitchen Chef: Frandy Brooks PhD, Phone: [phone] Urine Culture, Routine Performing Lab: see note [facility] LB SEE REPORT - Advanced Manufacturing Technician Id information not found for OBX-specific excel expert legend AFP, Serum, Open Spina Bifid a Reviewed date:11/05/2024 05:29:19 PM Interpretation: Performing Lab: Notes/Report: N N ULTRASOUND [id number] 4 20 N 1 Y 211 N N N N N White/ [facility] , Results Report . Test Results: *Screen Negative* . Gest. Age on Collection Date 22.9 . weeks Gestat. Age Based On Ultrasound . Recalculations are not recommended when gestational dating 20.6 on 10/16/2024 by LMP and ultrasound are within 10 days. M[age]TONIO 35[age]0 [age] yr Race . Weight 211 . lbs Insulin Dep Diabetes No . Multiple Gestation No . AFP Value 52.2 . ng/mL AFP MoM 0.77 . OSBR Risk 1 [place] [address] . Interpretation Comment . Services to discuss available options. The Guyanese detected by this test. This test does not screen for can identify up to 80% of open neural tube defects. Interpretation: Screen Negative amniocentesis be offered to women age 35 and older. or Trisomy 18 is desired, contact Genetic Customer calculated is based on the gestational age provided. [facility] College of Obstetricians and [employer]nec[employer] recommends Down Syndrome or Trisomy 18. If screening for Down Syndrome Closed neural tube defects and some open defects may not be This result is screen negative for OSB. The AFP MoM Comment: Comment . For AFP Elevations Kitchen Chef: Andres Faust [facility], Phone: [phone] Romelia Villarreal, Ph.D., [facility] Abbreviation Definitions by the Food and Drug Administration. Genetics Services at 0-168-502-YKUW. OSBR - Open Spina Bifida Risk IDD 2.0 Twins 4.5 Multiples Of Median Cutoffs [address] [place], [place] [id number] determined by [facility]. It has not been cleared or approved For further inquiries contact [facility] Director IDD - Insulin Dep Diabetes Feliz 2.5 Black 2.8 References: Available Upon Request. Performed at: [facility] [place] This test was developed and its performance characteristics Performing Lab: see note - [facility] LB US OB cervical length Reviewed date:11/10/2024 02:25:44 PM Interpretation: Performing Lab: Notes/Report: Source Facility: [facility] [place] [address] [address] Ultrasound Report Signed Patient: MERLE GUARDADO MR#: [id number] : 1990 Acct:[id number] Age/Sex: 34 / F ADM Date: 11/08/24 Loc: US Attending Dr: Jhon Gibson D.O. Ordering Physician: Jhon Gibson D.O. Date of Service: 11/08/24 Procedure(s): US OB cervical length Accession Number(s): [id number] cc: Jhon Gibson D.O.; Chencho Murphy M.D. [place] [id number] Patient Name: MERLE GUARDADO MRN: [facility]:[id number] date: 1990 Sex: F Assigned Patient Location: US Current Patient Location: Accession/Order Number: [id number] Exam Date: 11/10/2024 07:47 Report Date: 11/10/2024 [...] normal limits for appearance and position. The cushion sewer had difficulty visualizing the spine and 4 [...] Carmona M.D. 11/10/2024 7:56 AM Dictation Location: [place] [address] Electronically authenticated by: [id number] Y Date: 11/10/2024 07:56 Dictated By: Lizbet aCrmona M.D. Signed By: 11/10/24 0759 DD/ 0756 TD/TT: Cardiology Technologist: [place] [address] Ultrasound Report Signed Patient: MERLE GUARDADO MR#: [id number] : 1990 Acct:[id number] Age/Sex: 34 / F ADM Date: 11/08/24 Loc: US Attending Dr: Jhon Gibson D.O. Ordering Physician: Jhon Gibson D.O. Date of Service: 11/08/24 Procedure(s): US OB cervical length Accession Number(s): [id number] cc: Jhon Gibson D.O. ; Chencho Murphy M.D. [place] [phone] Patient Name: MERLE GUARDADO MRN: [id number] date: 1990 Sex: F Assigned Patient Location: Current Patient Location: Accession/Order Number: [id number] Exam Date: 11/10/2024 07:47 Report Date: 11/10/2024 07:56 At the request of: JHON GIBSON DO Procedure: US OB anatomy CLINICAL DATA: anatomy COMPARISON: None OB CERVICAL LENGTH The cervix was evaluated with the transvaginal probe. There is mild funneling. The estimated cervical length is 3.6 cm. US/US OB cervical length IMPRESSION: CERVICAL FINDINGS, A S DESCRIBED. ULTRASOUND OB ANATOMY There is a single live intrauterine gestation in variable presentation. The amniotic fluid volum e is subjectively normal. There is cardiac and somatic activity wit h heart rate of 142 beats per minutes. The placenta is posterior and as visualized within normal limits for appearance and position. The cushion sewer had difficulty visualizing the spine and 4 [...] Carmona M.D. 11/10/2024 7:56 AM Dictation Location: [place] [address] Electronically authenticated by: [id number] Y Date: 11/10/2024 07:56 Dictated By: Lizbet Carmona M.D. Signed By: 11/10/24 0759 DD/ 0756 TD/TT: Cardiology Technologist: US OB anatomy Reviewed date:11/10/2024 02:25:44 PM Interpretation: Performing Lab: Notes/Report: Source Facility: [place] [address] Ultrasound Report Signed Patient: MERLE GUARDADO MR#: [id number] : 1990 Acct:[id number] Age/Sex: 34 / F ADM Date: 11/08/24 Loc: US Attending Dr: Jhon Gibson D.O. Ordering Physician: Jhon Gibson D.O. Date of Service: 11/08/24 Procedure(s): US OB anatomy Accession Number(s): [id number] cc: Jhon Gibson D.O.; Chencho Murphy M.D. The [place] [address] Patient Name: MERLE GUARDADO MRN: [facility]:[id number] date: 1990 Sex: F Assigned Patient Location: Current Patient Location: Accession/Order Number: [id number] Exam Date: 11/10/2024 07:47 Report Date: 11/10/2024 [...] normal limits for appearance and position. The cushion sewer had difficulty visualizing the spine and 4 [...] Carmona M.D. 11/10/2024 7:56 AM Dictation Location: [place] [address] Electronically authenticated by: [id number] Y Date: 11/10/2024 07:56 Dictated By: Lizbet Carmona M.D. Signed By: 11/10/24 0759 DD/ 0756 TD/TT: Cardiology Technologist: [place] [address] Ultrasound Report Signed Patient: MERLE GUARDADO MR#: [id number] : 1990 Acct:[id number] Age/Sex: 34 / F ADM Date: 11/08/24 Loc: US Attending Dr: Jhon Gibson D.O. Ordering Physician: Jhon Gibson D.O. Date of Service: 11/08/24 Procedure(s): US OB anatomy Accession Number(s): [id number] cc: Jhon Gibson D.O. ; Chencho Murphy M.D. [place] [address] Patient Name: MERLE GUARDADO MRN: [id number] date: 1990 Sex: F Assigned Patient Location: US Current Patient Location: Accession/Order Number: [id number] Exam Date: 11/10/2024 07:47 Report Date: 11/10/2024 07:56 At the request of: JHON GIBSON DO Procedure: US OB anatomy CLINICAL DATA: anatomy COMPARISON: None OB CERVICAL LENGTH The cervix was evaluated with the transvaginal probe. There is mild funneling. The estimated cervical length is 3.6 cm. US/US OB anatomy IMPRESSION: CERVICAL FINDINGS, A S DESCRIBED. ULTRASOUND OB ANATOMY There is a single live intrauterine gestation in variable presentation. The amniotic fluid volum e is subjectively normal. There is cardiac and somatic activity wit h heart rate of 142 beats per minutes. The placenta is posterior and as visualized within normal limits for appearance and position. The cushion sewer had difficulty visualizing the spine and 4 [...] Carmona M.D. 11/10/2024 7:56 AM Dictation Location: [place] [address] Electronically authenticated by: [id number] Y Date: 11/10/2024 07:56 Dictated By: Lizbet Carmona M.D. Signed By: 11/10/24 0759 DD/ 0756 TD/TT: Cardiology Technologist: US OB incomplete anatomy Reviewed date:11/22/2024 07:52:47 PM Interpretation: Performing Lab: Notes/Report: Source Facility: [place] [address] Ultrasound Report Signed Patient: MERLE GUARDADO MR#: [id number] : 1990 Acct:[id number] Age/Sex: 34 / F ADM Date: 11/22/24 Loc: US Attending Dr: Jhon Gibson D.O. Ordering Physician: Jhon Gibson D.O. Date of Service: 11/22/24 Procedure(s): US OB incomplete anatomy Accession Number(s): [id number] cc: Jhon Gibson D.O.; Chencho Murphy M.D. [place] [phone] Patient Name: MERLE GUARDADO MRN: [id number] date: 1990 Sex: F Assigned Patient Location: Current Patient Location: US Accession/Order Number: [id number] Exam Date: 11/22/2024 14:25 Report Date: 11/22/2024 14:27 At the request of: JHON GIBSON DO Procedure: US OB cervical length Obstetrical ultrasound for incomplete anatomy HISTORY: Suboptimal visualization spine and extremities. Variable presentation of fetus. heart rate 37 bpm. Somatic motion identified. Gestational age 25 weeks 6 days. Estimated delivery 03/01/2025. Adequate visualization of the spine and all extremities. US/US OB incomplete anatomy IMPRESSION: Visualization of spine and extremities. Ultrasound for cervical length of the uterus Cervical length is 4 cm. The cervical os is closed. IMPRESSION: Cervical length 4 cm. Impression dictated by: Nir Quinones M.D. 11/22/2024 2:27 PM [facility] by: [id number] Y Date: 11/22/2024 14:27 Dictated By: Nir Quinones D.O. Signed By: 11/22/24 1430 DD/ 1427 TD/TT: Cardiology Technologist: [place] [address] Ultrasound Report Signed Patient: MERLE GUARDADO MR#: [id number] : 1990 Acct:[id number] Age/Sex: 34 / F ADM Date: 11/22/24 Loc: US Attending Dr: Jhon Gibson D.O. Ordering Physician: Jhon Gibson D.O. Date of Service: 11/22/24 Procedure(s): US OB incomplete anatomy Accession Number(s): [id number] cc: Jhon Gibson D.O. ; Chencho Murphy M.D. [place] [phone] Patient Name: MERLE GUARDADO MRN: [id number] date: 1990 Sex: F Assigned Patient Location: Current Patient Location: US Accession/Order Number: [id number] Exam Date: 11/22/2024 14:25 Report Date: 11/22/2024 14:27 At the request of: JHON GIBSON DO Procedure: US OB cervical length Obstetrical ultrasound for incomplete anatomy HISTORY: Suboptimal visualization spine and extremities. Variable presentatio n of fetus. heart rate 37 bpm. Somatic motion identified. Gestational age 25 weeks 6 days. Estimated delivery 03/01/2025. Adequate visualization of the spine and all extremities. US/US OB incomplete anatomy IMPRESSION: Visualization of spine and extremities. Ultrasound for cervical length of the uterus Cervical length is 4 cm. The cervical os is closed. IMPRESSION: Cervical length 4 cm. Impression dictated by: Nir Quinones M.D. 11/22/2024 2:27 PM Dictation Location: [place] [address] Electronically authenticated by: [id number] Y Date: 11/22/2024 14:27 Dictated By: Nir Quinones D.O. Signed By: 11/22/24 1430 DD/ 1427 TD/TT: Cardiology Technologist: US OB cervical length Reviewed date:11/22/2024 07:52:47 PM Interpretation: Performing Lab: Notes/Report: Source Facility: [place] [address] Ultrasound Report Signed Patient: MERLE GUARDADO MR#: [id number] : 1990 Acct:[id number] Age/Sex: 34 / F ADM Date: 11/22/24 Loc: US Attending Dr: Jhon Gibson D.O. Ordering Physician: Jhon Gibson D.O. Date of Service: 11/22/24 Procedure(s): US OB cervical length Accession Number(s): [id number] cc: Jhon Gibson D.O.; Chencho Murphy M.D. [place] [address] Patient Name: MERLE GUARDADO MRN: [id number] date: 1990 Sex: F Assigned Patient Location: US Current Patient Location: US Accession/Order Number: [id number] Exam Date: 11/22/2024 14:25 Report Date: 11/22/2024 14:27 At the request of: JHON GIBSON DO Procedure: US OB cervical length Obstetrical ultrasound for incomplete anatomy HISTORY: Suboptimal visualization spine and extremities. Variable presentation of fetus. heart rate 37 bpm. Somatic motion identified. Gestational age 25 weeks 6 days. Estimated delivery 03/01/2025. Adequate visualization of the spine and all extremities. US/US OB cervical length IMPRESSION: Visualization of spine and extremities. Ultrasound for cervical length of the uterus Cervical length is 4 cm. The cervical os is closed. IMPRESSION: Cervical length 4 cm. Impression dictated by: Nir Quinones M.D. 11/22/2024 2:27 PM Dictation Location: [employer] Electronically authenticated by: [id number] Y Date: 11/22/2024 14:27 Dictated By: Nir Quinones D.O. Signed By: 11/22/24 1430 DD/ 1427 TD/TT: Cardiology Technologist: [place] [address] Ultrasound Report Signed Patient: MERLE GUARDADO MR#: [id number] : 1990 Acct:[id number] Age/Sex: 34 / F ADM Date: 11/22/24 Loc: US Attending Dr: Jhon Gibson D.O. Ordering Physician: Jhon Gibson D.O. Date of Service: 11/22/24 Procedure(s): US OB cervical length Accession Number(s): [id number] cc: Jhon Gibson D.O. ; Chencho Murphy M.D. [place] [address] Patient Name: MERLE GUARDADO MRN: [id number] date: 1990 Sex: F Assigned Patient Location: Current Patient Location: Accession/Order Number: [id number] Exam Date: 11/22/2024 14:25 Report Date: 11/22/2024 14:27 At the request of: JHON GIBSON DO Procedure: US OB cervical length Obstetrical ultrasound for incomplete anatomy HISTORY: Suboptimal visualization spine and extremities. Variable presentatio n of fetus. heart rate 37 bpm. Somatic motion identified. Gestational age 25 weeks 6 days. Estimated delivery 03/01/2025. Adequate visualization of the spine and all extremities. US/US OB cervical length IMPRESSION: Visualization of spine and extremities. Ultrasound for cervical length of the uterus Cervical length is 4 cm. The cervical os is closed. IMPRESSION: Cervical length 4 cm. Impression dictated by: Nir Quinones M.D. 11/22/2024 2:27 PM Dictation Location: [place] [address] Electronically authenticated by: [id number] Y Date: 11/22/2024 14:27 Dictated By: Nir Quinones D.O. Signed By: 11/22/24 1430 DD/ 1427 TD/TT: Cardiology Technologist: HBsAg Screen Reviewed date:09/02/2024 01:10:40 PM Interpretation: Performing Lab: Notes/Report: [facility] , HBsAg Screen Negative Negative [address] [place] [phone] Performed at: [facility] Kitchen Chef: Drake Brooks PhD, Phone: [phone] Performing Lab: see note - [facility] Rapid Plasma Reagin, Quant Reviewed date:09/02/2024 01:10:40 PM Interpretation: Performing Lab: Notes/Report: [facility] , Rapid Plasma Reagin, Quant Non Reactive NonRea<1:1 titer screening and diagnosis of syphilis. This test is [address] [place] [phone] infection, a reflex cascade that includes both RPR and a treated for syphilis infection. To screen for syphilis Please Note: This test does not meet current guidelines for intended for following treatment response in patients being (139089). Kitchen Chef: Drake Brooks PhD, Phone: [phone] Rapid Plasma Reagin (RPR) Test With Reflex to Quantitative treponema-specific assay should be utilized, such as RPR and Confirmatory Treponema pallidum Antibodies Performed at: [facility] Treponema pallidum (Syphilis) Screening [place] ([id number]) or Performing Lab: see note - [facility] HIV Ab/p24 Ag with Reflex Reviewed date:09/02/2024 01:10:40 PM Interpretation: Performing Lab: Notes/Report: [facility] , HIV Ab/p24 Ag Screen Non Reactive Non Reactive Performed at: [facility] HIV-1/HIV-2 antibodies and HIV-1 p24 antigen were NOT detected. There is no laboratory evidence of HIV infection. [address] [place] [phone] Kitchen Chef: Drake Brooks PhD, Phone: [phone] HIV Negative Performing Lab: see note - [facility] Type and Screen Reviewed date:09/01/2024 08:29:17 PM Interpretation: Performing Lab: Notes/Report: [facility] , Blood Type A Positive Antibody Screen NEGATIVE CBC AUTO DIFF Reviewed date:09/01/2024 08:29:17 PM Interpretation: Performing Lab: Notes/Report: [facility] , White Blood Count 7.9 4.0-11.0 10 [...] 3/uL Performing Lab: see note ML - The [facility] LB PREG QUANT HCG Reviewed date:07/31/2024 06:53:05 PM Interpretation: Performing Lab: Notes/Report: [facility] , HCG Quantitative 96134 15,000-200,000 6-8 WEEKS 10,000-100,000 5-6 WEEKS 500-10,000 3-4 WEEKS 1,000-50,000 4-5 WEEKS 50-500 1-2 WEEKS 5-50 0.2-1 WEEK 100-5,000 2-3 WEEKS 10,000-100,000 2-3 MONTHS Performing Lab: see note ML - The [facility] LB PREG QUANT HCG Reviewed date:07/29/2024 03:40:12 PM Interpretation: Performing Lab: Notes/Report: [facility] , HCG Quantitative 63451 500-10,000 3-4 WEEKS 10,000-100,000 2-3 MONTHS 5-50 0.2-1 WEEK 1,000-50,000 4-5 WEEKS 50-500 1-2 WEEKS 100-5,000 2-3 WEEKS 15,000-200,000 6-8 WEEKS 10,000-100,000 5-6 WEEKS Performing Lab: see note ML - The [facility] LB IGP,Aptima HPV,Age Gdln Reviewed date:01/23/2024 07:20:06 PM Interpretation: Performing Lab: Notes/Report: BRUSH-SPATULA CERVIX ENDOCERVIX [facility] , Age Gdln ACOG Testing Note . Performed at: L-Low Normal,H-High Normal,LL-Alert Low,HH-Alert High No. of containers..01 ThinPrep Vial [address] [facility] [place] [address] Source.............Cervi x;Endocervix Age Algo ACOG Tatianna... Clinician Provided Cytology Information Betty Rodriguez MD, <-Panic Low,>-Panic High,A-Abnormal,AA-Criti david Abnormal FLAG LEGEND: TESTS RESULT FLAG UNITS REF RANGE LAB 01 =[facility] [place] IGP, Aptima HPV, rfx 16/18,45 Note . Note: Note 02 FLAG LEGEND: Criteria not met, HPV Genotype not performed. Specimen adequacy: 02 The Thin Prep(R) Workflow Developer was unable to read this specimen. [address] [facility] [place] [address] NEGATIVE FOR INTRAEPITHELIAL LESION OR MALIGNANCY. occur. detection of premalignant and malignant conditions of the Performed by: 02 HPV Genotype Reflex Note 02 DIAGNOSIS: 02 <-Panic Low,>-Panic High,A-Abnormal,AA-Criti david Abnormal Therefore a manual review was performed. Satisfactory for evaluation. No endocervical component is identified. cancer. Both false-positive and false-negative reports do The Pap smear is a screening test designed to aid in the L-Low Normal,H-High Normal,LL-Alert Low,HH-Alert High TESTS RESULT FLAG UNITS REF RANGE LAB should not be used as the sole means of detecting cervical 02 WB [facility] [place] . 02 Test Methodology: Note 02 uterine cervix. It is not a diagnostic procedure and Rhiannon Garcia, Medical Nurse Criteria not met, HPV Genotype not performed. Performed at: Betty Rodriguez MD, HPV Aptima Negative Negative [address], [place] [phone] risk HPV types (16,18,31,33,35,39,45,51 ,52,56,58,59,66,68) [address] [place] [id number] Performed at: = - [facility] Performed at: [facility] This nucleic acid amplification test detects fourteen high- Kitchen Chef: Betty Rodriguez MD, Phone: [phone] without differentiation. Kitchen Chef: Betty Rodriguez MD, Phone: [phone] Performing Lab: see note - [facility] Box Test Reviewed date:09/01/2024 08:29:17 PM Interpretation: Performing Lab: Notes/Report: [facility] , BOX Test Sent Out Event[facility] BOX Test Reference Lab UNITY BOX Test Date Sent 09/01/24 Performing Lab: see note - [facility] Reason For Referral No Information Medications Medication [...] W/U Status Risk Notes Problem Acne vulgaris (35750436) Acne vulgaris (L70.0) Active confirmed Problem Gastroesophageal reflux disease (595311413) GERD (gastroesoph ageal reflux disease) (K21.9) Active confirmed Problem Seasonal allergic rhinitis (J30.2) Active confirmed Vital Signs Blood pressure diastolic 80 mm Hg 06/25/2024 Height 58 in 06/25/2024 Blood pressure systolic 108 mm Hg 06/25/2024 Weight 200.0 lbs 06/25/2024 BMI 41.8 kg/m2 06/25/2024 Encounters Encounter Location Date Provider Diagnosis [facility] [address] [place] [address] 06/26/2024 Arcadio Murphy [facility] [address] [place] [address] 07/29/2024 Arcadio Murphy [facility] [address] [place] [address] 02/27/2024 Arcadio Murphy Acne vulgaris L70.0 [facility] [address] [place] [address] 06/25/2024 Arcadio Murphy GERD (gastroesophage al reflux [...] End Date [employer] [place] [employer] [address] [address] [place] [address] [phone] [id number] Merle Guardado Self - patient is the insured Medical (General) History Medical History History ICD Code Seasonal allergic rhinitis J30.2 GERD (gastroesophageal reflux disease) K 21.9 Depression F32.A
--- OUTSIDE RECORDS SUMMARY | 2024-12-05 09:33 | XMS_ITS | Encounter Summary ---
Author Organization [facility] Address [address] [place] [address] Care Team Providers Care Flight Teacher Name Role Phone Chencho Murphy MD Primary Care Provider [phone] Encounter Details Date Type Department Care Team (Late st Contact Info) Description 11/22/2024 Clinisync Result Encounter [facility] External Department Unsolicited Jhon Gibson DO [address] [place], [facility] Social History Tobacco Use Types Packs/Day Years [...] Description 12/08/2024 9:20 AM EDT Routine [facility] [address] [place] [address] Isa Avendano PA [address] [place] [address] 01/26/2025 11:00 AM EDT Office Visit [facility] [address] [place] [address] Isa Avendano PA [address] [place] [address] [place] [address] documented as of this encounter Procedures Procedure Name Priority Date/Time Associated Diagnosis Comments US OB CERVICAL LENGTH 11/22/2024 2:27 PM EDT documented in this encounter Results * US OB CERVICAL LENGTH (11/22/2024 2:27 PM EDT) Anatomical Region Laterality Modality Other 11/22/2024 2:27 PM EDT Narrative 11/22/2024 2:30 [place] [address] Ultrasound Report Signed Patient: MERLE GUARDADO MR#: [id number] : 1990 Acct:[id number] Age/Sex: 34 / F ADM Date: 11/22/24 Loc: US Attending Dr: Jhon Gibson D.O. Ordering Physician: Jhon Gibson D.O. Date of Service: 11/22/24 Procedure(s): US OB cervical length Accession Number(s): [id number] cc: Jhon Gibson D.O.; Chencho Murphy M.D. [address] [address] Patient Name: MERLE GUARDADO MRN: [id number] date: 1990 Sex: F Assigned Patient Location: US Current Patient Location: US Accession/Order Number: [id number] Exam Date: 11/22/2024 14:25 Report Date: 11/22/2024 [...] Quinones M.D. 11/22/2024 2:27 PM Dictation [facility] Electronically authenticated by: [id number] Y Date: 11/22/2024 14:27 Dictated By: Nir Quinones D.O. Signed By: 11/22/24 1430 DD/ 1427 TD/TT: Dolly Operator: Procedure Note Radiology, Radiologist, MD - 11/22/2024 [place] [address] Ultrasound Report Signed Patient: MERLE GUARDADO NMR#: [id number] : 1990Acct:[id number] Age/Sex: 34 / FADM Date: 11/22/24 Loc: US Attending Dr: Jhon Gibson D.O. Ordering Physician: Jhon Gibson D.O. Date of Service: 11/22/24 Procedure(s): US OB cervical length Accession Number(s): [id number] cc: Jhon Gibson D.O.; Chencho Murphy M.D. The [place] [id number] Patient Name: MERLE GUARDADO MRN: [id number] date: 1990 Sex: F Assigned Patient Location: US Current Patient Location: US Accession/Order Number: [id number] Exam Date: 11/22/2024 14:25 Report Date: 11/22/2024 14:27 At the request of: JHON GIBSON DO Procedure: US OB cervical length Obstetrical ultrasound for incomplete anatomy HISTORY: Suboptimal visualization spine and extremities. Variable presentation of fetus. heart rate 37 bpm. Somatic motion identified. Gestational age 25 weeks 6 days. Estimated wdaxemnc28/12/2025. Adequate visualization of the spine and all extremities. US/US OB cervical length IMPRESSION: Visualization of spine and extremities. Ultrasound for cervical length of the uterus Cervical length is 4 cm. The cervical os is closed. IMPRESSION: Cervical length 4 cm. Impression dictated by: Nir Quinones M.D. 11/22/2024 2:27 PM Dictation Location: [place] [address] Electronically authenticated by: [id number] Y Date: 4:27 Dictated By: Nir Quinones D.O. Signed By:11/22/24 1430 DD/ 1427 TD/TT: Dolly Operator: us Jhon Gibson DO [facility] Final Result documented in this encounter Visit Diagnoses Not on filedocumented in this encounter Care Teams Flight Teacher Relationship Specialty Start Date End Date Chencho Murphy MD [address] [place] [phone] PCP - General Family Medicine 05/03/23 documented as of this encounter
--- OUTSIDE RECORDS SUMMARY | 2024-12-05 09:33 | XMS_ITS | Encounter Summary ---
Author Organization [facility] Address [address] [place] [address] Care Team Providers Care Permaculture Designer Name Role Phone Chencho Murphy MD Primary Care Provider [phone] Encounter Details Date Type Department Care Team (Late st Contact Info) Description 12/03/2024 Patient Outreach [facility] [address] [place] [id number] Isa Fontana LPN [address] [place] [address] Social History Tobacco Use Types Packs/Day Years Used Date Smoking Tobacco: Never Assessed PHQ-2 Answer Date Recorded Patient Health Questionnaire-2 Score 0 12/03/2024 Estimated Date of Delivery Comme nts Yes 03/01/2025 Based on Ultraso und Sex and Gender Information Value Date Recorded Sex Assigned at Female 05/01/2023 11:06 AM EST Legal Sex Female 9:44 AM EST Gender Identity Female 05/01/2023 11:06 AM EST Sexual Orientation Straight 05/01/2023 11 :06 AM EST documented as of this encounter Functional Status * Over the past 2 weeks, how often have you been bothered by any of the following problems? Question Answer Date of Assessment Author Little interest or pleasure in doing things Not at all 12/03/2024 2:43 PM EDT Isa Fontana LPN Feeling down, depressed, or hopeless Not at all 12/03/2024 2:43 PM EDT Isa Fontana LPN Patient Health Questionnaire -2 Score 0 12/03/2024 2:43 PM EDT Isa Fontana LPN documented as of this encounter Progress Notes * Isa Fontana LPN - 12/03/2024 2:35 PM EDT Initial outreach. Call to pt. Pt reports she feels baby moving, Appetite and sleep are adequate. Bowels are regular. Pt denies depression or difficulty coping a this time. Pt currently established with [facility]. Pt denies any questions, concerns or needs today regarding . Pt reports she has rash under both breasts since swimming last week. Message sent to OBGYN provider. Pt agreed to monthly outreach. Meds reconciled. Next OB OV 12/08/2024. documented in this encounter Plan of Treatment Upcoming Encounters Date Type Department Care Team (Late st Contact Info) Description 12/08/2024 9:20 AM EDT Routine [facility] [address] [facility] [place] [phone] Isa Avendano, PA [address] [place] [address] [place] [address] 01/26/2025 11:00 AM EDT Office Visit [facility] OB [address] [place] [address] Isa Avendano PA [address] [facility] [place] [address] documented as of this encounter Visit Diagnoses Not on filedocumented in this encounter Care Teams Permaculture Designer Relationship Specialty Start Date End Date Chencho Murphy MD [address] [facility] [place] [address] PCP - General Family Medicine 05/03/23 documented as of this encounter
--- OUTSIDE RECORDS SUMMARY | 2024-12-05 09:33 | XMS_ITS | Encounter Summary ---
Author Organization [facility] Address [address] [place] [address] Care Team Providers Care Medic Technician Name Role Phone Chencho Murphy MD Primary Care Provider [phone] Encounter Details Date Type Department Care Team (Late st Contact Info) Description 12/03/2024 Abstract [facility] [address] [place] [phone] Isa Fontana LPN [address] [place] [address] Social History Tobacco Use Types Packs/Day Years [...] Fontana LPN documented as of this encounter Plan of Treatment Upcoming Encounters Date Type Department Care Team (Late st Contact Info) Description 12/08/2024 9:20 AM EDT Routine [facility] [address] [facility] [place] [address] Isa Avendano, PA [address] [facility] [place] [address] 01/26/2025 11:00 AM EDT Office Visit [facility] [address] [facility] [place] [address] Isa Avendano, PA [address] [facility] [place] [address] documented as of this encounter Visit Diagnoses Not on filedocumented in this encounter Care Teams Medic Technician Relationship Specialty Start Date End Date Chencho Murphy MD [address] [facility] [place] [address] PCP - General Family Medicine 05/03/23 documented as of this encounter
--- OUTSIDE RECORDS SUMMARY | 2024-12-05 09:33 | XMS_ITS | Clinical Summary ---
Author Organization [facility] Address [address] [place] [address] Care Team Providers Care Retail Grocer Name Role Phone Chencho Murphy MD Primary Care Provider [phone] Allergies Active Allergy Reactions Criticality Noted Date Comments Banana Swelling 05/02/2014 Medications diphenhydrAMINE (BENADryl) 25 MG tablet Take 25 mg by mouth as needed at bedtime for itching Active Active Problems Problem Noted Date Diagnosed Date Post-term , 40-42 weeks of gestation ([facility]) 10/16/2023 40 weeks gestation of ([facility]) 2023 Estimated Date of Delivery Comme nts Yes 03/01/2025 Based on Ultraso und Encounters Date Type Department Care Team Description 12/03/2024 Patient Outreach [facility] [place] [address] [place] [address] Isa Fontana LPN 12/03/2024 Abstract [facility] [address] [place] [address] Isa Fontana LPN 11/22/2024 Clinisync Result Encounter NOMS External Department Unsolicited Jhon Gibson DO 11/22/2024 Clinisync Result Encounter NOMS External Department Unsolicited Jhon Gibson DO 11/17/2024 10:10 AM EDT Routine [facility] OB [address] [place] [address] [place] [address] Jhon Gibson DO Second trimester ([facility]); 25 weeks gestation of ([facility]); Diabetes mellitus screening 11/17/2024 Bamboo flowsheet [facility] [address] [place] [address] Jhon Gibson, 11/10/2024 Telephone [facility] [address] [place] [address] Trena Roman MA 11/10/2024 Clinisync Result Encounter NOMS External Department Unsolicited Jhon Gibson, DO 11/10/2024 Clinisync Result Encounter NOMS External Department Unsolicited Jhon Gibson, DO 11/01/2024 Clinisync Result Encounter NOMS External Department Unsolicited Jhon Gibson, DO 10/16/2024 10:10 AM EDT Routine [facility] [address] [place] [address] Jhon Gibson, Screening, , for anatomic survey ([facility]); Second trimester ([facility]); STD exposure; 20 weeks gestation of ([facility]) 10/16/2024 External Result Encounter NOMS External Department Unsolicited Jhon Gibson, DO 10/16/2024 Bamboo flowsheet [facility] [address] [place] [address] Jhon Gibson, 09/15/2024 11:30 AM EDT Routine [facility] [address] [place] [address] Jhon Gibson, Subchorionic hematoma in second trimester, single or unspecified fetus ([facility]); Second trimester ([facility]); 16 weeks gestation of ([facility]) 09/15/2024 11:00 AM EDT Ancillary Procedure [facility] [address] [place] [address] Subchorionic hematoma in second trimester, single or unspecified fetus ([facility]) from Last 3 Months Social History Tobacco [...] Sign Reading Time Taken Comments Blood Pressure 102/72 11/17/2024 10:13 AM EDT Pulse - - Temperature - - Respiratory Rate - - Oxygen Saturation - - Inhaled Oxygen Concentration - - Weight 95.3 kg (210 lb) 11/17/2024 10:13 AM EDT Height - - Body Mass Index - - Plan of Treatment Upcoming Encounters Date Type Department Care Team (Late st Contact Info) Description 12/08/2024 9:20 AM EDT Routine [facility] OB [address] [place] [address] [place] [address] Isa Avendano PA [address] [place] [address] [place] [address] 01/26/2025 11:00 AM EDT Office Visit [facility] OB [address] [place], [place] [address]L[address] [place] [address] Isa Avendano PA [address] [place] [address] [place] [address] Health Maintenance Due Date Last Done Comments Influenza Vaccine (#1) 2025 Pap Smear 01/16/2027 01/17/2024, 12/05/2022 Cervical Cancer Screening 12/05/2027 HPV/Cotest 12/05/2027 12/04/2022 Procedures Procedure Name Priority Date/Time Associated Diagnosis Comments US OB INCOMPLETE ANATOMY 11/22/2024 2:27 PM EDT US OB CERVICAL LENGTH 11/22/2024 2:27 PM EDT US OB ANATOMY 11/10/2024 7:56 AM EDT US OB CERVICAL LENGTH 11/10/2024 7:56 AM EDT AFP, SERUM, OPEN SPINA BIFIDA Routine 11/01/2024 10:45 AM EDT RECURRENT VAGINITIS (HTRX) Routine 10/16/2024 11:40 AM EDT POCT URINALYSIS DIPSTICK Routine 10/16/2024 10:39 AM EDT Second trimester ([facility]) POCT URINALYSIS DIPSTICK Routine 09/15/2024 11:45 AM EDT Second trimester ([facility]) US OB FOLLOW UP TRANSABDOMINAL APPROACH Routine 09/15/2024 11:28 AM EDT Subchorionic hematoma in second trimester, single or unspecified fetus ([facility]) PAP SMEAR Routine 01/17/2024 12:00 AM EDT from Last 3 Months or Most Recently Relevant to Health Maintenance Results * US OB INCOMPLETE ANATOMY (11/22/2024 2:27 PM EDT) Anatomical Region Laterality Modality Other 11/22/2024 2:27 PM EDT Narrative 11/22/2024 2:30 PM EDT The [address] [address] Ultrasound Report Signed Patient: MERLE CYR MR#: [id number] : 1990 Acct:[id number] Age/Sex: 34 / F ADM Date: 11/22/24 Loc: US Attending Dr: Jhon Gibson D.O. Ordering Physician: Jhon Gibson D.O. Date of Service: 11/22/24 Procedure(s): US OB incomplete anatomy Accession Number(s): [id number] cc: Jhon Gibson D.O.; Chencho Murphy M.D. The [address] [address] Patient Name: MERLE CYR MRN: [id number]:[id number] date: 1990 Sex: F Assigned Patient Location: US Current Patient Location: US Accession/Order Number: [id number] Exam Date: 11/22/2024 14:25 Report Date: 11/22/2024 [...] Quinones M.D. 11/22/2024 2:27 PM Dictation Location: [place] [address] Electronically authenticated by: [id number] Y Date: 11/22/2024 14:27 Dictated By: Nir Quinones D.O. Signed By: 11/22/24 1430 DD/ 1427 TD/TT: Canvassing Manager: Procedure Note Radiology, Radiologist, - 11/22/2024 [place] [address] Ultrasound Report Signed Patient: MERLE CYR NMR#: [id number] : 1990Acct:[id number] Age/Sex: 34 / FADM Date: 11/22/24 Loc: US Attending Dr: Jhon Gibson D.O. Ordering Physician: Jhon Gibson D.O. Date of Service: 11/22/24 Procedure(s): US OB incomplete anatomy Accession Number(s): [id number] cc: Jhon Gibson D.O.; Chencho Murphy M.D. The [place] [id number] Patient Name: MERLE CYR MRN: [id number]:[id number] date: 1990 Sex: F Assigned Patient Location: US Current Patient Location: Accession/Order Number: [id number] Exam Date: 11/22/2024 14:25 Report Date: 11/22/2024 14:27 At the request of: JHON GIBSON DO Procedure: US OB cervical length Obstetrical ultrasound for incomplete anatomy HISTORY: Suboptimal visualization spine and extremities. Variable presentation of fetus. heart rate 37 bpm. Somatic motion identified. Gestational age 25 weeks 6 days. Estimated tpkyfthq25/12/2025. Adequate visualization of the spine and all extremities. US/US OB incomplete anatomy IMPRESSION: Visualization of spine and extremities. Ultrasound for cervical length of the uterus Cervical length is 4 cm. The cervical os is closed. IMPRESSION: Cervical length 4 cm. Impression dictated by: Nir Quinones M.D. 11/22/2024 2:27 PM Dictation Location: [facility] Electronically authenticated by: [id number] Y Date: 4:27 Dictated By: Nir Quinones D.O. Signed By:11/22/24 1430 DD/ 1427 TD/TT: Canvassing Manager: us Jhon Gibson DO [facility] Final Result * US OB CERVICAL LENGTH (11/22/2024 2:27 PM EDT) Only the most recent of2 resultswithin the time period is included. Anatomical Region Laterality Modality Other 11/22/2024 2:27 PM EDT Narrative 11/22/2024 2:30 PM EDT [place] [id number] Ultrasound Report Signed Patient: MERLE CYR MR#: [id number] : 1990 Acct:[id number] Age/Sex: 34 / F ADM Date: 11/22/24 Loc: US Attending Dr: Jhon Gibson D.O. Ordering Physician: Jhon Gibson D.O. Date of Service: 11/22/24 Procedure(s): US OB cervical length Accession Number(s): [id number] cc: Jhon Gibson D.O.; Chencho Murphy M.D. The [address] [id number] Patient Name: MERLE CYR MRN: [id number] date: 1990 Sex: F Assigned Patient Location: US Current Patient Location: US Accession/Order Number: [id number] Exam Date: 11/22/2024 14:25 Report Date: 11/22/2024 14:27 At the request of: JHNO GIBSON DO Procedure: US OB cervical length [...] Quinones M.D. 11/22/2024 2:27 PM Dictation Location: [place] [address] Electronically authenticated by: [id number] Y Date: 11/22/2024 14:27 Dictated By: Nir Quinones D.O. Signed By: 11/22/24 1430 DD/ 1427 TD/TT: Canvassing Manager: Procedure Note Radiology, Radiologist, MD - 11/22/2024 The [place] [id number] Ultrasound Report Signed Patient: MERLE CYR NMR#: [id number] : 1990Acct:[id number] Age/Sex: 34 / FADM Date: 11/22/24 Loc: US Attending Dr: Jhon Gibson D.O. Ordering Physician: Jhon Gibson D.O. Date of Service: 11/22/24 Procedure(s): US OB cervical length Accession Number(s): [id number] cc: Jhon Gibson D.O.; Chencho Murphy M.D. [address] [address] Patient Name: MERLE CYR MRN: [id number] date: 1990 Sex: F Assigned Patient Location: US Current Patient Location: US Accession/Order Number: [id number] Exam Date: 11/22/2024 14:25 Report Date: 11/22/2024 14:27 At the request of: JHON GIBSON DO Procedure: US OB cervical length Obstetrical ultrasound for incomplete anatomy HISTORY: Suboptimal visualization spine and extremities. Variable presentation of fetus. heart rate 37 bpm. Somatic motion identified. Gestational age 25 weeks 6 days. Estimated hkpgylha36/12/2025. Adequate visualization of the spine and all extremities. US/US OB cervical length IMPRESSION: Visualization of spine and extremities. Ultrasound for cervical length of the uterus Cervical length is 4 cm. The cervical os is closed. IMPRESSION: Cervical length 4 cm. Impression dictated by: Nir Quinones M.D. 11/22/2024 2:27 PM Dictation Location: [place] [address] Electronically authenticated by: [id number] Y Date: 4:27 Dictated By: Nir Quinones D.O. Signed By:11/22/24 1430 DD/ 1427 TD/TT: Canvassing Manager: us Jhon Gibson DO [facility] Final Result * US OB ANATOMY (11/10/2024 7:56 AM EDT) Anatomical Region Laterality Modality Other 11/10/2024 7:56 AM EDT Narrative 11/10/2024 7:59 AM EDT [address] [address] Ultrasound Report Signed Patient: MERLE CYR MR#: [id number] : 1990 Acct:[id number] Age/Sex: 34 / F ADM Date: 11/08/24 Loc: US Attending Dr: Jhon Gibson D.O. Ordering Physician: Jhon Gibson D.O. Date of Service: 11/08/24 Procedure(s): US OB anatomy Accession Number(s): [id number] cc: Jhon Gibson D.O.; Chencho Murphy M.D. [address] [address] Patient Name: MERLE CYR MRN: [facility]:[id number] date: 1990 Sex: F Assigned Patient Location: Current Patient Location: Accession/Order Number: [id number] Exam Date: 11/10/2024 07:47 Report Date: 11/10/2024 [...] normal limits for appearance and position. The boat hop had difficulty visualizing the spine and 4 [...] Carmona M.D. 11/10/2024 7:56 AM Dictation Location: [place] [address] Electronically authenticated by: [id number] Y Date: 11/10/2024 07:56 Dictated By: Lizbet Carmona M.D. Signed By: 11/10/24 0759 DD/ 0756 TD/TT: Canvassing Manager: Procedure Note Radiology, Radiologist, - 11/10/2024 [place] [address] Ultrasound Report Signed Patient: MERLE CYR NMR#: [id number] : 1990Acct:[id number] Age/Sex: 34 / FADM Date: 11/08/24 Loc: US Attending Dr: Jhon Gibson D.O. Ordering Physician: Jhon Gibson D.O. Date of Service: 11/08/24 Procedure(s): US OB anatomy Accession Number(s): [id number] cc: Jhon Gibson D.O.; Chencho Murphy M.D. The [place] [id number] Patient Name: MERLE CYR MRN: [facility]:[id number] date: 1990 Sex: F Assigned Patient Location: Current Patient Location: Accession/Order Number: [id number] Exam Date: 11/10/2024 07:47 Report Date: 11/10/2024 [...] a single live intrauterine gestation in variable presentation.The amniotic fluid volume is subjectively normal. There is cardiac and somatic activity with heart rate of 142 beats per minutes. The placentais posterior and as visualized within normal limits for appearance andposition. The boat hop had difficulty visualizing the spine and 4 extremities dueto position and movement. The stomach, bladder, kidneys, three-vesselcord with insertion, facial features, four-chamber heart with right and left outflow tracts, diaphragm and male genitalia are seen. The following measurements were obtained: Biparietal diameter 5.5 cm 22 weeks 6 days 13% Head circumference 20.9 cm 23 weeks 0 days 8% Abdominal circumference 18.8 cm 23 weeks 4 days 33% Femur length 4.1 cm 23 weeks 1 day16% The composite ultrasound age based on these measurements is 23 weeks 1 day+/- 1 week 4 days. The estimated date of delivery is March 06, 2025. The estimated weight is 1 lb. 5 oz. +/- 3 ounces (19%) IMPRESSION: SINGLE LIVE INTRAUTERINE GESTATION WITH ULTRASOUND AGE OF 23 WEEKS 1 DAY. SUBOPTIMAL VISUALIZATION OF THE SPINE AND EXTREMITIES. Impression dictated by: Lizbet Carmona M.D. 11/10/2024 7:56 AM Dictation Location: [place] [address] Electronically authenticated by: [id number] Y Date: 7:56 Dictated By: Lizbet Carmona M.D. Signed By:11/10/24 0759 DD/ 0756 TD/TT: Canvassing Manager: [facility] DO [facility] Final Result * AFP, SERUM, OPEN SPINA BIFIDA (11/01/2024 10:45 AM EDT) RESULTS Report . [facility] TEST RESULTS: *Screen Negative* . [facility] GEST. AGE ON COLLECTION DATE 22.9 . weeks [facility] GESTAT. AGE BASED ON Ultrasound . [facility] Comment: 20.6 on 10/16/2024 Recalculations are not recommended when gestational dating by LMP and ultrasound are within 10 days. [age] . [age] [facility] RACE . [facility] WEIGHT 211 . lbs [facility] INSULIN DEP DIABETES No . [facility] MULTIPLE GESTATION No . [facility] AFP VALUE 52.2 . ng/mL [facility] AFP MOM 0.77 . [facility] [place] [address] [place] [address] . [facility] INTERPRETATION Comment . [facility] Comment: Interpretation: Screen Negative This result [...] Customer Services to discuss available options. The [employer] recommends amniocentesis be offered to women age 35 and older. COMMENT: Comment . [facility] Comment: Romelia Villarreal, Ph.D., [facility] Director References: Available Upon Request. Multiples Of Median Cutoffs For AFP Elevations Feliz 2.5 Black 2.8 IDD 2.0 Twins 4.5 Abbreviation Definitions IDD - Insulin Dep Diabetes OSBR - Open Spina Bifida Risk For further inquiries contact [employer] at [phone]. This test was developed and its performance characteristics determined by [employer]. It has not been cleared or approved by the Food and Drug Administration. Performed at: [facility] [address] [id number] Cad Detailer: Andres Faust [facility], Phone: [phone] 11/01/2024 10:4 5 AM EDT 11/01/2024 10:46 AM EDT Narrative RICHARD - 11/04/2024 11:08 PM EDT N N ULTRASOUND [id number] 4 20 N 1 Y 211 N N N N N White/ us Jhon Paige DO LAB BLOOD ORDERABLES Final Resul t [facility] * RECURRENT VAGINITIS (HTRX) (10/16/2024 11:40 AM EDT) Pathologist [facility] ATOPOBIUM VAGINAE 0.000 19.961 - 24.689 ppm 10/17/2024 6:31 AM EDT [facility] ATOPOBIUM VAGINAE Not Detected 19.961 - 24.689 ppm 10/17/2024 6:31 AM EDT [facility] BVAB 2,3 (BACTERIAL VAGINOSIS ASSOCIATED BACTERIA 2, 3); MOBILUNCUS SPP 0.000 19.961 - 24.689 ppm 10/17/2024 6:31 AM EDT [facility] BVAB 2,3 (BACTERIAL VAGINOSIS ASSOCIATED BACTERIA 2, 3); MOBILUNCUS SPP Not Detected 19.961 - 24.689 ppm 10/17/2024 6:31 AM EDT [facility] AQUILINO ALBICANS, PARAPSILOSIS, TROPICALIS 0.000 19.961 - 30.770 ppm 10/17/2024 6:31 AM EDT [facility] AQUILINO ALBICANS, PARAPSILOSIS, TROPICALIS Not Detected 19.961 - 30.770 ppm 10/17/2024 6:31 AM EDT [facility] AQUILINO GLABRATA 0.000 23.000 - 32.138 ppm 10/17/2024 6:31 AM EDT [facility] AQUILINO GLABRATA Not Detected 23.000 - 32.138 ppm 10/17/2024 6:31 AM EDT [facility] AQUILINO KRUSEI 0.000 23.000 - 32.271 ppm 10/17/2024 6:31 AM EDT [facility] AQUILINO KRUSEI Not Detected 23.000 - 32.271 ppm 10/17/2024 6:31 AM EDT [facility] CHLAMYDIA TRACHOMATIS 0.000 23.000 - 31.467 ppm 10/17/2024 6:31 AM EDT [facility] CHLAMYDIA TRACHOMATIS Not Detected 23.000 - 31.467 ppm 10/17/2024 6:31 AM EDT [facility] GARDNERELLA VAGINALIS 0.000 19.961 - 24.689 ppm 10/17/2024 6:31 AM EDT [facility] GARDNERELLA VAGINALIS Not Detected 19.961 - 24.689 ppm 10/17/2024 6:31 AM EDT [facility] MEGASPHAERA (TYPES 1, 2) 0.000 19.961 - 24.689 ppm 10/17/2024 6:31 AM EDT [facility] MEGASPHAERA (TYPES 1, 2) Not Detected 19.961 - 24.689 ppm 10/17/2024 6:31 AM EDT [facility] NEISSERIA GONORRHOEAE 0.000 23.000 - 32.117 ppm 10/17/2024 6:31 AM EDT [facility] NEISSERIA GONORRHOEAE Not Detected 23.000 - 32.117 ppm 10/17/2024 6:31 AM EDT [facility] TRICHOMONAS VAGINALIS 0.000 23.000 - 32.119 ppm 10/17/2024 6:31 AM EDT [facility] TRICHOMONAS VAGINALIS Not Detected 23.000 - 32.119 ppm 10/17/2024 6:31 AM EDT [facility] MYCOPLASMA GENITALIUM 0.000 19.961 - 24.689 ppm 10/17/2024 6:31 AM EDT [facility] MYCOPLASMA GENITALIUM Not Detected 19.961 - 24.689 ppm 10/17/2024 6:31 AM EDT [facility] Tissue 10/16/2024 11:4 0 AM EDT 10/17/2024 1:49 AM EDT us Jhon Gibson DO LAB BLOOD ORDERABLES Final Resul t [facility] [address] [place] [address] * (ABNORMAL) POCT urinalysis dipstick manually resulted (10/16/2024 10:39 AM EDT) Only the most recent of2 resultswithin the time period is included. Color, UA Yellow Clarity, UA Clear Glucose, UA Negative Negative - 1999(110) ++++ mg/dL Bilirubin, UA Negative Negative - 4(70) +++ mg/dL Ketones, UA Negative Negative - 160(16) ++++ mg/dL Spec Grav, UA 1.015 1 - 1.03 Blood, UA Negative Negative - 50 Farzad/mcL pH, UA 7.0 5 - 9 Protein, UA Negative Negative - 1999(20) ++++ mg/dL Urobilinogen, UA 0.2 0.2 - 12 mg/dL Leukocytes, UA Trace Negative - 500+++ Donnell/mcL Nitrite, UA Negative Negative - Positive Urine 10/16/2024 10:3 9 AM EDT Jhon Gibson DO POINT OF CARE TEST ENTER/EDIT OR [...] exam. Interpreted by: Electronically signed by WILLIS JONES II, MD, PHD at 16-Sep-2024 07:13:40 PM [facility] Procedure Note Willis Jones MD - 09/16/2024 EXAM: US OB FOLLOW [...] exam. Interpreted by: Electronically signed by WILLIS JONES II, MD, PHD 07:13:40 PM [facility] Jhon Gibson DO G OB US PROCEDURES Final Resul t * Pap Smear (01/17/2024 12:00 AM EDT) Swab Cervical swab / Unknown us Paige Nurse [facility] Ob LAB CYTOLOGY ORDERABLES Final Result EXTERNAL LAB from Last 3 Months or Most Recently Relevant to Health Maintenance Insurance [employer] Care Teams Retail Grocer Relationship Specialty Start Date End Date Chencho Murphy MD [address] [place] [phone] PCP - General Family Medicine 05/03/23
--- OUTSIDE RECORDS SUMMARY | 2024-12-05 09:33 | XMS_ITS ---
Author Organization [facility] Address [address] [place] [address] Care Team Providers Care Neurology Director Name Role Phone Chencho Murphy MD Primary Care Provider [phone] [facility] ([facility]) Status:Enrolled (Active) Start date:12/02/2024 Enrollment date:12/03/2024 Enrollment reason:Identified by Health Plan Case Team Name Relationship Phone Isa Fontana LPN(Responsible Staff) Licensed [facility] [phone] Continued Care and Services Coordination
--- OUTSIDE RECORDS SUMMARY | 2024-12-05 09:33 | XMS_ITS | Encounter Summary ---
Author Organization [facility] Address [address] [place] [address] Care Team Providers Care Journeyman Plumber Name Role Phone Chencho Murphy MD Primary Care Provider [phone] Encounter Details Date Type Department Care Team (Late st Contact Info) Description 11/22/2024 Clinisync Result Encounter NOMS External Department Unsolicited Jhon Gibson DO [address] [place], [facility] Social History Tobacco Use Types Packs/Day [...] Routine [facility] [address] [place] [address] Isa Avendano PA [address] [place] [address] 01/26/2025 11:00 AM EDT Office Visit [facility] [address] [place] [address] Isa Avendano PA [address] [place] [address] [place] [address] documented as of this encounter Procedures Procedure Name Priority Date/Time Associated Diagnosis Comments US OB INCOMPLETE ANATOMY 11/22/2024 2:27 PM EDT documented in this encounter Results * US OB INCOMPLETE ANATOMY (11/22/2024 2:27 PM EDT) Anatomical Region Laterality Modality Other 11/22/2024 2:27 PM EDT Narrative 11/22/2024 2:30 [place] [address] Ultrasound Report Signed Patient: MERLE GUARDADO MR#: [id number] : 1990 Acct:[id number] Age/Sex: 34 / F ADM Date: 11/22/24 Loc: US Attending Dr: Jhon Gibson D.O. Ordering Physician: Jhon Gibson D.O. Date of Service: 11/22/24 Procedure(s): US OB incomplete anatomy Accession Number(s): [id number] cc: Jhon Gibson D.O.; Chencho Murphy M.D. [address] [address] Patient Name: MERLE GUARDADO MRN: [id number] date: 1990 Sex: F Assigned Patient Location: US Current Patient Location: US Accession/Order Number: [id number] Exam Date: 11/22/2024 14:25 Report Date: 11/22/2024 [...] Quinones M.D. 11/22/2024 2:27 PM Dictation [facility] [employer] Electronically authenticated by: [id number] Y Date: 11/22/2024 14:27 Dictated By: Nir Quinones D.O. Signed By: 11/22/24 1430 DD/ 1427 TD/TT: Bankruptcy Legal Assistant: Procedure Note Radiology, Radiologist, MD - 11/22/2024 [place] [address] Ultrasound Report Signed Patient: MERLE GUARDADO NMR#: [id number] : 1990Acct:[id number] Age/Sex: 34 / FADM Date: 11/22/24 Loc: US Attending Dr: Jhon Gibson D.O. Ordering Physician: Jhon Gibson D.O. Date of Service: 11/22/24 Procedure(s): US OB incomplete anatomy Accession Number(s): [id number] cc: Jhon Gibson D.O.; Chencho Murphy M.D. The [place] [id number] Patient Name: MERLE GUARDADO MRN: [id number] date: 1990 Sex: F Assigned Patient Location: US Current Patient Location: US Accession/Order Number: [id number] Exam Date: 11/22/2024 14:25 Report Date: 11/22/2024 14:27 At the request of: JHON GIBSON DO Procedure: US OB cervical length Obstetrical ultrasound for incomplete anatomy HISTORY: Suboptimal visualization spine and extremities. Variable presentation of fetus. heart rate 37 bpm. Somatic motion identified. Gestational age 25 weeks 6 days. Estimated viejsybk52/12/2025. Adequate visualization of the spine and all extremities. US/US OB incomplete anatomy IMPRESSION: Visualization of spine and extremities. Ultrasound for cervical length of the uterus Cervical length is 4 cm. The cervical os is closed. IMPRESSION: Cervical length 4 cm. Impression dictated by: Nir Quinones M.D. 11/22/2024 2:27 PM Dictation Location: [place] [address] Electronically authenticated by: [id number] Y Date: 4:27 Dictated By: Nir Quinones D.O. Signed By:11/22/24 1430 DD/ 1427 TD/TT: Bankruptcy Legal Assistant: us Jhon Gibson DO [facility] Final Result documented in this encounter Visit Diagnoses Not on filedocumented in this encounter Care Teams Journeyman Plumber Relationship Specialty Start Date End Date Chencho Murphy MD [address] [place] [phone] PCP - General Family Medicine 05/03/23 documented as of this encounter
--- OUTSIDE RECORDS SUMMARY | 2024-12-05 09:33 | XMS_ITS | Encounter Summary ---
Author Organization [facility] Address [address] [place] [address] Care Team Providers Care Paper Box Maker Name Role Phone Chencho Murphy MD Primary Care Provider [phone] Encounter Details Date Type Department Care Team (Late st Contact Info) Description 08/21/2023 Abstract [facility] [address] [place] [address] [place] [address] Steph Brooks LPN [address] [facility] [address] [place] [address] Social History Tobacco Use Types Packs/Day Years [...] 9:20 AM EDT Routine [facility] [address] [place] [address] [place] [address] Isa Avendano PA [address] [place] [address] Dr [place], [place] [phone] 01/26/2025 11:00 AM EDT Office Visit [facility] [address] [place] [address] [place] [address] Isa Avendano PA [address] [place] [address] [place] [address] documented as of this encounter Visit Diagnoses Not on filedocumented in this encounter Care Teams Paper Box Maker Relationship Specialty Start Date End Date Chencho Murphy MD [address] [facility] [place] [phone] PCP - General Family Medicine 05/03/23 documented as of this encounter
--- OUTSIDE RECORDS SUMMARY | 2024-12-05 09:33 | XMS_ITS | Encounter Summary ---
Author Organization [facility] Address [address] [place] [address] Care Team Providers Care Sidewalk Inspector Name Role Phone Chencho Murphy MD Primary Care Provider [phone] Encounter Details Date Type Department Care Team (Late st Contact Info) Description 08/21/2023 Clinisync Result Encounter [facility] External Department Unsolicited Jhon Gibson DO [address] [facility] [address] Ivette Henriquez, [facility] Social History Tobacco Use Types Packs/Day Years [...] AM EDT Routine [facility] [address] [facility] [place] [address] Isa Avendano PA [address] [place] [address] 01/26/2025 11:00 AM EDT Office Visit [facility] OB [address] [place] [address] Isa Avendano PA [address] [place] [address] [place] [address] [phone] (work) documented as of this encounter Procedures Procedure Name Priority Date/Time Associated Diagnosis Comments US OB GROWTH 08/21/2023 3:01 PM EDT documented in this encounter Results * US OB GROWTH (08/21/2023 3:01 PM EDT) Anatomical Region Laterality Modality Other 08/21/2023 3:01 PM EDT Narrative 08/21/2023 3:03 PM EDT [address] [address] Ultrasound Report Signed Patient: MERLE GUARDADO MR#: [id number] : 1990 Acct:[id number] Age/Sex: 33 / F ADM Date: 08/21/23 Loc: NOMS Attending Dr: Jhon Gibson D.O. Ordering Physician: Jhon Gibson D.O. Date of Service: 08/21/23 Procedure(s): US OB growth Accession Number(s): [id number] cc: Jhon Gibson D.O.; Chencho Murphy M.D. [address] [address] Patient Name: MERLE GUARDADO MRN: [id number] date: 1990 Sex: F Assigned Patient Location: [facility] Current Patient Location: [facility] Accession/Order Number: [id number] Exam Date: 08/21/2023 14:02 Report Date: 08/21/2023 [...] Signed By: 08/21/23 1503 DD/ 1501 TD/TT: Diesel Pile Driver Operator: Procedure Note Radiology, Radiologist, - 08/21/2023 [place] [address] Ultrasound Report Signed Patient: MERLE GUARDADO NMR#: [id number] : 1990Acct:[id number] Age/Sex: 33 / FADM Date: 08/21/23 Loc: NOMS Attending Dr: Jhon Gibson D.O. Ordering Physician: Jhon Gibson D.O. Date of Service: 08/21/23 Procedure(s): US OB growth Accession Number(s): [id number] cc: Jhon Gibson D.O.; Chencho Murphy M.D. The [place] [phone] Patient Name: MERLE GUARDADO MRN: [id number] date: 1990 Sex: F Assigned Patient Location: [facility] Current Patient Location: [facility] Accession/Order Number: [id number] Exam Date: 08/21/2023 14:02 Report Date: 08/21/2023 [...] M.D. Signed By:08/21/23 1503 DD/ 1501 TD/TT: Diesel Pile Driver Operator: us Jhon Paige DO [facility] Final Result documented in this encounter Visit Diagnoses Not on filedocumented in this encounter Care Teams Sidewalk Inspector Relationship Specialty Start Date End Date Chencho Murphy MD [address] [place] [address] PCP - General Family Medicine 05/03/23 documented as of this encounter
--- OUTSIDE RECORDS SUMMARY | 2024-12-05 09:34 | XMS_ITS | Encounter Summary ---
Author Organization [facility] Address [address] [place] [address] Care Team Providers Care Mental Health Practitioner Name Role Phone Chencho Murphy MD Primary Care Provider [phone] Encounter Details Date Type Department Care Team (Late st Contact Info) Description 10/25/2023 Abstract [facility] [address] [place] [address] [place] [address] Steph Brooks LPN [address] [facility] [address] [place] [address] Social History Tobacco Use Types Packs/Day Years [...] 9:20 AM EDT Routine [facility] [address] [place] [address] [place] [address] Isa Avendano PA [address] [place] [address] Dr [place], [place] [phone] 01/26/2025 11:00 AM EDT Office Visit [facility] [address] [place] [address] [place] [address] Isa Avendano PA [address] [place] [address] [place] [address] documented as of this encounter Visit Diagnoses Not on filedocumented in this encounter Care Teams Mental Health Practitioner Relationship Specialty Start Date End Date Chencho Murphy MD [address] [facility] [place] [phone] PCP - General Family Medicine 05/03/23 documented as of this encounter
--- OUTSIDE RECORDS SUMMARY | 2024-12-05 09:34 | XMS_ITS | Encounter Summary ---
Author Organization [facility] Address [address] [place] [address] Care Team Providers Care Managing Consultant Clinical Professor Name Role Phone Chencho Murphy MD Primary Care Provider [phone] Encounter Details Date Type Department Care Team (Late st Contact Info) Description 12/03/2023 Abstract [facility] [address] [place] [address] [place] Gibson DO [address] [place] [address] Dr Ivette Henriquez, [place] [address] Social History Tobacco Use Types Packs/Day Years [...] Description 12/08/2024 9:20 AM EDT Routine [facility] OB [address] [place], [place] [address]Luz [place] [address] Isa Avendano PA [facility] Aamir [place], [place] [phone] 01/26/2025 11:00 AM EDT Office Visit [facility] OB [address] [place], [place] [address]Luz [place] [address] Isa Avendano PA [address] [place] [address] [place] [address] documented as of this encounter Visit Diagnoses Not on filedocumented in this encounter Care Teams Managing Consultant Clinical Professor Relationship Specialty Start Date End Date Chencho Murphy MD [address] [facility] [place] [phone] PCP - General Family Medicine 05/03/23 documented as of this encounter
--- OUTSIDE RECORDS SUMMARY | 2024-12-05 09:34 | XMS_ITS | Encounter Summary ---
Author Organization [facility] Address [address] [place] [address] Care Team Providers Care Bed Placement Coordinator Name Role Phone Chencho Murphy MD Primary Care Provider [phone] Encounter Details Date Type Department Care Team (Late st Contact Info) Description 10/24/2023 Abstract [facility] OB [address] [facility] [place] [address] [place] Gibson DO [address] [place] [address] Dr Ivette Henriquez, [place] [address] Social History Tobacco Use Types Packs/Day Years [...] Description 12/08/2024 9:20 AM EDT Routine [facility] OB [address] [place], [place] [address]Luz [place] [address] Isa Avendano PA [facility] [place], [place] [phone] 01/26/2025 11:00 AM EDT Office Visit [facility] OB [address] [place], [place] [address]L[place] [address] Isa Avendano PA [address] [place] [address] [place] [address] documented as of this encounter Visit Diagnoses Not on filedocumented in this encounter Care Teams Bed Placement Coordinator Relationship Specialty Start Date End Date Chencho Murphy MD [address] [facility] [place] [phone] PCP - General Family Medicine 05/03/23 documented as of this encounter
--- OUTSIDE RECORDS SUMMARY | 2024-12-05 09:34 | XMS_ITS | Encounter Summary ---
Author Organization [facility] Address [address] [place] [address] Care Team Providers Care Stamp Pad Finisher Name Role Phone Chencho Murphy MD Primary Care Provider [phone] Encounter Details Date Type Department Care Team (Late st Contact Info) Description 05/04/2023 Clinisync Result Encounter [facility] External Department Unsolicited Jhon Gibson DO [address] [facility] [address] Ivette Henriquez, [facility]11 Social History Tobacco Use Types Packs/Day [...] AM EDT Routine [facility] [address] [facility] [place] [address] Isa Avendano PA [address] [place] [address] 01/26/2025 11:00 AM EDT Office Visit [facility] OB [address] [place] [address] Isa Avendano PA [address] [place] [address] [place] [address] [phone] (work) documented as of this encounter Procedures Procedure Name Priority Date/Time Associated Diagnosis Comments US OB G= 14 WEEKS FETUS 05/04/2023 7:42 AM EST documented in this encounter Results * US OB G= 14 WEEKS FETUS (05/04/2023 7:42 AM EST) Anatomical Region Laterality Modality Other 05/04/2023 7:42 AM EST Narrative 05/04/2023 7:45 AM EST [address] [address] Ultrasound Report Signed Patient: MERLE GUARDADO MR#: [id number] : 1990 Acct:[id number] Age/Sex: 33 / F ADM Date: 05/03/23 Loc: US Attending Dr: Jhon Gibson D.O. Ordering Physician: Jhon Gibson D.O. Date of Service: 05/03/23 Procedure(s): US OB >= 14 weeks Fetus Accession Number(s): [id number] cc: Jhon Gibson D.O.; Physician,Non-Staff MMichelle [address] [address] Patient Name: MERLE GUARDADO MRN: [id number] date: 1990 Sex: F Assigned Patient Location: US Current Patient Location: Accession/Order Number: [id number] Exam Date: 05/03/2023 14:07 Report Date: 05/04/2023 [...] Tobin M.D. Signed By: 05/04/2345 DD/ TD/TT: Breast Surgeon: Procedure Note Radiology, Radiologist, MD - 05/04/2023 [place] [address] Ultrasound Report Signed Patient: MERLE GUARDADO NMR#: [id number] : 1990Acct:[id number] Age/Sex: 33 / FADM Date: 05/03/23 Loc: US Attending Dr: Jhon Gibson D.O. Ordering Physician: Jhon Gibson D.O. Date of Service: 05/03/23 Procedure(s): US OB >= 14 weeks Fetus Accession Number(s): [id number] cc: Jhon Gibson D.O.; Physician,Non-Staff [place] The [place] [phone] Patient Name: MERLE GUARDADO MRN: [id number] date: 1990 Sex: F Assigned Patient Location: US Current Patient Location: Accession/Order Number: [id number] Exam Date: 05/03/2023 14:07 Report Date: 05/04/2023 [...] Ashley Tobin M.D. Signed By:05/04/2345 DD/ TD/TT: Breast Surgeon: us Jhon Gibson DO [facility] Final Result documented in this encounter Visit Diagnoses Not on filedocumented in this encounter Care Teams Stamp Pad Finisher Relationship Specialty Start Date End Date Chencho Murphy MD [address] [place] [address] PCP - General Family Medicine 05/03/23 documented as of this encounter
--- OUTSIDE RECORDS SUMMARY | 2024-12-05 09:34 | XMS_ITS | Encounter Summary ---
Author Organization [facility] Address [address] [place] [address] Care Team Providers Care Safekeeping Clerk Name Role Phone Chencho Murphy MD Primary Care Provider [phone] Encounter Details Date Type Department Care Team (Late st Contact Info) Description 07/03/2023 Clinisync Result Encounter [facility] External Department Unsolicited Jhon Gibson DO [address] [facility] [address] Ivette Henriquez, [facility]11 Social History Tobacco Use Types Packs/Day Years [...] AM EDT Routine [facility] OB [address] [facility] [place] [address] Isa Avendano PA [address] [place] [address] 01/26/2025 11:00 AM EDT Office Visit [facility] OB [address] [place] [address] Isa Avendano PA [address] [place] [address] [place] [address] [phone] (work) documented as of this encounter Procedures Procedure Name Priority Date/Time Associated Diagnosis Comments US OB INCOMPLETE ANATOMY 07/03/2023 10:46 AM EST documented in this encounter Results * US OB INCOMPLETE ANATOMY (07/03/2023 10:46 AM EST) Anatomical Region Laterality Modality Other 07/03/2023 10:4 6 AM EST Narrative 07/03/2023 10:48 AM EST [address] [address] Ultrasound Report Signed Patient: MERLE GUARDADO MR#: [id number] : 1990 Acct:[id number] Age/Sex: 33 / F ADM Date: 07/03/23 Loc: NOMS Attending Dr: Jhon Gibson D.O. Ordering Physician: Jhon Gibson D.O. Date of Service: 07/03/23 Procedure(s): US OB incomplete anatomy Accession Number(s): [id number] cc: Jhon Gibson D.O.; Chencho Murphy M.D. [address] [address] Patient Name: MERLE GUARDADO MRN: [id number] date: 1990 Sex: F Assigned Patient Location: [facility] Current Patient Location: [facility] Accession/Order Number: [id number] Exam Date: 07/03/2023 09:48 Report Date: 07/03/2023 [...] M.D. Signed By: 07/03/231047 DD/ 45 TD/TT: Superintendent Sales: Procedure Note Radiology, Radiologist, - 07/03/2023 [place] [address] Ultrasound Report Signed Patient: MERLE GUARDADO NMR#: [id number] : 1990Acct:[id number] Age/Sex: 33 / FADM Date: 07/03/23 Loc: NOMS Attending Dr: Jhon Gibson D.O. Ordering Physician: Jhon Gibson D.O. Date of Service: 07/03/23 Procedure(s): US OB incomplete anatomy Accession Number(s): [id number] cc: Jhon Gibson D.O.; Chencho Murphy M.D. The [address] [address] Patient Name: MERLE GUARDADO MRN: [facility]:[id number] date: 1990 Sex: F Assigned Patient Location: [facility] Current Patient Location: [facility] Accession/Order Number: [id number] Exam Date: 07/03/2023 09:48 Report Date: 07/03/2023 [...] Tobin M.D. Signed By:07/03/231047 DD/ 45 TD/TT: Superintendent Sales: Jhon Gibson DO [facility] Final Result documented in this encounter Visit Diagnoses Not on filedocumented in this encounter Care Teams Safekeeping Clerk Relationship Specialty Start Date End Date Chencho Murphy MD [address] [place] [address] PCP - General Family Medicine 05/03/23 documented as of this encounter
--- OUTSIDE RECORDS SUMMARY | 2024-12-05 09:34 | XMS_ITS | Encounter Summary ---
Author Organization [facility] Address [address] [place] [address] Care Team Providers Care Medical Writer Name Role Phone Chencho Murphy MD Primary Care Provider [phone] Encounter Details Date Type Department Care Team (Late st Contact Info) Description 01/23/2024 Orders Only [facility] OB [address] [place] [address] [place] [address] Steph Brooks LPN [address] [facility] [address] [place] [address] Social History Tobacco Use Types Packs/Day Years [...] 9:20 AM EDT Routine [facility] OB [address] [place] [address] [place] [address] Isa Avendano PA [address] [place] [address] Dr [place], [place] [phone] 01/26/2025 11:00 AM EDT Office Visit [facility] OB [address] [place] [address] [place] [address] Isa Avendano PA [address] [place] [address] [place] [address] documented as of this encounter Procedures Procedure Name Priority Date/Time Associated Diagnosis Comments PAP SMEAR Routine 01/17/2024 12:00 AM EDT documented in this encounter Results * Pap Smear (01/17/2024 12:00 AM EDT) Swab Cervical swab / Unknown Paige Nurse [facility] B[facility] Ob LAB CYTOLOGY ORDERABLES Final Result EXTERNAL LAB documented in this encounter Visit Diagnoses Not on filedocumented in this encounter Care Teams Medical Writer Relationship Specialty Start Date End Date Chencho Murphy MD [address] [facility] [place] [address] PCP - General Family Medicine 05/03/23 documented as of this encounter
--- OUTSIDE RECORDS SUMMARY | 2024-12-05 09:34 | XMS_ITS | Encounter Summary ---
Author Organization [facility] Address [address] [place] [address] Care Team Providers Care Electronic Court Recorder Name Role Phone Chencho Murphy MD Primary Care Provider [phone] Encounter Details Date Type Department Care Team (Late st Contact Info) Description 10/18/2023 Clinisync Result Encounter NOMS External Department Unsolicited Jhon Gibson DO [address] [facility] [address] Ivette Henriquez, [facility]11 Social History Tobacco Use Types [...] AM EDT Routine [facility] OB [address] [facility] [place] [address] Isa Avendano PA [address] [place] [address] 01/26/2025 11:00 AM EDT Office Visit [facility] B[facility] OB [address] [place] [address] Isa Avendano PA [address] [place] [address] [place] [address] [phone] (work) documented as of this encounter Procedures Procedure Name Priority Date/Time Associated Diagnosis Comments US OB GROWTH 10/18/2023 7:08 AM EDT documented in this encounter Results * US OB GROWTH (10/18/2023 7:08 AM EDT) Anatomical Region Laterality Modality Other 10/18/2023 7:08 AM EDT Narrative 10/18/2023 7:11 AM EDT [address] [address] Ultrasound Report Signed Patient: MERLE GUARDADO MR#: [id number] : 1990 Acct:[id number] Age/Sex: 33 / F ADM Date: 10/17/23 Loc: US Attending Dr: Jhon Gibson D.O. Ordering Physician: Jhon Gibson D.O. Date of Service: 10/17/23 Procedure(s): US OB growth Accession Number(s): [id number] cc: Jhon Gibson D.O.; Chencho Murphy M.D. [address] [address] Patient Name: MERLE GUARDADO MRN: [id number] date: 1990 Sex: F Assigned Patient [facility]: [facility] Current Patient Location: US Accession/Order Number: [id number] Exam Date: 10/17/2023 16:44 Report Date: 10/18/2023 [...] Ashley Tobin M.D. Signed By: 10/18/23710 DD/ TD/TT: Laundromat Manager: Procedure Note Radiology, Radiologist, - 10/18/2023 [place] [address] Ultrasound Report Signed Patient: MERLE GUARDADO NMR#: [id number] : 1990Acct:[id number] Age/Sex: 33 / FADM Date: 10/17/23 Loc: US Attending Dr: Jhon Gibson D.O. Ordering Physician: Jhon Gibson D.O. Date of Service: 10/17/23 Procedure(s): US OB growth Accession Number(s): [id number] cc: Jhon Gibson D.O.; Chencho Murphy M.D. The [place] [address] Patient Name: MERLE GUARDADO MRN: [id number] date: 1990 Sex: F Assigned Patient Location: [facility] Current Patient Location: US Accession/Order Number: [id number] Exam Date: 10/17/2023 16:44 Report Date: 10/18/2023 07:08 At the request of: JHNO GIBSON Procedure: US OB growth EXAMINATION: US [...] By: Ashley Tobin M.D. Signed By:10/18/23710 DD/ 7 TD/TT: Laundromat Manager: us Jhon Paige DO [facility] Final Result documented in this encounter Visit Diagnoses Not on filedocumented in this encounter Care Teams Electronic Court Recorder Relationship Specialty Start Date End Date Chencho Murphy MD [address] [place] [address] PCP - General Family Medicine 05/03/23 documented as of this encounter
--- OUTSIDE RECORDS SUMMARY | 2024-12-05 09:34 | XMS_ITS | Encounter Summary ---
Author Organization [facility] Address [address] [place] [address] Care Team Providers Care Director Radiation Oncology Name Role Phone Chencho Murphy MD Primary Care Provider [phone] Encounter Details Date Type Department Care Team (Late st Contact Info) Description 07/03/2023 Abstract [facility] OB [address] [place] [address] [place] [address] Steph Brooks LPN [address] [facility] [address] [place] [address] Social History Tobacco Use Types Packs/Day Years [...] 9:20 AM EDT Routine [facility] OB [address] [place] [address] [place] [address] Isa Avendano PA [address] [place] [address] Dr [place], [place] [phone] 01/26/2025 11:00 AM EDT Office Visit [facility] B[facility] OB [address] [place] [address] [place] [address] Isa Avendano PA [address] [place] [address] [place] [address] documented as of this encounter Visit Diagnoses Not on filedocumented in this encounter Care Teams Director Radiation Oncology Relationship Specialty Start Date End Date Chencho Murphy MD [address] [facility] [place] [address] [phone] PCP - General Family Medicine 05/03/23 documented as of this encounter
--- OUTSIDE RECORDS SUMMARY | 2024-12-05 09:34 | XMS_ITS | Encounter Summary ---
Author Organization [facility] Address [address] [place] [address] Care Team Providers Care No Experience Name Role Phone Chencho Murphy MD Primary Care Provider [phone] Encounter Details Date Type Department Care Team (Late st Contact Info) Description 10/22/2023 Clinisync Result Encounter NOMS External Department Unsolicited Jhon Gibson DO [address] [facility] [address] Ivette Henriquez, [facility]11 Social History Tobacco Use Types Packs/Day [...] AM EDT Routine [facility] OB 102 [facility] [place] [address] Isa Avendano PA [address] [place] [address] 01/26/2025 11:00 AM EDT Office Visit [facility] BCP OB [address] [place] [address] Isa Avendano PA [address] [place] [address] [place] [address] [phone] (Work) documented as of this encounter Procedures Procedure Name Priority Date/Time Associated Diagnosis Comments US OB BPP W NON-STRESS 10/22/2023 8:50 AM EDT documented in this encounter Results * US OB BPP W NON-STRESS (10/22/2023 8:50 AM EDT) Anatomical Region Laterality Modality Other 10/22/2023 8:50 AM EDT Narrative 10/22/2023 8:53 AM EDT [place] [id number] Ultrasound Report Signed Patient: MERLE GUARDADO MR#: [id number] : 1990 Acct:[id number] Age/Sex: 33 / F ADM Date: 10/20/23 Loc: US Attending Dr: Jhon Gibson D.O. Ordering Physician: Jhon Gibson D.O. Date of Service: 10/20/23 Procedure(s): US OB BPP w non-stress Accession Number(s): [id number] cc: Jhon Gibson D.O.; Chencho Murphy M.D. [address] [address] Patient Name: MERLE GUARDADO MRN: [id number] date: 1990 Sex: F Assigned Patient Location: US Current Patient Location: Accession/Order Number: [id number] Exam Date: 10/20/2023 14:40 Report Date: 10/22/2023 [...] Rader M.D. Signed By: 10/22/23 0853 DD/ TD/TT: Paedodontist: Procedure Note Radiology, Radiologist, MD - 10/22/2023 [place] [address] Ultrasound Report Signed Patient: MERLE GUARDADO NMR#: [id number] : 1990Acct:[id number] Age/Sex: 33 / FADM Date: 10/20/23 Loc: US Attending Dr: Jhon Gibson D.O. Ordering Physician: Jhon Gibson D.O. Date of Service: 10/20/23 Procedure(s): US OB BPP w non-stress Accession Number(s): [id number] cc: Jhon Gibson D.O.; Chencho Murphy M.D. The [place] [phone] Patient Name: MERLE GUARDADO MRN: [id number] date: 1990 Sex: F Assigned Patient Location: US Current Patient Location: Accession/Order Number: [id number] Exam Date: 10/20/2023 14:40 Report Date: 10/22/2023 [...] Bryce Rader M.D. Signed By:10/22/2353 DD/ TD/TT: Paedodontist: us Jhon Paige DO [facility] Final Result documented in this encounter Visit Diagnoses Not on filedocumented in this encounter Care Teams No Experience Relationship Specialty Start Date End Date Chencho Murphy MD [address] [place] [address] PCP - General Family Medicine 05/03/23 documented as of this encounter
--- OUTSIDE RECORDS SUMMARY | 2024-12-05 09:34 | XMS_ITS | Encounter Summary ---
Author Organization [facility] Address [address] [place] [address] Care Team Providers Care Model Set Artist Name Role Phone Chencho Murphy MD Primary Care Provider [phone] Encounter Details Date Type Department Care Team (Late st Contact Info) Description 06/05/2023 Clinisync Result Encounter [facility] External Department Unsolicited Jhon Gibson DO [address] [facility] [address] Ivette Henriquez, [facility] Social History Tobacco Use Types Packs/Day [...] AM EDT Routine [facility] [address] [facility] [place] [place] [phone] Isa Avendano PA [address] [place] [address] 01/26/2025 11:00 AM EDT Office Visit [facility] [address] [place] [phone] Isa Avendano PA [address] [place], [place] [address]luz [place] [address] [phone] (work) documented as of this encounter Procedures Procedure Name Priority Date/Time Associated Diagnosis Comments US OB ANATOMY 06/05/2023 2:18 PM EST documented in this encounter Results * US OB ANATOMY (06/05/2023 2:18 PM EST) Anatomical Region Laterality Modality Other 06/05/2023 2:18 PM EST Narrative 06/05/2023 2:20 PM EST [address] [address] Ultrasound Report Signed Patient: MERLE GUARDADO MR#: [id number] : 1990 Acct:[id number] Age/Sex: 33 / F ADM Date: 06/05/23 Loc: US Attending Dr: Jhon Gibson D.O. Ordering Physician: Jhon Gibson D.O. Date of Service: 06/05/23 Procedure(s): US OB anatomy Accession Number(s): [id number] cc: Jhon Gibson D.O.; Chencho Murphy M.D. [address] [address] Patient Name: MERLE GUARDADO MRN: [id number] date: 1990 Sex: F Assigned Patient Location: US Current Patient Location: US Accession/Order Number: [id number] Exam Date: 06/05/2023 13:03 Report Date: 06/05/2023 [...] Signed By: 06/05/23 1420 DD/ 1418 TD/TT: Parts Cleaner: Procedure Note Radiology, Radiologist, - 06/05/2023 [place] [address] Ultrasound Report Signed Patient: MERLE GUARDADO [facility]#: [id number] : 1990Acct:[id number] Age/Sex: 33 / FADM Date: 06/05/23 Loc: US Attending Dr: Jhon Gibson D.O. Ordering Physician: Jhon Gibson D.O. Date of Service: 06/05/23 Procedure(s): US OB anatomy Accession Number(s): [id number] cc: Jhon Gibson D.O.; Chencho Murphy M.D. The [place] [id number] Patient Name: MERLE GUARDADO MRN: [id number] date: 1990 Sex: F Assigned Patient Location: US Current Patient Location: US Accession/Order Number: [id number] Exam Date: 06/05/2023 13:03 Report Date: 06/05/2023 [...] M.D. Signed By:06/05/23 1420 DD/ 1418 TD/TT: Parts Cleaner: us Jhon Gibson DO [facility] Final Result documented in this encounter Visit Diagnoses Not on filedocumented in this encounter Care Teams Model Set Artist Relationship Specialty Start Date End Date Chencho Murphy MD [address] [place] [phone] PCP - General Family Medicine 05/03/23 documented as of this encounter
--- OUTSIDE RECORDS SUMMARY | 2024-12-05 09:34 | XMS_ITS | Encounter Summary ---
Author Organization [facility] Address [address] [place] [address] Care Team Providers Care Section 8 Property Manager Name Role Phone Chencho Murphy MD Primary Care Provider [phone] Encounter Details Date Type Department Care Team (Late st Contact Info) Description 06/05/2023 Clinisync Result Encounter [facility] External Department Unsolicited Jhon Gibson DO [address] [facility] [address] Ivette Henriquez, [facility]11 Social History Tobacco Use Types Packs/Day Years [...] AM EDT Routine [facility] [address] [facility] [phone] Isa Avendano PA [address] [place] [address] 01/26/2025 11:00 AM EDT Office Visit [facility] [address] [place] [phone] Isa Avendano PA [address] [place], [place] [address] [address] [phone] (work) documented as of this encounter Procedures Procedure Name Priority Date/Time Associated Diagnosis Comments US OB CERVICAL LENGTH 06/05/2023 2:18 PM EST documented in this encounter Results * US OB CERVICAL LENGTH (06/05/2023 2:18 PM EST) Anatomical Region Laterality Modality Other 06/05/2023 2:18 PM EST Narrative 06/05/2023 2:20 PM EST [address] [address] Ultrasound Report Signed Patient: MERLE GUARDADO MR#: [id number] : 1990 Acct:[id number] Age/Sex: 33 / F ADM Date: 06/05/23 Loc: US Attending Dr: Jhon Gibson D.O. Ordering Physician: Jhon Gibson D.O. Date of Service: 06/05/23 Procedure(s): US OB cervical length Accession Number(s): [id number] cc: Jhon Gibson D.O.; Chencho Murphy M.D. 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 Ordering Physician: Jhon Gibson D.O. Date of Service: 06/05/23 Procedure(s): US OB cervical length Accession Number(s): [id number] cc: Jhon Gibson D.O.; Chencho Murphy M.D. [address] [place] [address] Patient Name: MERLE GUARDADO MRN: [id number] date: 1990 Sex: F Assigned Patient Location: US Current Patient Location: Accession/Order Number: [id number] Exam Date: 06/05/2023 13:04 Report Date: 06/05/2023 [...] M.D. Signed By:06/05/23 1420 DD/ 1418 TD/TT: Reactor Kettle Operator: us Jhon Gibson DO [facility] Final Result documented in this encounter Visit Diagnoses Not on filedocumented in this encounter Care Teams Section 8 Property Manager Relationship Specialty Start Date End Date Chencho Murphy MD [address] [place] [phone] PCP - General Family Medicine 05/03/23 documented as of this encounter
--- OUTSIDE RECORDS SUMMARY | 2024-12-05 09:45 | XMS_ITS | CCD ---
Author Organization [facility] Care Team Providers Care Jigger Operator Name Role Phone DR ИВАН MURPHY Attending Unavailable DR ИВАН MURPHY Consulting Unavailable DR ИВАН MURPHY Admitting Unavailable Иван Murphy MD Primary Care Provider [phone] Иван Murphy MD Primary Care Provider [phone] JHON GIBSON Attending Unavailable JHON GIBSON Attending Unavailable JHON GIBSON Attending Unavailable ISA CARRERA Attending Unavailable ISA CARRERA Attending Unavailable Allergies Allergy Classification Reported Allergen(s) Allergy Type Date of Onset Reaction(s) Facility (20 sources) [facility] [place] Propensity to adverse reactions 4 [facility] Work Phone: Medications Current Medications Medication Drug Class(es) Dates Sig (Normalized) Sig (Original) diphenhydrAMINE hydrochloride 25 mg oral tablet (14 sources) Histamine-1 Receptor Antagonist diphenhydrAMINE (BENADryl) 25 [...] No Panel InformationOrdered By: Radiologist Radiology on 11-22-2024 [facility] Work Phone: No Panel Informationon 11-22 Radiology Study observation (narrative) [facility] US OB CERVICAL LENGTHon [address] [address] Ultrasound Report Signed Patient: MEREL CYR MR#: [id number] : 1990 Acct:[id number] Age/Sex: 34 / F ADM Date: 11/22/24 Loc: US Attending Dr: Jhon Gibson D.O. Ordering Physician: Jhon Gibson D.O. Date of Service: 11/22/24 Procedure(s): US OB cervical length Accession Number(s): [id number] cc: Jhon Gibson D.O.; Иван Murphy M.D. The [address] [address] Patient Name: MERLE CYR MRN: [facility]:[id number] date: 1990 Sex: F Assigned Patient Location: US Current Patient Location: US Accession/Order Number: [id number] Exam Date: 11/22/2024 14:25 Report Date: 11/22/2024 [...] Quinones M.D. 11/22/2024 2:27 PM Dictation Location: [place] [address] Electronically authenticated by: [id number] Y Date: 11/22/2024 14:27 Dictated By: Nir Quinones D.O. Signed By: 11/22/24 1430 DD/ 1427 TD/TT: Substation Operator Automatic: [facility] Radiology, Radiologist, MD - 11/22/2024 [place] [address] Ultrasound Report Signed Patient: MERLE CYR MR#: [id number] : 1990 Acct:[id number] Age/Sex: 34 / F ADM Date: 11/22/24 Loc: US Attending Dr: Jhon Gibson D.O. Ordering Physician: Jhon Gibson D.O. Date of Service: 11/22/24 Procedure(s): US OB cervical length Accession Number(s): [id number] cc: Jhon Gibson D.O.; Иван Murphy M.D. [address] [address] Patient Name: MERLE CYR MRN: [id number] date: 1990 Sex: F Assigned Patient Location: US Current Patient Location: US Accession/Order Number: [id number] Exam Date: 11/22/2024 14:25 Report Date: 11/22/2024 [...] Quinones M.D. 11/22/2024 2:27 PM Dictation Location: [place] [address] Electronically authenticated by: [id number] Y Date: 11/22/2024 14:27 Dictated By: Nir Quinones D.O. Signed By: 11/22/24 1430 DD/ 1427 TD/TT: Substation Operator Automatic: [facility] US OB INCOMPLETE ANATOMYon 0 11-22-2024 [place] [id number] Ultrasound Report Signed Patient: MERLE CYR MR#: [id number] : 1990 Acct:[id number] Age/Sex: 34 / F ADM Date: 11/22/24 Loc: US Attending Dr: Jhon Gibson D.O. Ordering Physician: Jhon Gibson D.O. Date of Service: 11/22/24 Procedure(s): US OB incomplete anatomy Accession Number(s): [id number] cc: Jhon Gibson D.O.; Иван Murphy M.D. The [address] [address] Patient Name: MERLE CYR MRN: [facility]:[id number] date: 1990 Sex: F Assigned Patient Location: US Current Patient Location: US Accession/Order Number: [id number] Exam Date: 11/22/2024 14:25 Report Date: 11/22/2024 [...] Quinones M.D. 11/22/2024 2:27 PM Dictation Location: [place] [address] Electronically authenticated by: [id number] Y Date: 11/22/2024 14:27 Dictated By: Nir Quinones D.O. Signed By: 11/22/24 1430 DD/ 1427 TD/TT: Substation Operator Automatic: [facility] Radiology, Radiologist, MD - 11/22/2024 The [place] [id number] Ultrasound Report Signed Patient: MERLE CYR MR#: [id number] : 1990 Acct:[id number] Age/Sex: 34 / F ADM Date: 11/22/24 Loc: US Attending Dr: Jhon Gibson D.O. Ordering Physician: Jhon Gibson D.O. Date of Service: 11/22/24 Procedure(s): US OB incomplete anatomy Accession Number(s): [id number] cc: Jhon Gibson D.O.; Иван Murphy M.D. [address] [id number] Patient Name: MERLE CYR MRN: [id number] date: 1990 Sex: F Assigned Patient Location: US Current Patient Location: Accession/Order Number: [id number] Exam Date: 11/22/2024 14:25 Report Date: 11/22/2024 [...] Quinones M.D. 11/22/2024 2:27 PM Dictation Location: [place] [address] Electronically authenticated by: [id number] Y Date: 11/22/2024 14:27 Dictated By: Nir Quinones D.O. Signed By: 11/22/24 1430 DD/ 1427 TD/TT: Substation Operator Automatic: [facility] No Panel InformationOrdered By: Radiologist Radiology on 11-10-2024 [facility] Work Phone: No Panel Informationon 11-10 Radiology Study observation (narrative) [facility] US OB ANATOMYon 11-10-[address] [address] Ultrasound Report Signed Patient: MERLE CYR MR#: [id number] : 1990 Acct:[id number] Age/Sex: 34 / F ADM Date: 11/08/24 Loc: US Attending Dr: Jhon Gibson D.O. Ordering Physician: Jhon Gibson D.O. Date of Service: 11/08/24 Procedure(s): US OB anatomy Accession Number(s): [id number] cc: Jhon Gibson D.O.; Иван Murphy M.D. [address] [address] Patient Name: MERLE CYR MRN: [id number] date: 1990 Sex: F Assigned Patient Location: Current Patient Location: Accession/Order Number: [id number] Exam Date: 11/10/2024 07:47 Report Date: 11/10/2024 [...] normal limits for appearance and position. The manager pe had difficulty visualizing the spine and 4 [...] Carmona M.D. 11/10/2024 7:56 AM Dictation Location: [place] [address] Electronically authenticated by: [id number] Y Date: 11/10/2024 07:56 Dictated By: Lizbet Carmona M.D. Signed By: 11/10/24 0759 DD/ 0756 TD/TT: Substation Operator Automatic: [facility] Radiology, Radiologist, MD - 11/10/2024 [place] [address] Ultrasound Report Signed Patient: MERLE CYR MR#: [id number] : 1990 Acct:[id number] Age/Sex: 34 / F ADM Date: 11/08/24 Loc: US Attending Dr: Jhon Gibson D.O. Ordering Physician: Jhon Gibson D.O. Date of Service: 11/08/24 Procedure(s): US OB anatomy Accession Number(s): [id number] cc: Jhon Gibson D.O.; Иван Murphy M.D. The [place] [id number] Patient Name: MERLE CYR MRN: [facility]:[id number] date: 1990 Sex: F Assigned Patient Location: US Current Patient Location: Accession/Order Number: [id number] Exam Date: 11/10/2024 07:47 Report Date: 11/10/2024 [...] normal limits for appearance and position. The manager pe had difficulty visualizing the spine and 4 [...] Carmona M.D. 11/10/2024 7:56 AM Dictation Location: [place] [address] Electronically authenticated by: [id number] Y Date: 11/10/2024 07:56 Dictated By: Lizbet Carmona M.D. Signed By: 11/10/24 0759 DD/ 0756 TD/TT: Substation Operator Automatic: [facility] OB CERVICAL LENGTHon 10-20 [place] [address] Ultrasound Report Signed Patient: MERLE CYR MR#: [id number] : 1990 Acct:[id number] Age/Sex: 34 / F ADM Date: 11/08/24 Loc: US Attending Dr: Jhon Gibson D.O. Ordering Physician: Jhon Gibson D.O. Date of Service: 11/08/24 Procedure(s): US OB cervical length Accession Number(s): [id number] cc: Jhon Gibson D.O.; Иван Murphy M.D. [address] [address] Patient Name: MERLE CYR MRN: [id number] date: 1990 Sex: F Assigned Patient Location: Current Patient Location: Accession/Order Number: [id number] Exam Date: 11/10/2024 07:47 Report Date: 11/10/2024 [...] normal limits for appearance and position. The manager pe had difficulty visualizing the spine and 4 [...] Carmona M.D. 11/10/2024 7:56 AM Dictation Location: [place] [address] Electronically authenticated by: [id number] Y Date: 11/10/2024 07:56 Dictated By: Lizbet Carmona M.D. Signed By: 11/10/24 0759 DD/ 0756 TD/TT: Substation Operator Automatic: [facility] Radiology, Radiologist, - 11/10/[address] [address] Ultrasound Report Signed Patient: MERLE CYR MR#: [id number] : 1990 Acct:[id number] Age/Sex: 34 / F ADM Date: 11/08/24 Loc: US Attending Dr: Jhon Gibson D.O. Ordering Physician: Jhon Gibson D.O. Date of Service: 11/08/24 Procedure(s): US OB cervical length Accession Number(s): [id number] cc: Jhon Gibson D.O.; Иван Murphy M.D. [place] [id number] Patient Name: MERLE CYR MRN: [id number] date: 1990 Sex: F Assigned Patient Location: US Current Patient Location: Accession/Order Number: [id number] Exam Date: 11/10/2024 07:47 Report Date: 11/10/2024 [...] normal limits for appearance and position. The manager pe had difficulty visualizing the spine and 4 [...] Carmona M.D. 11/10/2024 7:56 AM Dictation Location: [place] [address] Electronically authenticated by: [id number] Y Date: 11/10/2024 07:56 Dictated By: Lizbet Carmona M.D. Signed By: 11/10/24 0759 DD/ 0756 TD/TT: Substation Operator Automatic: [facility] AFP, SERUM, OPEN SPINA BIFID Aon 11-04-2024 AFP MOM 0.77 . [facility] AFP VALUE 52.2 ng/mL . [facility] COMMENT: Comment . [facility] Comment on above: Romelia Villarreal , Ph.D., [facility] Director References: Available Upon Request. Multiples Of Median Cutoffs For AFP Elevations Feliz 2.5 Black 2.8 IDD 2.0 Twins 4.5 Abbreviation Definitions IDD - Insulin Dep Diabetes OSBR - Open Spina Bifida Risk For further inquiries contact [facility] at [phone]. This test was developed and its performance characteristics determined by [facility]. It has not been cleared or approved by the Food and Drug Administration. Performed at: [facility] [address] [place], [place] [id number] Radiotelegraph Operator Servicer: Andres Faust [facility], Phone: [phone] GEST. AGE ON COLLECTION DATE 22.9 . weeks [facility] GESTAT. AGE BASED ON Ultrasound . [facility] Comment on above: 20.6 on 10/16/2024 Recalculations are not recommended when gestational dating by LMP and ultrasound are within 10 days. INSULIN DEP DIABETES No . [facility] INTERPRETATION Comment . [facility] Comment on above: Interpretation: Scre en Negative [...] Customer Services to discuss available options. The [employer] recommends amniocentesis be offered to women age 35 and older. [age] [facility] MULTIPLE GESTATION No . [facility] [place] [address] . [facility] RACE . [facility] RESULTS Report . [facility] TEST RESULTS: Negative . [facility] WEIGHT 211 . lbs [facility] N N ULTRASOUND [id number] 4 20 N 1 Y 211 N N N N N White/ [facility] RECURRENT VAGINITIS (HTRX)on 10-17-2024 ATOPOBIUM VAGINAE 0 [facility] ATOPOBIUM VAGINAE Not detected [facility] BVAB 2,3 (BACTERIAL VAGINOSIS ASSOCIATED BACTERIA 2, 3); MOBILUNCUS SPP 0 [facility] BVAB 2,3 (BACTERIAL VAGINOSIS ASSOCIATED BACTERIA 2, 3); MOBILUNCUS SPP Not detected [facility] AQUILINO ALBICANS, PARAPSILOSIS, TROPICALIS 0 [facility] AQUILINO ALBICANS, PARAPSILOSIS, TROPICALIS Not detected [facility] AQUILINO GLABRATA 0 [facility] AQUILINO GLABRATA Not detected [facility] AQUILINO KRUSEI 0 [facility] AQUILINO KRUSEI Not detected [facility] CHLAMYDIA TRACHOMATIS 0 [facility] CHLAMYDIA TRACHOMATIS Not detected N [facility] GARDNERELLA VAGINALIS 0 [facility] GARDNERELLA VAGINALIS Not detected N [facility] MEGASPHAERA (TYPES 1, 2) 0 [facility] MEGASPHAERA (TYPES 1, 2) Not detected [facility] MYCOPLASMA GENITALIUM 0 [facility] MYCOPLASMA GENITALIUM Not detected N [facility] NEISSERIA GONORRHOEAE 0 [facility] NEISSERIA GONORRHOEAE Not detected N [facility] TRICHOMONAS VAGINALIS 0 [facility] TRICHOMONAS VAGINALIS Not detected N [facility] Urinalysis macro (dipstick) panel (U)on 10-16-2024 Bilirubin, UA Negative Negative - 4(70) +++ mg/dL [facility] Blood, UA Negative Negative - 50 Farzad/mcL [facility] Clarity, UA Clear [facility] Color, UA Yellow [facility] Glucose, UA Negative Negative - 1999(110) ++++ mg/dL [facility] Interpretation and review of laboratory results Abnormal [facility] Ketones, UA Negative Negative - 160(16) ++++ mg/dL [facility] Leukocytes, UA Trace Negative - 500+++ Donnell/mcL [facility] Nitrite, UA Negative Negative - Positive [facility] pH, UA 7 5 - 9 [facility] Protein, UA Negative Negative - 1999(20) ++++ mg/dL [facility] Spec Grav, UA 1.015 1 - 1.03 [facility] Urobilinogen, UA 0.2 0.2 - 12 [...] II, MD, PHD at 16-Sep-2024 07:13:40 PM [facility] Normal Not Available Comment on above: Order Comment: Estim ated Date of Delivery: 03/01/25 Gestational Age as of 09/15/2024: 16w1d Urinalysis macro (dipstick) panel (U)Ordered By: Steph Brooks on 09-15-2024 Bilirubin, UA Negative Negative - 4(70) +++ mg/dL [facility] Work Phone: Blood, UA Negative Negative - 50 Farzad/mcL [facility] Work Phone: Clarity, UA Clear [facility] Work Phone: Color, UA Yellow [facility] Work Phone: Glucose, UA Negative Negative - 1999(110) ++++ mg/dL [facility] Work Phone: Interpretation and review of laboratory results Normal [facility] Work Phone: Ketones, UA Negative Negative - 160(16) ++++ mg/dL [facility] Work Phone: Leukocytes, UA Negative Negative - 500+++ Donnell/mcL [facility] Work Phone: Nitrite, UA Negative Negative - Positive [facility] Work Phone: pH, UA 7 5 - 9 [facility] Work Phone: Protein, UA Negative Negative - 1999(20) ++++ mg/dL [facility] Work Phone: Spec Grav, UA 1.02 1 - 1.03 [facility] Work Phone: Urobilinogen, UA 0.2 0.2 - 12 mg/dL [facility] Work Phone: [facility] Work Phone: MLR HEMOGLOBIN A1Con 025 Glucose [Mass/Vol] 103 mg/dL [facility] HbA1c (Bld) [Mass fraction] 5.2 % 4.5 - 6.2 % [facility] Comment on above: ADA RECOMMENDED LIMI T 4.0 - 6.0 ADA THERAPEUTIC TARGET < 7.0 ACTION SUGGESTED > 7.0 [facility] HCG ( test) Ql (U)o n 08-15-2024 Interpretation and review of laboratory results Abnormal [facility] Preg Test, Ur Positive Negative Critical access [...] II, MD, PHD at 18-Aug-2024 10:45:55 AM [facility] Normal Not Available Comment on above: Order Comment: US OB TRANSVAGINAL No LMP recorded. Urinalysis macro (dipstick) panel (U)on 08-15-2024 Bilirubin, UA Negative Negative - 4(70) +++ mg/dL [facility] Blood, UA Negative Negative - 50 Farzad/mcL [facility] Clarity, UA Clear [facility] Color, UA Yellow [facility] Glucose, UA Negative Negative - 1999(110) ++++ mg/dL [facility] Interpretation and review of laboratory results Normal [facility] Ketones, UA Negative Negative - 160(16) ++++ mg/dL [facility] Leukocytes, UA Negative Negative - 500+++ Donnell/mcL [facility] Nitrite, UA Negative Negative - Positive [facility] pH, UA 6 5 - 9 [facility] Protein, UA Negative Negative - 1999(20) ++++ mg/dL [facility] Spec Grav, UA 1.02 1 - 1.03 [facility] Urobilinogen, UA 0.2 0.2 - 12 mg/dL [facility] PREG QUANT HCGon 025 HCG QUANTITATIVE 27187 mIU/mL [facility] Comment on above: 5-50 0.2-1 WEEK 50-500 1-2 WEEKS 100-5,000 2-3 WEEKS 500-10,000 3-4 WEEKS 1,000-50,000 4-5 WEEKS 10,000-100,000 5-6 WEEKS 15,000-200,000 6-8 WEEKS 10,000-100,000 2-3 MONTHS [facility] PREG QUANT HCGon 025 HCG QUANTITATIVE [address]5912 mIU/mL [facility] Comment on above: 5-50 0.2-1 WEEK 50-500 1-2 WEEKS 100-5,000 2-3 WEEKS 500-10,000 3-4 WEEKS 1,000-50,000 4-5 WEEKS 10,000-100,000 5-6 WEEKS 15,000-200,000 6-8 WEEKS 10,000-100,000 2-3 MONTHS [facility] IGP,APTIMA HPV,AGE GDLNon AGE GDLN ACOG TESTING Note . [facility] Comment on above: TESTS RESULT FLAG UN ITS REF RANGE LAB Clinician Provided Cytology Information Source.............Cervix;Endocervix No. of containers..01 ThinPrep Vial Age Algo ACOG Tatianna... FLAG LEGEND: L-Low Normal,H-High Normal,LL-Alert Low,HH-Alert High <-Panic Low,>-Panic High,A-Abnormal,AA-Critical Abnormal Performed at: 01 =[address] [place] [address] Betty Rodriguez MD, HPV APTIMA Negative Negative [facility] Comment on above: This nucleic acid am plification test detects fourteen high- risk HPV types (16,18,31,33,35,39,45,51,52,56,58,59,66,68) without differentiation. Performed at: =[address], [place] [id number] Radiotelegraph Operator Servicer: Betty Rodriguez MD, Phone: [phone] Performed at: [address], [place] [id number] Radiotelegraph Operator Servicer: Betty Rodriguez MD, Phone: [phone] IGP, APTIMA HPV, RFX 16/18,45 Note . [facility] Comment on above: TESTS RESULT FLAG U NITS REF RANGE LAB DIAGNOSIS: 02 NEGATIVE FOR INTRAEPITHELIAL LESION OR MALIGNANCY. Specimen adequacy: 02 Satisfactory for evaluation. No endocervical component is identified. Performed by: 02 Rhiannon Garcia, Warehouse Handler . 02 Note: Note 02 The Pap smear is a screening test designed to aid in the detection of premalignant and malignant conditions of the uterine cervix. It is not a diagnostic procedure and should not be used as the sole means of detecting cervical cancer. Both false-positive and false-negative reports do occur. Test Methodology: Note 02 The [employer]) Supervisor Assembly Stock was unable to read this specimen. Therefore a manual review was performed. FLAG LEGEND: L-Low Normal,H-High Normal,LL-Alert Low,HH-Alert High <-Panic Low,>-Panic High,A-Abnormal,AA-Critical Abnormal Performed at: [address] [address] Betty Rodriguez MD, HPV Genotype Reflex Note 02 Criteria not met, HPV Genotype not performed. Criteria not met, HPV Genotype not performed. BRUSH-SPATULA CERVIX ENDOCERVIX [facility] VAGINITIS (HTRX)on BVAB 2,3 (BACTERIAL VAGINOSIS ASSOCIATED BACTERIA 2, 3); MOBILUNCUS SPP 0 [facility] BVAB 2,3 (BACTERIAL VAGINOSIS ASSOCIATED BACTERIA 2, 3); MOBILUNCUS SPP Not detected [facility] CHLAMYDIA TRACHOMATIS 0 [facility] CHLAMYDIA TRACHOMATIS Not detected N [facility] GARDNERELLA VAGINALIS 0 [facility] GARDNERELLA VAGINALIS Not detected N [facility] NEISSERIA GONORRHOEAE 0 [facility] NEISSERIA GONORRHOEAE Not detected N [facility] TRICHOMONAS VAGINALIS 0 [facility] TRICHOMONAS VAGINALIS Not detected N [facility] Urinalysis macro (dipstick) panel (U)on 07-03-2023 Bilirubin, UA Negative Negative - 4(70) +++ mg/dL [facility] Blood, UA Negative Negative - 50 Farzad/mcL [facility] Clarity, UA Clear [facility] Color, UA Yellow [facility] Glucose, UA Negative Negative - 1999(110) ++++ mg/dL [facility] Interpretation and review of laboratory results Normal [facility] Ketones, UA Negative Negative - 160(16) ++++ mg/dL [facility] Leukocytes, UA Negative Negative - 500+++ Donnell/mcL [facility] Nitrite, UA Negative Negative - Positive [facility] pH, UA 6.0 5 - 9 [facility] Protein, UA Negative Negative - 1999(20) ++++ mg/dL [facility] Spec Grav, UA 1.020 1 - 1.03 [facility] Urobilinogen, UA 0.2 0.2 - 12 mg/dL [facility] Cytology Cervical or vaginal smear or scraping studyon 12-05-2022 [facility] Covid-19 PCR ([facility])on 04-20 SARS-CoV-2 (COVID-19) RNA JOSEFINA+probe Ql (Unsp spec) Not detected Normal NOT DETECTED [facility] Comment on above: Result Comment: This test is not yet approved or cleared by the [place] FDA. When there are no FDA-approved or cleared tests available, and other criteria are met, FDA can make tests available under an emergency access mechanism called an Emergency Use Authorization (EUA). The EUA for this test is supported by the [employer] Principal of Health and Human Service's (HHS's) declaration [...] SARS-CoV-2. Performed By: #### C [facility] #### [facility] [address] [place] [address] Dr. Sebastián Santo Vital Signs Date Time Vital Sign Value Performing Clinician Jarretti arash 11-17-2024 10:13040 Body weight 95.25 kg Jhon Paige DO Work Phone: [facility] 11-17-2024 10:130400 Diastolic blood pressure 72 mm[Hg] Jhon Paige DO Work Phone: [facility] 11-17-2024 10:13-0400 Systolic blood pressure 102 mm[Hg] Jhon Paige DO Work Phone: [facility] 10-16-2024 10:34-0400 Body weight 95.94 kg Jhon Paige DO Work Phone: [facility] 10-16-2024 10:34-0400 Diastolic blood pressure 66 mm[Hg] Jhon Paige DO Work Phone: [facility] 10-16-2024 10:34-0400 Systolic blood pressure 100 mm[Hg] Jhon Paige DO Work Phone: [facility] 09-15-2024 11:39-0400 Body weight 94.4 kg Jhon Paige DO Work Phone: [facility] 09-15-2024 11:39-0400 Diastolic blood pressure 60 mm[Hg] Jhon Paige DO Work Phone: [facility] 09-15-2024 11:39-0400 Systolic blood pressure 100 mm[Hg] Jhon Paige DO Work Phone: [facility] 08-15-2024 10:30-0400 Body weight 92.53 kg Nom Nurse [facility] 08-15-2024 10:30-0400 Diastolic blood pressure 72 mm[Hg] [facility] Nurse [facility] 08-15-2024 10:30-0400 Systolic blood pressure 118 mm[Hg] Nom Nurse [facility] 01-17-2024 10:37-0400 Body weight 86.82 kg Isa LOERA Work Phone: [facility] 01-17-2024 10:37-0400 Diastolic blood pressure 74 mm[Hg] Isa LOERA Work Phone: [facility] 01-17-2024 10:37-0400 Systolic blood pressure 118 mm[Hg] Isa LOERA Work Phone: [facility] 07-03-2023 10:39-0500 Body weight 92.08 kg Jhon Paige DO Work Phone: [facility] 07-03-2023 10:39-0500 Diastolic blood pressure 62 mm[Hg] Jhon Paige DO Work Phone: [facility] 07-03-2023 10:39-0500 Systolic blood pressure 110 mm[Hg] Jhon Paige DO Work Phone: [facility] Encounters Encounter Date Encounter Type Care Provider Facility Start: 11-22-2024 End: 11-22-2024 Clinisync Result Encounter Jhon Paige DO Work Phone: [facility] Unsolicited Start: 11-22-2024 End: 11-22-2024 [facility] Result Encounter Jhon Paige DO Work Phone: [facility] Unsolicited Start: 11-17-2024 End: 11-17-2024 Bamboo flowsheet Jhon Paige DO Work Phone: [facility] Start: 11-17-2024 End: 11-17-2024 Bamboo flowsheet Jhon Paige DO Work Phone: [facility] Start: 11-17-2024 End: 11-17-2024 Office outpatient visit 15 minutes Jhon Paige DO Work Phone: [facility] Comment on above: Second trimester pre gnancy ([facility]); 25 weeks gestation of ([facility]); Diabetes mellitus screening Start: 11-17-2024 End: 11-17-2024 [...] Patient encounter procedure Isa LOERA Work Phone: [facility] Work Phone: Start: 01-17-2024 End: 01-17-2024 ambulatory ISA DEBI Not Available Start: 12-03-2023 End: 12-03-2023 ambulatory ISA DEBI Not Available Start: 07-03-2023 [...] Date Procedure Procedure Detail Performing Clinician Start: 11-22-2024 US OB CERVICAL LENGTH C orey Paige DO Work Phone: Start: 11-22-2024 US OB INCOMPLETE ANATOMY Jhon Paige DO Work Phone: Start: 11-10-2024 US OB ANATOMY Jhon Sundeep io DO Work Phone: Start: 11-10-2024 OB CERVICAL LENGTH C orey Paige DO [...] ion [Identifier] in Cervix by Cyto stain [facility] Work Phone: Start: 07-03-2023 VAGINITIS (HTRX) [facility] DO Work Phone: Start: 07-03-2023 Urnls dip stick/tabl et rgnt non-auto w/o micrscp [facility] DO Work Phone: Start: 12-05-2022 Microscopic observat ion [Identifier] in Cervix by Cyto stain [facility] DO Work Phone: Start: 12-05-2022 Cytp cerv/vag auto t hin layer prep mnl screen [facility] [employer] Work Phone: Plan of Treatment Date Care Activity Detail Author Start: 12-06-2027 Screening for malign ant neoplasm of cervix [facility] Start: 12-05-2027 Screening for malign ant neoplasm of cervix [facility] Start: 01-16-2027 Screening for malign ant neoplasm of cervix Pap Smear [facility] Start: 01-26-2025 End: 01-26-2025 Patient encounter procedure 01/26/2025 11:00 AM EDT Office Visit [facility] [address] [place] [place] [id number] Isa Carrera PA [address] [place] [address] [facility] Start: 01-21-2025 End: 01-21-2025 Patient encounter procedure 01/21/2025 10:00 AM EDT Office Visit [facility] [address] [place] [place] [phone] Isa Carrera PA [address] [place] [address] [facility] Start: 01-19-2025 Influenza vaccination [facility] Start: 12-08-2024 End: 12-08-2024 Patient encounter procedure 12/08/2024 9:20 AM EDT Routine [facility] [address] [place] [phone] Isa Carrera PA [address] [place] [address] [facility] Start: 11-17-2024 End: 11-17-2025 CBC panel [...] for anatomic survey Expected: 10/16/2024, Expires: 01/16/2025 [facility] Comment on above: Expected: 10/16/2024 , Expires: 01/16/2025 Start: 10-16-2024 End: 10-16-2024 Patient encounter procedure [facility] Comment on above: Arrived Start: 09-15-2024 End: 01-15-2025 US for [facility] Work Phone: Comment on above: Expected: 09/15/2024 , Expires: 01/15/2025 Start: 09-15-2024 End: 09-15-2024 Patient encounter procedure 09/15/2024 11:30 AM EDT Routine [facility] [address] [place] [phone] Jhon Gibson, DO [address] [place] [address] [facility] Start: 09-15-2024 End: 09-15-2024 Professional / ancillary services management 09/15/2024 11:00 AM EDT Ancillary Procedure [facility] [address] [place] [place] [phone] [facility] Start: 09-15-2024 End: 09-15-2024 Patient encounter procedure 09/15/2024 10:10 AM EDT Routine [facility] [address] [place] [place] [phone] Jhno Gibson, DO [address] [place] [address] [facility] Start: 08-15-2024 End: 08-15-2025 [...] first trimester Expected: 08/15/2024 (Approximate), Expires: 08/15/2025 [facility] Comment on above: Expected: 08/15/2024 (Approximate), Expires: 08/15/2025 Start: 08-15-2024 End: 08-15-2024 ambulatory 08/15/2024 10:00 AM EDT Initial [facility] [address] [place] [phone] [facility] Start: 08-15-2024 End: 08-15-2024 Professional / ancillary services management 08/15/2024 9:30 AM EDT Ancillary Procedure [facility] [address] [place] [address] [place] [address] [facility] Start: 01-20-2024 Influenza vaccination Influenza Vacc ine (#1) [facility] Start: 01-17-2024 End: 01-16-2025 CBC panel - Blood by Automated count CBC Lab Routine Dizziness Vision blurred Expected: 01/17/2024 (Approximate), Expires: 01/16/2025 [facility] Comment on above: Expected: 01/17/2024 (Approximate), Expires: 01/16/2025 Start: 01-17-2024 End: 01-16-2025 Thyrotropin [Units/volume] in Serum or Plasma TSH Lab Routine Dizziness Vision blurred Expected: 01/17/2024 (Approximate), Expires: 01/16/2025 [facility] Comment on above: Expected: 01/17/2024 (Approximate), Expires: 01/16/2025 Start: 01-17-2024 End: 01-17-2024 Patient encounter procedure 01/17/2024 10:00 AM EDT [facility] [address] [place] [place] [phone] Isa Carrera PA [address] [place], [place] [phone] Arrived [facility] Comment on above: Arrived Start: 07-24-2023 End: 07-24-2023 Patient encounter procedure 07/24/2023 10:00 AM EST Routine [facility] [address] [place] [phone] Isa Carrera PA [address] [place] [address] [facility] Start: 07-03-2023 End: 07-03-2024 CBC panel - Blood by Automated count CBC Lab Routine Diabetes mellitus screening Expected: 07/03/2023 (Approximate), Expires: 07/03/2024 [facility] Comment on above: Expected: 07/03/2023 (Approximate), Expires: 07/03/2024 Start: 07-03-2023 End: 07-03-2024 Measurement of glucose 1 hour after glucose challenge for glucose tolerance test Glucose tolerance, 1 hour Lab Routine Diabetes mellitus screening Expected: 07/03/2023 (Approximate), Expires: 07/03/2024 [facility] Comment on above: Expected: 07/03/2023 (Approximate), Expires: 07/03/2024 Start: 01-19-2023 Influenza vaccination Influenza Vacc ine (#1) [facility] Bacteria identified in Urine by Culture Urine culture Microbiology Routine Missed menses Ordered: 08/15/2024 [facility] Comment on above: Ordered: 08/15/2024 CBC W Auto Different ial panel - Blood CBC and differential Lab Routine Missed menses , unspecified gestational age Ordered: 08/15/2024 [facility] Comment on above: Ordered: 08/15/2024 CHLAMYDIA TRACHOMATI S (GENITO/STI) CHLAMYDIA TRACHOMATIS (GENITO/STI) Lab Routine Screen for STD (sexually transmitted disease) Ordered: 07/03/2023 [facility] Comment on above: Ordered: 07/03/2023 CHLAMYDIA TRACHOMATI S (GENITO/STI) CHLAMYDIA TRACHOMATIS (GENITO/STI) Lab Routine STD exposure Ordered: 10/16/2024 [facility] Comment on above: Ordered: 10/16/2024 Cytology Cervical or vaginal smear or scraping study Pap Smear Pathology and Cytology Routine Well woman exam with routine gynecological exam Ordered: 01/17/2024 [facility] Work Phone: Comment on above: Ordered: 01/17/2024 Hemoglobin A1c/Hemoglobin.total in Blood Hemoglobin A1c Lab Routine Missed menses , unspecified gestational age Ordered: 08/15/2024 [facility] Comment on above: Ordered: 08/15/2024 Hepatitis B virus surface Ag [Presence] in Serum or Plasma by Immunoassay Hepatitis B surface antigen Lab Routine Missed menses , unspecified gestational age Ordered: 08/15/2024 [facility] Comment on above: Ordered: 08/15/2024 Hepatitis C virus Ab [Presence] in Serum or Plasma by Immunoassay Hepatitis C antibody Lab Routine Missed menses , unspecified gestational age Ordered: 08/15/2024 [facility] Comment on above: Ordered: 08/15/2024 HIV-1/HIV-2 antigen/antibody combination immunoassay HIV-1 and HIV-2 antibodies Lab Routine Missed menses , unspecified gestational age Ordered: 08/15/2024 [facility] Comment on above: Ordered: 08/15/2024 Human papilloma viru s DNA [Presence] in Unspecified specimen by Probe with amplification HPV DNA probe, amplified Microbiology Routine Well woman exam with routine gynecological exam Ordered: 01/17/2024 [facility] Comment on above: Ordered: 01/17/2024 Neisseria gonorrhoea e DNA [Presence] in Unspecified specimen by JOSEFINA with probe detection Neisseria gonorrhea DNA probe, direct Lab Routine Screen for STD (sexually transmitted disease) Ordered: 07/03/2023 [facility] Comment on above: Ordered: 07/03/2023 Neisseria gonorrhoea e DNA [Presence] in Unspecified specimen by JOSEFINA with probe detection Neisseria gonorrhea DNA probe, direct Lab Routine STD exposure Ordered: 10/16/2024 [facility] Comment on above: Ordered: 10/16/2024 Reagin Ab [Presence] in Serum by RPR RPR Lab Routine Missed menses , unspecified gestational age Ordered: 08/15/2024 [facility] Comment on above: Ordered: 08/15/2024 Rubella antibody, IgG Rubella an tibody, IgG Lab Routine Missed menses , unspecified gestational age Ordered: 08/15/2024 [facility] Comment on above: Ordered: 08/15/2024 SURESWAB(R) ADVANCED VAGINITIS PLUS, TMA SURESWAB(R) ADVANCED VAGINITIS PLUS, TMA Pathology and Cytology Routine Screen for STD (sexually transmitted disease) Ordered: 07/03/2023 [facility] Work Phone: Comment on above: Ordered: 07/03/2023 SURESWAB(R) ADVANCED VAGINITIS PLUS, TMA SURESWAB(R) ADVANCED VAGINITIS PLUS, TMA Pathology and Cytology Routine STD exposure Ordered: 10/16/2024 [facility] Work Phone: Comment on above: Ordered: 10/16/2024 Payers Date Payer Category Payer Medicaid [employer] [facility] [id number] 2022-Present [address] [place] [id number] 2022 Medicaid (Managed Care) [facility] [id number] 1990 Unknown [id number] 1990 Unknown [id number]. 9 1990 Unknown [id number]. 1259 1990 Unknown [id number]. 1259 1990 Unknown [id number]. 1259 1990 Unknown [id number]. 9 1990 Unknown [id number]. 1259 1990 Unknown [id number]. 9 1990 Unknown [id number]. 1259 1959 Private Health Insurance [id number] 1959 Unknown [id number] Social History Date Type Detail Facility Tobacco smoking stat [facility] Tobacco smoking consumption unknown [facility] Start: 01-23-2023 [facility] Start: 1990 Sex Assigned At Female [facility] Start: 05-01-2023 Gender identity Identifies as female gender (finding) [facility] Start: 05-01-2023 Sexual orientation Heterosexual (fin ding) [facility] Clinical Notes 07-03-2023 to 11-17-2024 Lizbet Pfeiffer, [facility] - 11/17/2024 10:10 AM Nora Levy, WHEEL INSTALLER - 10/16/2024 10:10 AM Nora Levy, WHEEL INSTALLER - 09/15/2024 11:30 AM EDTMryanne Roman MA - 08/15/2024 10:00 AM EDT [...] Noted Post-term , 40-42 weeks of gestation ([facility]) 10/16/2023 40 weeks gestation of ([facility]) 10/16/2023 Resolved Ambulatory Problems Diagnosis Date [...] nursing note reviewed. Exam conducted with a skip hoist engineer present. Vitals: There is no height or weight on file to calculate BMI. BP: 102/72 No LMP recorded. Patient is . ASSESSMENT & PLAN ICD-10-CM 1. Second trimester ([facility]) Z34.92 2. 25 weeks gestation of ([facility]) Z3A.25 3. Diabetes mellitus screening Z13.1 [...] Jhon Gibson DO documented in this encounter [facility] 10-16-2024 History of Presen t illness Narrative [...] nursing note reviewed. Exam conducted with a skip hoist engineer present. Vitals: There is no height or [...] Jhon Gibson DO documented in this encounter [facility] 09-15-2024 History of Presen t illness Narrative [...] or undercooked meat, and stay away from [facility]. Patient has been consulted regarding any [...] Jhon Gibson DO documented in this encounter [facility] 08-15-2024 History of Presen t illness Narrative [...] gestation of Nurse Note: Pt unsure of [place] Billion to one at this time. Pt was advised to make sure she does both labs and [place] together if she decides. Follow Up: Patient is to have labs drawn at directed and return to office for initial OB appointment with provider. Patient may call office as needed with any concerns or questions. Nurse Visit Completed by: Trena Roman MA documented in this encounter [facility] 01-17-2024 History of Presen t illness Narrative [...] nursing note reviewed. Exam conducted with a skip hoist engineer present. Vitals: There is no height or [...] of: EVARISTO Jessica documented in this encounter [facility] 07-03-2023 History of Presen t illness Narrative [...] nursing note reviewed. Exam conducted with a skip hoist engineer present. Vitals: There is no height or [...] obtained without difficulty and [facility] Follow [...] gynecological exam Routine gynecological examination Anxiety, generalized ([facility]) Dizziness Dizziness and giddiness Vision blurred Other [...] DATE CREATED AUTHOR 06/17/2021 [facility] [facility] DATE CREATED AUTHOR AUTHOR'S ORGANIZ ATION 11/17/2024 [facility] EPIC Reason for Visit (unrecogniz ed section and content) Reason Comments Routine Visit Reason Comments Well Women Visit Reason Comments Amenorrhea Care Teams (unrecognized sec tion and content) Jigger Operator Relationship Specialty Start Date End Date Иван Murphy MD [address] [place] [place] [address] PCP - General Family Medicine 05/03/23 Jigger Operator Relationship Specialty Start Date End Date Иван Murphy MD [address] [place] [place] [address] PCP - General Family Medicine 05/03/23 Jigger Operator Relationship Specialty Start Date End Date Иван Murphy MD [address] [place] [place] [address] PCP - General Family Medicine 05/03/23 Jigger Operator Relationship Specialty Start Date End Date Иван Murphy MD [address] [place] [place] [address] PCP - General Family Medicine 05/03/23 Jigger Operator Relationship Specialty Start Date End Date Иван Murphy MD [address] [place] [place] [address] PCP - General Family Medicine 05/03/23 Jigger Operator Relationship Specialty Start Date End Date Иван Murphy MD [address] [place] [place] [address] PCP - General Family Medicine 05/03/23 Jigger Operator Relationship Specialty Start Date End Date Иван Murphy MD [address] [place] [place] [address] PCP - General Family Medicine 05/03/23 Jigger Operator Relationship Specialty Start Date End Date Иван Murphy MD [address] [place] [address] PCP - [facility] 05/03/23 Jigger Operator Relationship Specialty Start Date End Date Иван Murphy MD [address] [place] [address] PCP - [facility] 05/03/23 Jigger Operator Relationship Specialty Start Date End Date Иван Murphy MD [address] [place] [address] PCP - General [facility] 05/03/23 FOR RECORDS PERTAINING TO PATIENTS WHO [...] BE BASED ON THE PRIMARY CLINICAL RECORDS. [facility] [employer] [facility]. provides no warranty or guarantee of the accuracy or completeness of information in this document.
[2024-12-05 10:49] LABS: Glucose 1 Hour 138 mg/dL (<130)
[2024-12-05 11:03] LABS: Hematocrit 33.3 % (36.0-48.0); Hemoglobin 10.6 g/dL (12.0-16.0); Immature Granulocytes Abs Auto 0.03 10^3/uL (0.00-0.03); Immature Granulocytes Pct Auto 0.4 % (0.0-0.5); Lymphocytes Absolute Auto 1.2 10^3/uL (1.2-3.8); Mean Corpuscular HGB Conc 31.8 g/dL (29.9-35.2); Mean Corpuscular Hemoglobin 28.3 pg (26.7-34.0); Mean Corpuscular Volume 89.0 fL (81.0-99.0); Platelet Count 271 10^3/uL (150-450); Red Blood Count 3.74 10^6/uL (4.20-5.40); White Blood Count 6.9 10^3/uL (4.0-11.0)
== END 2024-12-05 09:31 | disposition home or self-care (01) ==
LOC: LAB 09:30
PROVIDERS: PCP Family Medicine; Visit Provider Obstetrics & Gynecology
DX: Z13.1 Encounter for screening for diabetes mellitus (principal)
CPT/HCPCS: 36415; 82950; 85025

== ENCOUNTER 2025-01-09 08:09 | Outpatient (OUT) | payer OTHER, SELFPAY ==
--- OUTSIDE RECORDS SUMMARY | 2024-06-25 10:15 | XMS_ITS ---
Author Organization The [facility] in [place] Address [address] [place] [address] Care Team Providers Care Waiter/Waitress Room Service Name Role Phone Arcadio Murphy Primary Care Provider Allergies No Known Allergies REASON FOR VISIT weight management Medications Medication SIG (Take, Route, Frequency, Duration) Notes Start Date End Date Status Tretinoin 0.1 % 1 application in the evening to face Externally Once a day 02/27/2024 Active Ozempic (0.25 or 0.5 MG/DOSE) 2 MG/3ML 0.25 mg Subcutaneous weekly for 28 days 06/25/2024 Active Social History Tobacco Use: Social History Observation Description Date Details (start date - stop date) Never Smoker NA - NA Tobacco Control (Standard) Question Answer Notes Tobacco use: Nonsmoker AUDIT-C (Standard) Question Answer Notes Did you have a drink containing alcohol in the p ast year? No Points 0 Interpretation Negative Vital Signs Weight 200.0 lbs 06/25/2024 Height 58 in 06/25/2024 Blood pressure systolic 108 mm Hg 06/25/19 25 Blood pressure diastolic 80 mm Hg 025 BMI 41.8 kg/m2 06/25/2024 Encounters Encounter Location Date Provider Diagnosis [facility] [address] [place] [address] 06/25/2024 Arcadio Murphy GERD (gastroesophage al reflux disease) K21.9 Assessments Encounter Date Diagnosis (ICD Code) Assessment Notes Treatment Notes Treatment Clinical Notes Section Notes 06/25/2024 GERD (gastroesophage al reflux disease) (ICD-10 - K21.9) Plan Of Treatment Medication Medication Name Sig Start Date Stop Date Notes Ozempic (0.25 or 0.5 MG/DOSE) 2 MG/3ML 0.25 mg Subcutaneous weekly for 28 days 06/25/2024 Progress Notes * Merle CYR NDOB: [birth year] (34 yo F)Acc No.[id number]:06/25/2024 Progress Note Patient: Merle MONROE Provider: Gabriela Murphy ([facility])MD :1990 A ge:34 Y S ex:Female Date:06/25/2024 Address:[address] [place] [address] [place], [id number] Check In:02:06 PM ESTCheck O ut:02:29 PM EST Subjective: * Chief Complaints: * W eight management * HPI: G eneral: weiogh -. * ROS: E ENT: hearing changes d enies. v isual changes d enies.?non-healing mouth sores d enies. s wollen glands or neck lumps d enies. h oarseness d enies. s ore throat d enies. d ifficulty swallowing d enies. n ose bleeds d enies. n fabian congestion d enies. e ar ache d enies. e ar discharge?denies. r inging in ears d enies. l ight sensitivity d enies. e ye pain d enies. b lurring d enies. e ye irritation d enies. d ouble vision d enies.?vision loss d enies. G eneral/Constitutional: Sweats: D enies. F atigue d enies. S leep problems d enies. A norexia d enies. M alaise d enies. W eight loss d enies.?Fatigue or Weakness d enies. F ever or Chills d enies. C ardiovascular: Shortness of Breath w/lying flat d enies. L ightheadedness/dizziness d enies. C hest tightness/ heavy pressure d enies. S welling of legs, ankles, or feet d enies. W aking up with shortness of breath d enies. C hest pain denies. P alpitations d enies. W eight gain d enies. R espiratory: Chronic or frequent cough d enies. C oughing up blood?denies. D ifficulty breathing d enies. P roductive cough d enies. S noring?denies. S hortness of breath that awakens from sleep (PND) d enies. C hest pain d enies. S putum production d enies. W heezing d enies. M usculoskeletal: Joint pain d enies. J oint Fluid d enies. B ack pain d enies. K nee pain d enies. N eloy pain d enies. J oint Stiffness d enies. M uscle cramps d enies. W eakness of muscles d enies. A rthritis d enies. M uscle aches d enies. P ain in shoulder(s) d enies. S wollen joints d enies. * Active Problem List K21.9 GERD (gastroesophage al reflux disease) Modified On:02/27/2024/U Status:confirmed J30.2 Seasonal allergic rh initis Modified On:02/27/2024/U Status:confirmed L70.0 Acne vulgaris Modified On:02/27/2024/U Status:confirmed * Medical History: * Surgical History: N o Surgical History documented. * Hospitalization/Major Diagno stic Procedure: D enies Past Hospitalization * Family History: F ather: alive. M other: alive. B rother(s): alive, diagnosed with Diabetes mellitus without mention of complication, type II or unspecified type, not stated as uncontrolled. S ister(s): alive. 1 brother(s) , 1 sister(s) - healthy. . * Social History: T obacco Use: T obacco Control (Standard) T obacco use: N onsmoker D rug/Alcohol: A ABNER-C (Standard) D id you have a drink containing alcohol in the past year? N o P oints 0 I nterpretation N egative * Medications: T akingTretinoin 0.1 % Cream 1 application in the evening to face Externally Once a day Medication List reviewed and reconciled with the patientTaking Tretinoin 0.1 % Cream 1 application in the evening to face Externally Once a day Medication List reviewed and reconciled with the patient * Allergies: N .K.D.A.no[Allergies Verified] Objective: * Vitals: W t:200.0lbs, Ht: 58 in, BP:108/80mm Hg, BMI:41.8Index, Ht-cm: 147.32 cm, Wt-k.72 kg. * Examination: P hysical Exam: GENERAL: w ell developed, well nourished, in no acute distress. HEAD: n ormocephalic/atraumatic. EYES: p upils equal, round and reactive to light, conjunctivae and sclerae normal. EARS: n o deformity or lesion of external ear, canals and TM appear normal bilaterally, TM's intact, not inflamed with normal light reflex, hearing grossly normal to conversational speech. NOSE: n o deformity, discharge, inflammation, or lesions.? MOUTH: m ucous membranes moist, normal oropharynx and posterior pharynx without lesions or exudates, tongue normal, dentition normal. NECK: n eloy supple, no masses or palpable cervical nodes, trachea midline, thyroid without nodules, masses, tenderness, or enlargement. CHEST: n o chest wall deformity, no chest wall tenderness.? LUNGS: n ormal respiratory effort and clear to auscultation, no wheezes, rales, or rhonchi, good air exchange. CARDIO: r egular rate and rhythm, normal S1 and S2, nor murmur, rub, or gallop. PULSES: n ormal capillary refill. ABDOMEN: s oft, non-distended, non-tender, no masses. MUSCULOSKELETAL: n o deformity or scoliosis noted, normal range of motion, joints normal, no erythema, edema, effusion, or ecchymosis. EXTREMITY: n o clubbing, cyanosis, edema, or deformity with normal ROM in both upper and lower bilateral extremities. NEUROLOGIC: g rossly normal. SKIN: n o rashes, ulcerations, or suspicious lesions. LYMPH NODES: n o cervical adenopathy, nodes normal. MENTAL STATUS: a lert and oriented x3, normal mood and affect. Assessment: * Assessment: 1. G ERD (gastroesophageal reflux disease) - K21.9 (Primary) Plan: * Treatment: * Procedure Codes: * * Sign off status: Completed Visit Status: C HK (Check Out) true * Provider: Gabriela Murphy ([facility])MD Date: 0 06/25/2024 Generated for Printi ng/Faxing/eTransmitting on: 0 01/09/2025 08:11 AM EDT History and Physical Notes * HPI (History of Present Illness) Category Sub-Category Detail Notes Category Not es General weiogh - Examination Category Sub-Category Detail Notes Category Not es Physical Exam GENERAL: well developed, well nourished, in no acute distress HEAD: normocephalic/atraum atic EYES: pupils equal, round and reactive to light, conjunctivae and sclerae normal EARS: no deformity or lesi on of external ear, canals and TM appear normal bilaterally, TM's intact, not inflamed with normal light reflex, hearing grossly normal to conversational speech NOSE: no deformity, discha rge, inflammation, or lesions MOUTH: mucous membranes amandeep st, normal oropharynx and posterior pharynx without lesions or exudates, tongue normal, dentition normal NECK: neck supple, no mass es or palpable cervical nodes, trachea midline, thyroid without nodules, masses, tenderness, or enlargement CHEST: no chest wall deform ity, no chest wall tenderness LUNGS: normal respiratory e ffort and clear to auscultation, no wheezes, rales, or rhonchi, good air exchange CARDIO: regular rate and rhy thm, normal S1 and S2, nor murmur, rub, or gallop PULSES: normal capillary ref ill ABDOMEN: soft, non-distended, non-tender, no masses RECTAL: MUSCULOSKELETAL: no deformity or scol iosis noted, normal range of motion, joints normal, no erythema, edema, effusion, or ecchymosis EXTREMITY: no clubbing, cyanosi s, edema, or deformity with normal ROM in both upper and lower bilateral extremities NEUROLOGIC: grossly normal SKIN: no rashes, ulceratio ns, or suspicious lesions LYMPH NODES: no cervical adenopat hy, nodes normal MENTAL STATUS: alert and oriented x 3, normal mood and affect
--- OUTSIDE RECORDS SUMMARY | 2024-07-29 11:39 | XMS_ITS ---
Author Organization The [facility] in [place] Address [address] [place] [address] Care Team Providers Care Home Care Manager Rn Name Role Phone Arcadio Murphy Primary Care Provider REASON FOR VISIT Encounters Encounter Location Date Provider Diagnosis [facility] [address] [place] [address] 07/29/2024 Arcadio Murphy Plan Of Treatment No Information Progress Notes * Merle GUARDADO NDOB: [birth year] (34 yo F)Acc No.[id number]:07/29/2024 Patient: Calvin MONROElolis Vaughn :1990 A ge:34 Y S ex:Female Address:[address] [place] [address], [phone] * true * Date: Generated for Printi ng/Faxing/eTransmitting on: 0 01/09/2025 08:12 AM EDT
--- OUTSIDE RECORDS SUMMARY | 2025-01-09 08:12 | XMS_ITS | Clinical Summary ---
Author Organization [employer] [facility] tem Address [id number] [address] [place] [address] Care Team Providers Care Pearl Hand Name Role Phone Chencho Murphy MD Primary Care Provider [phone] Allergies Active Allergy Reactions Criticality Noted Date [...] Depression Screening 12/05/2023 12/04/2022 Tobacco Screening 12/05/2023 COVID-19 Vaccine (2023-2 5 season) 2024 06/28/2020, 05/31/2020 Influenza Vaccine [...] specimen type ThinPrep 12/06/2022 4:31 PM EDT [facility] Hpv 16 Negative Negative^N egative 12/07/2022 1:26 PM EDT [facility] Hpv 18 Negative Negative^N egative 12/07/2022 1:26 PM EDT [facility] Other high risk hpv Negative Negative^N egative 12/07/2022 1:26 PM EDT [facility] Comment: HPV types 31,33,35,39,45,52,56,58,59,66 and 68 DNA were undetectable. THINP 12/04/2022 4:31 PM EDT 12/06/2022 4:33 PM EDT us Devika Ryan BEHAVIORAL PSYCHOLOGIST-[facility] LAB BLOOD ORDERABLES Fin al Result [facility] [address] [place] [address] [facility] [address], [address] [place] [address] from Last 3 Months or Most Recently Relevant to Health Maintenance Insurance [employer] Care Teams Pearl Hand Relationship Specialty Start Date End Date Chencho Murphy MD PCP - General 09/21/17
--- OUTSIDE RECORDS SUMMARY | 2025-01-09 08:12 | XMS_ITS | CCD ---
Author Organization [facility] Care Team Providers Care Carton Forming Machine Helper Name Role Phone DR ИВАН MURPHY Attending Unavailable DR ИВАН MURPHY Consulting Unavailable DR ИВАН MURPHY Admitting Unavailable Иван Murphy MD Primary Care Provider [phone] Иван Murphy MD Primary Care Provider [phone] JHON GIBSON Attending Unavailable JHON GIBSON Attending Unavailable JHON GIBSON Attending Unavailable ISA CARRERA Attending Unavailable JHON GIBSON Attending Unavailable ISA CARRERA Attending Unavailable Allergies Allergy Classification Reported Allergen(s) Allergy Type Date of Onset Reaction(s) Facility (20 sources) [facility] Propensity to adverse reactions 4 Swelling [facility] Healthcare Work Phone: Medications Current Medications Medication Drug Class(es) Dates Sig (Normalized) Sig (Original) diphenhydrAMINE hydrochloride 25 mg oral tablet (20 sources) Histamine-1 Receptor Antagonist diphenhydrAMINE (BENADryl) 25 [...] 28 tablet 11 12/03/2023 08/15/2024 Discontinued (Ineffective) nystatin 100 unt/mg topical powder (5 sources) Polyene Antifungal Start: 12-08-2024 End: 12-08-2025 nystatin (Mycostatin) 228192 UNIT/GM powder Indications: Dermatitis Apply topically in the morning and in the evening and before bedtime. 15 g 1 12/08/2024 12/08/2025 Active pramipexole dihydrochloride 0.125 mg oral tablet [...] disorder; Translations: [Generalized anxiety disorder] 01-17-2024 Chronic Diabetes mellitus without complication (2 sources) Abnormal glucose tolerance test; Translations: [Other abnormal glucose] 12-08-2024 Episodic Immunizations and screening for infectious disease (10 sources) Patient encounter status; Translations: [Encounter for screening for infections with a predominantly sexual mode of transmission] 07-03-2023 Episodic Menstrual disorders (1 source) Missed period; Translations: [Irregular menstruation, unspecified] 08-15-2024 Chronic Other complications of (2 sources) size does not accord with dates; Translations: [Uterine size-date discrepancy, second trimester] 12-08-2024 Episodic Other and delivery including normal (16 sources) Second trimester ; Translations: [Encounter for [...] [25 weeks gestation of ] 11-17-2024 Episodic Residual codes; unclassified (2 sources) Gestation period, 28 weeks; Translations: [28 weeks gestation of ] 12-08-2024 Episodic Residual codes; unclassified (2 sources) Gestation period, 30 weeks; Translations: [30 weeks gestation of ] 12-23-2024 Episodic Residual codes; unclassified (2 sources) Gestation period, 32 weeks; Translations: [32 weeks gestation of ] 01-06-2025 Episodic Unclassified (3 sources) CONTACT W/AND (SUSP) [...] Test Name Value Interpretation Reference Range Facility Urinalysis macro (dipstick) panel (U)on 01-06-2025 Bilirubin, UA Negative Negative - 4(70) +++ mg/dL [facility] Blood, UA Negative Negative - 50 Farzad/mcL [facility] Clarity, UA Clear [facility] Color, UA Yellow [facility] Glucose, UA Negative Negative - 2000(110) ++++ mg/dL [facility] Interpretation and review of laboratory results Abnormal [facility] Ketones, UA Negative Negative - 160(16) ++++ mg/dL [facility] Leukocytes, UA Positive Negative - 500+++ Donnell/mcL [facility] Nitrite, UA Negative Negative - Positive [facility] pH, UA 7.5 5 - 9 [facility] Protein, UA Negative Negative - 2000(20) ++++ mg/dL [facility] Spec Grav, UA 1.01 1 - 1.03 [facility] Urobilinogen, UA 1.0 0.2 - 12 mg/dL [facility] US OB FOLLOW UP TRANSABDOMIN AL APPROACHon 12-23-2024 US OB FOLLOW UP TRANSABDOMINAL APPROACH FINDINGS: Comparison made with prior exam November 08, 2024. A single, live intrauterine is present with normal cardiac rate of 145 beats per minute. Normal activity and amniotic fluid volume. Morphology is grossly normal. The placenta not fully visualized, likely fundal region, not associated with the internal cervical os which was not measured. The current sonographic age is 30 weeks and 1 day, based on the following measurements: BPD 7.5 cm (29 weeks, 6 days) Head Circumference 27.7 cm (30 weeks, 2 days) Abdominal Circumference 26.0 cm (30 weeks, 1 day) Femur Length 5.8 cm (30 weeks, 3 days) Presentation Transverse Weight (g) by Percentile 35.3 % * These measurements result in an estimated date of delivery of March 02, 2025. The current estimated weight is 1536 grams +/- 230 grams (3 pounds, 6 ounces). IMPRESSION: 1. Single, live intrauterine , current sonographic age of 30 weeks and 1 day, with an estimated date of delivery of March 02, 2025 (prior ANTONIO March 06, 2025). 2. Estimated weight 1536 grams, 35.3% percentile (prior percentile 19.4%) * Estimated Weight (g) by Percentile is based upon an accurate estimated age based on last menstrual period. TRANSCRIBED BY: ELECTRONICALLY SIGNED BY: Андрей Montague MD Normal Not Available Comment on above: Order Comment: US OB SCAN FOR GROWTH Estimated Date of Delivery: 03/01/25 Gestational Age as of 12/08/2024: 28w1d Urinalysis macro (dipstick) panel (U)on 12-23-2024 Bilirubin, UA Negative Negative - 4(70) +++ mg/dL [facility] Blood, UA Negative Negative - 50 Farzad/mcL [facility] Clarity, UA Clear [facility] Color, UA Yellow [facility] Glucose, UA Negative Negative - 1999(110) ++++ mg/dL [facility] Interpretation and review of laboratory results Normal [facility] Ketones, UA Negative Negative - 160(16) ++++ mg/dL [facility] Leukocytes, UA Negative Negative - 500+++ Donnell/mcL [facility] Nitrite, UA Negative Negative - Positive [facility] pH, UA 6.5 5 - 9 [facility] Protein, UA Negative Negative - 1999(20) ++++ mg/dL [facility] Spec Grav, UA 1.01 1 - 1.03 [facility] Urobilinogen, UA 1.0 0.2 - 12 mg/dL [facility] Urinalysis macro (dipstick) panel (U)on 12-08-2024 Bilirubin, UA Negative Negative - 4(70) +++ mg/dL [facility] Blood, UA Negative Negative - 50 Farzad/mcL [facility] Clarity, UA Clear [facility] Color, UA Yellow [facility] Glucose, UA Negative Negative - 2000(110) ++++ mg/dL [facility] Interpretation and review of laboratory results Normal [facility] Ketones, UA Negative Negative - 160(16) ++++ mg/dL [facility] Leukocytes, UA Negative Negative - 500+++ Donnell/mcL [facility] Nitrite, UA Negative Negative - Positive [facility] pH, UA 6 5 - 9 [facility] Protein, UA Negative Negative - 2000(20) ++++ mg/dL [facility] Spec Grav, UA 1.025 1 - 1.03 [facility] Urobilinogen, UA 1.0 0.2 - 12 mg/dL [facility] GLUCOSE 1 HOURon 12-05-2024 Glucose [Mass/Vol] 138 mg/dL High NINF - 13 0 mg/dL [facility] Interpretation and review of laboratory results Abnormal [facility] No Panel InformationOrdered By: Radiologist Radiology on 11-22-2024 [facility] Work Phone: No Panel Informationon 11-22 Radiology Study observation (narrative) [facility] [place] [address] Ultrasound Report Signed Patient: MERLE CYR MR#: [id number] : 1990 Acct:[id number] Age/Sex: 34 / F ADM Date: 11/22/24 Loc: US Attending Dr: Jhon Gibson D.O. Ordering Physician: Jhon Gibson D.O. Date of Service: 11/22/24 Procedure(s): US OB cervical length Accession Number(s): [id number] cc: Jhon Gibson D.O.; Иван Murphy M.D. [address] [address] Patient Name: MERLE CYR MRN: [id number] date: 1990 Sex: F Assigned Patient Location: US Current Patient Location: US Accession/Order Number: [id number] Exam Date: 11/22/2024 14:25 Report Date: 11/22/2024 [...] Quinones M.D. 11/22/2024 2:27 PM Dictation Location: [facility] Electronically authenticated by: [id number] Y Date: 11/22/2024 14:27 Dictated By: Nir Quinones D.O. Signed By: 11/22/24 1430 DD/ 1427 TD/TT: Voice Network Administrator: [facility] Radiology, Radiologist, MD - 11/22/2024 [place] [address] Ultrasound Report Signed Patient: MERLE CYR MR#: [id number] : 1990 Acct:[id number] Age/Sex: 34 / F ADM Date: 11/22/24 Loc: US Attending Dr: Jhon Gibson D.O. Ordering Physician: Jhon Gibson D.O. Date of Service: 11/22/24 Procedure(s): US OB cervical length Accession Number(s): [id number] cc: Jhon Gibson D.O.; Иван Murphy M.D. [place] [id number] Patient Name: MERLE CYR MRN: [facility]:[id number] date: 1990 Sex: F Assigned Patient Location: US Current Patient Location: US Accession/Order Number: [id number] Exam Date: 11/22/2024 14:25 Report Date: 11/22/2024 [...] Quinones M.D. 11/22/2024 2:27 PM Dictation Location[facility] Electronically authenticated by: [id number] Y Date: 11/22/2024 14:27 Dictated By: Nir Quinones D.O. Signed By: 11/22/24 1430 DD/ 1427 TD/TT: Voice Network Administrator: [facility] INCOMPLETE ANATOMYon 0 11-22-2024 [place] [address] Ultrasound Report Signed Patient: MERLE CYR MR#: [id number] : 1990 Acct:[id number] Age/Sex: 34 / F ADM Date: 11/22/24 Loc: US Attending Dr: Jhon Gibson D.O. Ordering Physician: Jhon Gibson D.O. Date of Service: 11/22/24 Procedure(s): US OB incomplete anatomy Accession Number(s): [id number] cc: Jhon Gibson D.O.; Иван Murphy M.D. [place] [id number] Patient Name: MERLE CYR MRN: [id number] date: 1990 Sex: F Assigned Patient Location: US Current Patient Location: US Accession/Order Number: [id number] Exam Date: 11/22/2024 14:25 Report Date: 11/22/2024 [...] Quinones M.D. 11/22/2024 2:27 PM Dictation Location: [place] [address] Electronically authenticated by: [id number] Y Date: 11/22/2024 14:27 Dictated By: Nir Quinones D.O. Signed By: 11/22/24 1430 DD/ 1427 TD/TT: Voice Network Administrator: [facility] Radiology, Radiologist, MD - 11/22/2024 [place] [address] Ultrasound Report Signed Patient: MERLE CYR MR#: [id number] : 1990 Acct:[id number] Age/Sex: 34 / F ADM Date: 11/22/24 Loc: US Attending Dr: Jhon Gibson D.O. Ordering Physician: Jhon Gibson D.O. Date of Service: 11/22/24 Procedure(s): US OB incomplete anatomy Accession Number(s): [id number] cc: Jhon Gibson D.O.; Иван Murphy M.D. [address] [phone] Patient Name: MERLE CYR MRN: [facility]:[id number] date: 1990 Sex: F Assigned Patient Location: Current Patient Location: US Accession/Order Number: [id number] Exam Date: 11/22/2024 14:25 Report Date: 11/22/2024 [...] Quinones M.D. 11/22/2024 2:27 PM Dictation Location: [place] [address] Electronically authenticated by: [id number] Y Date: 11/22/2024 14:27 Dictated By: Nir Quinones D.O. Signed By: 11/22/24 1430 DD/ 1427 TD/TT: Voice Network Administrator: [facility] No Panel InformationOrdered By: Radiologist Radiology on 11-10-2024 [facility] Work Phone: No Panel Informationon 11-10 Radiology Study observation (narrative) [facility] US OB ANATOMYon 11-10-2024 [place] [address] Ultrasound Report Signed Patient: MERLE CYR MR#: [id number] : 1990 Acct:[id number] Age/Sex: 34 / F ADM Date: 11/08/24 Loc: US Attending Dr: Jhon Gibson D.O. Ordering Physician: Jhon Gibson D.O. Date of Service: 11/08/24 Procedure(s): US OB anatomy Accession Number(s): [id number] cc: Jhon Gibson D.O.; Иван Murphy M.D. [place] [phone] Patient Name: MERLE CYR MRN: [id number] date: 1990 Sex: F Assigned Patient Location: US Current Patient Location: Accession/Order Number: [id number] Exam Date: 11/10/2024 07:47 Report Date: 11/10/2024 [...] normal limits for appearance and position. The it instructor had difficulty visualizing the spine and 4 [...] Carmona M.D. 11/10/2024 7:56 AM Dictation Location: [place] [address] Electronically authenticated by: [id number] Y Date: 11/10/2024 07:56 Dictated By: Lizbet Carmona M.D. Signed By: 11/10/24 0759 DD/ 0756 TD/TT: Voice Network Administrator: [facility] Radiology, Radiologist, MD - 11/10/2024 [place] [address] Ultrasound Report Signed Patient: MERLE CYR MR#: [id number] : 1990 Acct:[id number] Age/Sex: 34 / F ADM Date: 11/08/24 Loc: US Attending Dr: Jhon Gibson D.O. Ordering Physician: Jhon Gibson D.O. Date of Service: 11/08/24 Procedure(s): US OB anatomy Accession Number(s): [id number] cc: Jhon Gibson D.O.; Иван Murphy M.D. [place] [phone] Patient Name: MERLE CYR MRN: [id number] date: 1990 Sex: F Assigned Patient Location: Current Patient Location: Accession/Order Number: [id number] Exam Date: 11/10/2024 07:47 Report Date: 11/10/2024 [...] normal limits for appearance and position. The it instructor had difficulty visualizing the spine and 4 [...] Carmona M.D. 11/10/2024 7:56 AM Dictation Location: [place] [address] Electronically authenticated by: [id number] Y Date: 11/10/2024 07:56 Dictated By: Lizbet Carmona M.D. Signed By: 11/10/24 0759 DD/ 0756 TD/TT: Voice Network Administrator: LILLY Wasserman OB CERVICAL LENGTHon 10-20 [place] [address] Ultrasound Report Signed Patient: MERLE CYR MR#: [id number] : 1990 Acct:[id number] Age/Sex: 34 / F ADM Date: 11/08/24 Loc: US Attending Dr: Jhon Gibson D.O. Ordering Physician: Jhon Gibson D.O. Date of Service: 11/08/24 Procedure(s): US OB cervical length Accession Number(s): [id number] cc: Jhon Gibson D.O.; Иван Murphy M.D. [place] [phone] Patient Name: MERLE CYR MRN: [id number] date: 1990 Sex: F Assigned Patient Location: Current Patient Location: Accession/Order Number: [id number] Exam Date: 11/10/2024 07:47 Report Date: 11/10/2024 [...] normal limits for appearance and position. The it instructor had difficulty visualizing the spine and 4 [...] Carmona M.D. 11/10/2024 7:56 AM Dictation Location: [place] [address] Electronically authenticated by: [id number] Y Date: 11/10/2024 07:56 Dictated By: Lizbet Carmona M.D. Signed By: 11/10/24 0759 DD/ 0756 TD/TT: Voice Network Administrator: [facility] Radiology, Radiologist, MD - 11/10/2024 [place] [address] Ultrasound Report Signed Patient: MERLE CYR MR#: [id number] : 1990 Acct:[id number] Age/Sex: 34 / F ADM Date: 11/08/24 Loc: US Attending Dr: Jhon Gibson D.O. Ordering Physician: Jhon Gibson D.O. Date of Service: 11/08/24 Procedure(s): US OB cervical length Accession Number(s): [id number] cc: Jhon Gibson D.O.; Иван Murphy M.D. [facility] [place] [phone] Patient Name: MERLE CYR MRN: [facility]:[id number] date: 1990 Sex: F Assigned Patient Location: US Current Patient Location: Accession/Order Number: [id number] Exam Date: 11/10/2024 07:47 Report Date: 11/10/2024 [...] normal limits for appearance and position. The it instructor had difficulty visualizing the spine and 4 [...] Carmona M.D. 11/10/2024 7:56 AM Dictation Location: [place] [address] Electronically authenticated by: [id number] Y Date: 11/10/2024 07:56 Dictated By: Lizbet Carmona M.D. Signed By: 11/10/24 0759 DD/ 0756 TD/TT: Voice Network Administrator: [facility] AFP, SERUM, OPEN SPINA BIFID Aon 11-04-2024 AFP MOM 0.77 . [facility] AFP VALUE 52.2 ng/mL . [facility] COMMENT: Comment . [facility] Comment on above: Romelia Villarreal , Ph.D., [facility] Director References: Available Upon Request. Multiples Of Median Cutoffs For AFP Elevations Feliz 2.5 Black 2.8 IDD 2.0 Twins 4.5 Abbreviation Definitions IDD - Insulin Dep Diabetes OSBR - Open Spina Bifida Risk For further inquiries contact [facility] at [phone]. This test was developed and its performance characteristics determined by [facility]. It has not been cleared or approved by the Food and Drug Administration. Performed at: [facility] [address] [place], [place] [id number] Etl Tester: Andres Faust [facility], Phone: [phone] GEST. AGE ON COLLECTION DATE 22.9 . weeks [facility] GESTAT. AGE BASED ON Ultrasound . [facility] Comment on above: 20.6 on 10/16/2024 Recalculations are not recommended when gestational dating by LMP and ultrasound are within 10 days. INSULIN DEP DIABETES No . [facility] INTERPRETATION Comment . [facility] Comment on above: Interpretation: Scre en [...] Customer Services to discuss available options. The [place] [employer] recommends amniocentesis be offered to women age 35 and older. [age]TONIO [age] [facility] MULTIPLE GESTATION No . [facility] OS[place] RISK [place] [address] . [facility] RACE . [facility] RESULTS Report . [facility] TEST RESULTS: Negative . [facility] WEIGHT 211 . lbs [facility] N N ULTRASOUND [id number] 4 20 N 1 Y 211 N N N N N White/ [facility] RECURRENT VAGINITIS (HTRX)on 10-17-2024 ATOPOBIUM VAGINAE 0 [facility] ATOPOBIUM VAGINAE Not detected [facility] BVAB 2,3 (BACTERIAL VAGINOSIS ASSOCIATED BACTERIA 2, 3); MOBILUNCUS SPP 0 [facility] BVAB 2,3 (BACTERIAL VAGINOSIS ASSOCIATED BACTERIA 2, 3); MOBILUNCUS SPP Not detected [facility] AQUILINO ALBICANS, PARAPSILOSIS, TROPICALIS 0 [facility] AQUILINO ALBICANS, PARAPSILOSIS, TROPICALIS Not detected [facility] AQUILINO GLABRATA 0 [facility] AQUILINO GLABRATA Not detected [facility] AQUILINO KRUSEI 0 [facility] AQUILINO KRUSEI Not [facility] CHLAM[facility]ACH[facility]ATIS 0 [facility] CHLAMYDIA TRACHOMATIS Not detected [facility] GARDNERELLA VAGINALIS 0 [facility] GARDNERELLA VAGINALIS Not detected N [facility] MEGASPHAERA (TYPES 1, 2) 0 [facility] MEGASPHAERA (TYPES 1, 2) Not detected [facility] MYCOPLASMA GENITALIUM 0 [facility] MYCOPLASMA GENITALIUM Not detected N [facility] NEISSERIA GONORRHOEAE 0 [facility] NEISSERIA GONORRHOEAE Not detected N [facility] TRICHOMONAS VAGINALIS 0 [facility] TRICHOMONAS VAGINALIS Not detected N [facility] Urinalysis macro (dipstick) panel (U)on 10-16-2024 Bilirubin, UA Negative Negative - 4(70) +++ mg/dL [facility] Blood, UA Negative Negative - 50 Farzad/mcL [facility] Clarity, UA Clear [facility] Color, UA Yellow [facility] Glucose, UA Negative Negative - 2000(110) ++++ mg/dL [facility] Interpretation and review of laboratory results Abnormal [facility] Ketones, UA Negative Negative - 160(16) ++++ mg/dL [facility] Leukocytes, UA Trace Negative - 500+++ Donnell/mcL [facility] Nitrite, UA Negative Negative - Positive [facility] pH, UA 7 5 - 9 [facility] Protein, UA Negative Negative - 2000(20) ++++ mg/dL [facility] Spec Grav, UA 1.015 1 - 1.03 [facility] Urobilinogen, UA 0.2 0.2 - 12 mg/dL [facility] US OB FOLLOW UP TRANSABDOMIN AL APPROACHon [...] II, MD, PHD at 16-Sep-2024 07:13:40 PM [facility] Normal Not Available Comment on above: Order Comment: Estim ated Date of Delivery: 03/01/25 Gestational Age as of 09/15/2024: 16w1d Urinalysis macro (dipstick) panel (U)Ordered By: Steph Brooks on 09-15-2024 Bilirubin, UA Negative Negative - 4(70) +++ mg/dL [facility] Work Phone: Blood, UA Negative Negative - 50 Farzad/mcL [facility] Work Phone: Clarity, UA Clear [facility] Work Phone: Color, UA Yellow [facility] Work Phone: Glucose, UA Negative Negative - 2000(110) ++++ mg/dL [facility] Work Phone: Interpretation and review of laboratory results Normal [facility] Work Phone: Ketones, UA Negative Negative - 160(16) ++++ mg/dL [facility] Work Phone: Leukocytes, UA Negative Negative - 500+++ Donnell/mcL [facility] Work Phone: Nitrite, UA Negative Negative - Positive [facility] Work Phone: pH, UA 7 5 - 9 [facility] Work Phone: Protein, UA Negative Negative - 2000(20) ++++ mg/dL [facility] Work Phone: Spec Grav, UA 1.02 1 - 1.03 [facility] Work Phone: Urobilinogen, UA 0.2 0.2 - 12 mg/dL [facility] Work Phone: [facility] Work Phone: MLR HEMOGLOBIN A1Con 025 Glucose [Mass/Vol] 103 mg/dL [facility] HbA1c (Bld) [Mass fraction] 5.2 % 4.5 - 6.2 % [facility] Comment on above: ADA RECOMMENDED LIMI T 4.0 - 6.0 ADA THERAPEUTIC TARGET < 7.0 ACTION SUGGESTED > 7.0 [facility] HCG ( test) Ql (U)o n 08-15-2024 Interpretation and review of laboratory results Abnormal [facility] Preg Test, Ur Positive Negative [facility] US OB TRANSVAGINALon 025 US OB TRANSVAGINAL [...] II, MD, PHD at 18-Aug-2024 10:45:55 AM [facility] Normal Not Available Comment on above: Order Comment: US OB TRANSVAGINAL No LMP recorded. Urinalysis macro (dipstick) panel (U)on 08-15-2024 Bilirubin, UA Negative Negative - 4(70) +++ mg/dL [facility] Blood, UA Negative Negative - 50 Farzad/mcL [facility] Clarity, UA Clear [facility] Color, UA Yellow [facility] Glucose, UA Negative Negative - 2000(110) ++++ mg/dL [facility] Interpretation and review of laboratory results Normal [facility] Ketones, UA Negative Negative - 160(16) ++++ mg/dL [facility] Leukocytes, UA Negative Negative - 500+++ Donnell/mcL [facility] Nitrite, UA Negative Negative - Positive [facility] pH, UA 6 5 - 9 [facility] Protein, UA Negative Negative - 2000(20) ++++ mg/dL [facility] Spec Grav, UA 1.02 1 - 1.03 [facility] Urobilinogen, UA 0.2 0.2 - 12 mg/dL [facility] PREG QUANT HCGon 07-31- 025 HCG QUANTITATIVE 02850 mIU/mL [facility] Comment on above: 5-50 0.2-1 WEEK 50-500 1-2 WEEKS 100-5,000 2-3 WEEKS 500-10,000 3-4 WEEKS 1,000-50,000 4-5 WEEKS 10,000-100,000 5-6 WEEKS 15,000-200,000 6-8 WEEKS 10,000-100,000 2-3 MONTHS [facility] PREG QUANT HCGon 07-29- 025 HCG QUANTITATIVE 41299 mIU/mL [facility] Comment on above: 5-50 0.2-1 WEEK 50-500 1-2 WEEKS 100-5,000 2-3 WEEKS 500-10,000 3-4 WEEKS 1,000-50,000 4-5 WEEKS 10,000-100,000 5-6 WEEKS 15,000-200,000 6-8 WEEKS 10,000-100,000 2-3 MONTHS [facility] IGP,APTIMA HPV,AGE GDLNon AGE GDLN ACOG TESTING Note . [facility] Comment on above: TESTS RESULT FLAG UN ITS REF RANGE LAB Clinician Provided Cytology Information Source.............Cervix;Endocervix No. of containers..01 ThinPrep Vial Age Algo ACOG Tatianna... 30-65 FLAG LEGEND: L-Low Normal,H-High Normal,LL-Alert Low,HH-Alert High <-Panic Low,>-Panic High,A-Abnormal,AA-Critical Abnormal Performed at: 01 =G [address] [place] [address] Betty Rodriguez MD, HPV APTIMA Negative Negative [facility] Comment on above: This nucleic acid am plification test detects fourteen high- risk HPV types (16,18,31,33,35,39,45,51,52,56,58,59,66,68) without differentiation. Performed at: =[address] [id number] Etl Tester: Betty Rodriguez MD, Phone: [phone] Performed at: [address] [id number] Etl Tester: Betty Rodriguez MD, Phone: [phone] IGP, APTIMA HPV, RFX 16/18,45 Note . [facility] Comment on above: TESTS RESULT FLAG U NITS REF RANGE LAB DIAGNOSIS: 02 NEGATIVE FOR INTRAEPITHELIAL LESION OR MALIGNANCY. Specimen adequacy: 02 Satisfactory for evaluation. No endocervical component is identified. Performed by: 02 Rhiannon Garcia Radiological Technician . 02 Note: Note 02 The Pap smear is a screening test designed to aid in the detection of premalignant and malignant conditions of the uterine cervix. It is not a diagnostic procedure and should not be used as the sole means of detecting cervical cancer. Both false-positive and false-negative reports do occur. Test Methodology: Note 02 The [place] [employer](R) Projection Engineer was unable to read this specimen. Therefore a manual review was performed. FLAG LEGEND: L-Low Normal,H-High Normal,LL-Alert Low,HH-Alert High <-Panic Low,>-Panic High,A-Abnormal,AA-Critical Abnormal Performed at: [address] [facility] [place] [address] Betty Rodriguez MD, HPV Genotype Reflex Note 02 Criteria not met, HPV Genotype not performed. Criteria not met, HPV Genotype not performed. BRUSH-SPATULA CERVIX ENDOCERVIX CLINISYNC [facility] VAGINITIS (HTRX)on 4 BVAB 2,3 (BACTERIAL VAGINOSIS ASSOCIATED BACTERIA 2, 3); MOBILUNCUS SPP 0 [facility] BVAB 2,3 (BACTERIAL VAGINOSIS ASSOCIATED BACTERIA 2, 3); MOBILUNCUS SPP Not detected [facility] CHLAM[facility]DIA [facility]ACHOMATIS 0 [facility] CHLAMYDIA TRACHOMATIS Not detected [facility] GARDNERELLA VAGINALIS 0 [facility] GARDNERELLA VAGINALIS Not detected [facility] NEISSERIA GONORRHOEAE 0 [facility] NEISSERIA GONORRHOEAE Not detected [facility] TRICHOMONAS VAGINALIS 0 [facility] TRICHOMONAS VAGINALIS Not detected [facility] Urinalysis macro (dipstick) panel (U)on 07-03-2023 Bilirubin, UA Negative Negative - 4(70) +++ mg/dL [facility] Blood, UA Negative Negative - 50 Farzad/mcL [facility] Clarity, UA Clear [facility] Color, UA Yellow [facility] Glucose, UA Negative Negative - 2000(110) ++++ mg/dL [facility] Interpretation and review of laboratory results Normal [facility] Ketones, UA Negative Negative - 160(16) ++++ mg/dL [facility] Leukocytes, UA Negative Negative - 500+++ Donnell/mcL [facility] Nitrite, UA Negative Negative - Positive [facility] pH, UA 6.0 5 - 9 [facility] Protein, UA Negative Negative - 2000(20) ++++ mg/dL [facility] Spec Grav, UA 1.020 1 - 1.03 [facility] Urobilinogen, UA 0.2 0.2 - 12 mg/dL [facility] Cervical or vaginal smear or scraping studyon 12-05-2022 [facility] Covid-19 PCR ([facility])on 04-20 SARS-CoV-2 (COVID-19) RNA JOSEFINA+probe [...] this test is supported by the [place] of Health and Human Service's (HHS's) declaration [...] consistent with SARS-CoV-2. Performed By: #### [facility] #### [facility] [address] [place] [address] Dr. Sebastián Santo Vital Signs Date Time Vital Sign Value Performing Clinician Faci lity 01-06-2025 10:50-0400 Body weight 93.44 kg Jhon Paige DO Work Phone: [facility] 01-06-2025 10:50-0400 Diastolic blood pressure 60 mm[Hg] Jhon Paige DO Work Phone: [facility] 01-06-2025 10:50-0400 Systolic blood pressure 100 mm[Hg] Jhon Paige DO Work Phone: [facility] 12-23-2024 11:54-0400 Body weight 94.71 kg Jhon Paige DO Work Phone: [facility] 12-23-2024 11:54-0400 Diastolic blood pressure 70 mm[Hg] Jhon Paige DO Work Phone: [facility] 12-23-2024 11:54-0400 Systolic blood pressure 110 mm[Hg] Jhon Paige DO Work Phone: [facility] 12-08-2024 09:29-0400 Body weight 94.98 kg Isa LOERA Work Phone: [facility] 12-08-2024 09:29-0400 Diastolic blood pressure 70 mm[Hg] Isa LOERA Work Phone: [facility] 12-08-2024 09:29-0400 Systolic blood pressure 104 mm[Hg] Isa LOERA Work Phone: [facility] 11-17-2024 10:13-0400 Body weight 95.25 kg Jhon Paige DO Work Phone: [facility] 11-17-2024 10:13-0400 Diastolic blood pressure 72 mm[Hg] Jhon Paige DO Work Phone: [facility] 11-17-2024 10:13-0400 Systolic blood pressure 102 mm[Hg] Jhon Paige DO Work Phone: [facility] 10-16-2024 10:34-0400 Body weight 95.94 kg Jhon Paige DO Work Phone: [facility] 10-16-2024 10:34-0400 Diastolic blood pressure 66 mm[Hg] Jhon Paige DO Work Phone: [facility] 10-16-2024 10:34-0400 Systolic blood pressure 100 mm[Hg] Jhon Paige DO Work Phone: [facility] 09-15-2024 11:39-0400 Body weight 94.4 kg Jhon Paige DO Work Phone: [facility] 09-15-2024 11:39-0400 Diastolic blood pressure 60 mm[Hg] Jhon Paige DO Work Phone: [facility] 09-15-2024 11:39-0400 Systolic blood pressure 100 mm[Hg] Jhon Paige DO Work Phone: [facility] 08-15-2024 10:30-0400 Body weight 92.53 kg [facility] 08-15-2024 10:30-0400 Diastolic blood pressure 72 mm[Hg] [facility] 08-15-2024 10:30-0400 Systolic blood pressure 118 mm[Hg] [facility] 01-17-2024 10:37-0400 Body weight 86.82 kg Isa LOERA Work Phone: [facility] 01-17-2024 10:37-0400 Diastolic blood pressure 74 mm[Hg] Isa LOERA Work Phone: [facility] 01-17-2024 10:37-0400 Systolic blood pressure 118 mm[Hg] Isa LOERA Work Phone: [facility] 07-03-2023 10:39-0500 Body weight 92.08 kg Jhon Paige DO Work Phone: [facility] 07-03-2023 10:39-0500 Diastolic blood pressure 62 mm[Hg] Jhon Paige DO Work Phone: [facility] 07-03-2023 10:39-0500 Systolic blood pressure 110 mm[Hg] Jhon Paige DO Work Phone: [facility] Healthcare Encounters Encounter Date Encounter Type Care Provider Facility Start: 01-06-2025 End: 01-06-2025 Bamboo flowsheet Jhon Paige DO Work Phone: [facility] Start: 01-06-2025 End: 01-06-2025 Bamboo flowsheet Jhon Paige DO Work Phone: [facility] Start: 01-06-2025 End: 01-06-2025 flow sheet Jhon Paige DO Work Phone: [facility] Comment on above: 32 weeks gestation o f ([facility]); Third trimester ([facility]) Start: 12-23-2024 End: 12-23-2024 flow sheet Jhon Paige DO Work Phone: [facility] Comment on above: 30 weeks gestation o f ([facility]); Third trimester ([facility]) Start: 12-23-2024 End: 12-23-2024 ambulatory JHON PAIGE Not Available Start: 12-08-2024 End: 12-08-2024 Bamboo flowsheet Isa LOERA Work Phone: [facility] Start: 12-08-2024 End: 12-08-2024 Bamboo flowsheet Isa LOERA Work Phone: [facility] Start: 12-08-2024 End: 12-08-2024 Office outpatient visit 15 minutes Isa Carrera PA Work Phone: [facility] Comment on above: Size of fetus incons istent with dates in second trimester ([facility]) (Primary Dx); Second trimester ([facility]); 28 weeks gestation of ([facility]); Elevated glucose tolerance test Start: 12-08-2024 End: 12-08-2024 ambulatory ISA CARRERA Not Available Start: 12-05-2024 End: 12-05-2024 Clinisync Result Encounter Jhon Paige DO Work Phone: [facility] External Department Unsolicited Start: 12-05-2024 End: 12-05-2024 Clinisync Result Encounter Jhon Paige DO Work Phone: [facility] External Department Unsolicited Start: 11-22-2024 End: 11-22-2024 Clinisync Result Encounter Jhon Paige DO Work Phone: [facility] External Department Unsolicited Start: 11-22-2024 End: 11-22-2024 Clinisync Result Encounter Jhon Paige DO Work Phone: [facility] External Department Unsolicited Start: 11-17-2024 End: 11-17-2024 Bamboo flowsheet Jhon Paige DO Work Phone: [facility] Start: 11-17-2024 End: 11-17-2024 Bamboo flowsheet Jhon Paige DO Work Phone: [facility] Start: 11-17-2024 End: 11-17-2024 Office outpatient visit 15 minutes Jhon Paige DO Work Phone: [facility] Comment on above: Second trimester pre gnancy ([facility]); 25 weeks gestation of ([facility]); Diabetes mellitus screening Start: 11-17-2024 End: 11-17-2024 ambulatory JHON PAIGE Not Available Start: 11-10-2024 End: 11-10-2024 Clinisync Result Encounter Jhon Paige DO Work Phone: [facility] External Department Unsolicited Start: 11-10-2024 End: 11-10-2024 [...] 01-17-2024 End: 01-17-2024 Patient encounter procedure Isa [place] PA Work Phone: [facility] Work Phone: Start: 01-17-2024 End: 01-17-2024 ambulatory ISA CARRERA Not Available Start: 07-03-2023 [...] Date Procedure Procedure Detail Performing Clinician Start: 01-06-2025 Urnls dip stick/tabl et rgnt non-auto w/o micrscp Jhon Paige DO Work Phone: Start: 12-23-2024 Urnls dip stick/tabl et rgnt non-auto w/o micrscp Jhon Paige DO Work Phone: Start: 12-08-2024 Urnls dip stick/tabl et rgnt non-auto w/o micrscp Isa LOERA Work Phone: Start: 12-05-2024 GLUCOSE 1 HOUR Jhon Fa zio DO Work Phone: Start: 11-22-2024 US OB CERVICAL LENGTH C [...] stick/tabl et rgnt non-auto w/o micrscp Jhon Pagie DO Work Phone: Start: 09-15-2024 Urnls dip [...] ant neoplasm of cervix [facility] Start: 12-05-2027 Screening for malign ant neoplasm of cervix [facility] Start: 01-16-2027 Screening for malign ant neoplasm of cervix Pap Smear [facility] Start: 01-26-2025 End: 01-26-2025 Patient encounter procedure [facility] Start: 01-21-2025 End: 01-21-2025 Patient encounter procedure 01/21/2025 10:00 AM EDT Office Visit [facility] [address] [place] [phone] Isa Carrera PA [address] [place], [place] [id number] [facility] Start: 01-20-2025 End: 01-20-2025 Patient encounter procedure 01/20/2025 9:30 AM EDT Routine [facility] [address] [place] [phone] Jhon Gibson, DO [address] [place] [address] [facility] Start: 01-19-2025 Influenza vaccination [facility] Start: 01-06-2025 End: 01-06-2025 Patient encounter procedure [facility] Comment on above: Arrived Start: 12-23-2024 End: 12-23-2024 Patient encounter procedure 12/23/2024 11:30 AM EDT Routine [facility] [address] [place] [phone] Jhon Gibson, DO [address] [place] [address] [facility] Start: 12-23-2024 End: 12-23-2024 Professional / ancillary services management 12/23/2024 11:00 AM EDT Ancillary Procedure [facility] [address] [place] [phone] [facility] Start: 12-08-2024 End: 12-08-2025 Measurement of glucose 3 hours after glucose challenge for glucose tolerance test Glucose tolerance, 3 hours Lab Routine Elevated glucose tolerance test Expected: 12/08/2024 (Approximate), Expires: 12/08/2025 [facility] Healthcare Comment on above: Expected: 12/08/2024 (Approximate), Expires: 12/08/2025 Start: 12-08-2024 End: 04-10-2025 US for US OB follow up transabdominal approach Imaging Routine Size of fetus inconsistent with dates in second trimester ([facility]) Expected: 12/08/2024, Expires: 04/10/2025 [facility] Work Phone: Comment on above: Expected: 12/08/2024 , Expires: 04/10/2025 Start: 12-08-2024 End: 12-08-2024 Patient encounter procedure [facility] Comment on above: Arrived Start: 11-17-2024 End: 11-17-2025 CBC panel - Blood by Automated count CBC Lab Routine Diabetes mellitus screening Expected: 11/17/2024 (Approximate), Expires: 11/17/2025 [facility] Work Phone: Comment on above: Expected: 11/17/2024 (Approximate), Expires: 11/17/2025 Start: 11-17-2024 End: 11-17-2025 Measurement of glucose 1 hour after glucose challenge for glucose tolerance test Glucose tolerance, 1 hour Lab Routine Diabetes mellitus screening Expected: 11/17/2024 (Approximate), Expires: 11/17/2025 [facility] Comment on above: Expected: 11/17/2024 (Approximate), Expires: 11/17/2025 Start: 11-17-2024 End: 11-17-2024 Patient encounter procedure [facility] Comment on above: Arrived Start: [...] Routine [facility] [address] [place] [phone] Jhon Gibson, DO [address] [place] [address] [facility] Start: 09-15-2024 End: 09-15-2024 Professional / ancillary services management 09/15/2024 11:00 AM EDT Ancillary Procedure [facility] [address] [place] [phone] [facility] Start: 09-15-2024 End: 09-15-2024 Patient encounter procedure 09/15/2024 10:10 AM EDT Routine [facility] [address] [place] [phone] Jhon Gibson, DO [address] [place] [address] [facility] Start: 08-15-2024 End: 08-15-2025 ABO/Rh ABO/Rh Lab Routine Missed menses , unspecified gestational age Expected: 08/15/2024 (Approximate), Expires: 08/15/2025 [facility] Comment on above: Expected: 08/15/2024 (Approximate), Expires: 08/15/2025 Start: 08-15-2024 End: 08-15-2025 Blood type and Indirect antibody screen panel - Blood Type and screen Lab Routine Missed menses , unspecified gestational age Expected: 08/15/2024 (Approximate), Expires: 08/15/2025 [facility] Work Phone: Comment on above: Expected: 08/15/2024 (Approximate), Expires: 08/15/2025 Start: 08-15-2024 End: 08-15-2025 Drugs of abuse panel - Urine by Screen method Rapid drug screen, urine Lab Routine , unspecified gestational age Encounter for supervision of normal first in first trimester Expected: 08/15/2024 (Approximate), Expires: 08/15/2025 [facility] Healthcare Comment on above: Expected: 08/15/2024 (Approximate), Expires: 08/15/2025 Start: 08-15-2024 End: 08-15-2024 ambulatory 08/15/2024 10:00 AM EDT Initial [facility] [address] [place] [phone] [facility] Start: 08-15-2024 End: 08-15-2024 Professional / ancillary services management 08/15/2024 9:30 AM EDT Ancillary Procedure [facility] [address] [place] [phone] [facility] Start: 01-20-2024 Influenza vaccination Influenza Vacc ine (#1) [facility] Start: 01-17-2024 End: 01-16-2025 CBC panel - Blood by Automated count CBC Lab Routine Dizziness Vision blurred Expected: 01/17/2024 (Approximate), Expires: 01/16/2025 [facility] Healthcare Comment on above: Expected: 01/17/2024 (Approximate), Expires: 01/16/2025 Start: 01-17-2024 End: 01-16-2025 Thyrotropin [Units/volume] in Serum or Plasma TSH Lab Routine Dizziness Vision blurred Expected: 01/17/2024 (Approximate), Expires: 01/16/2025 [facility] Comment on above: Expected: 01/17/2024 (Approximate), Expires: 01/16/2025 Start: 01-17-2024 End: 01-17-2024 Patient encounter procedure 01/17/2024 10:00 AM EDT Office Visit [facility] [address] [facility] [place] [phone] Isa Carrera PA [address] [facility] [address] [place], [place] [phone] Arrived [facility] Comment on above: Arrived Start: 07-24-2023 End: 07-24-2023 Patient encounter procedure 07/24/2023 10:00 AM EST Routine [facility] [address] [facility] [place] [address] Isa Carrera PA [address] [facility] [address] [place], [place] [phone] [facility] Start: 07-03-2023 End: 07-03-2024 CBC panel - Blood by Automated count CBC Lab Routine Diabetes mellitus screening Expected: 07/03/2023 (Approximate), Expires: 07/03/2024 [facility] Comment on above: Expected: 07/03/2023 (Approximate), Expires: 07/03/2024 Start: 07-03-2023 End: 07-03-2024 Measurement of glucose 1 hour after glucose challenge for glucose tolerance test Glucose tolerance, 1 hour Lab Routine Diabetes mellitus screening Expected: 07/03/2023 (Approximate), Expires: 07/03/2024 [facility] Comment on above: Expected: 07/03/2023 (Approximate), Expires: 07/03/2024 Start: 01-19-2023 Influenza vaccination Influenza Vacc ine (#1) [facility] Bacteria identified in Urine by Culture Urine culture Microbiology Routine Missed menses Ordered: 08/15/2024 [facility] Comment on above: Ordered: 08/15/2024 CBC W Auto Different ial panel - Blood CBC and differential Lab Routine Missed menses , unspecified gestational age Ordered: 08/15/2024 [facility] Comment on above: Ordered: 08/15/2024 CHLAMYDIA TRACHOMATI S (GENITO/STI) CHLAMYDIA TRACHOMATIS (GENITO/STI) Lab Routine Screen for STD (sexually transmitted disease) Ordered: 07/03/2023 [facility] Comment on above: Ordered: 07/03/2023 CHLAMYDIA TRACHOMATI S (GENITO/STI) CHLAMYDIA TRACHOMATIS (GENITO/STI) Lab Routine STD exposure Ordered: 10/16/2024 [facility] Comment on above: Ordered: 10/16/2024 Cytology Cervical or vaginal smear or scraping study Pap Smear Pathology and Cytology Routine Well woman exam with routine gynecological exam Ordered: 01/17/2024 [facility] Work Phone: Comment on above: Ordered: 01/17/2024 Hemoglobin A1c/Hemoglobin.total in Blood Hemoglobin A1c Lab Routine Missed menses , unspecified gestational age Ordered: 08/15/2024 [facility] Comment on above: Ordered: 08/15/2024 Hepatitis B virus surface Ag [Presence] in Serum or Plasma by Immunoassay Hepatitis B surface antigen Lab Routine Missed menses , unspecified gestational age Ordered: 08/15/2024 [facility] Comment on above: Ordered: 08/15/2024 Hepatitis C virus Ab [Presence] in Serum or Plasma by Immunoassay Hepatitis C antibody Lab Routine Missed menses , unspecified gestational age Ordered: 08/15/2024 [facility] Comment on above: Ordered: 08/15/2024 HIV-1/HIV-2 antigen/antibody combination immunoassay HIV-1 and HIV-2 antibodies Lab Routine Missed menses , unspecified gestational age Ordered: 08/15/2024 [facility] Comment on above: Ordered: 08/15/2024 Human papilloma viru s DNA [Presence] in Unspecified specimen by Probe with amplification HPV DNA probe, amplified Microbiology Routine Well woman exam with routine gynecological exam Ordered: 01/17/2024 [facility] Comment on above: Ordered: 01/17/2024 Neisseria gonorrhoea e DNA [Presence] in Unspecified specimen by JOSEFINA with probe detection Neisseria gonorrhea DNA probe, direct Lab Routine Screen for STD (sexually transmitted disease) Ordered: 07/03/2023 [facility] Comment on above: Ordered: 07/03/2023 Neisseria gonorrhoea e DNA [Presence] in Unspecified specimen by JOSEFINA with probe detection Neisseria gonorrhea DNA probe, direct Lab Routine STD exposure Ordered: 10/16/2024 [facility] Comment on above: Ordered: 10/16/2024 Reagin Ab [Presence] in Serum by RPR RPR Lab Routine Missed menses , unspecified gestational age Ordered: 08/15/2024 [facility] Comment on above: Ordered: 08/15/2024 Rubella antibody, IgG Rubella an tibody, IgG Lab Routine Missed menses , unspecified gestational age Ordered: 08/15/2024 [facility] Comment on above: Ordered: 08/15/2024 SURESWAB(R) ADVANCED VAGINITIS PLUS, TMA SURESWAB(R) ADVANCED VAGINITIS PLUS, TMA Pathology and Cytology Routine Screen for STD (sexually transmitted disease) Ordered: 07/03/2023 [facility] Work Phone: Comment on above: Ordered: 07/03/2023 SURESWAB(R) ADVANCED VAGINITIS PLUS, TMA SURESWAB(R) ADVANCED VAGINITIS PLUS, TMA Pathology and Cytology Routine STD exposure Ordered: 10/16/2024 [facility] Work Phone: Comment on above: Ordered: 10/16/2024 Payers Date Payer Category Payer Medicaid [employer] [facility] [place] [id number] 2022-Present [address] [place] [id number] 2022 Medicaid ([facility] Care) [facility] [id number] 1990 Unknown [id number]. 593 1990 Unknown [id number] [id number]. 9 1990 Unknown [id number] [id number]. 9 1990 Unknown [id number] [id number]. 1258 1990 Unknown [id number] [id number]. 1258 1990 Unknown [id number] [id number]. 1258 1990 Unknown [id number] 2.16.840.1.340682.3.579.2. 1258 1990 Unknown [id number] [id number]. 1258 1990 Unknown [id number] [id number]. 1258 1990 Unknown [id number] [id number]. 1258 1990 Unknown [id number] [id number]. 9 1959 Private Health Insurance [id number] 1959 Unknown [id number] Social History Date Type Detail Facility Tobacco smoking stat [facility] Tobacco smoking consumption unknown [facility] Start: 01-23-2023 [facility] Start: 1990 Sex Assigned At Female [facility] Start: 05-01-2023 Gender identity Identifies as female gender (finding) [facility] Start: 05-01-2023 Sexual orientation Heterosexual (finding) [facility] Start: 12-03-2024 History of Social function [facility] Work Phone: Start: 12-03-2024 Patient Health Questionnaire 2 item (PHQ-2) [Reported] PHQ-2 Answer Date Recorded Patient Health Questionnaire-2 Score 0 12/03/2024 [facility] Work Phone: Clinical Notes 07-03-2023 to 01-06-2025 Lizbetareli Pfeiffer, JALEN - 01/06/2025 10:30 AM Mikey Pfeiffer, JALEN - 12/23/2024 11:30 AM EVARISTO Oliver - 12/08/2024 9:20 AM Mikey Pfeiffer, JALEN - 11/17/2024 10:10 AM EDT Note Date & Type Note Facility 01-06-2025 History of Presen t illness Narrative Reason for Appointment: Patient ID: Merle Cyr is a 34 y.o. female who presents for Routine Visit Patient presents today for Return OB appointment. MEDICATIONS Current Outpatient Medications Medication Instructions diphenhydrAMINE (BENADRYL) 25 mg, Nightly PRN nystatin (Mycostatin) 818867 UNIT/GM powder Topical, 3 times daily ALLERGIES Allergies Allergen Reactions Banana Swelling PROBLEMS Active Ambulatory Problems Diagnosis Date Noted Post-term , 40-42 weeks of gestation ([facility]) 10/16/2023 40 weeks gestation of ([facility]) 10/16/2023 Resolved Ambulatory Problems Diagnosis Date [...] nursing note reviewed. Exam conducted with a hosiery repairer present. Vitals: There is no height or weight on file to calculate BMI. BP: 100/60 No LMP recorded. Patient is . ASSESSMENT & PLAN ICD-10-CM 1. 32 weeks gestation of ([facility]) Z3A.32 POCT urinalysis dipstick manually resulted 2. Third trimester ([facility]) Z34.93 POCT urinalysis dipstick manually resulted Return OB: Patient presents today for a routine obstetrics appointment. Patient is currently 32w2d . Patient states she is doing well but has complaints of being tired due to current . Patient has verbalizes frequent movement. labor precautions was discussed/given and patient was instructed to perform kick counts three times a day. Orders Placed This Encounter Procedures POCT urinalysis dipstick manually resulted Follow Up: Patient is to return to office in 2 week for routine OB appointment. Documented by Lizbet Pfeiffer LPN on behalf of: Jhon Gibson DO documented in this encounter [facility] 12-23-2024 History of Presen t illness Narrative Reason for Appointment: Patient ID: Merle Cyr is a 34 y.o. female who presents for Routine Visit Patient presents today for Return OB appointment. MEDICATIONS Current Outpatient Medications Medication Instructions diphenhydrAMINE (BENADRYL) 25 mg, Nightly PRN nystatin (Mycostatin) [id number] UNIT/GM powder Topical, 3 times daily ALLERGIES Allergies Allergen Reactions Banana Swelling PROBLEMS Active Ambulatory Problems Diagnosis Date Noted Post-term , 40-42 weeks of gestation ([facility]) 10/16/2023 40 weeks gestation of ([facility]) 10/16/2023 Resolved Ambulatory Problems Diagnosis Date [...] nursing note reviewed. Exam conducted with a hosiery repairer present. Vitals: There is no height or weight on file to calculate BMI. BP: 110/70 No LMP recorded. Patient is . ASSESSMENT & PLAN ICD-10-CM 1. 30 weeks gestation of ([facility]) Z3A.30 POCT urinalysis dipstick manually resulted 2. Third trimester ([facility]) Z34.93 POCT urinalysis dipstick manually resulted Return OB: Patient presents today for a routine obstetrics appointment. Patient is currently 30w2d . Patient states she is doing well but has complaints of being tired due to current . Patient has verbalizes frequent movement. labor precautions was discussed/given and patient was instructed to perform kick counts three times a day. Pt advised to have three hour obtained. Pt voiced understanding. Orders Placed This Encounter Procedures POCT urinalysis dipstick manually resulted Follow Up: Patient is to return to office in 2 week for routine OB appointment. Documented by Lizbet Pfeiffer LPN on behalf of: Isa Carrera PA-C documented in this encounter [facility] 12-08-2024 History of Presen t illness Narrative Reason for Appointment: Patient ID: Merle Cyr is a 34 y.o. female who presents for Routine Visit Patient presents today for Return OB appointment. MEDICATIONS Current Outpatient Medications Medication Instructions diphenhydrAMINE (BENADRYL) 25 mg, Nightly PRN ALLERGIES Allergies Allergen Reactions Banana Swelling PROBLEMS Active Ambulatory Problems Diagnosis Date Noted Post-term , 40-42 weeks of gestation ([facility]) 10/16/2023 40 weeks gestation of ([facility]) 10/16/2023 Resolved Ambulatory Problems Diagnosis Date [...] Exam Constitutional: Appearance: Normal appearance. She is normal weight. HENT: Head: Normocephalic. Cardiovascular: Rate and Rhythm: Normal rate. Pulses: Normal pulses. Pulmonary: Effort: Pulmonary effort is normal. Breath sounds: Normal breath sounds. Abdominal: Palpations: Abdomen is soft. Musculoskeletal: General: Normal range of motion. Neurological: General: No focal deficit present. Mental Status: She is alert and oriented to person, place, and time. Psychiatric: Mood and Affect: Mood normal. Behavior: Behavior normal. Thought Content: Thought content normal. Judgment: Judgment normal. Vitals and nursing note reviewed. Vitals: There is no height or weight on file to calculate BMI. BP: 104/70 No LMP recorded. Patient is . ASSESSMENT & PLAN ICD-10-CM 1. Size of fetus inconsistent with dates in second trimester ([facility]) O26.842 US OB follow up transabdominal approach 2. Second trimester ([facility]) Z34.92 Urine dip 3. 28 weeks gestation of ([facility]) Z3A.28 Urine dip Return OB: Patient presents today for a routine obstetrics appointment. Patient is currently 28w1d . Patient states she is doing well but has complaints of being tired due to current . Patient has verbalizes frequent movement. labor precautions was discussed/given and patient was instructed to perform kick counts three times a day. Orders Placed This Encounter Procedures US OB follow up transabdominal approach Glucose tolerance, 3 hours Urine dip Follow Up: Patient is to return to office in 2 week for routine OB appointment. Documented by EVARISTO Jessica on behalf of: EVARISTO Jessica documented in this encounter [facility] 11-17-2024 History of Presen t illness Narrative Reason for Appointment: Patient ID: Merle Cyr is a 34 y.o. female who presents for Routine Visit Patient presents today for Return OB appointment. MEDICATIONS Current Outpatient Medications Medication Instructions diphenhydrAMINE (BENADRYL) 25 mg, Nightly PRN ALLERGIES Allergies Allergen Reactions Banana Swelling PROBLEMS Active Ambulatory Problems Diagnosis Date Noted Post-term , 40-42 weeks of gestation ([facility]) 10/16/2023 40 weeks gestation of ([facility]) 10/16/2023 Resolved Ambulatory Problems Diagnosis Date [...] nursing note reviewed. Exam conducted with a hosiery repairer present. Vitals: There is no height or weight on file to calculate BMI. BP: 102/72 No LMP recorded. Patient is . ASSESSMENT & PLAN ICD-10-CM 1. Second trimester ([facility]) Z34.92 2. 25 weeks gestation of ([facility]) Z3A.25 3. Diabetes mellitus screening Z13.1 [...] Jhon Gibson DO documented in this encounter [facility] 10-16-2024 History of Presen t illness [...] nursing note reviewed. Exam conducted with a hosiery repairer present. Vitals: There is no height or [...] Jhon Gibson DO documented in this encounter [facility] 09-15-2024 History of Presen t illness [...] meat[facility]. Patient has been consulted regarding any [...] Jhon Gibson DO documented in this encounter [facility] 08-15-2024 History of Presen t illness [...] gestation of Nurse Note: Pt unsure of [place] [employer] to one at this time. Pt was advised to make sure she does both labs and [place] together if she decides. Follow Up: Patient is to have labs drawn at directed and return to office for initial OB appointment with provider. Patient may call office as needed with any concerns or questions. Nurse Visit Completed by: Trena Roman MA documented in this encounter [facility] 01-17-2024 History of Presen t illness [...] nursing note reviewed. Exam conducted with a hosiery repairer present. Vitals: There is no height or [...] of: EVARISTO Jessica documented in this encounter [facility] 07-03-2023 History of Presen t illness [...] nursing note reviewed. Exam conducted with a hosiery repairer present. Vitals: There is no height or [...] gynecological exam Routine gynecological examination Anxiety, generalized ([facility]) Dizziness Dizziness and giddiness Vision blurred Other [...] [facility] Diagnosis Size of fetus inconsistent with dates in second trimester ([facility])- Primary Second trimester ([facility]) state, incidental 28 weeks gestation of ([facility]) Elevated glucose tolerance test Impaired glucose tolerance test [facility] Diagnosis 30 weeks gestation of ([facility]) Third trimester ([facility]) state, incidental [facility] Diagnosis 32 weeks gestation of ([facility]) Third trimester ([facility]) state, incidental documented in this encounter [facility] Summary Purpose Family History No Family History Records FoundNo Family History Records Found Advance Directives No Advanced Directives Records FoundNo Advanced Directives Records Found Additional Source Comments INFORMATION SOURCE (unrecogn ized section and content) DATE CREATED AUTHOR 06/17/2021 [facility] DATE CREATED AUTHOR AUTHOR'S ORGANIZ ATION 12/26/2024 [facility] Reason for Visit (unrecogniz ed section and content) Reason Comments Routine Visit Reason Comments Well Women Visit Reason Comments Amenorrhea Care Teams (unrecognized sec tion and content) [employer] Helper Relationship Specialty Start Date End Date Иван Murphy MD [address] [place] [address] PCP - General Family Medicine 05/03/23 [employer] Relationship Specialty Start Date End Date Иван Murphy MD [address] [place] [address] PCP - General Family Medicine 05/03/23 [employer] Helper Relationship Specialty Start Date End Date Иван Murphy MD [address] [place] [address] PCP - General Family Medicine 05/03/23 [employer] Helper Relationship Specialty Start Date End Date Иван Murphy MD [address] [place] [address] PCP - General Family Medicine 05/03/23 [employer] Helper Relationship Specialty Start Date End Date Иван Murphy MD [address] [place] [address] PCP - General Family Medicine 05/03/23 [employer] Machine Helper Relationship Specialty Start Date End Date Иван Murphy MD [address] [place] [address] PCP - General Family Medicine 05/03/23 [employer] Machine Helper Relationship Specialty Start Date End Date Иван Murphy MD [address] [facility] [place] [address] PCP - General Family [facility] 05/03/23 [employer] Machine Helper Relationship Specialty Start Date End Date Иван Murphy MD [address] [facility] [place] [address] PCP - [facility] 05/03/23 [employer] Machine Helper Relationship Specialty Start Date End Date Иван Murphy MD [address] [facility] [place] [address] PCP - [facility] 05/03/23 [employer] Helper Relationship Specialty Start Date End Date Иван Murphy MD [address] [facility] [place] [address] PCP - General [facility] 05/03/23 [employer] Helper Relationship Specialty Start Date End Date Иван Murphy MD [address] [facility] [place] [address] PCP - General [facility] 05/03/23 FOR RECORDS PERTAINING TO PATIENTS WHO [...] ON THE PRIMARY CLINICAL RECORDS. [facility]. provides no warranty or guarantee of the accuracy or completeness of information in this document.
--- OUTSIDE RECORDS SUMMARY | 2025-01-09 08:13 | XMS_ITS | Patient Health Record ---
Author Organization [facility] [place] Address [address] [place] [address] Care Team Providers Care Dress Cutter Name Role Phone Arcadio Murphy Primary Care Provider Allergies No Known Allergies Results Component Value Reference Range Notes PREG QUANT HCG Reviewed date:07/31/2024 06:53:05 PM Interpretation: Performing Lab: Notes/Report: [facility] , HCG Quantitative 17644 5-50 0.2-1 WEEK 50-500 1-2 WEEKS 100-5,000 2-3 WEEKS 500-10,000 3-4 WEEKS 1,000-50,000 4-5 WEEKS 10,000-100,000 5-6 WEEKS 15,000-200,000 6-8 WEEKS 10,000-100,000 2-3 MONTHS Performing Lab: see note ML - [facility] LB RUBELLA AB IGG Reviewed date:09/02/2024 01:10:40 PM Interpretation: Performing Lab: Notes/Report: [facility] , Rubella Antibodies, IgG 2.60 Immune > 0.99 index Non-immune <0.90 Equivocal 0.90 - 0.99 Immune >0.99 Performed at: - [facility] [address] [id number] Sheetmetal Trades Worker: Drake Brooks PhD, Phone: [phone] Performing Lab: see note - [facility] LB Type and Screen Reviewed date:09/01/2024 08:29:17 PM Interpretation: Performing Lab: Notes/Report: [facility] , Blood Type A Positive Antibody Screen NEGATIVE HIV Ab/p24 Ag with Reflex Reviewed date:09/02/2024 01:10:40 PM Interpretation: Performing Lab: Notes/Report: [facility] , HIV Ab/p24 Ag Screen Non Reactive Non Reactive HIV-1/HIV-2 antibodies and HIV-1 p24 antigen were NOT detected. There is no laboratory evidence of HIV infection. HIV Negative Performed at: [address] [id number] Sheetmetal Trades Worker: Drake Brooks PhD, Phone: [phone] Performing Lab: see note - [facility] LB HCV Antibody RFX to Quant PC R Reviewed date:09/02/2024 01:10:40 PM Interpretation: Performing Lab: Notes/Report: [facility] , HCV Ab Non Reactive Non Reactive Interpretation: Comment . Not infected with HCV unless early or acute infection is suspected (which may be delayed in an immunocompromised individual), or other evidence exists to indicate HCV infection. Performed at: [address] [id number] Sheetmetal Trades Worker: Drake Brooks PhD, Phone: [phone] Performing Lab: see note [facility] US OB cervical length Reviewed date:11/22/2024 07:52:47 PM Interpretation: Performing Lab: Notes/Report: Source Facility: [place] [address] Ultrasound Report Signed Patient: MERLE GUARDADO MR#: [id number] : 1990 Acct:[id number] Age/Sex: 34 / F ADM Date: 11/22/24 Loc: US Attending Dr: Jhon Gibson D.O. Ordering Physician: Jhon Gibson D.O. Date of Service: 11/22/24 Procedure(s): US OB cervical length Accession Number(s): [id number] cc: Jhon Gibson D.O.; Chencho Murphy M.D. [place] [address] Patient Name: MERLE GUARDADO MRN: [id number] date: 1990 Sex: F Assigned Patient Location: US Current Patient Location: US Accession/Order Number: [id number] Exam Date: 11/22/2024 14:25 Report Date: 11/22/2024 [...] Quinones M.D. 11/22/2024 2:27 PM Dictation Location: [facility] Electronically authenticated by: [id number] Y Date: 11/22/2024 14:27 Dictated By: Nir Quinones D.O. Signed By: 11/22/24 1430 DD/ 142 TD/TT: [employer]: [place] [address] Ultrasound Report Signed Patient: MERLE GUARDADO MR#: [id number] : 1990 Acct:[id number] Age/Sex: 34 / F ADM Date: 11/22/24 Loc: Attending Dr: Jhon Gibson D.O. Ordering Physician: Jhon Gibson D.O. Date of Service: 11/22/24 Procedure(s): US OB cervical length Accession Number(s): [id number] cc: Jhon Gibson D.O. ; Chencho Murphy M.D. [place] [id number] Patient Name: MERLE GUARDADO MRN: [id number] date: 1990 Sex: F Assigned Patient Location: Current Patient Location: Accession/Order Number: [id number] Exam Date: 11/22/2024 14:25 Report Date: 11/22/2024 14:27 At the request of: JHON GIBSON DO Procedure: US OB cervical length Obstetrical ultrasou nd for incomplete anatomy HISTORY: Suboptimal visualization spine and extremities. Variable presentatio n of fetus. heart rate 37 bpm. Somatic motion identified. Gestational age 25 weeks 6 days. Estimated delivery 03/01/2025. Adequate visualizati on of the spine and all extremities. US/US OB cervical length IMPRESSION: Visualization of spine and extremities. Ultrasound for cervical length of the uterus Cervical length is 4 cm. The cervical os is closed. IMPRESSION: Cervical length 4 cm. Impression dictated by: Nir Quinones M.D. 11/22/2024 2:27 PM Dictation Location: [employer] Electronically authenticated by: [id number] Y Date: 11/22/2024 14:27 Dictated By: Nir Quinones D.O. Signed By: 11/22/24 1430 DD/ 1427 TD/TT: [employer]: US OB incomplete anatomy Reviewed date:11/22/2024 07:52:47 PM Interpretation: Performing Lab: Notes/Report: Source Facility: [place] [address] Ultrasound Report Signed Patient: MERLE GUARDADO MR#: [id number] : 1990 Acct:[id number] Age/Sex: 34 / F ADM Date: 11/22/24 Loc: US Attending Dr: Jhon Gibson D.O. Ordering Physician: Jhon Gibson D.O. Date of Service: 11/22/24 Procedure(s): US OB incomplete anatomy Accession Number(s): [id number] cc: Jhon Gibson D.O.; Chencho Murphy M.D. [place] [address] Patient Name: MERLE GUARDADO MRN: [id number] date: 1990 Sex: F Assigned Patient Location: Current Patient Location: US Accession/Order Number: [id number] Exam Date: 11/22/2024 14:25 Report Date: 11/22/2024 14:27 At the request of: JHON TONY DO Procedure: US OB cervical length Obstetrical [...] Quinones M.D. 11/22/2024 2:27 PM Dictation Location: [place] [address] Electronically authenticated by: [id number] Y Date: 11/22/2024 14:27 Dictated By: Nir Quinones D.O. Signed By: 11/22/24 1430 DD/ 1427 TD/TT: [employer] [place]: [place] [address] Ultrasound Report Signed Patient: MERLE GUARDADO MR#: [id number] : 1990 Acct:[id number] Age/Sex: 34 / F ADM Date: 11/22/24 Loc: US Attending Dr: Jhon Gibson D.O. Ordering Physician: Jhon Gibson D.O. Date of Service: 11/22/24 Procedure(s): US OB incomplete anatomy Accession Number(s): [id number] cc: Jhon Gibson D.O. ; Chencho Murphy M.D. [place] [phone] Patient Name: MERLE GUARDADO MRN: [id number] date: 1990 Sex: F Assigned Patient Location: US Current Patient Location: US Accession/Order Number: [id number] Exam Date: 11/22/2024 14:25 Report Date: 11/22/2024 14:27 At the request of: JHON GIBSON DO Procedure: US OB cervical length Obstetrical ultrasou nd for incomplete anatomy HISTORY: Suboptimal visualization spine and extremities. Variable presentatio n of fetus. heart rate 37 bpm. Somatic motion identified. Gestational age 25 weeks 6 days. Estimated delivery 03/01/2025. Adequate visualizati on of the spine and all extremities. US/US OB incomplete anatomy IMPRESSION: Visualization of spine and extremities. Ultrasound for cervical length of the uterus Cervical length is 4 cm. The cervical os is closed. IMPRESSION: Cervical length 4 cm. Impression dictated by: Nir Quinones M.D. 11/22/2024 2:27 PM Dictation Location: [facility] Electronically authenticated by: [id number] Y Date: 11/22/2024 14:27 Dictated By: Nir Quinones D.O. Signed By: 11/22/24 1430 DD/ 1427 TD/TT: [employer]: US OB anatomy Reviewed date:11/10/2024 02:25:44 PM Interpretation: Performing Lab: Notes/Report: Source Facility: [place] [address] Ultrasound Report Signed Patient: MERLE GUARDADO MR#: [id number] : 1990 Acct:[id number] Age/Sex: 34 / F ADM Date: 11/08/24 Loc: US Attending Dr: Jhon Gibson D.O. Ordering Physician: Jhon Gibson D.O. Date of Service: 11/08/24 Procedure(s): US OB anatomy Accession Number(s): [id number] cc: Jhon Gibson D.O.; Chencho Murphy M.D. [place] [address] Patient Name: MERLE GUARDADO MRN: [id number] date: 1990 Sex: F Assigned Patient Location: US Current Patient Location: Accession/Order Number: [id number] Exam Date: 11/10/2024 07:47 Report Date: 11/10/2024 [...] normal limits for appearance and position. The drop wire operator had difficulty visualizing the spine and 4 [...] Carmona M.D. 11/10/2024 7:56 AM Dictation Location: [place] [address] Electronically authenticated by: [id number] Y Date: 11/10/2024 07:56 Dictated By: Lizbet Carmona M.D. Signed By: 11/10/24 0759 DD/ 0756 TD/TT: [employer]: [place] [address] Ultrasound Report Signed Patient: MERLE GUARDADO MR#: [id number] : 1990 Acct:[id number] Age/Sex: 34 / F ADM Date: 11/08/24 Loc: US Attending Dr: Jhon Gibson D.O. Ordering Physician: Jhon Gibson D.O. Date of Service: 11/08/24 Procedure(s): US OB anatomy Accession Number(s): [id number] cc: Jhon Gibson D.O. ; Chencho Murphy M.D. [place] [phone] Patient Name: MERLE GUARDADO MRN: [id number] date: 1990 Sex: F Assigned Patient Location: US Current Patient Location: Accession/Order Number: [id number] Exam Date: 11/10/2024 07:47 Report Date: 11/10/2024 07:56 At the request of: JHON GIBSON DO Procedure: US OB anatomy CLINICAL DATA: anatomy COMPARISON: None OB CERVICAL LENGTH The cervix was evaluated with the transvaginal probe. There is mild funneling. The estimated cervical length is 3.6 cm. US/US OB anatomy IMPRESSION: CERVICAL FINDINGS, A S DESCRIBED. ULTRASOUND OB ANATOMY There is a single li ve intrauterine gestation in variable presentation. The amniotic fluid volum e is subjectively normal. There is cardiac and somatic activity wit h heart rate of 142 beats per minutes. The placenta is posterior and as visualized within normal limits for appearance and position. The drop wire operator had difficulty visualizing the spine and 4 extremities due to position and movemen t. The stomach, bladder, kidneys, three-vessel cord with insertion, faci al features, four-chamber heart with right and left [...] delivery is March 06, 2025. The estimated weig ht is 1 lb. 5 oz. +/- 3 ounces (19%) IMPRESSION: SINGLE LIVE INTRAUTERINE GESTATION WITH ULTRASOUND AGE OF 23 WEEKS 1 DAY. SUBOPTIMAL VISUALIZATION OF THE SPINE AND EXTREMITIES. Impression dictated by: Lizbet Carmona M.D. 11/10/2024 7:56 AM Dictation Location: [place] [address] Electronically authenticated by: [id number] Y Date: 11/10/2024 07:56 Dictated By: Lizbet Carmona M.D. Signed By: 11/10/24 0759 DD/ 0756 TD/TT: [employer]: US OB cervical length Reviewed date:11/10/2024 02:25:44 PM Interpretation: Performing Lab: Notes/Report: Source Facility: [place] [address] Ultrasound Report Signed Patient: MERLE GUARDADO MR#: [id number] : 1990 Acct:[id number] Age/Sex: 34 / F ADM Date: 11/08/24 Loc: US Attending Dr: Jhon Gibson D.O. Ordering Physician: Jhon Gibson D.O. Date of Service: 11/08/24 Procedure(s): US OB cervical length Accession Number(s): [id number] cc: Jhon Gibson D.O.; Chencho Murphy M.D. [place] [address] Patient Name: MERLE GUARDADO MRN: [id number] date: 1990 Sex: F Assigned Patient Location: Current Patient Location: Accession/Order Number: [id number] Exam Date: 11/10/2024 07:47 Report Date: 11/10/2024 [...] normal limits for appearance and position. The drop wire operator had difficulty visualizing the spine and 4 [...] Carmona M.D. 11/10/2024 7:56 AM Dictation Location: [place] [address] Electronically authenticated by: [id number] Y Date: 11/10/2024 07:56 Dictated By: Lizbet Carmona M.D. Signed By: 11/10/24 0759 DD/ 0756 TD/TT: [employer] [place]: [place] [address] Ultrasound Report Signed Patient: MERLE GUARDADO MR#: [id number] : 1990 Acct:[id number] Age/Sex: 34 / F ADM Date: 11/08/24 Loc: US Attending Dr: Jhon Gibson D.O. Ordering Physician: Jhon Gibson D.O. Date of Service: 11/08/24 Procedure(s): US OB cervical length Accession Number(s): [id number] cc: Jhon Gibson D.O. ; Chencho Murphy M.D. [address] [address] Patient Name: MERLE GAURDADO MRN: [id number] date: 1990 Sex: F Assigned Patient Location: Current Patient Location: Accession/Order Number: [id number] Exam Date: 11/10/2024 07:47 Report Date: 11/10/2024 07:56 At the request of: JHON GIBSON DO Procedure: US OB anatomy CLINICAL DATA: anatomy COMPARISON: None OB CERVICAL LENGTH The cervix was evaluated with the transvaginal probe. There is mild funneling. The estimated cervical length is 3.6 cm. US/US OB cervical length IMPRESSION: CERVICAL FINDINGS, A S DESCRIBED. ULTRASOUND OB ANATOMY There is a single li ve intrauterine gestation in variable presentation. The amniotic fluid volum e is subjectively normal. There is cardiac and somatic activity wit h heart rate of 142 beats per minutes. The placenta is posterior and as visualized within normal limits for appearance and position. The drop wire operator had difficulty visualizing the spine and 4 extremities due to position and movemen t. The stomach, bladder, kidneys, three-vessel cord with insertion, faci al features, four-chamber heart with right and left [...] delivery is March 06, 2025. The estimated weig ht is 1 lb. 5 oz. +/- 3 ounces (19%) IMPRESSION: SINGLE LIVE INTRAUTERINE GESTATION WITH ULTRASOUND AGE OF 23 WEEKS 1 DAY. SUBOPTIMAL VISUALIZATION OF THE SPINE AND EXTREMITIES. Impression dictated by: Lizbet Carmona M.D. 11/10/2024 7:56 AM Dictation Location: [place] [address] Electronically authenticated by: [id number] Y Date: 11/10/2024 07:56 Dictated By: Lizbet Carmona M.D. Signed By: 11/10/24 0759 DD/ 0756 TD/TT: [employer]: AFP, Serum, Open Spina Bifid a Reviewed date:11/05/2024 05:29:19 PM Interpretation: Performing Lab: Notes/Report: N N ULTRASOUND [id number] 4 20 N 1 Y 211 N [...] MoM 0.77 . OSBR Risk 1 [place] [address] . Interpretation Comment . Interpretation: Screen Negative [...] Customer Services to discuss available options. The [employer] recommends amniocentesis be offered to women age 35 and older. Comment: Comment . Romelia Villarreal, Ph.D., [facility] Director References: Available Upon Request. Multiples Of Median Cutoffs For AFP Elevations Feliz 2.5 Black 2.8 IDD 2.0 Twins 4.5 Abbreviation Definitions IDD - Insulin Dep Diabetes OSBR - Open Spina Bifida Risk For further inquiries contact [employer] [facility] at [phone]. This test was developed and its performance characteristics determined by [employer]. It has not been cleared or approved by the Food and Drug Administration. Performed at: [place] [address] [place], [place] [id number] Sheetmetal Trades Worker: Andres Faust [facility], Phone: [phone] Performing Lab: see note - [facility] LB Box Test Reviewed date:09/01/2024 08:29:17 PM Interpretation: Performing Lab: Notes/Report: [facility] , BOX Test Sent Out [facility] BOX BOX Test Reference Lab [facility] BOX Test Date Sent 09/01/24 Performing Lab: see note [facility] LB Urine Culture, Routine Reviewed date:09/03/2024 09:46:27 AM Interpretation: Performing Lab: Notes/Report: [facility] , Urine Culture, Routine See Below For Report Urine Culture, Routine Urine Culture, Routine Mixed urogenital geno Urine Culture, Routine Urine Culture, Routine 10,000-25,000 col jazmin forming units per mL Urine Culture, Routine Urine Culture, Routine Performed at: [facility] Urine Culture, Routine Urine Culture, Routine [address] [place] [phone] Urine Culture, Routine Urine Culture, Routine Sheetmetal Trades Worker: Frandy Brooks PhD, Phone: [phone] Urine Culture, Routine Performing Lab: see note - [facility] LB SEE REPORT - Travel Trailer Components Assembler Id information not found for OBX-specific broadcast news producer legend HBsAg Screen Reviewed date:09/02/2024 01:10:40 PM Interpretation: Performing Lab: Notes/Report: [facility] , HBsAg Screen Negative Negative Performed at: [address] [id number] Sheetmetal Trades Worker: Drake Brooks PhD, Phone: [phone] Performing Lab: see note [facility] LB Rapid Plasma Reagin, Quant Reviewed date:09/02/2024 [...] utilized, such as Treponema pallidum (Syphilis) Screening [place] (366977) or Rapid Plasma Reagin (RPR) Test With Reflex to Quantitative RPR and Confirmatory Treponema pallidum Antibodies (085439). Performed at: [address] [id number] Sheetmetal Trades Worker: Drake Brooks PhD, Phone: [phone] Performing Lab: see note [facility] LB GLYCOHEMOGLOBIN A1C Reviewed date:09/01/2024 08:29:17 PM Interpretation: Performing Lab: Notes/Report: [facility] , Glycohemoglobin A1C 5.2 4.5-6.2 % ADA RECOMMENDED LIMIT 4.0 - 6.0 ADA THERAPEUTIC TARGET < 7.0 ACTION SUGGESTED > 7.0 Estimated Average Glucose 103 Performing Lab: see note - [facility] LB DRUG SCREEN RAPID (URINE) Reviewed date:09/01/2024 08:29:17 PM Interpretation: Performing Lab: Notes/Report: [facility] , Cannabinoid Screen Urine NEGATIVE NEGATIVE Phencyclidine [...] ng/mL Performing Lab: see note ML - [facility] LB CBC AUTO DIFF Reviewed date:09/01/2024 08:29:17 PM Interpretation: Performing Lab: Notes/Report: [facility] , White Blood Count 7.9 4.0-11.0 10 [...] Performing Lab: see note ML - [facility] LB PREG QUANT HCG Reviewed date:07/29/2024 03:40:12 PM Interpretation: Performing Lab: Notes/Report: [facility] , HCG Quantitative 19497 5-50 0.2-1 WEEK 50-500 1-2 WEEKS 100-5,000 2-3 WEEKS 500-10,000 3-4 WEEKS 1,000-50,000 4-5 WEEKS 10,000-100,000 5-6 WEEKS 15,000-200,000 6-8 WEEKS 10,000-100,000 2-3 MONTHS Performing Lab: see note ML - [facility] LB IGP,Aptima HPV,Age Gdln Reviewed date:01/23/2024 07:20:06 PM Interpretation: Performing Lab: Notes/Report: BRUSH-SPATULA CERVIX ENDOCERVIX [facility] , Age Gdln ACOG Testing Note . TESTS RESULT FLAG UNITS REF RANGE LAB Clinician Provided Cytology Information Source.............Cer vix;Endocervix No. of containers..01 ThinPrep Vial Age Algo ACOG Tatianna... FLAG LEGEND: L-Low Normal,H-High Normal,LL-Alert Low,HH-Alert High <-Panic Low,>-Panic High,A-Abnormal,AA-Cri tical Abnormal Performed at: 01 =G [address] [place] [address] Betty Rodriguez MD, IGP, Aptima HPV, rfx 16/18,45 Note . TESTS RESULT FLAG UNITS REF RANGE LAB DIAGNOSIS: 02 NEGATIVE FOR INTRAEPITHELIAL LESION OR MALIGNANCY. Specimen adequacy: 02 Satisfactory for evaluation. No endocervical component is identified. Performed by: Srinivasa Garcia, Potato Bucker . 02 Note: Note 02 The Pap smear is a screening test designed to aid in the detection of premalignant and malignant conditions of the uterine cervix. It is not a diagnostic procedure and should not be used as the sole means of detecting cervical cancer. Both false-positive and false-negative reports do occur. Test Methodology: Note 02 The [employer] Shoelace Tipping Machine Operator was unable to read this specimen. Therefore a manual review was performed. FLAG LEGEND: L-Low Normal,H-High Normal,LL-Alert Low,HH-Alert High <-Panic Low,>-Panic High,A-Abnormal,AA-Cri tical Abnormal Performed at: [address] [address] Betty Rodriguez MD, HPV Genotype Reflex Note 02 Criteria not met, HPV Genotype not performed. Criteria not met, HPV Genotype not performed. HPV Aptima Negative Negative This nucleic acid amplification test detects fourteen high- risk HPV types (16,18,31,33,35,39,45, 51,52,56,58,59,66,68) without differentiation. Performed at: = - [facility] [id number] Sheetmetal Trades Worker: Betty Rodriguez MD, Phone: [phone] Performed at: - [facility] [id number] Sheetmetal Trades Worker: Betty Rodriguez MD, Phone: [phone] Performing Lab: see note - [facility] LB Glucose 1 Hour Reviewed date:12/06/2024 02:55:09 PM Interpretation: Performing Lab: Notes/Report: [facility] , Glucose 1 Hour 138 <130 mg/dL Performing Lab: see note ML - [facility] LB CBC AUTO DIFF Reviewed date:12/06/2024 02:55:09 PM Interpretation: Performing Lab: Notes/Report: [facility] , White Blood Count 6.9 4.0-11.0 10 3/uL Red Blood Count 3.74 4.20-5.40 10 6/uL Hemoglobin 10.6 12.0-16.0 g/dL Hematocrit 33.3 36.0-48.0 % Mean Corpuscular Volume 89.0 81.0-99.0 fL Mean Corpuscular Hemoglobin 28.3 26.7-34.0 pg Mean Corpuscular HGB Conc 31.8 29.9-35.2 g/dL Red Cell Distribution Width 13.0 11.0-15.0 % Platelet Count 271 150-450 10 3/uL Mean Platelet Volume 11.5 9.5-13.5 fL Neutrophils Percent Auto 76.8 43.0-75.0 % Lymphocytes Percent Auto 16.7 20.5-60.0 % Monocytes Percent Auto 4.8 1.7-12.0 % Eosinophils Percent Auto 1.2 0.9-7.0 % Basophils Percent Auto 0.1 0.2-2.0 % Immature Granulocytes Pct Auto 0.4 0.0-0.5 % Neutrophils Absolute Auto 5.3 1.4-6.5 10 3/uL Lymphocytes Absolute Auto 1.2 1.2-3.8 10 3/uL Monocytes Absolute Auto 0.3 0.3-0.8 10 3/uL Eosinophils Absolute Auto 0.1 0.0-0.7 10 3/uL Basophils Absolute Auto 0.0 0.0-0.1 10 3/uL Immature Granulocytes Abs Auto 0.03 0.00-0.03 10 3/uL Performing Lab: see note ML - [facility] Reason For Referral No Information Medications [...] W/U Status Risk Notes Problem Acne vulgaris (24585994) Acne vulgaris (L70.0) Active confirmed Problem Gastroesophageal reflux disease (502237907) GERD (gastroesoph ageal reflux disease) (K21.9) Active confirmed Problem Seasonal allergic rhinitis (J30.2) Active confirmed Vital Signs Blood pressure diastolic 80 mm Hg 06/25/2024 Height 58 in 06/25/2024 Blood pressure systolic 108 mm Hg 06/25/2024 Weight 200.0 lbs 06/25/2024 BMI 41.8 kg/m2 06/25/2024 Encounters Encounter Location Date Provider Diagnosis [facility] [address] [place] [address] 06/26/2024 Arcadio Murphy [facility] [address] [place] [address] 07/29/2024 Arcadio Navay [facility] [address] [place] [address] 02/27/2024 Arcadio Murphy Acne vulgaris L70.0 [facility] [address] [place] [address] 06/25/2024 Arcadio Murphy GERD (gastroesophage al reflux [...] End Date [employer] [place] [employer] [address] [address] [place] [address] [id number] Merle Guardado Self - patient is the insured Medical (General) History Medical History History ICD Code Seasonal allergic rhinitis J30.2 GERD (gastroesophageal reflux disease) K 21.9 Depression F32.A
[2025-01-09 09:50] LABS: Glucose 1 Hour 182 mg/dL (<180)
[2025-01-09 11:38] LABS: Glucose 2 Hour 124 mg/dL (<155)
[2025-01-09 11:39] LABS: Glucose 3 Hour 94 mg/dL (<140)
== END 2025-01-09 08:10 | disposition home or self-care (01) ==
LOC: LAB 08:09
PROVIDERS: PCP Family Medicine; Visit Provider Physician Assistant
DX: R73.09 Other abnormal glucose (principal)
CPT/HCPCS: 36415; 82951; 82952

== ENCOUNTER 2025-02-03 19:49 | Outpatient (REF) | payer OTHER, SELFPAY ==
--- OUTSIDE RECORDS SUMMARY | 2025-02-03 19:56 | XMS_ITS | CCD ---
Author Organization [facility] Care Team Providers Care Finger Waver Name Role Phone DR ИВАН MURPHY Attending Unavailable DR ИВАН MURPHY Consulting Unavailable DR ИВАН MURPHY Admitting Unavailable Иван Murphy MD Primary Care Provider [phone] Иван Murphy MD Primary Care Provider [phone] JHON GIBSON Attending Unavailable JHON GIBSON Attending Unavailable JHON GIBSON Attending Unavailable ISA CARRERA Attending Unavailable JHON GIBSON Attending Unavailable JHON GIBSON Attending Unavailable JHON GIBSON Attending Unavailable Allergies Allergy Classification Reported Allergen(s) Allergy Type Date of Onset Reaction(s) Facility (20 sources) Bananas Propensity to adverse reactions 4 [...] Discontinued (Ineffective) nystatin 100 unt/mg topical powder (12 sources) Polyene Antifungal Start: 12-08-2024 End: 12-08-2025 nystatin (Mycostatin) 963212 UNIT/GM powder Indications: Dermatitis Apply topically in [...] 12-08-2024 Episodic Other and delivery including normal (20 sources) Second trimester ; Translations: [Encounter for [...] [32 weeks gestation of ] 01-06-2025 Episodic Residual codes; unclassified (2 sources) Gestation period, 34 weeks; Translations: [34 weeks gestation of ] 01-20-2025 Episodic Residual codes; unclassified (2 sources) Gestation period, 36 weeks; Translations: [36 weeks gestation of ] 02-03-2025 Episodic Unclassified (3 sources) CONTACT W/AND (SUSP) [...] Range Facility Urinalysis macro (dipstick) panel (U)on 02-03-2025 Bilirubin, UA Negative Negative - 4(70) +++ mg/dL [facility] Blood, UA Negative Negative - 50 Farzad/mcL [facility] Clarity, UA Clear [facility] Color, UA Yellow [facility] Glucose, UA Negative Negative - 2000(110) ++++ mg/dL [facility] Interpretation and review of laboratory results Abnormal [facility] Ketones, UA Negative Negative - 160(16) ++++ mg/dL [facility] Leukocytes, UA Positive Negative - 500+++ Donnell/mcL [facility] Comment on above: Trace Nitrite, UA Negative Negative - Positive [facility] pH, UA 7 5 - 9 [facility] Protein, UA Negative Negative - 2000(20) ++++ mg/dL [facility] Spec Grav, UA 1.015 1 - 1.03 [facility] Urobilinogen, UA 0.2 0.2 - 12 mg/dL [facility] GLUCOSE TOLERANCE 3 HOURon 0 01-09-2025 GLUCOSE TOLERANCE 3 HOUR High mg/dL [facility] Comment on above: GLU FAST 93 (<95) Co l: 01/09/25 0815 GLU 1HR 182H (<180) Col: 01/09/25 0918 GLU 2HR 124 (<155) Col: 01/09/25 1019 GLU 3HR 94 (<140) Col: 01/09/25 1119 Interpretation and review of laboratory results Abnormal [facility] Urinalysis macro (dipstick) panel (U)on 01-06-2025 Bilirubin, UA Negative Negative - 4(70) +++ mg/dL [facility] Blood, UA Negative Negative - 50 Farzad/mcL [facility] Clarity, UA Clear [facility] Color, UA Yellow [facility] Glucose, UA Negative Negative - 2000(110) ++++ mg/dL [facility] Interpretation and review of laboratory results Abnormal [facility] Ketones, UA Negative Negative - 160(16) ++++ mg/dL [facility] Leukocytes, UA Positive Negative - 500+++ Donnell/mcL [facility] Nitrite, UA Negative Negative - Positive [facility] pH, UA 7.5 5 - 9 [facility] Protein, UA Negative Negative - 2000(20) ++++ mg/dL [facility] Spec Grav, UA 1.01 1 - 1.03 [facility] Urobilinogen, UA 1.0 0.2 - 12 mg/dL [facility] US OB FOLLOW UP TRANSABDOMIN AL [...] Negative Negative - 4(70) +++ mg/dL [facility] Blood, UA Negative Negative - 50 Farzad/mcL [facility] Clarity, UA Clear [facility] Color, UA Yellow [facility] Glucose, UA Negative Negative - 1999(110) ++++ mg/dL [facility] Interpretation and review of laboratory results Normal [facility] Ketones, UA Negative Negative - 160(16) ++++ mg/dL [facility] Leukocytes, UA Negative Negative - 500+++ Donnell/mcL [facility] Nitrite, UA Negative Negative - Positive [facility] pH, UA 6.5 5 - 9 [facility] Protein, UA Negative Negative - 1999(20) ++++ mg/dL [facility] Spec Grav, UA 1.01 1 - 1.03 [facility] Urobilinogen, UA 1.0 0.2 - 12 mg/dL [facility] Urinalysis macro (dipstick) panel (U)on 12-08-2024 Bilirubin, UA Negative Negative - 4(70) +++ mg/dL [facility] Blood, UA Negative Negative - 50 Farzad/mcL [facility] Clarity, UA Clear [facility] Color, UA Yellow [facility] Glucose, UA Negative Negative - 1999(110) ++++ mg/dL [facility] Interpretation and review of laboratory results Normal [facility] Ketones, UA Negative Negative - 160(16) ++++ mg/dL [facility] Leukocytes, UA Negative Negative - 500+++ Donnell/mcL [facility] Nitrite, UA Negative Negative - Positive [facility] pH, UA 6 5 - 9 [facility] Protein, UA Negative Negative - 1999(20) ++++ mg/dL [facility] Spec Grav, UA 1.025 1 - 1.03 [facility] Urobilinogen, UA 1.0 0.2 - 12 mg/dL [facility] GLUCOSE 1 HOURon 12-05-2024 Glucose [Mass/Vol] 138 mg/dL High NINF - 13 0 mg/dL [facility] Interpretation and review of laboratory results Abnormal [facility] No Panel InformationOrdered By: Radiologist Radiology on 11-22-2024 [facility] Work Phone: No Panel Informationon 11-22 Radiology Study observation (narrative) [facility] [place] [address] Ultrasound Report Signed Patient: MERLE CYR MR#: [id number] : 1990 Acct:[id number] Age/Sex: 34 / F ADM Date: 11/22/24 Loc: US Attending Dr: Jhon Gibson D.O. Ordering Physician: Jhon Gibson D.O. Date of Service: 11/22/24 Procedure(s): US OB cervical length Accession Number(s): [id number] cc: Jhon Gibson D.O.; Иван Murphy M.D. [place] [id number] Patient Name: MERLE CYR MRN: [id number] date: 1990 Sex: F Assigned Patient Location: US Current Patient Location: US Accession/Order Number: [id number] Exam Date: 11/22/2024 14:25 Report Date: 11/22/2024 [...] Quinones M.D. 11/22/2024 2:27 PM Dictation Location: [employer] Electronically authenticated by: [id number] Y Date: 11/22/2024 14:27 Dictated By: Nir Quinones D.O. Signed By: 11/22/24 1430 DD/ 1427 TD/TT: Wheel Polisher: [facility] Radiology, Radiologist, MD - 11/22/2024 [place] [address] Ultrasound Report Signed Patient: MERLE CYR MR#: [id number] : 1990 Acct:[id number] Age/Sex: 34 / F ADM Date: 11/22/24 Loc: US Attending Dr: Jhon Gibson D.O. Ordering Physician: Jhon Gibson D.O. Date of Service: 11/22/24 Procedure(s): US OB cervical length Accession Number(s): [id number] cc: Jhon Gibson D.O.; Иван Murphy M.D. The [place] [address] Patient Name: MERLE CYR MRN: [facility]:[id number] date: 1990 Sex: F Assigned Patient Location: Current Patient Location: Accession/Order Number: [id number] Exam Date: 11/22/2024 14:25 Report Date: 11/22/2024 [...] Quinones M.D. 11/22/2024 2:27 PM Dictation Location: [place] Electronically authenticated by: [id number] Y Date: 11/22/2024 14:27 Dictated By: Nir Quinones D.O. Signed By: 11/22/24 1430 DD/ 26 TD/TT: Wheel Polisher: LILLY Wasserman US OB INCOMPLETE ANATOMYon 0 11-22-2024 [place] [address] Ultrasound Report Signed Patient: MERLE CYR MR#: [id number] : 1990 Acct:[id number] Age/Sex: 34 / F ADM Date: 11/22/24 Loc: US Attending Dr: Jhon Gbison D.O. Ordering Physician: Jhon Gibson D.O. Date of Service: 11/22/24 Procedure(s): US OB incomplete anatomy Accession Number(s): [id number] cc: Jhon Gibson D.O.; Иван Murphy M.D. [place] [address] Patient Name: MERLE CYR MRN: [id number] date: 1990 Sex: F Assigned Patient Location: US Current Patient Location: US Accession/Order Number: [id number] Exam Date: 11/22/2024 14:25 Report Date: 11/22/2024 [...] Quinones M.D. 11/22/2024 2:27 PM Dictation Location: [place] Electronically authenticated by: [id number] Y Date: 11/22/2024 14:27 Dictated By: Nir Quinones D.O. Signed By: 11/22/24 1430 DD/ 1427 TD/TT: Wheel Polisher: [facility] Radiology, Radiologist, - 11/22/2024 [place] [address] Ultrasound Report Signed Patient: MERLE CYR MR#: [id number] : 1990 Acct:[id number] Age/Sex: 34 / F ADM Date: 11/22/24 Loc: US Attending Dr: Jhon Gibson D.O. Ordering Physician: Jhon Gibson D.O. Date of Service: 11/22/24 Procedure(s): US OB incomplete anatomy Accession Number(s): [id number] cc: Jhon Gibson D.O.; Иван Murphy M.D. The [place] [address] Patient Name: MERLE CYR MRN: [facility]:[id number] date: 1990 Sex: F Assigned Patient Location: US Current Patient Location: US Accession/Order Number: [id number] Exam Date: 11/22/2024 14:25 Report Date: 11/22/2024 [...] Quinones M.D. 11/22/2024 2:27 PM Dictation Location: [place] [address] Electronically authenticated by: [id number] Y Date: 11/22/2024 14:27 Dictated By: Nir Quinones D.O. Signed By: 11/22/24 1430 DD/ 1427 TD/TT: Wheel Polisher: [facility] Ana Panel InformationOrdered By: Radiologist Radiology on 11-10-2024 [facility] Work Phone: No Panel Informationon 11-10 Radiology Study observation (narrative) [facility] US OB ANATOMYon 11-10-2024 [place] [address] Ultrasound Report Signed Patient: MERLE CYR MR#: [id number] : 1990 Acct:[id number] Age/Sex: 34 / F ADM Date: 11/08/24 Loc: US Attending Dr: Jhon Gibson D.O. Ordering Physician: Jhon Gibson D.O. Date of Service: 11/08/24 Procedure(s): US OB anatomy Accession Number(s): [id number] cc: Jhon Gibson D.O.; Иван Murphy M.D. [place] [address] Patient Name: MERLE CYR MRN: [id number] date: 1990 Sex: F Assigned Patient Location: US Current Patient Location: Accession/Order Number: [id number] Exam Date: 11/10/2024 07:47 Report Date: 11/10/2024 [...] normal limits for appearance and position. The diving judge had difficulty visualizing the spine and 4 [...] Carmona M.D. 11/10/2024 7:56 AM Dictation Location: [place] [address] Electronically authenticated by: [id number] Y Date: 11/10/2024 07:56 Dictated By: Lizbet Carmona M.D. Signed By: 11/10/24 0759 DD/ 0756 TD/TT: Wheel Polisher: [facility] Radiology, Radiologist, MD - 11/10/2024 [place] [address] Ultrasound Report Signed Patient: MERLE CYR MR#: [id number] : 1990 Acct:[id number] Age/Sex: 34 / F ADM Date: 11/08/24 Loc: US Attending Dr: Jhon Gibson D.O. Ordering Physician: Jhon Gibson D.O. Date of Service: 11/08/24 Procedure(s): US OB anatomy Accession Number(s): [id number] cc: Jhon Gibson D.O.; Иван Murphy M.D. The [address] [address] Patient Name: MERLE CYR MRN: [facility]:[id number] date: 1990 Sex: F Assigned Patient Location: US Current Patient Location: Accession/Order Number: [id number] Exam Date: 11/10/2024 07:47 Report Date: 11/10/2024 [...] normal limits for appearance and position. The diving judge had difficulty visualizing the spine and 4 [...] Carmona M.D. 11/10/2024 7:56 AM Dictation Location: [place] [address] Electronically authenticated by: [id number] Y Date: 11/10/2024 07:56 Dictated By: Lizbet Carmona M.D. Signed By: 11/10/24 0759 DD/ 0756 TD/TT: Wheel Polisher: LILLY [facility] OB CERVICAL LENGTHon 10-20 [place] [address] Ultrasound Report Signed Patient: MERLE CYR MR#: [id number] : 1990 Acct:[id number] Age/Sex: 34 / F ADM Date: 11/08/24 Loc: US Attending Dr: Jhon Gibson D.O. Ordering Physician: Jhon Gibson D.O. Date of Service: 11/08/24 Procedure(s): US OB cervical length Accession Number(s): [id number] cc: Jhon Gibson D.O.; Иван Mruphy M.D. [place] [id number] Patient Name: MERLE CYR MRN: [facility]:[id number] date: 1990 Sex: F Assigned Patient Location: US Current Patient Location: Accession/Order Number: [id number] Exam Date: 11/10/2024 07:47 Report Date: 11/10/2024 [...] normal limits for appearance and position. The diving judge had difficulty visualizing the spine and 4 [...] Carmona M.D. 11/10/2024 7:56 AM Dictation Location: [place] [address] Electronically authenticated by: [id number] Y Date: 11/10/2024 07:56 Dictated By: Lizbet Carmona M.D. Signed By: 11/10/24 0759 DD/ 0756 TD/TT: Wheel Polisher: [facility] Radiology, Radiologist, MD - 11/10/2024 [place] [address] Ultrasound Report Signed Patient: MERLE CYR MR#: [id number] : 1990 Acct:[id number] Age/Sex: 34 / F ADM Date: 11/08/24 Loc: US Attending Dr: Jhon Gibson D.O. Ordering Physician: Jhon Gibson D.O. Date of Service: 11/08/24 Procedure(s): US OB cervical length Accession Number(s): [id number] cc: Jhon Gibson D.O.; Иван Murphy M.D. The [place] [address] Patient Name: MERLE CYR MRN: [facility]:[id number] date: 1990 Sex: F Assigned Patient Location: US Current Patient Location: Accession/Order Number: [id number] Exam Date: 11/10/2024 07:47 Report Date: 11/10/2024 [...] normal limits for appearance and position. The diving judge had difficulty visualizing the spine and 4 [...] Carmona M.D. 11/10/2024 7:56 AM Dictation Location: [place] [address] Electronically authenticated by: [id number] Y Date: 11/10/2024 07:56 Dictated By: Lizbet Carmona M.D. Signed By: 11/10/24 0759 DD/ 0756 TD/TT: Wheel Polisher: [facility] AFP, SERUM, OPEN SPINA BIFID Aon 11-04-2024 AFP MOM 0.77 . [facility] AFP VALUE 52.2 ng/mL . [facility] COMMENT: Comment . [facility] Comment on above: Romelia Villarreal , Ph.D., [facility] Director References: Available Upon Request. Multiples Of Median Cutoffs For AFP Elevations Feliz 2.5 Black 2.8 IDD 2.0 Twins 4.5 Abbreviation Definitions IDD - Insulin Dep Diabetes OSBR - Open Spina Bifida Risk For further inquiries contact [facility] at [phone]. This test was developed and its performance characteristics determined by [facility]. It has not been cleared or approved by the Food and Drug Administration. Performed at: [facility] [address] [facility], [place], [place] [id number] Blueprint Clerk: Andres Faust [facility], Phone: [phone] GEST. AGE ON COLLECTION DATE 22.9 . weeks [facility] GESTAT. AGE BASED ON Ultrasound . [facility] Comment on above: 20.6 on 10/16/2024 Recalculations are not recommended when gestational dating by LMP and ultrasound are within 10 days. INSULIN DEP DIABETES No . [facility] INTERPRETATION Comment . [facility] Comment on above: Interpretation: Scre en [...] Customer Services to discuss available options. The [employer] recommends amniocentesis be offered to women age 35 and older. [age] [facility] MULTIPLE GESTATION No . [facility] OSBR RISK [address] [place] [address] . [facility] RACE . [facility] RESULTS Report . [facility] TEST RESULTS: Negative . [facility] WEIGHT 211 . lbs [facility] N N ULTRASOUND [id number] 4 20 N 1 Y 211 N N N N N White/ [facility] RECURRENT VAGINITIS (HTRX)on 10-17-2024 ATOPOBIUM VAGINAE 0 [facility] ATOPOBIUM VAGINAE Not detected [facility] BVAB 2,3 (BACTERIAL VAGINOSIS ASSOCIATED BACTERIA 2, 3); MOBILUNCUS SPP 0 [facility] BVAB 2,3 (BACTERIAL VAGINOSIS ASSOCIATED BACTERIA 2, 3); MOBILUNCUS SPP Not detected [facility] AQUILINO ALBICANS, PARAPSILOSIS, TROPICALIS 0 [facility] AQUILINO ALBICANS, PARAPSILOSIS, TROPICALIS Not detected [facility] AQUILINO GLABRATA 0 [facility] AQUILINO GLABRATA Not detected [facility] AQUILINO KRUSEI 0 [facility] AQUILINO KRUSEI Not detected [facility] CHLAMYDIA TRACHOMATIS 0 [facility] CHLAMYDIA TRACHOMATIS Not detected N [facility] GARDNERELLA VAGINALIS 0 [facility] GARDNERELLA VAGINALIS Not detected N [facility] MEGASPHAERA (TYPES 1, 2) 0 [facility] MEGASPHAERA (TYPES 1, 2) Not detected [facility] MYCOPLASMA GENITALIUM 0 [facility] MYCOPLASMA GENITALIUM Not detected N [facility] NEISSERIA GONORRHOEAE 0 [facility] NEISSERIA GONORRHOEAE Not detected N [facility] TRICHOMONAS VAGINALIS 0 [facility] TRICHOMONAS VAGINALIS Not detected N [facility] Urinalysis macro (dipstick) panel (U)on 10-16-2024 Bilirubin, UA Negative Negative - 4(70) +++ mg/dL [facility] Blood, UA Negative Negative - 50 Farzad/mcL [facility] Clarity, UA Clear [facility] Color, UA Yellow [facility] Glucose, UA Negative Negative - 2000(110) ++++ mg/dL [facility] Interpretation and review of laboratory results Abnormal [facility] Ketones, UA Negative Negative - 160(16) ++++ mg/dL [facility] Leukocytes, UA Trace Negative - 500+++ Donnell/mcL [facility] Nitrite, UA Negative Negative - Positive [facility] pH, UA 7 5 - 9 [facility] Protein, UA Negative Negative - 2000(20) ++++ mg/dL [facility] Spec Grav, UA 1.015 1 - 1.03 [facility] Urobilinogen, UA 0.2 0.2 - 12 mg/dL [facility] US OB FOLLOW UP TRANSABDOMIN AL [...] II, MD, PHD at 16-Sep-2024 07:13:40 PM [facility] Normal Not Available Comment on above: Order Comment: Estim ated Date of Delivery: 03/01/25 Gestational Age as of 09/15/2024: 16w1d Urinalysis macro (dipstick) panel (U)Ordered By: Steph Brooks on 09-15-2024 Bilirubin, UA Negative Negative - 4(70) +++ mg/dL [facility] Work Phone: Blood, UA Negative Negative - 50 Farzad/mcL [facility] Work Phone: Clarity, UA Clear [facility] [employer] Work Phone: Color, UA Yellow [facility] [employer] Work Phone: Glucose, UA Negative Negative - 1999(110) ++++ mg/dL [facility] [employer] Work Phone: Interpretation and review of laboratory results Normal [facility] Work Phone: Ketones, UA Negative Negative - 160(16) ++++ mg/dL [facility] Work Phone: Leukocytes, UA Negative Negative - 500+++ Donnell/mcL [facility] [employer] Work Phone: Nitrite, UA Negative Negative - Positive [facility] [employer] Work Phone: pH, UA 7 5 - 9 [facility] [employer] Work Phone: Protein, UA Negative Negative - 1999(20) ++++ mg/dL [facility] [employer] Work Phone: Spec Grav, UA 1.02 1 - 1.03 [facility] [employer] Work Phone: Urobilinogen, UA 0.2 0.2 - 12 mg/dL [facility] [employer] Work Phone: [facility] [employer] Work Phone: MLR HEMOGLOBIN A1Con 09-01- 025 Glucose [Mass/Vol] 103 mg/dL [facility] HbA1c (Bld) [Mass fraction] 5.2 % 4.5 - 6.2 % [facility] Comment on above: ADA RECOMMENDED LIMI T 4.0 - 6.0 ADA THERAPEUTIC TARGET < 7.0 ACTION SUGGESTED > 7.0 [facility] HCG ( test) Ql (U)o n 08-15-2024 Interpretation and review of laboratory results Abnormal [facility] Preg Test, Ur Positive Negative [facility] US OB TRANSVAGINALon 025 US OB [...] Doppler evaluation of the bilateral ovaries. Electronically Signed:Jhon y signed by WILLIS FITZPATRICK II, MD, PHD at 18-Aug-2024 10:45:55 AM [facility] Normal Not Available Comment on above: Order Comment: US OB TRANSVAGINAL No LMP recorded. Urinalysis macro (dipstick) panel (U)on 03-28-2025 Bilirubin, UA Negative Negative - 4(70) +++ mg/dL [facility] Blood, UA Negative Negative - 50 Farzad/mcL [facility] Clarity, UA Clear [facility] Color, UA Yellow [facility] Glucose, UA Negative Negative - 1999(110) ++++ mg/dL [facility] Interpretation and review of laboratory results Normal [facility] Ketones, UA Negative Negative - 160(16) ++++ mg/dL [facility] Leukocytes, UA Negative Negative - 500+++ Donnell/mcL [facility] Nitrite, UA Negative Negative - Positive [facility] pH, UA 6 5 - 9 [facility] Protein, UA Negative Negative - 1999(20) ++++ mg/dL [facility] Spec Grav, UA 1.02 1 - 1.03 [facility] Urobilinogen, UA 0.2 0.2 - 12 mg/dL [facility] PREG QUANT HCGon 025 HCG QUANTITATIVE 17638 mIU/mL [facility] Comment on above: 5-50 0.2-1 WEEK 50-500 1-2 WEEKS 100-5,000 2-3 WEEKS 500-10,000 3-4 WEEKS 1,000-50,000 4-5 WEEKS 10,000-100,000 5-6 WEEKS 15,000-200,000 6-8 WEEKS 10,000-100,000 2-3 MONTHS [facility] PREG QUANT HCGon 025 HCG QUANTITATIVE 27169 mIU/mL [facility] Comment on above: 5-50 0.2-1 WEEK 50-500 1-2 WEEKS 100-5,000 2-3 WEEKS 500-10,000 3-4 WEEKS 1,000-50,000 4-5 WEEKS 10,000-100,000 5-6 WEEKS 15,000-200,000 6-8 WEEKS 10,000-100,000 2-[facility]A HPV,AGE GDLNon AGE GDLN ACOG TESTING Note . [facility] Comment on above: TESTS RESULT FLAG UN ITS REF RANGE LAB Clinician Provided Cytology Information Source.............Cervix;Endocervix No. of containers..01 ThinPrep Vial Age Andres TORREZ Tatianna... FLAG LEGEND: L-Low Normal,H-High Normal,LL-Alert Low,HH-Alert High <-Panic Low,>-Panic High,A-Abnormal,AA-Critical Abnormal Performed at: 01 =[address] [address] Betty Rodriguez MD, HPV APTIMA Negative Negative [facility] Comment on above: This nucleic acid am plification test detects fourteen high- risk HPV types (16,18,31,33,35,39,45,51,52,56,58,59,66,68) without differentiation. Performed at: =[address] [id number] Blueprint Clerk: Betty Rodriguez MD, Phone: [phone] Performed at: [address] [id number] Blueprint Clerk: Betty Rodriguez MD, Phone: [phone] IGP, APTIMA HPV, RFX 16/18,45 Note . [facility] Comment on above: TESTS RESULT FLAG UN ITS REF RANGE LAB DIAGNOSIS: 02 NEGATIVE FOR INTRAEPITHELIAL LESION OR MALIGNANCY. Specimen adequacy: 02 Satisfactory for evaluation. No endocervical component is identified. Performed by: 02 Rhiannon Garcia Job Compositor . 02 Note: Note 02 The Pap smear is a screening test designed to aid in the detection of premalignant and malignant conditions of the uterine cervix. It is not a diagnostic procedure and should not be used as the sole means of detecting cervical cancer. Both false-positive and false-negative reports do occur. Test Methodology: Note 02 The [employer] Prep(R) Senior Accounting Manager was unable to read this specimen. Therefore a manual review was performed. FLAG LEGEND: L-Low Normal,H-High Normal,LL-Alert Low,HH-Alert High <-Panic Low,>-Panic High,A-Abnormal,AA-Critical Abnormal Performed at: [address] [address] Betty Rodriguez MD, HPV Genotype Reflex Note 02 Criteria not met, HPV Genotype not performed. Criteria not met, HPV Genotype not performed. BRUSH-SPATULA CERVIX ENDOCERVIX [facility] VAGINITIS (HTRX)on 4 BVAB 2,3 (BACTERIAL VAGINOSIS ASSOCIATED BACTERIA 2, 3); MOBILUNCUS SPP 0 [facility] BVAB 2,3 (BACTERIAL VAGINOSIS ASSOCIATED BACTERIA 2, 3); MOBILUNCUS SPP [facility]ATIS 0 [facility] CHLAMYDIA TRACHOMATIS Not detected N [facility] GARDNERELLA VAGINALIS 0 [facility] GARDNERELLA VAGINALIS Not detected N [facility] NEISSERIA GONORRHOEAE 0 [facility] NEISSERIA GONORRHOEAE Not detected [facility] TRICHOMONAS VAGINALIS 0 [facility] TRICHOMONAS VAGINALIS Not detected [facility] Urinalysis macro (dipstick) panel (U)on 07-03-2023 Bilirubin, UA Negative Negative - 4(70) +++ mg/dL [facility] Blood, UA Negative Negative - 50 Farzad/mcL [facility] Clarity, UA Clear [facility] Color, UA Yellow [facility] Glucose, UA Negative Negative - 1999(110) ++++ mg/dL [facility] Interpretation and review of laboratory results Normal [facility] Ketones, UA Negative Negative - 160(16) ++++ mg/dL [facility] Leukocytes, UA Negative Negative - 500+++ Donnell/mcL [facility] Nitrite, UA Negative Negative - Positive [facility] pH, UA 6.0 5 - 9 [facility] Protein, UA Negative Negative - 1999(20) ++++ mg/dL [facility] Spec Grav, UA 1.020 1 - 1.03 [facility] Urobilinogen, UA 0.2 0.2 - 12 mg/dL [facility] Cervical or vaginal smear or scraping studyon 12-05-2022 [facility] Covid-19 PCR ([facility])on 04-20 SARS-CoV-2 (COVID-19) RNA JOSEFINA+probe Ql (Unsp spec) Not detected Normal NOT DETECTED The Comment on above: Result Comment: This test is not yet approved or cleared by the [place] FDA. When there are no FDA-approved or cleared tests available, and other criteria are met, FDA can make tests available under an emergency access mechanism called an Emergency Use Authorization (EUA). The EUA for this test is supported by the [employer] of Health and Human Service's (HHS's) declaration [...] consistent with SARS-CoV-2. Performed By: #### C VDTB #### Laboratory [address] [address] [address] Sebastián Santo Vital Signs Date Time Vital Sign Value Performing Clinician Ubaldo antoine 02-03-2025 09:38-0400 Body weight 94.12 kg Isa LOERA Work Phone: [facility] 02-03-2025 09:38-0400 Diastolic blood pressure 82 mm[Hg] Isa LOERA Work Phone: [facility] 02-03-2025 09:38-0400 Systolic blood pressure 120 mm[Hg] Isa LOERA Work Phone: [facility] 01-20-2025 09:59-0400 Body weight 93.89 kg Jhon Paige DO Work Phone: [facility] 01-20-2025 09:59-0400 Diastolic blood pressure 64 mm[Hg] Jhon Paige DO Work Phone: [facility] 01-20-2025 09:59-0400 Systolic blood pressure 102 mm[Hg] Jhon Paige DO Work Phone: [facility] 01-06-2025 10:50-0400 Body weight 93.44 kg Jhon Paige DO Work Phone: [facility] 01-06-2025 10:50-0400 Diastolic blood pressure 60 mm[Hg] Jhon Paige DO Work Phone: [facility] 01-06-2025 10:50-0400 Systolic blood pressure 100 mm[Hg] Jhon Paige DO Work Phone: [facility] 12-23-2024 11:54-0400 Body weight 94.71 kg Jhon Paige DO Work Phone: [facility] 12-23-2024 11:54-0400 Diastolic blood pressure 70 mm[Hg] Jhon Paige DO Work Phone: [facility] 12-23-2024 11:54-0400 Systolic blood pressure 110 mm[Hg] Jhon Paige DO Work Phone: [facility] 12-08-2024 09:29-0400 Body weight 94.98 kg Isa LOERA Work Phone: [facility] 12-08-2024 09:29-0400 Diastolic blood pressure 70 mm[Hg] Isa LOERA Work Phone: [facility] 12-08-2024 09:29-0400 Systolic blood pressure 104 mm[Hg] Isa LOERA Work Phone: [facility] 11-17-2024 10:13-0400 Body weight 95.25 kg Jhon Paige DO Work Phone: [facility] 11-17-2024 10:13-0400 Diastolic blood pressure 72 mm[Hg] Jhon Paige DO Work Phone: [facility] 11-17-2024 10:13-0400 Systolic blood pressure 102 mm[Hg] Jhon Paige DO Work Phone: [facility] 10-16-2024 10:34-0400 Body weight 95.94 kg Jhon Paige DO Work Phone: [facility] 10-16-2024 10:34-0400 Diastolic blood pressure 66 mm[Hg] Jhon Paige DO Work Phone: [facility] 10-16-2024 10:34-0400 Systolic blood pressure 100 mm[Hg] Jhon Paige DO Work Phone: [facility] 09-15-2024 11:39-0400 Body weight 94.4 kg Jhon Paige DO Work Phone: [facility] 09-15-2024 11:39-0400 Diastolic blood pressure 60 mm[Hg] Jhon Paige DO Work Phone: [facility] 09-15-2024 11:39-0400 Systolic blood pressure 100 mm[Hg] Jhon Paige DO Work Phone: [facility] 08-15-2024 10:30-0400 Body weight 92.53 kg [facility] 08-15-2024 10:30-0400 Diastolic blood pressure 72 mm[Hg] [facility] 08-15-2024 10:30-0400 Systolic blood pressure 118 mm[Hg] [facility] 01-17-2024 10:37-0400 Body weight 86.82 kg Isa LOERA Work Phone: [facility] 01-17-2024 10:37-0400 Diastolic blood pressure 74 mm[Hg] Isa LOERA Work Phone: [facility] 01-17-2024 10:37-0400 Systolic blood pressure 118 mm[Hg] Isa LOERA Work Phone: [facility] 07-03-2023 10:39-0500 Body weight 92.08 kg Jhon Paige DO Work Phone: [facility] 07-03-2023 10:39-0500 Diastolic blood pressure 62 mm[Hg] Jhon Paige DO Work Phone: [facility] 07-03-2023 10:39-0500 Systolic blood pressure 110 mm[Hg] Jhon Paige DO Work Phone: [facility] Encounters Encounter Date Encounter Type Care Provider Facility Start: 02-03-2025 End: 02-03-2025 Bamboo flowsheet Isa LOERA Work Phone: [facility] Start: 02-03-2025 End: 02-03-2025 Bamboo flowsheet Isa LOERA Work Phone: [facility] Start: 02-03-2025 End: 02-03-2025 Office outpatient visit 15 minutes Isa LOERA Work Phone: [facility] Comment on above: Third trimester preg joselyn ([facility]); 36 weeks gestation of ([facility]) Start: 01-20-2025 End: 01-20-2025 Bamboo flowsheet Jhon Paige DO Work Phone: [facility] Start: 01-20-2025 End: 01-20-2025 Bamboo flowsheet Jhon Paige DO Work Phone: [facility] Start: 01-20-2025 End: 01-20-2025 Office outpatient visit 15 minutes Jhon Paige DO Work Phone: [facility] Comment on above: Third trimester preg joselyn ([facility]); 34 weeks gestation of ([facility]) Start: 01-20-2025 End: 01-20-2025 ambulatory JHON PAIGE Not Available Start: 01-09-2025 End: 01-09-2025 Clinisync Result Encounter Isa LOERA Work Phone: [facility] Unsolicited Start: 01-09-2025 End: 01-09-2025 Clinisync Result Encounter Isa LOERA Work Phone: [facility]solic[facility] Start: 01-06-2025 End: 01-06-2025 Bamboo flowsheet Jhon Paige DO Work Phone: [facility] Start: 01-06-2025 End: 01-06-2025 Bamboo flowsheet Jhon Paige DO Work Phone: [facility] Start: 01-06-2025 End: 01-06-2025 flow sheet Jhon Paige DO Work Phone: [facility] Comment on above: 32 weeks gestation o f ([facility]); Third trimester ([facility]) Start: 01-06-2025 End: 01-06-2025 ambulatory JHON PAIGE Not Available Start: 12-23-2024 End: 12-23-2024 flow sheet Jhon Paige DO Work Phone: [facility] Comment on above: 30 weeks gestation o f ([facility]); Third trimester ([facility]) Start: 12-23-2024 End: 12-23-2024 ambulatory JHON PAIGE Not Available Start: 12-08-2024 End: 12-08-2024 Bamboo flowsheet Isa LOERA Work Phone: [facility] Start: 12-08-2024 End: 12-08-2024 Bamboo flowsheet Isa LOERA Work Phone: [facility] Start: 12-08-2024 End: 12-08-2024 Office outpatient visit 15 minutes Isa LOERA Work Phone: [facility] Comment on above: Size of fetus incons istent with dates in second trimester ([facility]) (Primary Dx); Second trimester ([facility]); 28 weeks gestation of ([facility]); Elevated glucose tolerance test Start: 12-08-2024 End: 12-08-2024 ambulatory ISA CARRERA Not Available Start: 12-05-2024 End: 12-05-2024 Clinisync Result Encounter Jhon Paige DO Work Phone: [facility] External Department Unsolicited Start: 12-05-2024 End: 12-05-2024 [...] Comment on above: Second trimester pre gnancy ([facility]); 25 weeks gestation of ([facility]); Diabetes mellitus screening Start: 11-17-2024 End: 11-17-2024 [...] encounter procedure Isa LOERA Work Phone: [facility] Work Phone: Start: 07-03-2023 External Result Encounter Core y [...] Date Procedure Procedure Detail Performing Clinician Start: 02-03-2025 Urnls dip stick/tabl et rgnt non-auto w/o micrscp Isa LOERA Work Phone: Start: 01-09-2025 GLUCOSE TOLERANCE 3 HOUR Isa LOERA Work Phone: Start: 01-06-2025 Urnls dip stick/tabl et rgnt [...] for malign ant neoplasm of cervix [facility] Start: 12-05-2027 Screening for malign ant neoplasm of cervix [facility] Start: 01-16-2027 Screening for malign ant neoplasm of cervix Pap Smear [facility] Start: 02-10-2025 End: 02-10-2025 Patient encounter procedure 02/10/2025 11:10 AM EDT Routine [facility] [address] [place] [id number] Jhon Gibson, DO [address] [place] [address] [facility] Start: 02-03-2025 End: 02-03-2026 CULTURE, GROUP B STREP WITH SUSCEPTIBLITY CULTURE, GROUP B STREP WITH SUSCEPTIBLITY Lab Routine Third trimester ([facility]) Expected: 02/03/2025, Expires: 02/03/2026 [facility] Work Phone: Comment on above: Expected: 02/03/2025 , Expires: 02/03/2026 Start: 02-03-2025 End: 02-03-2025 Patient encounter procedure [facility] Comment on above: Arrived Start: 01-26-2025 End: 01-26-2025 Patient encounter procedure [facility] Start: 01-21-2025 End: 01-21-2025 Patient encounter procedure 01/21/2025 10:00 AM EDT Office Visit [facility] [address] [phone] Isa Carrera PA [address] [place] [address] [facility] Start: 01-20-2025 End: 01-20-2025 Patient encounter procedure [facility] Comment on above: Arrived Start: 01-19-2025 Influenza vaccination [facility] Start: 01-06-2025 End: 01-06-2025 Patient encounter procedure [facility] Comment on above: Arrived Start: 12-23-2024 End: 12-23-2024 Patient encounter procedure 12/23/2024 11:30 AM EDT Routine [facility] [address] [phone] Jhon Gibson, [address] [place] [address] [facility] Start: 12-23-2024 End: 12-23-2024 Professional / ancillary services management 12/23/2024 11:00 AM EDT Ancillary Procedure [facility] [address] [place] [phone] [facility] Start: 12-08-2024 End: 12-08-2025 Measurement of glucose 3 hours after glucose challenge for glucose tolerance test Glucose tolerance, 3 hours Lab Routine Elevated glucose tolerance test Expected: 12/08/2024 (Approximate), Expires: 12/08/2025 [facility] Comment on above: Expected: 12/08/2024 (Approximate), Expires: 12/08/2025 Start: 12-08-2024 End: 04-10-2025 US for US OB follow up transabdominal approach Imaging Routine Size of fetus inconsistent with dates in second trimester ([facility]) Expected: 12/08/2024, Expires: 04/10/2025 [facility] Work Phone: Comment on above: Expected: 12/08/2024 , Expires: 04/10/2025 Start: 12-08-2024 End: 12-08-2024 Patient encounter procedure [facility] Comment on above: Arrived Start: 11-17-2024 [...] for anatomic survey Expected: 10/16/2024, Expires: 01/16/2025 [facility] Healthcare Comment on above: Expected: 10/16/2024 , Expires: 01/16/2025 Start: 10-16-2024 End: 10-16-2024 Patient encounter procedure [facility] Comment on above: Arrived Start: 09-15-2024 End: 01-15-2025 US for [facility] Work Phone: Comment on above: Expected: 09/15/2024 , Expires: 01/15/2025 Start: 09-15-2024 End: 09-15-2024 Patient encounter procedure 09/15/2024 11:30 AM EDT Routine [facility] [address] [place] [address] Jhon Gibson, DO [address] [place] [address] [facility] Start: 09-15-2024 End: 09-15-2024 Professional / ancillary services management 09/15/2024 11:00 AM EDT Ancillary Procedure [facility] [address] [facility] [place] [phone] [facility] Start: 09-15-2024 End: 09-15-2024 Patient encounter procedure 09/15/2024 10:10 AM EDT Routine [facility] [address] [place] [phone] Jhon Gibson, DO [address] [place] [address] [facility] Start: 08-15-2024 End: 08-15-2025 [...] AM EDT Initial [facility] [address] [place] [phone] [facility] Start: 08-15-2024 End: 08-15-2024 Professional / ancillary services management 08/15/2024 9:30 AM EDT Ancillary Procedure [facility] [address] [place] [phone] [facility] Start: 01-20-2024 Influenza vaccination Influenza Vacc ine (#1) [facility] Start: 01-17-2024 End: 01-16-2025 CBC panel - Blood by Automated count CBC Lab Routine Dizziness Vision blurred Expected: 01/17/2024 (Approximate), Expires: 01/16/2025 [facility] Healthcare Comment on above: Expected: 01/17/2024 (Approximate), Expires: 01/16/2025 Start: 01-17-2024 End: 01-16-2025 Thyrotropin [Units/volume] in Serum or Plasma TSH Lab Routine Dizziness Vision blurred Expected: 01/17/2024 (Approximate), Expires: 01/16/2025 [facility] Comment on above: Expected: 01/17/2024 (Approximate), Expires: 01/16/2025 Start: 01-17-2024 End: 01-17-2024 Patient encounter procedure 01/17/2024 10:00 AM EDT Office Visit [facility] [address] [place] [phone] Isa Carrera PA [address] [place], [place] [id number] Arrived [facility] Comment on above: Arrived Start: 07-24-2023 End: 07-24-2023 Patient encounter procedure 07/24/2023 10:00 AM EST Routine [facility] [address] [place] [address] Isa Carrera PA [address] [place] [address] [facility] Start: 07-03-2023 End: 07-03-2024 CBC panel - Blood by Automated count CBC Lab Routine Diabetes mellitus screening Expected: 07/03/2023 (Approximate), Expires: 07/03/2024 [facility] Comment on above: Expected: 07/03/2023 (Approximate), Expires: 07/03/2024 Start: 07-03-2023 End: 07-03-2024 Measurement of glucose 1 hour after glucose challenge for glucose tolerance test Glucose tolerance, 1 hour Lab Routine Diabetes mellitus screening Expected: 07/03/2023 (Approximate), Expires: 07/03/2024 [facility] Comment on above: Expected: 07/03/2023 (Approximate), Expires: 07/03/2024 Start: 01-19-2023 Influenza vaccination Influenza Vacc ine (#1) [facility] Bacteria identified in Urine by Culture Urine culture Microbiology Routine Missed menses Ordered: 08/15/2024 [facility] Comment on above: Ordered: 08/15/2024 CBC W Auto Different ial panel - Blood CBC and differential Lab Routine Missed menses , unspecified gestational age Ordered: 08/15/2024 [facility] Comment on above: Ordered: 08/15/2024 CHLAMYDIA TRACHOMATI S (GENITO/STI) CHLAMYDIA TRACHOMATIS (GENITO/STI) Lab Routine Screen for STD (sexually transmitted disease) Ordered: 07/03/2023 [facility] Comment on above: Ordered: 07/03/2023 CHLAMYDIA TRACHOMATI S (GENITO/STI) CHLAMYDIA TRACHOMATIS (GENITO/STI) Lab Routine STD exposure Ordered: 10/16/2024 [facility] Comment on above: Ordered: 10/16/2024 Cytology Cervical or vaginal smear or scraping study Pap Smear Pathology and Cytology Routine Well woman exam with routine gynecological exam Ordered: 01/17/2024 [facility] Work Phone: Comment on above: Ordered: 01/17/2024 Hemoglobin A1c/Hemoglobin.total in Blood Hemoglobin A1c Lab Routine Missed menses , unspecified gestational age Ordered: 08/15/2024 [facility] Comment on above: Ordered: 08/15/2024 Hepatitis B virus surface Ag [Presence] in Serum or Plasma by Immunoassay Hepatitis B surface antigen Lab Routine Missed menses , unspecified gestational age Ordered: 08/15/2024 [facility] Comment on above: Ordered: 08/15/2024 Hepatitis C virus Ab [Presence] in Serum or Plasma by Immunoassay Hepatitis C antibody Lab Routine Missed menses , unspecified gestational age Ordered: 08/15/2024 [facility] Comment on above: Ordered: 08/15/2024 HIV-1/HIV-2 antigen/antibody combination immunoassay HIV-1 and HIV-2 antibodies Lab Routine Missed menses , unspecified gestational age Ordered: 08/15/2024 [facility] Comment on above: Ordered: 08/15/2024 Human papilloma viru s DNA [Presence] in Unspecified specimen by Probe with amplification HPV DNA probe, amplified Microbiology Routine Well woman exam with routine gynecological exam Ordered: 01/17/2024 [facility] Comment on above: Ordered: 01/17/2024 Neisseria gonorrhoea e DNA [Presence] in Unspecified specimen by JOSEFINA with probe detection Neisseria gonorrhea DNA probe, direct Lab Routine Screen for STD (sexually transmitted disease) Ordered: 07/03/2023 [facility] Comment on above: Ordered: 07/03/2023 Neisseria gonorrhoea e DNA [Presence] in Unspecified specimen by JOSEFINA with probe detection Neisseria gonorrhea DNA probe, direct Lab Routine STD exposure Ordered: 10/16/2024 [facility] Comment on above: Ordered: 10/16/2024 Reagin Ab [Presence] in Serum by RPR RPR Lab Routine Missed menses , unspecified gestational age Ordered: 08/15/2024 [facility] Comment on above: Ordered: 08/15/2024 Rubella antibody, IgG Rubella an tibody, IgG Lab Routine Missed menses , unspecified gestational age Ordered: 08/15/2024 [facility] Comment on above: Ordered: 08/15/2024 SURESWAB(R) ADVANCED VAGINITIS PLUS, TMA SURESWAB(R) ADVANCED VAGINITIS PLUS, TMA Pathology and Cytology Routine Screen for STD (sexually transmitted disease) Ordered: 07/03/2023 [facility] Work Phone: Comment on above: Ordered: 07/03/2023 SURESWAB(R) ADVANCED VAGINITIS PLUS, TMA SURESWAB(R) ADVANCED VAGINITIS PLUS, TMA Pathology and Cytology Routine STD exposure Ordered: 10/16/2024 [facility] Work Phone: Comment on above: Ordered: 10/16/2024 Payers Date Payer Category Payer Medicaid [employer] [facility] [id number] 2022-Present [address] [place] [id number] 2022 Medicaid (Managed Care) [facility] [id number] 1990 Unknown [id number]. 593 1990 Unknown [id number] [id number]. 1258 1990 Unknown [id number] [id number]. 1258 1990 Unknown [id number] [id number]. 1258 1990 Unknown [id number] [id number]. 9 1990 Unknown [id number] 2.16.840.1.998763.3.579.2. 9 1990 Unknown [id number] [id number]. 1258 1990 Unknown [id number] [id number]. 9 1990 Unknown [id number] 2.16.840.1.045868.3.579.2. 1258 1990 Unknown [id number] 2.16.840.1.867485.3.579.2. 1258 1990 Unknown [id number] 2.16.840.1.885003.3.579.2. 1258 1990 Unknown [id number] [id number]. 1259 1959 Private Health Insurance [id number] 1959 Unknown [id number] Social History Date Type Detail Facility Tobacco smoking stat [facility] Tobacco smoking consumption unknown [facility] Start: 01-23-2023 [facility] Start: 1990 Sex Assigned At Female [facility] Start: 05-01-2023 Gender identity Identifies as female gender (finding) [facility] Start: 05-01-2023 Sexual orientation Heterosexual (finding) [facility] Start: 12-03-2024 History of Social function [facility] Work Phone: Start: 12-03-2024 Patient Health Questionnaire 2 item (PHQ-2) [Reported] PHQ-2 Answer Date Recorded Patient Health Questionnaire-2 Score 0 12/03/2024 [facility] Work Phone: Clinical Notes 07-03-2023 to 02-03-2025 EVARISTO Jessica - 02/03/2025 9:20 AM Mikey Pfeiffer LPN - 01/20/2025 9:30 AM Mikey Pfeiffer LPN - 01/06/2025 10:30 AM Mikey Pfeiffer LPN - 12/23/2024 11:30 AM EDT Note Date & Type Note Facility 02-03-2025 History of Presen t illness Narrative Reason for Appointment: Patient ID: Merle Cyr is a 34 y.o. female who presents for Routine Visit Patient presents today for Return OB appointment. MEDICATIONS Current Outpatient Medications Medication Instructions diphenhydrAMINE (BENADRYL) 25 mg, Nightly PRN nystatin (Mycostatin) 820685 UNIT/GM powder Topical, 3 times daily ALLERGIES Allergies Allergen Reactions Banana Swelling PROBLEMS Active Ambulatory Problems Diagnosis Date Noted Post-term , 40-42 weeks of gestation ([facility]) 10/16/2023 40 weeks gestation of ([facility]) 10/16/2023 Resolved Ambulatory Problems Diagnosis Date Noted [...] weight on file to calculate BMI. BP: 120/82 No LMP recorded. Patient is . ASSESSMENT & PLAN ICD-10-CM 1. Third trimester ([facility]) Z34.93 POCT urinalysis dipstick manually resulted CULTURE, GROUP B STREP WITH SUSCEPTIBLITY CULTURE, GROUP B STREP WITH SUSCEPTIBLITY 2. 36 weeks gestation of ([facility]) Z3A.36 Patient is doing well but has complaints of being tired and having maternal discomfort due to . Patient verbalized frequent movement and was instructed to perform kick counts three times per day. labor precautions were given, LARC consent was signed/declined, and GBS was obtained. Orders Placed This Encounter Procedures CULTURE, GROUP B STREP WITH SUSCEPTIBLITY POCT urinalysis dipstick manually resulted Follow Up: Patient is to return to office in 1 week for routine OB appointment Documented by EVARISTO Jessica on behalf of: EVARISTO Jessica documented in this encounter [facility] 01-20-2025 History of Presen t illness Narrative Reason for Appointment: Patient ID: Merle Cyr is a 34 y.o. female who presents for Routine Visit Patient presents today for Return OB appointment. MEDICATIONS Current Outpatient Medications Medication Instructions diphenhydrAMINE (BENADRYL) 25 mg, Nightly PRN nystatin (Mycostatin) 724757 UNIT/GM powder Topical, 3 times daily ALLERGIES Allergies Allergen Reactions Banana Swelling PROBLEMS Active Ambulatory Problems Diagnosis Date Noted Post-term , 40-42 weeks of gestation ([facility]) 10/16/2023 40 weeks gestation of ([facility]) 10/16/2023 Resolved Ambulatory Problems Diagnosis Date Noted [...] nursing note reviewed. Exam conducted with a supervisor drying present. Vitals: There is no height or weight on file to calculate BMI. BP: 102/64 No LMP recorded. Patient is . ASSESSMENT & PLAN ICD-10-CM 1. Third trimester ([facility]) Z34.93 POCT urinalysis dipstick manually resulted 2. 34 weeks gestation of ([facility]) Z3A.34 POCT urinalysis dipstick manually resulted Return OB: Patient presents today for a routine obstetrics appointment. Patient is currently 34w2d . Patient states she is doing well [...] Jhon Gibson DO documented in this encounter [facility] 01-06-2025 History of Presen t illness Narrative Reason for Appointment: Patient ID: Merle Cyr is a 34 y.o. female who presents for Routine Visit Patient presents today for Return OB appointment. MEDICATIONS Current Outpatient Medications Medication Instructions diphenhydrAMINE (BENADRYL) 25 mg, Nightly PRN nystatin (Mycostatin) 533846 UNIT/GM powder Topical, 3 times daily ALLERGIES Allergies Allergen Reactions Banana Swelling PROBLEMS Active Ambulatory Problems Diagnosis Date Noted Post-term , 40-42 weeks of gestation ([facility]) 10/16/2023 40 weeks gestation of ([facility]) 10/16/2023 Resolved Ambulatory Problems Diagnosis Date Noted [...] nursing note reviewed. Exam conducted with a supervisor drying present. Vitals: There is no height or weight on file to calculate BMI. BP: 100/60 No LMP recorded. Patient is . ASSESSMENT & PLAN ICD-10-CM 1. 32 weeks gestation of ([facility]) Z3A.32 POCT urinalysis dipstick manually resulted 2. Third trimester ([facility]) Z34.93 POCT urinalysis dipstick manually resulted Return [...] Jhon Gibson DO documented in this encounter [facility] 12-23-2024 History of Presen t illness Narrative Reason for Appointment: Patient ID: Merle Cyr is a 34 y.o. female who presents for Routine Visit Patient presents today for Return OB appointment. MEDICATIONS Current Outpatient Medications Medication Instructions diphenhydrAMINE (BENADRYL) 25 mg, Nightly PRN nystatin (Mycostatin) 197286 UNIT/GM powder Topical, 3 times daily ALLERGIES Allergies Allergen Reactions Banana Swelling PROBLEMS Active Ambulatory Problems Diagnosis Date Noted Post-term , 40-42 weeks of gestation ([facility]) 10/16/2023 40 weeks gestation of ([facility]) 10/16/2023 Resolved Ambulatory Problems Diagnosis Date Noted [...] nursing note reviewed. Exam conducted with a supervisor drying present. Vitals: There is no height or weight on file to calculate BMI. BP: 110/70 No LMP recorded. Patient is . ASSESSMENT & PLAN ICD-10-CM 1. 30 weeks gestation of ([facility]) Z3A.30 POCT urinalysis dipstick manually resulted 2. Third trimester ([facility]) Z34.93 POCT urinalysis dipstick manually resulted Return [...] Isa Carrera PA-C documented in this encounter [facility] 12-08-2024 History of Presen t illness Narrative Reason for Appointment: Patient ID: Merle Cyr is a 34 y.o. female who presents for Routine Visit Patient presents today for Return OB appointment. MEDICATIONS Current Outpatient Medications Medication Instructions diphenhydrAMINE (BENADRYL) 25 mg, Nightly PRN ALLERGIES Allergies Allergen Reactions Banana Swelling PROBLEMS Active Ambulatory Problems Diagnosis Date Noted Post-term , 40-42 weeks of gestation ([facility]) 10/16/2023 40 weeks gestation of ([facility]) 10/16/2023 Resolved Ambulatory Problems Diagnosis Date Noted [...] fetus inconsistent with dates in second trimester ([facility]) O26.842 US OB follow up transabdominal approach 2. Second trimester ([facility]) Z34.92 Urine dip 3. 28 weeks gestation of ([facility]) Z3A.28 Urine dip Return OB: Patient presents [...] of: EVARISTO Jessica documented in this encounter [facility] 11-17-2024 History of Presen t illness Narrative Reason for Appointment: Patient ID: Merle Cyr is a 34 y.o. female who presents for Routine Visit Patient presents today for Return OB appointment. MEDICATIONS Current Outpatient Medications Medication Instructions diphenhydrAMINE (BENADRYL) 25 mg, Nightly PRN ALLERGIES Allergies Allergen Reactions Banana Swelling PROBLEMS Active Ambulatory Problems Diagnosis Date Noted Post-term , 40-42 weeks of gestation ([facility]) 10/16/2023 40 weeks gestation of ([facility]) 10/16/2023 Resolved Ambulatory Problems Diagnosis Date Noted [...] nursing note reviewed. Exam conducted with a supervisor drying present. Vitals: There is no height or weight on file to calculate BMI. BP: 102/72 No LMP recorded. Patient is . ASSESSMENT & PLAN ICD-10-CM 1. Second trimester ([facility]) Z34.92 2. 25 weeks gestation of ([facility] Z3A.25 3. Diabetes mellitus screening Z13.1 CBC [...] Jhon Gibson DO documented in this encounter [facility] 10-16-2024 History of Presen t illness [...] nursing note reviewed. Exam conducted with a supervisor drying present. Vitals: There is no height or [...] Jhon Gibson DO documented in this encounter [facility] 09-15-2024 History of Presen t illness [...] or undercooked meat, and stay away from [facility]. Patient has been consulted regarding any [...] Jhon Gibson DO documented in this encounter [facility] 08-15-2024 History of Presen t illness [...] gestation of Nurse Note: Pt unsure of [place] [employer] to one at this time. Pt was advised to make sure she does both labs and [place] together if she decides. Follow Up: Patient is to have labs drawn at directed and return to office for initial OB appointment with provider. Patient may call office as needed with any concerns or questions. Nurse Visit Completed by: Trena Roman MA documented in this encounter [facility] 01-17-2024 History of Presen t illness [...] nursing note reviewed. Exam conducted with a supervisor drying present. Vitals: There is no height or [...] of: EVARISTO Jessica documented in this encounter [facility] 07-03-2023 History of Presen t illness [...] nursing note reviewed. Exam conducted with a supervisor drying present. Vitals: There is no height or [...] obtained without difficulty and patient was given [facility] order to have obtained. Follow Up: [...] [facility] Diagnosis Third trimester ([facility]) state, incidental 34 weeks gestation of ([facility]) [facility] Diagnosis Third trimester ([facility]) state, incidental 36 weeks gestation of ([facility]) documented in this encounter [facility] Summary Purpose Family History No Family History Records FoundNo Family History Records Found Advance Directives No Advanced Directives Records FoundNo Advanced Directives Records Found Additional Source Comments INFORMATION SOURCE (unrecogn ized section and content) DATE CREATED AUTHOR 06/17/2021 [facility] DATE CREATED AUTHOR AUTHOR'S ORGANIZ ATION 01/20/2025 [facility] EPIC Reason for Visit (unrecogniz ed section and content) Reason Comments Routine Visit Reason Comments Well Women Visit Reason Comments Amenorrhea Care Teams (unrecognized sec tion and content) Finger Waver Relationship Specialty Start Date End Date Иван Murphy MD [address] [place] [address] PCP - General Family Medicine 05/03/23 Finger Waver Relationship Specialty Start Date End Date Иван Murphy MD [address] [place] [address] PCP - General Family Medicine 05/03/23 Finger Waver Relationship Specialty Start Date End Date Иван Murphy MD [address] [place] [facility] [place] [address] PCP - General Family Medicine 05/03/23 Finger Waver Relationship Specialty Start Date End Date Иван Murphy MD [address] [facility] [place] [address] PCP - General Family Medicine 05/03/23 Finger Waver Relationship Specialty Start Date End Date Иван Murphy MD [address] [facility] [place] [address] PCP - General Family Medicine 05/03/23 Finger Waver Relationship Specialty Start Date End Date Иван Murphy MD [address] [facility] [place] [address] PCP - General Family Medicine 05/03/23 Finger Waver Relationship Specialty Start Date End Date Иван Murphy MD [address] [facility] [place] [address] PCP - General Family Medicine 05/03/23 Finger Waver Relationship Specialty Start Date End Date Иван Murphy MD [address] [facility] [place] [address] PCP - General Family Medicine 05/03/23 Finger Waver Relationship Specialty Start Date End Date Иван Murphy MD [address] [facility] [place] [address] PCP - General Family Medicine 05/03/23 Finger Waver Relationship Specialty Start Date End Date Иван Murphy MD [address] [facility] [place] [address] PCP - General Family Medicine 05/03/23 Finger Waver Relationship Specialty Start Date End Date Иван Murphy MD [address] [facility] [place] [address] PCP - General Family Medicine 05/03/23 Finger Waver Relationship Specialty Start Date End Date Иван Murphy MD [address] [facility] [place] [address] PCP - General Family Medicine 05/03/23 FOR [...] BE BASED ON THE PRIMARY CLINICAL RECORDS. [employer] [facility] provides no warranty or guarantee of the accuracy or completeness of information in this document.
== END 2025-02-03 19:50 | disposition home or self-care (01) ==
LOC: LAB 19:49
PROVIDERS: PCP Family Medicine; Visit Provider Physician Assistant
DX: Z34.93 Encounter for supervision of normal pregnancy, unspecified, third trimester (principal)
CPT/HCPCS: 87081

== ENCOUNTER 2025-03-03 05:14 | Inpatient (IN) | payer OTHER, SELFPAY ==
--- OUTSIDE RECORDS SUMMARY | 2025-02-17 11:20 | XMS_ITS | Encounter Summary ---
Author Organization [facility] Address [address] [place] [address] Care Team Providers Care Exotic Dancer Name Role Phone Chencho Murphy MD Primary Care Provider [phone] Reason for Visit * Reason Comments Routine Visit Encounter Details Date Type Department Care Team (Late st Contact Info) Description 02/17/2025 11:20 AM EDT Routine [facility] [address] [facility] [address] Margaret Cunningham, BHARATH [address] [facility] [address] [place] [address] Nausea (Primary Dx); 38 weeks gestation of ([facility]); Third trimester ([facility]) Social History Tobacco Use Types Packs/Day Years [...] AM EST documented as of this encounter Last Filed Vital Signs Vital Sign Reading Time Taken Comments Blood Pressure 122/72 02/17/2025 11:26 AM EDT Pulse - - Temperature - - Respiratory Rate - - Oxygen Saturation - - Inhaled Oxygen Concentration - - Weight 93 kg (205 lb) 02/17/2025 11:26 AM EDT Height - - Body Mass Index - - documented in this encounter Progress Notes * Margaret Cunningham NP - 02/17/2025 11:20 AM EDT Reason for Appointment: Patient ID: Merle Cyr is a 35 y.o. female who presents for Routine Visit Patient presents today for Return OB appointment. MEDICATIONS Current Outpatient Medications Medication Instructions diphenhydrAMINE (BENADRYL) 25 mg, Nightly PRN nystatin (Mycostatin) 521148 UNIT/GM powder Topical, 3 times daily ALLERGIES Allergies Allergen Reactions Banana Swelling PROBLEMS Active Ambulatory Problems Diagnosis Date Noted Post-term , 40-42 weeks of gestation ([facility]) 10/16/2023 40 weeks gestation of ([facility]) 10/16/2023 Resolved Ambulatory Problems Diagnosis Date Noted [...] Eyes: Negative. Respiratory: Negative. Cardiovascular: Negative. Gastrointestinal: Positive for nausea. Genitourinary: Negative. Musculoskeletal: Negative. Skin: Negative. Neurological: [...] nursing note reviewed. Exam conducted with a cage supervisor present. Vitals: There is no height or weight on file to calculate BMI. BP: 122/72 No LMP recorded. Patient is . ASSESSMENT & PLAN ICD-10-CM 1. 38 weeks gestation of ([facility]) Z3A.38 2. Third trimester ([facility]) Z34.93 Return OB: Patient presents today for a routine obstetrics appointment. Patient is currently 38w2d . Patient states she is doing well but has complaints of being tired due to current . Patient has verbalizes frequent movement. labor precautions was discussed/given and patient was instructed to perform kick counts three times a day. Patient reports some nausea over the last few days and a prescription for zofran is sent to her pharmacy No orders of the defined types were placed in this encounter. Follow Up: Patient is to return to office in 1 week for routine OB appointment. Documented by Margaret Cunningham NP on behalf of: Margaret Cunningham NP documented in this encounter Plan of Treatment Not on file documented as of this encounter Procedures Procedure Name Priority Date/Time Associated Diagnosis Comments POCT URINALYSIS DIPSTICK Routine 02/17/2025 12:05 PM EDT 38 weeks gestation of ([facility]) documented in this encounter Results * POCT urinalysis dipstick manually resulted (02/17/2025 12:05 PM EDT) Color, UA Yellow Clarity, UA Clear Glucose, UA Negative Negative - 1999(110) ++++ mg/dL Bilirubin, UA Negative Negative - 4(70) +++ mg/dL Ketones, UA Negative Negative - 160(16) ++++ mg/dL Spec Grav, UA 1.015 1 - 1.03 Blood, UA Negative Negative - 50 Farzad/mcL pH, UA 7.0 5 - 9 Protein, UA Trace Negative - 1999(20) ++++ mg/dL Urobilinogen, UA 2.0 0.2 - 12 mg/dL Leukocytes, UA 1+ Negative - 500+++ Donnell/mcL Nitrite, UA Negative Negative - Positive Urine 02/17/2025 12:0 5 PM EDT Margaret Cunningham NP POINT OF CARE TEST ENTER/EDIT ORDERABLES Final Result documented in this encounter Visit Diagnoses Diagnosis Nausea- Primary Nausea alone 38 weeks gestation of ([facility]) Third trimester ([facility]) state, incidental documented in this encounter Care Teams Exotic Dancer Relationship Specialty Start Date End Date Chencho Murphy MD [address] [place] [address] PCP - General Family Medicine 05/03/23 documented as of this encounter
--- OUTSIDE RECORDS SUMMARY | 2025-02-24 08:30 | XMS_ITS | Encounter Summary ---
Author Organization [facility] Address [address] [place] [address] Care Team Providers Care Lacquer Machine Feeder Name Role Phone Chencho Murphy MD Primary Care Provider [phone] Reason for Visit * Reason Comments Routine Visit Encounter Details Date Type Department Care Team (Latest Contact Info) Description 02/24/2025 8:30 AM EDT Routine [facility] [address] [facility] [address] [place] [address] Margaret Cunningham, BHARATH [address] [facility] [address] [facility] [place] [address] Folliculitis (Primary Dx); Third trimester ([facility]); 39 weeks gestation of ([facility]) Social History Tobacco Use Types Packs/Day Years [...] Sign Reading Time Taken Comments Blood Pressure 126/84 02/24/2025 8:40 AM EDT Pulse - - Temperature - - Respiratory Rate - - Oxygen Saturation - - Inhaled Oxygen Concentration - - Weight 94.3 kg (208 lb) 02/24/2025 8:40 AM EDT Height - - Body Mass Index - - documented in this encounter Progress Notes * Margaret Cunningham NP - 02/24/2025 8:30 AM EDT Images from the original note were not included. Reason for Appointment: Patient ID: Merle Cyr is a 35 y.o. female who presents for Routine Visit Patient presents today for Return OB appointment. MEDICATIONS Current Outpatient Medications Medication Instructions diphenhydrAMINE (BENADRYL) 25 mg, Nightly PRN nystatin (Mycostatin) 251792 UNIT/GM powder Topical, 3 times daily ondansetron (ZOFRAN) 4 mg, Oral, Every 6 hours PRN, Take 1 tablet by mouth every 6 hours as needed for nausea. ALLERGIES Allergies Allergen Reactions Banana Swelling PROBLEMS Active Ambulatory Problems Diagnosis Date Noted Post-term , 40-42 weeks of gestation ([facility]) 10/16/2023 40 weeks gestation of ([facility]) 10/16/2023 Resolved Ambulatory Problems Diagnosis Date [...] Negative. Genitourinary: Negative. Musculoskeletal: Negative. Skin: Negative. Right breast rash Neurological: Negative. All other systems reviewed and are negative. Hematological: Negative. Endocrine: Negative. Allergic/Immunologic: Negative. OBJECTIVE Objective: Physical Exam Constitutional: Appearance: Normal appearance. She is well-developed. Genitourinary: Genitourinary Comments: Right breast mild erythema consistent with a folliculitis 3cm X 3cm Cardiovascular: Rate and Rhythm: Normal rate and regular rhythm. Pulmonary: Effort: Pulmonary effort is normal. Breath sounds: Normal breath sounds. Chest: Abdominal: General: Bowel sounds are normal. There [...] nursing note reviewed. Exam conducted with a switchboard clerk present. Vitals: There is no height or weight on file to calculate BMI. BP: 126/84 No LMP recorded. Patient is . ASSESSMENT & PLAN ICD-10-CM 1. Third trimester ([facility]) Z34.93 POCT urinalysis dipstick manually resulted 2. 39 weeks gestation of ([facility]) Z3A.39 Return OB: Patient presents today for a routine obstetrics appointment. Patient is currently 39w2d . Patient states she is doing well but has complaints of being tired due to current . Patient has verbalizes frequent movement. labor precautions was discussed/given and patient was instructed to perform kick counts three times a day. Mild folliculitis to right breast prescription for Keflex sent to pharmacy Orders Placed This Encounter Procedures POCT urinalysis dipstick manually resulted Follow Up: Patient is to return to office in 1 week for routine OB appointment. Patient plan for induction of labor on 03/03/25. Documented by Margaret Cunningham NP on behalf of: Margaret Cunningham NP documented in this encounter Plan of Treatment Not on file documented as of this encounter Procedures Procedure Name Priority Date/Time Associated Diagnosis Comments POCT URINALYSIS DIPSTICK Routine 02/24/2025 8:46 AM EDT Third trimester ([facility]) documented in this encounter Results * (ABNORMAL) POCT urinalysis dipstick manually resulted (02/24/2025 8:46 AM EDT) Color, UA Yellow Clarity, UA Clear Glucose, UA Negative Negative - 2000(110) ++++ mg/dL Bilirubin, UA Negative Negative - 4(70) +++ mg/dL Ketones, UA Negative Negative - 160(16) ++++ mg/dL Spec Grav, UA 1.020 1 - 1.03 Blood, UA Negative Negative - 50 Farzad/mcL pH, UA 6.5 5 - 9 Protein, UA Negative Negative - 2000(20) ++++ mg/dL Urobilinogen, UA 0.2 0.2 - 12 mg/dL Leukocytes, UA Positive Negative - 500+++ Donnell/mcL Comment:Trace Nitrite, UA Negative Negative - Positive Urine 02/24/2025 8:46 AM EDT Margaret Cunningham NP POINT OF CARE TEST ENTER/EDIT ORDERABLES Final Result documented in this encounter Visit Diagnoses Diagnosis Folliculitis- Primary Other specified disease of hair and hair follicles Third trimester ([facility]) state, incidental 39 weeks gestation of ([facility]) documented in this encounter Care Teams Lacquer Machine Feeder Relationship Specialty Start Date End Date Chencho Murphy MD [address] [place] [address] PCP - General Family Medicine 05/03/23 documented as of this encounter
[2025-03-03] VITALS (58 sets, daily range): BP systolic 82–279; BP diastolic 45–174; PULSE 65–93; TEMP 36.4–36.9
--- OUTSIDE RECORDS SUMMARY | 2025-03-03 05:18 | XMS_ITS | Encounter Summary ---
Author Organization [facility] Address [address] [place] [address] Care Team Providers Care Fishing Lure Assembler Name Role Phone Chencho Murphy MD Primary Care Provider [phone] Encounter Details Date Type Department Care Team (Late st Contact Info) Description 12/03/2024 Abstract [facility] [address] [place] [id number] Isa Fontana LPN [address] [place] [address] Social History Tobacco Use Types Packs/Day Years [...] as of this encounter Plan of Treatment Not on file documented as of this encounter Visit Diagnoses Not on filedocumented in this encounter Care Teams Fishing Lure Assembler Relationship Specialty Start Date End Date Chencho Murphy MD [address] [place] [address] PCP - General Family Medicine 05/03/23 documented as of this encounter
--- OUTSIDE RECORDS SUMMARY | 2025-03-03 05:18 | XMS_ITS | Encounter Summary ---
Author Organization [facility] Address [address] [place] [address] Care Team Providers Care Certified Registered Nurse Anesthetist Name Role Phone Chencho Murphy MD Primary Care Provider [phone] Encounter Details Date Type Department Care Team (Late st Contact Info) Description 07/03/2023 Abstract [facility] [address] [place] [address] Steph Brooks LPN [address] [place] [address] Social History Tobacco Use Types Packs/Day Years [...] on filedocumented in this encounter Care Teams Certified Registered Nurse Anesthetist Relationship Specialty Start Date End Date Chencho Murphy MD [address] [facility] [place] [address] PCP - General Family Medicine 05/03/23 documented as of this encounter
--- OUTSIDE RECORDS SUMMARY | 2025-03-03 05:18 | XMS_ITS | Encounter Summary ---
Author Organization [facility] Address [address] [place] [address] Care Team Providers Care Rock Crusher Operator Name Role Phone Chencho Murphy MD Primary Care Provider [phone] Encounter Details Date Type Department Care Team (Late st Contact Info) Description 10/25/2023 Abstract [facility] [address] [place] [address] Steph Brooks LPN [address] [place] [address] Social History Tobacco Use Types Packs/Day Years [...] on filedocumented in this encounter Care Teams Rock Crusher Operator Relationship Specialty Start Date End Date Chencho Murphy MD [address] [facility] [place] [address] PCP - General Family Medicine 05/03/23 documented as of this encounter
--- OUTSIDE RECORDS SUMMARY | 2025-03-03 05:18 | XMS_ITS | Encounter Summary ---
Author Organization [facility] Address [address] [place] [address] Care Team Providers Care Medical Underwriter Name Role Phone Chencho Murphy MD Primary Care Provider [phone] Encounter Details Date Type Department Care Team (Late st Contact Info) Description 06/05/2023 Clinisync Result Encounter [facility] External Department Unsolicited Jhon Gibson, DO [address] [facility] [place] [address] Social History Tobacco Use Types Packs/Day Years [...] PM EST Narrative 06/05/2023 2:20 PM EST [facility] [address] [place] [address] Ultrasound Report Signed Patient: MERLE GUARDADO MR#: [id number] : 1990 Acct:[id number] Age/Sex: 33 / F ADM Date: 06/05/23 Loc: US Attending Dr: Jhon Gibson D.O. Ordering Physician: Jhon Gibson D.O. Date of Service: 06/05/23 Procedure(s): US OB cervical length Accession Number(s): [id number] cc: Jhon Gibson D.O.; Chencho Murphy M.D. [place] [id number] Patient Name: MERLE GUARDADO MRN: [id number] date: 1990 Sex: F Assigned Patient Location: US Current Patient Location: US Accession/Order Number: [id number] Exam Date: 06/05/2023 13:04 Report Date: 06/05/2023 [...] Signed By: 06/05/23 1420 DD/ 1418 TD/TT: Crossbar Switch Adjuster: Procedure Note Radiology, Radiologist, MD - 06/05/2023 [place] [address] Ultrasound Report Signed Patient: MERLE GUARDADO NMR#: [id number] : 1990Acct:[id number] Age/Sex: 33 / FADM Date: 06/05/23 Loc: US Attending Dr: Jhon Gibson D.O. Ordering Physician: Jhon Gibson D.O. Date of Service: 06/05/23 Procedure(s): US OB cervical length Accession Number(s): [id number] cc: Jhon Gibson D.O.; Chencho Murphy M.D. The [address] [id number] Patient Name: MERLE GUARDADO MRN: [id number] date: 1990 Sex: F Assigned Patient Location: US Current Patient Location: US Accession/Order Number: [id number] Exam Date: 06/05/2023 13:04 Report Date: 06/05/2023 [...] M.D. Signed By:06/05/23 1420 DD/ 1418 TD/TT: Crossbar Switch Adjuster: us Jhon Paige DO [facility] Final Result documented in this encounter Visit Diagnoses Not on filedocumented in this encounter Care Teams Medical Underwriter Relationship Specialty Start Date End Date Chencho Murphy MD [address] [place] [address] PCP - General Family Medicine 05/03/23 documented as of this encounter
--- OUTSIDE RECORDS SUMMARY | 2025-03-03 05:18 | XMS_ITS | Encounter Summary ---
Author Organization [facility] Address [address] [place] [address] Care Team Providers Care Dealer Sales Rep Name Role Phone Chencho Murphy MD Primary Care Provider [phone] Encounter Details Date Type Department Care Team (Late st Contact Info) Description 05/04/2023 Clinisync Result Encounter [facility] External Department Unsolicited Jhon Gibson, DO [address] [facility] [place] [address] Social History Tobacco Use Types [...] AM EST Narrative 05/04/2023 7:45 AM EST [facility] [address] [place] [address] Ultrasound Report Signed Patient: MERLE GUARDADO MR#: [id number] : 1990 Acct:[id number] Age/Sex: 33 / F ADM Date: 05/03/23 Loc: US Attending Dr: Jhon Gibson D.O. Ordering Physician: Jhon Gibson D.O. Date of Service: 05/03/23 Procedure(s): US OB >= 14 weeks Fetus Accession Number(s): [id number] cc: Jhon Gibson D.O.; Physician,Non-Staff [place] [address] Patient Name: MERLE GUARDADO MRN: [facility]:[id number] date: 1990 Sex: F Assigned Patient Location: US Current Patient Location: Accession/Order Number: [id number] Exam Date: 05/03/2023 14:07 Report Date: 05/04/2023 [...] Dictated By: Ashley Tobin M.D. Signed By: 05/04/23 0745 DD/ TD/TT: Music Rehabilitation Therapist: Procedure Note Radiology, Radiologist, MD - 05/04/2023 [place] [address] Ultrasound Report Signed Patient: MERLE GUARDADO NMR#: [id number] : 1990Acct:[id number] Age/Sex: 33 / FADM Date: 05/03/23 Loc: US Attending Dr: Jhon Gibson D.O. Ordering Physician: Jhon Gibson D.O. Date of Service: 05/03/23 Procedure(s): US OB >= 14 weeks Fetus Accession Number(s): [id number] cc: Jhon Gibson D.O.; Physician,Non-Staff [facility] [address] [id number] Patient Name: MERLE GUARDADO MRN: [id number] date: 1990 Sex: F Assigned Patient Location: US Current Patient Location: Accession/Order Number: [id number] Exam Date: 05/03/2023 14:07 Report Date: 05/04/2023 [...] 07:42 Dictated By: Ashley Tobin M.D. Signed By:05/04/23 0745 DD/ TD/TT: Music Rehabilitation Therapist: us Jhon Paige DO [facility] Final Result documented in this encounter Visit Diagnoses Not on filedocumented in this encounter Care Teams Dealer Sales Rep Relationship Specialty Start Date End Date Chencho Murphy MD [address] [place] [address] PCP - General Family Medicine 05/03/23 documented as of this encounter
--- OUTSIDE RECORDS SUMMARY | 2025-03-03 05:18 | XMS_ITS | CCD ---
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 Name Role Phone DR ИВАН MURPHY Attending Unavailable LIUDMILA, DR OATES Consulting Unavailable DR ИВАН MURPHY Admitting Unavailable Иван Murphy MD Primary Care Provider [phone] Иван Murphy MD Primary Care Provider [phone] JHON GIBSON Attending Unavailable PAIGE, JHON Attending Unavailable PAIGE, JHON Attending Unavailable ISA CARRERA Attending Unavailable PAIGE, JHON Attending Unavailable PAIGE, JHON Attending Unavailable PAIGE, JHON Attending Unavailable DEBIISA Attending Unavailable PAIGE, JHON Attending Unavailable OCTAVIOMARGARET AARON Attending Unavailable MARGARET CUNNINGHAM Attending Unavailable Allergies Allergy Classification Reported Allergen(s) Allergy Type Date of Onset Reaction(s) Facility (20 sources) [facility] Propensity to adverse reactions 4 [facility] Work Phone: Medications Current Medications Medication Drug Class(es) Dates Sig (Normalized) Sig (Original) cephalexin 500 mg oral capsule (2 sources) Cephalosporin Antibacterial Start: 02-24-2025 End: 03-03-2025 take 1 capsule by mouth three times daily cephalexin (Keflex) 500 MG capsule Indications: Folliculitis Take 1 capsule (500 mg) by mouth 3 (three) times a day for 7 days 21 capsule 02/24/2025 03/03/2025 Active diphenhydrAMINE hydrochloride 25 mg oral tablet (20 [...] Discontinued (Ineffective) nystatin 100 unt/mg topical powder (20 sources) Polyene Antifungal Start: 12-08-2024 End: 12-08-2025 nystatin (Mycostatin) 689366 UNIT/GM powder Indications: Dermatitis Apply topically in the morning and in the evening and before bedtime. 15 g 1 12/08/2024 12/08/2025 Active ondansetron 4 mg oral tablet (5 sources) Serotonin-3 Receptor Antagonist Start: 02-17-2025 take 1 tablet by mouth every six hours as needed for nausea and vomiting and nausea and nausea ondansetron (Zofran) 4 MG tablet Indications: Nausea Take 1 tablet (4 mg) by mouth every 6 (six) hours if needed for nausea or vomiting for up to 30 doses Take 1 tablet by mouth every 6 hours as needed for nausea. 30 tablet 1 02/17/2025 Active pramipexole dihydrochloride 0.125 mg oral tablet [...] period; Translations: [Irregular menstruation, unspecified] 08-15-2024 Chronic Nausea and vomiting (2 sources) Nausea; Translations: [Nausea] 02-17-2025 Episodic Other complications of (2 sources) size does not accord with dates; Translations: [Uterine size-date discrepancy, second trimester] 12-08-2024 Episodic Other and delivery including normal (20 sources) Second trimester ; Translations: [Encounter for supervision of normal , unspecified, second trimester] 06-29-2023 Episodic Other skin disorders (2 sources) Folliculitis; Translations: [Follicular disorder, unspecified] 02-24-2025 Episodic Other upper respiratory infections (1 source) [...] [36 weeks gestation of ] 02-03-2025 Episodic Residual codes; unclassified (2 sources) Gestation period, 37 weeks; Translations: [37 weeks gestation of ] 02-10-2025 Episodic Residual codes; unclassified (2 sources) Gestation period, 38 weeks; Translations: [38 weeks gestation of ] 02-17-2025 Episodic Residual codes; unclassified (2 sources) Gestation period, 39 weeks; Translations: [39 weeks gestation of ] 02-24-2025 Episodic Unclassified (3 sources) CONTACT W/AND (SUSP) [...] [40 weeks gestation of ] Onset: 10-16-2023 4 Episodic Unclassified (1 source) CONTACT W/AND (SUSP) EXPOS COVID-19; Translations: [CONTACT W/AND (SUSP) EXPOS COVID-19] Onset: 05-03-2021 Results Test Name Value Interpretation Reference Range Facility Urinalysis macro (dipstick) panel (U)on 02-24-2025 Bilirubin, UA Negative Negative - 4(70) +++ mg/dL [facility] Blood, UA Negative Negative - 50 Farzad/mcL [facility] Clarity, UA Clear [facility] Color, UA Yellow [facility] Glucose, UA Negative Negative - 1999(110) ++++ mg/dL [facility] Interpretation and review of laboratory results Abnormal [facility] Ketones, UA Negative Negative - 160(16) ++++ mg/dL [facility] Leukocytes, UA Positive Negative - 500+++ Donnell/mcL [facility] Comment on above: Trace Nitrite, UA Negative Negative - Positive [facility] pH, UA 6.5 5 - 9 [facility] Protein, UA Negative Negative - 1999(20) ++++ mg/dL [facility] Spec Grav, UA 1.02 1 - 1.03 [facility] Urobilinogen, UA 0.2 0.2 - 12 mg/dL [facility] Urinalysis macro (dipstick) panel (U)on 02-17-2025 Bilirubin, UA Negative Negative - 4(70) +++ mg/dL [facility] Blood, UA Negative Negative - 50 Farzad/mcL [facility] Clarity, UA Clear [facility] Color, UA Yellow [facility] Glucose, UA Negative Negative - 1999(110) ++++ mg/dL [facility] Interpretation and review of laboratory results Normal [facility] Ketones, UA Negative Negative - 160(16) ++++ mg/dL [facility] Leukocytes, UA 1+ Negative - 500+++ Donnell/mcL [facility] Nitrite, UA Negative Negative - Positive [facility] pH, UA 7 5 - 9 [facility] Protein, UA Trace Negative - 1999(20) ++++ mg/dL [facility] Spec Grav, UA 1.015 1 - 1.03 [facility] Urobilinogen, UA 2.0 0.2 - 12 mg/dL [facility] Urinalysis macro (dipstick) panel (U)on 02-10-2025 Bilirubin, UA Negative Negative - 4(70) +++ mg/dL [facility] Blood, UA Negative Negative - 50 Farzad/mcL [facility] Clarity, UA Clear [facility] Color, UA Yellow [facility] Glucose, UA Negative Negative - 1999(110) ++++ mg/dL [facility] Interpretation and review of laboratory results Abnormal [facility] Ketones, UA Negative Negative - 160(16) ++++ mg/dL [facility] Leukocytes, UA 2+ Negative - 500+++ Donnell/mcL [facility] Nitrite, UA Negative Negative - Positive [facility] pH, UA 6.5 5 - 9 [facility] Protein, UA Trace Negative - 1999(20) ++++ mg/dL [facility] Spec Grav, UA 1.015 1 - 1.03 [facility] Urobilinogen, UA 0.2 0.2 - 12 mg/dL [facility] Urinalysis macro (dipstick) panel (U)on 02-03-2025 Bilirubin, UA Negative Negative - 4(70) +++ mg/dL [facility] Blood, UA Negative Negative - 50 Farzad/mcL [facility] Clarity, UA Clear [facility] Color, UA Yellow [facility] Glucose, UA Negative Negative - 1999(110) ++++ mg/dL [facility] Interpretation and review of laboratory results Abnormal [facility] Ketones, UA Negative Negative - 160(16) ++++ mg/dL [facility] Leukocytes, UA Positive Negative - 500+++ Donnell/mcL [facility] Comment on above: Trace Nitrite, UA Negative Negative - Positive [facility] pH, UA 7 5 - 9 [facility] Protein, UA Negative Negative - 1999(20) ++++ mg/dL [facility] Spec Grav, UA 1.015 1 - 1.03 [facility] Urobilinogen, UA 0.2 0.2 - 12 mg/dL [facility] GLUCOSE TOLERANCE 3 HOURon 0 01-09-2025 GLUCOSE TOLERANCE 3 HOUR High mg/dL [facility] Comment on above: GLU FAST 93 (<95) Co l: 01/09/25 0815 GLU 1HR 182H (<180) Col: 01/09/25 0918 GLU 2HR 124 (<155) Col: 01/09/25 1019 GLU 3HR 94 (<140) Col: 01/09/25 1119 Interpretation and review of laboratory results Abnormal [facility] Urinalysis macro (dipstick) panel (U)on 01-06-2025 Bilirubin, UA Negative Negative - 4(70) +++ mg/dL [facility] Blood, UA Negative Negative - 50 Farzad/mcL [facility] Clarity, UA Clear [facility] Color, UA Yellow [facility] Glucose, UA Negative Negative - 2000(110) ++++ mg/dL [facility] Interpretation and review of laboratory results Abnormal [facility] Ketones, UA Negative Negative - 160(16) ++++ mg/dL [facility] Leukocytes, UA Positive Negative - 500+++ Donnell/mcL [facility] Nitrite, UA Negative Negative - Positive [facility] pH, UA 7.5 5 - 9 [facility] Protein, UA Negative Negative - 2000(20) ++++ mg/dL [facility] Spec Grav, UA 1.01 1 - 1.03 [facility] Urobilinogen, UA 1.0 0.2 - 12 mg/dL [facility] US OB FOLLOW UP TRANSABDOMIN AL [...] Negative Negative - 4(70) +++ mg/dL [facility] Blood, UA Negative Negative - 50 Farzad/mcL [facility] Clarity, UA Clear [facility] Color, UA Yellow [facility] Glucose, UA Negative Negative - 1999(110) ++++ mg/dL [facility] Interpretation and review of laboratory results Normal [facility] Ketones, UA Negative Negative - 160(16) ++++ mg/dL [facility] Leukocytes, UA Negative Negative - 500+++ Donnell/mcL [facility] Nitrite, UA Negative Negative - Positive [facility] pH, UA 6.5 5 - 9 [facility] Protein, UA Negative Negative - 1999(20) ++++ mg/dL [facility] Spec Grav, UA 1.01 1 - 1.03 [facility] Urobilinogen, UA 1.0 0.2 - 12 [facility]dL [facility] Urinalysis macro (dipstick) panel (U)on 12-08-2024 Bilirubin, UA Negative Negative - 4(70) +++ mg/dL [facility] Blood, UA Negative Negative - 50 Farzad/mcL [facility] Clarity, UA Clear [facility] Color, UA Yellow [facility] Glucose, UA Negative Negative - 1999(110) ++++ mg/dL [facility] Interpretation and review of laboratory results Normal [facility] Ketones, UA Negative Negative - 160(16) ++++ mg/dL [facility] Leukocytes, UA Negative Negative - 500+++ Donnell/mcL [facility] Nitrite, UA Negative Negative - Positive [facility] pH, UA 6 5 - 9 [facility] Protein, UA Negative Negative - 1999(20) ++++ mg/dL [facility] Spec Grav, UA 1.025 1 - 1.03 [facility] Urobilinogen, UA 1.0 0.2 - 12 mg/dL [facility] GLUCOSE 1 HOURon 12-05-2024 Glucose [Mass/Vol] 138 mg/dL High NINF - 13 0 mg/dL [facility] Interpretation and review of laboratory results Abnormal [facility] No Panel InformationOrdered By: Radiologist Radiology on 11-22-2024 [facility] Work Phone: No Panel Informationon 11-22 Radiology Study observation (narrative) [facility] [place] [address] Ultrasound Report Signed Patient: MERLE CYR MR#: [id number] : 1990 Acct:[id number] Age/Sex: 34 / F ADM Date: 11/22/24 Loc: US Attending Dr: Jhon Gibson D.O. Ordering Physician: Jhon Gibson D.O. Date of Service: 11/22/24 Procedure(s): US OB cervical length Accession Number(s): [id number] cc: Jhon Gibson D.O.; Иван Murphy M.D. [place] [id number] Patient Name: MERLE CYR MRN: [id number] date: 1990 Sex: F Assigned Patient Location: US Current Patient Location: US Accession/Order Number: [id number] Exam Date: 11/22/2024 14:25 Report Date: 11/22/2024 [...] Quinones M.D. 11/22/2024 2:27 PM Dictation Location: [place] [address] Electronically authenticated by: [id number] Y Date: 11/22/2024 14:27 Dictated By: Nir Quinones D.O. Signed By: 11/22/24 1430 DD/ 1427 TD/TT: Oven Operator Automatic: [facility] Radiology, Radiologist, MD - 11/22/2024 [place] [address] Ultrasound Report Signed Patient: MERLE CYR MR#: [id number] : 1990 Acct:[id number] Age/Sex: 34 / F ADM Date: 11/22/24 Loc: Attending Dr: Jhon Gibson D.O. Ordering Physician: Jhon Gibson D.O. Date of Service: 11/22/24 Procedure(s): US OB cervical length Accession Number(s): [id number] cc: Jhon Gibson D.O.; Иван Murphy M.D. The [place] [id number] Patient Name: MERLE CYR MRN: [facility]:[id number] date: 1990 Sex: F Assigned Patient Location: US Current Patient Location: Accession/Order Number: [id number] Exam Date: 11/22/2024 14:25 Report Date: 11/22/2024 [...] Quinones M.D. 11/22/2024 2:27 PM Dictation Location: [facility] Electronically authenticated by: [id number] Y Date: 11/22/2024 14:27 Dictated By: Nir Quinones D.O. Signed By: 11/22/24 1430 DD/ 1427 TD/TT: Oven Operator Automatic[facility] INCOMPLETE ANATOMYon 0 11-22-2024 [place] [address] Ultrasound Report Signed Patient: MERLE CYR MR#: [id number] : 1990 Acct:[id number] Age/Sex: 34 / F ADM Date: 11/22/24 Loc: US Attending Dr: Jhon Gibson D.O. Ordering Physician: Jhon Gibson D.O. Date of Service: 11/22/24 Procedure(s): US OB incomplete anatomy Accession Number(s): [id number] cc: Jhon Gibson D.O.; Иван Murphy M.D. [place] [id number] Patient Name: MERLE CYR MRN: [facility]:[id number] date: 1990 Sex: F Assigned Patient Location: US Current Patient Location: US Accession/Order Number: [id number] Exam Date: 11/22/2024 14:25 Report Date: 11/22/2024 [...] Quinones M.D. 11/22/2024 2:27 PM Dictation Location: [facility] Electronically authenticated by: [id number] Y Date: 11/22/2024 14:27 Dictated By: Nir Quinones D.O. Signed By: 11/22/24 1430 DD/ 1427 TD/TT: Oven Operator Automatic: [facility] Radiology, Radiologist, - 11/22/2024 [place] [address] Ultrasound Report Signed Patient: MERLE CYR MR#: [id number] : 1990 Acct:[id number] Age/Sex: 34 / F ADM Date: 11/22/24 Loc: US Attending Dr: Jhon Gibson D.O. Ordering Physician: Jhon Gibson D.O. Date of Service: 11/22/24 Procedure(s): US OB incomplete anatomy Accession Number(s): [id number] cc: Jhon Gibson D.O.; Иван Murphy M.D. The [place] [address] Patient Name: MERLE CYR MRN: [facility]:[id number] date: 1990 Sex: F Assigned Patient Location: US Current Patient Location: Accession/Order Number: [id number] Exam Date: 11/22/2024 14:25 Report Date: 11/22/2024 [...] Quinones M.D. 11/22/2024 2:27 PM Dictation Location: [facility] Electronically authenticated by: [id number] Y Date: 11/22/2024 14:27 Dictated By: Nir Quinones D.O. Signed By: 11/22/24 1430 DD/ 1427 TD/TT: Oven Operator Automatic: [facility] [employer] [place] Panel InformationOrdered By: Radiologist Radiology on 11-10-2024 [facility] Work Phone: No Panel Informationon 11-10 Radiology Study observation (narrative) [facility] US OB ANATOMYon 11-10-2024 [place] [address] Ultrasound Report Signed Patient: MERLE CYR MR#: [id number] : 1990 Acct:[id number] Age/Sex: 34 / F ADM Date: 11/08/24 Loc: US Attending Dr: Jhon Gibson D.O. Ordering Physician: Jhon Gibson D.O. Date of Service: 11/08/24 Procedure(s): US OB anatomy Accession Number(s): [id number] cc: Jhon Gibson D.O.; Иван Murphy M.D. [place] [address] Patient Name: MERLE CYR MRN: [id number] date: 1990 Sex: F Assigned Patient Location: US Current Patient Location: Accession/Order Number: [id number] Exam Date: 11/10/2024 07:47 Report Date: 11/10/2024 [...] normal limits for appearance and position. The chinese herbalist had difficulty visualizing the spine and 4 [...] Carmona M.D. 11/10/2024 7:56 AM Dictation Location: [place] [address] Electronically authenticated by: [id number] Y Date: 11/10/2024 07:56 Dictated By: Lizbet Carmona M.D. Signed By: 11/10/24 0759 DD/ 0756 TD/TT: Oven Operator Automatic: [facility] Radiology, Radiologist, - 11/10/2024 [place] [address] Ultrasound Report Signed Patient: MERLE CYR MR#: [id number] : 1990 Acct:[id number] Age/Sex: 34 / F ADM Date: 11/08/24 Loc: US Attending Dr: Jhon Gibson D.O. Ordering Physician: Jhon Gibson D.O. Date of Service: 11/08/24 Procedure(s): US OB anatomy Accession Number(s): [id number] cc: Jhon Gibson D.O.; Иван Murphy M.D. The [address] [address] Patient Name: MERLE CYR MRN: [facility]:[id number] date: 1990 Sex: F Assigned Patient Location: US Current Patient Location: Accession/Order Number: [id number] Exam Date: 11/10/2024 07:47 Report Date: 11/10/2024 [...] normal limits for appearance and position. The chinese herbalist had difficulty visualizing the spine and 4 [...] Carmona M.D. 11/10/2024 7:56 AM Dictation Location: [place] [address] Electronically authenticated by: [id number] Y Date: 11/10/2024 07:56 Dictated By: Lizbet Carmona M.D. Signed By: 11/10/24 0759 DD/ 0756 TD/TT: Oven Operator Automatic: [facility] US OB CERVICAL LENGTHon 10-20 [place] [address] Ultrasound Report Signed Patient: MERLE CYR MR#: [id number] : 1990 Acct:[id number] Age/Sex: 34 / F ADM Date: 11/08/24 Loc: US Attending Dr: Jhon Gibson D.O. Ordering Physician: Jhon Gibson D.O. Date of Service: 11/08/24 Procedure(s): US OB cervical length Accession Number(s): [id number] cc: Jhon Gibson D.O.; Иван Murphy M.D. [place] [address] Patient Name: MERLE CYR MRN: [id number] date: 1990 Sex: F Assigned Patient Location: US Current Patient Location: Accession/Order Number: [id number] Exam Date: 11/10/2024 07:47 Report Date: 11/10/2024 [...] normal limits for appearance and position. The chinese herbalist had difficulty visualizing the spine and 4 [...] Carmona M.D. 11/10/2024 7:56 AM Dictation Location: [place] [address] Electronically authenticated by: [id number] Y Date: 11/10/2024 07:56 Dictated By: Lizbet Carmona M.D. Signed By: 11/10/24 0759 DD/ 0756 TD/TT: Oven Operator Automatic: [facility] Radiology, Radiologist, MD - 11/10/2024 [place] [address] Ultrasound Report Signed Patient: MERLE CYR MR#: [id number] : 1990 Acct:[id number] Age/Sex: 34 / F ADM Date: 11/08/24 Loc: US Attending Dr: Jhon Gibson D.O. Ordering Physician: Jhon Gibson D.O. Date of Service: 11/08/24 Procedure(s): US OB cervical length Accession Number(s): [id number] cc: Jhon Gibson D.O.; Иван Murphy M.D. The [place] [address] Patient Name: MERLE CYR MRN: [facility]:[id number] date: 1990 Sex: F Assigned Patient Location: US Current Patient Location: Accession/Order Number: [id number] Exam Date: 11/10/2024 07:47 Report Date: 11/10/2024 [...] normal limits for appearance and position. The chinese herbalist had difficulty visualizing the spine and 4 [...] Carmona M.D. 11/10/2024 7:56 AM Dictation Location: [place] [address] Electronically authenticated by: [id number] Y Date: 11/10/2024 07:56 Dictated By: Lizbet Carmona M.D. Signed By: 11/10/24 0759 DD/ 0756 TD/TT: Oven Operator Automatic: [facility] [employer] AFP, SERUM, OPEN SPINA BIFID Aon 11-04-2024 AFP MOM 0.77 . [facility] AFP VALUE 52.2 ng/mL . [facility] COMMENT: Comment . [facility] Comment on above: Romelia Villarreal , Ph.D., [facility] Director References: Available Upon Request. Multiples Of Median Cutoffs For AFP Elevations Feliz 2.5 Black 2.8 IDD 2.0 Twins 4.5 Abbreviation Definitions IDD - Insulin Dep Diabetes OSBR - Open Spina Bifida Risk For further inquiries contact [facility] at [phone]. This test was developed and its performance characteristics determined by [email or web address]. It has not been cleared or approved by the Food and Drug Administration. Performed at: [facility] [address] [place], [place] [id number] Administrative Assistant Receptionist: Andres Faust [facility], Phone: [phone] GEST. AGE ON COLLECTION DATE 22.9 . weeks [facility] GESTAT. AGE BASED ON Ultrasound . [facility] Comment on above: 20.6 on 10/16/2024 Recalculations are not recommended when gestational dating by LMP and ultrasound are within 10 days. INSULIN DEP DIABETES No . [facility] INTERPRETATION Comment . [facility] Comment on above: Interpretation: Scre en Negative [...] Customer Services to discuss available options. The [employer] recommends amniocentesis be offered to women age 35 and older. [age] [facility] MULTIPLE GESTATION No . [facility] OSBR RISK [address] [place] [address] . [facility] RACE . [facility] RESULTS Report . [facility] TEST RESULTS: Negative . [facility] WEIGHT 211 . lbs [facility] N N ULTRASOUND [id number] 4 20 N 1 Y 211 N N N N N White/ [facility] RECURRENT VAGINITIS (HTRX)on 10-17-2024 ATOPOBIUM VAGINAE 0 [facility] ATOPOBIUM VAGINAE Not detected [facility] BVAB 2,3 (BACTERIAL VAGINOSIS ASSOCIATED BACTERIA 2, 3); MOBILUNCUS SPP 0 [facility] BVAB 2,3 (BACTERIAL VAGINOSIS ASSOCIATED BACTERIA 2, 3); MOBILUNCUS SPP Not detected [facility] AQUILINO ALBICANS, PARAPSILOSIS, TROPICALIS 0 [facility] AQUILINO ALBICANS, PARAPSILOSIS, TROPICALIS Not detected [facility] AQUILINO GLABRATA 0 [facility] AQUILINO GLABRATA Not detected [facility] AQUILINO KRUSEI 0 [facility] AQUILINO KRUSEI Not detected [facility] CHLAMYDIA TRACHOMATIS 0 [facility] CHLAMYDIA TRACHOMATIS Not detected N [facility] GARDNERELLA VAGINALIS 0 [facility] GARDNERELLA VAGINALIS Not detected N [facility] MEGASPHAERA (TYPES 1, 2) 0 [facility] MEGASPHAERA (TYPES 1, 2) Not detected [facility] MYCOPLASMA GENITALIUM 0 [facility] MYCOPLASMA GENITALIUM Not detected N [facility] NEISSERIA GONORRHOEAE 0 [facility] NEISSERIA GONORRHOEAE Not detected N [facility] TRICHOMONAS VAGINALIS 0 [facility] TRICHOMONAS VAGINALIS Not detected N [facility] Urinalysis macro (dipstick) panel (U)on 10-16-2024 Bilirubin, UA Negative Negative - 4(70) +++ mg/dL [facility] Blood, UA Negative Negative - 50 Farzad/mcL [facility] Clarity, UA Clear [facility] Color, UA Yellow [facility] Glucose, UA Negative Negative - 1999(110) ++++ mg/dL [facility] Interpretation and review of laboratory results Abnormal [facility] Ketones, UA Negative Negative - 160(16) ++++ mg/dL [facility] Leukocytes, UA Trace Negative - 500+++ Donnell/mcL [facility] Nitrite, UA Negative Negative - Positive [facility] pH, UA 7 5 - 9 [facility] Protein, UA Negative Negative - 1999(20) ++++ mg/dL [facility] Spec Grav, UA 1.015 1 - 1.03 [facility] Urobilinogen, UA 0.2 0.2 - 12 mg/dL [facility] US OB FOLLOW UP TRANSABDOMIN AL [...] II, MD, PHD at 16-Sep-2024 07:13:40 PM [facility] Normal Not Available Comment on above: Order Comment: Estim ated Date of Delivery: 03/01/25 Gestational Age as of 09/15/2024: 16w1d Urinalysis macro (dipstick) panel (U)Ordered By: Steph Brooks on 09-15-2024 Bilirubin, UA Negative Negative - 4(70) +++ mg/dL [facility] Work Phone: Blood, UA Negative Negative - 50 Farzad/mcL [facility] Work Phone: Clarity, UA Clear [facility] [employer] Work Phone: Color, UA Yellow [facility] [employer] Work Phone: Glucose, UA Negative Negative - 1999(110) ++++ mg/dL [facility] [employer] Work Phone: Interpretation and review of laboratory results Normal [facility] [employer] Work Phone: Ketones, UA Negative Negative - 160(16) ++++ mg/dL [facility] [employer] Work Phone: Leukocytes, UA Negative Negative - 500+++ Donnell/mcL [facility] [employer] Work Phone: Nitrite, UA Negative Negative - Positive [facility] [employer] Work Phone: pH, UA 7 5 - 9 [facility] [employer] Work Phone: Protein, UA Negative Negative - 1999(20) ++++ mg/dL [facility] [employer] Work Phone: Spec Grav, UA 1.02 1 - 1.03 [facility] [employer] Work Phone: Urobilinogen, UA 0.2 0.2 - 12 mg/dL [facility] [employer] Work Phone: [facility] [employer] Work Phone: MLR HEMOGLOBIN A1Con 025 Glucose [Mass/Vol] 103 mg/dL [facility] HbA1c (Bld) [Mass fraction] 5.2 % 4.5 - 6.2 % [facility] Comment on above: ADA RECOMMENDED LIMI T 4.0 - 6.0 ADA THERAPEUTIC TARGET < 7.0 ACTION SUGGESTED > 7.0 [facility] HCG ( test) Ql (U)o n 08-15-2024 Interpretation and review of laboratory results Abnormal [facility] Preg Test, Ur Positive Negative [facility] US OB TRANSVAGINALon 025 US OB [...] II, MD, PHD at 18-Aug-2024 10:45:55 AM [facility] Normal Not Available Comment on above: Order Comment: US OB TRANSVAGINAL No LMP recorded. Urinalysis macro (dipstick) panel (U)on 08-15-2024 Bilirubin, UA Negative Negative - 4(70) +++ mg/dL [facility] Blood, UA Negative Negative - 50 Farzad/mcL [facility] Clarity, UA Clear [facility] Color, UA Yellow [facility] Glucose, UA Negative Negative - 1999(110) ++++ mg/dL [facility] Interpretation and review of laboratory results Normal [facility] Ketones, UA Negative Negative - 160(16) ++++ mg/dL [facility] Leukocytes, UA Negative Negative - 500+++ Donnell/mcL [facility] Nitrite, UA Negative Negative - Positive [facility] pH, UA 6 5 - 9 [facility] Protein, UA Negative Negative - 1999(20) ++++ mg/dL [facility] Spec Grav, UA 1.02 1 - 1.03 [facility] Urobilinogen, UA 0.2 0.2 - 12 mg/dL [facility] PREG QUANT HCGon 025 HCG QUANTITATIVE 06466 mIU/mL [facility] Comment on above: 5-50 0.2-1 WEEK 50-500 1-2 WEEKS 100-5,000 2-3 WEEKS 500-10,000 3-4 WEEKS 1,000-50,000 4-5 WEEKS 10,000-100,000 5-6 WEEKS 15,000-200,000 6-8 WEEKS 10,000-100,000 2-3 MONTHS [facility] PREG QUANT HCGon 025 HCG QUANTITATIVE 73493 mIU/mL [facility] Comment on above: 5-50 0.2-1 WEEK 50-500 1-2 WEEKS 100-5,000 2-3 WEEKS 500-10,000 3-4 WEEKS 1,000-50,000 4-5 WEEKS 10,000-100,000 5-6 WEEKS 15,000-200,000 6-8 WEEKS 10,000-100,000 2[facility]APTIMA HPV,AGE GDLNon AGE GDLN ACOG TESTING Note . [facility] Comment on above: TESTS RESULT FLAG UN ITS REF RANGE LAB Clinician Provided Cytology Information Source.............Cervix;Endocervix No. of containers..01 ThinPrep Vial Age Andres TORREZ Tatianna... FLAG LEGEND: L-Low Normal,H-High Normal,LL-Alert Low,HH-Alert High <-Panic Low,>-Panic High,A-Abnormal,AA-Critical Abnormal Performed at: 01 =G [address] [id number] Betty Rodriguez MD, HPV APTIMA Negative Negative [facility] Comment on above: This nucleic acid am plification test detects fourteen high- risk HPV types (16,18,31,33,35,39,45,51,52,56,58,59,66,68) without differentiation. Performed at: = - [address] [id number] Administrative Assistant Receptionist: Betty Rodriguez MD, Phone: [phone] Performed at: - [address] [id number] Administrative Assistant Receptionist: Betty Rodriguez MD, Phone: [phone] IGP, APTIMA HPV, RFX 16/18,45 Note . [facility] Comment on above: TESTS RESULT FLAG U NITS REF RANGE LAB DIAGNOSIS: 02 NEGATIVE FOR INTRAEPITHELIAL LESION OR MALIGNANCY. Specimen adequacy: 02 Satisfactory for evaluation. No endocervical component is identified. Performed by: 02 Rhiannon Garcia System Operation Superintendent . 02 Note: Note 02 The Pap smear is a screening test designed to aid in the detection of premalignant and malignant conditions of the uterine cervix. It is not a diagnostic procedure and should not be used as the sole means of detecting cervical cancer. Both false-positive and false-negative reports do occur. Test Methodology: Note 02 The [employer] Retail Sales Representative was unable to read this specimen. Therefore a manual review was performed. FLAG LEGEND: L-Low Normal,H-High Normal,LL-Alert Low,HH-Alert High <-Panic Low,>-Panic High,A-Abnormal,AA-Critical Abnormal Performed at: [address] [id number] Betty Rodriguez MD, HPV Genotype Reflex Note 02 Criteria not met, HPV Genotype not performed. Criteria not met, HPV Genotype not performed. BRUSH-SPATULA CERVIX ENDOCERVIX [facility] VAGINITIS (HTRX)on 4 BVAB 2,3 (BACTERIAL VAGINOSIS ASSOCIATED BACTERIA 2, 3); MOBILUNCUS SPP 0 [facility] BVAB 2,3 (BACTERIAL VAGINOSIS ASSOCIATED BACTERIA 2, 3); MOBILUNCUS SPP Not detected [facility] CHLAMYDIA TRACHOMATIS 0 [facility] CHLAMYDIA TRACHOMATIS Not detected [facility] GARDNERELLA VAGINALIS 0 [facility] GARDNERELLA VAGINALIS Not detected [facility] NEISSERIA GONORRHOEAE 0 [facility] NEISSERIA GONORRHOEAE Not detected [facility] TRICHOMONAS VAGINALIS 0 [facility] TRICHOMONAS VAGINALIS Not detected [facility] Urinalysis macro (dipstick) panel (U)on 07-03-2023 Bilirubin, UA Negative Negative - 4(70) +++ mg/dL [facility] Blood, UA Negative Negative - 50 Farzad/mcL [facility] Clarity, UA Clear [facility] Color, UA Yellow [facility] Glucose, UA Negative Negative - 1999(110) ++++ mg/dL [facility] Interpretation and review of laboratory results Normal [facility] Ketones, UA Negative Negative - 160(16) ++++ mg/dL [facility] Leukocytes, UA Negative Negative - 500+++ Donnell/mcL [facility] Nitrite, UA Negative Negative - Positive [facility] pH, UA 6.0 5 - 9 [facility] Protein, UA Negative Negative - 2000(20) ++++ mg/dL [facility] Spec Grav, UA 1.020 1 - 1.03 [facility] Urobilinogen, UA 0.2 0.2 - 12 mg/dL [facility] Cervical or vaginal smear or scraping studyon 12-05-2022 [facility] Covid-19 PCR (CVDTB)on 04-20 SARS-CoV-2 (COVID-19) RNA JOSEFINA+probe Ql (Unsp spec) Not detected Normal NOT DETECTED [facility] Comment on above: Result Comment: This test is not yet approved or cleared by the [place] FDA. When there are no FDA-approved or cleared tests available, and other criteria are met, FDA can make tests available under an emergency access mechanism called an Emergency Use Authorization (EUA). The EUA for this test is supported by the [place] of Health and Human Service's (HHS's) declaration [...] SARS-CoV-2. Performed By: #### C VDTB #### [facility] [address] [place] [address] Dr. Sebastián Santo Vital Signs Date Time Vital Sign Value Performing Clinician Ubaldo antoine 02-24-2025 08:40-0400 Body weight 94.35 kg Margaret Octavio INVENTORY CHECKER Work Phone: [facility] 02-24-2025 08:40-0400 Diastolic blood pressure 84 mm[Hg] Margaret Octavio INVENTORY CHECKER Work Phone: [facility] 02-24-2025 08:40-0400 Systolic blood pressure 126 mm[Hg] Margaret Octavio INVENTORY CHECKER Work Phone: [facility] 02-17-2025 11:26-0400 Body weight 92.99 kg Margaret Octavio INVENTORY CHECKER Work Phone: [facility] 02-17-2025 11:26-0400 Diastolic blood pressure 72 mm[Hg] Margaret Octavio INVENTORY CHECKER Work Phone: [facility] 02-17-2025 11:26-0400 Systolic blood pressure 122 mm[Hg] Margaret Octavio INVENTORY CHECKER Work Phone: [facility] 02-10-2025 11:35-0400 Body weight 94.4 kg Jhon Paige DO Work Phone: [facility] 02-10-2025 11:35-0400 Diastolic blood pressure 70 mm[Hg] Jhon Paige DO Work Phone: [facility] 02-10-2025 11:35-0400 Systolic blood pressure 106 mm[Hg] Jhon Paige DO Work Phone: [facility] 02-03-2025 09:38-0400 Body weight 94.12 kg Isa LOERA Work Phone: [facility] 02-03-2025 09:38-0400 Diastolic blood pressure 82 mm[Hg] Isa LOERA Work Phone: [facility] 02-03-2025 09:38-0400 Systolic blood pressure 120 mm[Hg] Isa LOERA Work Phone: [facility] 01-20-2025 09:59-0400 Body weight 93.89 kg Jhon Paige DO Work Phone: [facility] 01-20-2025 09:59-0400 Diastolic blood pressure 64 mm[Hg] Jhon Paige DO Work Phone: [facility] 01-20-2025 09:59-0400 Systolic blood pressure 102 mm[Hg] Jhon Paige DO Work Phone: [facility] 01-06-2025 10:50-0400 Body weight 93.44 kg Jhon Paige DO Work Phone: [facility] 01-06-2025 10:50-0400 Diastolic blood pressure 60 mm[Hg] Jhon Paige DO Work Phone: [facility] 01-06-2025 10:50-0400 Systolic blood pressure 100 mm[Hg] Jhon Paige DO Work Phone: [facility] 12-23-2024 11:54-0400 Body weight 94.71 kg Jhon Paige DO Work Phone: [facility] 12-23-2024 11:54-0400 Diastolic blood pressure 70 mm[Hg] Jhon Paige DO Work Phone: [facility] 12-23-2024 11:54-0400 Systolic blood pressure 110 mm[Hg] Jhon Paige DO Work Phone: [facility] 12-08-2024 09:29-0400 Body weight 94.98 kg Isa LOERA Work Phone: [facility] 12-08-2024 09:29-0400 Diastolic blood pressure 70 mm[Hg] Isa LOERA Work Phone: [facility] 12-08-2024 09:29-0400 Systolic blood pressure 104 mm[Hg] Isa LOERA Work Phone: [facility] 11-17-2024 10:13-0400 Body weight 95.25 kg Jhon Paige DO Work Phone: [facility] 11-17-2024 10:13-0400 Diastolic blood pressure 72 mm[Hg] Jhon Paige DO Work Phone: [facility] 11-17-2024 10:13-0400 Systolic blood pressure 102 mm[Hg] Jhon Paige DO Work Phone: [facility] 10-16-2024 10:34-0400 Body weight 95.94 kg Jhon Paige DO Work Phone: [facility] 10-16-2024 10:34-0400 Diastolic blood pressure 66 mm[Hg] Jhon Paige DO Work Phone: [facility] 10-16-2024 10:34-0400 Systolic blood pressure 100 mm[Hg] Jhon Paige DO Work Phone: [facility] 09-15-2024 11:39-0400 Body weight 94.4 kg Jhon Paige DO Work Phone: [facility] 09-15-2024 11:39-0400 Diastolic blood pressure 60 mm[Hg] Jhon Paige DO Work Phone: [facility] 09-15-2024 11:39-0400 Systolic blood pressure 100 mm[Hg] Jhon Paige DO Work Phone: [facility] 08-15-2024 10:30-0400 Body weight 92.53 kg [facility] 08-15-2024 10:30-0400 Diastolic blood pressure 72 mm[Hg] [facility] Nurse [facility] 08-15-2024 10:30-0400 Systolic blood pressure 118 mm[Hg] Nom Nurse [facility] 01-17-2024 10:37-0400 Body weight 86.82 kg Isa LOERA Work Phone: [facility] 01-17-2024 10:37-0400 Diastolic blood pressure 74 mm[Hg] Isa LOERA Work Phone: [facility] 01-17-2024 10:37-0400 Systolic blood pressure 118 mm[Hg] Isa LOERA Work Phone: [facility] 07-03-2023 10:39-0500 Body weight 92.08 kg Jhon Paige DO Work Phone: [facility] 07-03-2023 10:39-0500 Diastolic blood pressure 62 mm[Hg] Jhon Paige DO Work Phone: [facility] 07-03-2023 10:39-0500 Systolic blood pressure 110 mm[Hg] Jhon Paige DO Work Phone: [facility] Healthcare Encounters Encounter Date Encounter Type Care Provider Facility Start: 02-24-2025 End: 02-24-2025 Bamboo flowsheet Margaret Cunningham INVENTORY CHECKER Work Phone: [facility] Start: 02-24-2025 End: 02-24-2025 Bamboo flowsheet Margaret Cunningham INVENTORY CHECKER Work Phone: [facility] Start: 02-24-2025 End: 02-24-2025 ambulatory MARGARET OCTAVIO Not Available Start: 02-24-2025 End: 02-24-2025 Office outpatient visit 15 minutes Margaret Cunningham INVENTORY CHECKER Work Phone: [facility] Comment on above: Folliculitis (Primar y Dx); Third trimester ([facility]); 39 weeks gestation of ([facility]) Start: 02-17-2025 End: 02-17-2025 Bamboo flowsheet Margaret Octavio INVENTORY CHECKER Work Phone: [facility] Start: 02-17-2025 End: 02-17-2025 Bamboo flowsheet Margaret Octavio INVENTORY CHECKER Work Phone: [facility] Start: 02-17-2025 End: 02-17-2025 ambulatory MARGARET OCTAVIO Not Available Start: 02-17-2025 End: 02-17-2025 Office outpatient visit 15 minutes Margaret Cunningham NP Work Phone: [facility] Comment on above: Nausea (Primary Dx); 38 weeks gestation of ([facility]); Third trimester ([facility]) Start: 02-10-2025 End: 02-10-2025 Bamboo flowsheet Jhon Paige DO Work Phone: [facility] Start: 02-10-2025 End: 02-10-2025 Bamboo flowsheet Jhon Paige DO Work Phone: [facility] Start: 02-10-2025 End: 02-10-2025 Office outpatient visit 15 minutes Jhon Paige DO Work Phone: [facility] Comment on above: 37 weeks gestation o f ([facility]); Third trimester ([facility]) Start: 02-10-2025 End: 02-10-2025 ambulatory JHON PAIGE Not Available Start: 02-03-2025 End: 02-03-2025 Bamboo flowsheet Isa LOERA Work Phone: [facility] Start: 02-03-2025 End: 02-03-2025 Bamboo flowsheet Isa LOERA Work Phone: [facility] Start: 02-03-2025 End: 02-03-2025 Office outpatient visit 15 minutes Isa LOERA Work Phone: [facility] Comment on above: Third trimester preg joselyn ([facility]); 36 weeks gestation of ([facility]) Start: 02-03-2025 End: 02-03-2025 ambulatory ISA CARRERA Not Available Start: 01-20-2025 End: 01-20-2025 Bamboo flowsheet Jhon Paige DO Work Phone: [facility] Start: 01-20-2025 End: 01-20-2025 Bamboo flowsheet Jhon Paige DO Work Phone: [facility] Start: 01-20-2025 End: 01-20-2025 Office outpatient visit 15 minutes Jhon Paige DO Work Phone: [facility] Comment on above: Third trimester preg joselyn ([facility]); 34 weeks gestation of ([facility]) Start: 01-20-2025 End: 01-20-2025 ambulatory JHON PAIGE Not Available Start: 01-09-2025 End: 01-09-2025 Clinisync Result Encounter Isa LOERA Work Phone: [facility] Unsolicited Start: 01-09-2025 End: 01-09-2025 Clinisync Result Encounter Isa LOERA Work Phone: [facility]solic[facility] Start: 01-06-2025 End: 01-06-2025 Bamboo flowsheet Jhon Paige DO Work Phone: [facility] Start: 01-06-2025 End: 01-06-2025 Bamboo flowsheet Jhon Paige DO Work Phone: [facility] Start: 01-06-2025 End: 01-06-2025 flow sheet Jhon Paige DO Work Phone: [facility] Comment on above: 32 weeks gestation o f ([facility]); Third trimester ([facility]) Start: 01-06-2025 End: 01-06-2025 ambulatory JHON PAIGE Not Available Start: 12-23-2024 End: 12-23-2024 flow sheet Jhon Paige DO Work Phone: [facility] Comment on above: 30 weeks gestation o f ([facility]); Third trimester ([facility]) Start: 12-23-2024 End: 12-23-2024 ambulatory JHON [...] incons istent with dates in second trimester ([facility]) (Primary Dx); Second trimester ([facility]); 28 weeks gestation of ([facility]); Elevated glucose tolerance test Start: 12-08-2024 End: 12-08-2024 ambulatory ISA CARRERA Not Available Start: 12-05-2024 End: 12-05-2024 Clinisync Result Encounter Jhon Paige DO Work Phone: [facility]solic[facility] Start: 12-05-2024 End: 12-05-2024 [...] Comment on above: Second trimester pre gnancy ([facility]); 25 weeks gestation of ([facility]); Diabetes mellitus screening Start: 11-17-2024 End: 11-17-2024 [...] Date Procedure Procedure Detail Performing Clinician Start: 02-24-2025 Urnls dip stick/tabl et rgnt non-auto w/o micrscp Margaret Cunningham NP Work Phone: Start: 02-17-2025 Urnls dip stick/tabl et rgnt non-auto w/o micrscp Margaret Cunningham NP Work Phone: Start: 02-10-2025 Urnls dip stick/tabl et rgnt non-auto w/o micrscp Jhon Paige DO Work Phone: Start: 02-03-2025 Urnls dip stick/tabl et rgnt [...] stick/tabl et rgnt non-auto w/o micrscp Isa Carrera PA Work Phone: Start: 12-05-2024 GLUCOSE 1 HOUR [...] Phone: Start: 01-17-2024 IGP,APTIMA HPV,AGE GDLN Isa Debi PA Work Phone: Start: 01-17-2024 Microscopic observat ion [Identifier] in Cervix by Cyto stain Jhon [employer] DO Work Phone: Start: 07-03-2023 VAGINITIS (HTRX) Jhon [employer] DO Work Phone: Start: 07-03-2023 Urnls dip stick/tabl et rgnt non-auto w/o micrscp Jhon [employer] DO Work Phone: Start: 12-05-2022 Microscopic observat ion [Identifier] in Cervix by Cyto stain Jhon [employer] DO Work Phone: Start: 12-05-2022 Cytp cerv/vag auto t hin layer prep mnl screen [employer] Work Phone: Plan of Treatment Date Care Activity Detail Author Start: 12-06-2027 Screening for malign ant neoplasm of cervix [facility] Start: 12-05-2027 Screening for malign ant neoplasm of cervix [facility] Start: 01-16-2027 Screening for malign ant neoplasm of cervix Pap Smear [facility] Start: 02-24-2025 End: 02-24-2025 Patient encounter procedure 02/24/2025 8:50 AM EDT Routine [facility] [address] [place] [address] Margaret Cunningham, INVENTORY CHECKER [address] [place] [address] [facility] Start: 02-17-2025 End: 02-17-2025 Patient encounter procedure 02/17/2025 11:20 AM EDT Routine [facility] [address] [place] [address] Margaret Cunningham, BHARATH [address] [place] [phone] [facility] Start: 02-10-2025 End: 02-10-2025 Patient encounter procedure 02/10/2025 11:10 AM EDT Routine [facility] [address] [place] [phone] Jhon Gibson DO [address] [place] [address] [facility] Start: 02-03-2025 End: 02-03-2026 CULTURE, GROUP B STREP WITH SUSCEPTIBLITY CULTURE, GROUP B STREP WITH SUSCEPTIBLITY Lab Routine Third trimester ([facility]) Expected: 02/03/2025, Expires: 02/03/2026 [facility] Work Phone: Comment on above: Expected: 02/03/2025 , Expires: 02/03/2026 Start: 02-03-2025 End: 02-03-2025 Patient encounter procedure [facility] Comment on above: Arrived Start: 01-26-2025 End: 01-26-2025 Patient encounter procedure [facility] Start: 01-21-2025 End: 01-21-2025 Patient encounter procedure 01/21/2025 10:00 AM EDT Office Visit [facility] [address] [place] [phone] Isa Carrera PA [address] [place], [place] [id number] [facility] Start: 01-20-2025 End: 01-20-2025 Patient encounter procedure [facility] Comment on above: Arrived Start: 01-19-2025 Influenza vaccination [facility] Start: 01-06-2025 End: 01-06-2025 Patient encounter procedure [facility] Comment on above: Arrived Start: 12-23-2024 End: 12-23-2024 Patient encounter procedure 12/23/2024 11:30 AM EDT Routine [facility] [address] [place] [phone] Jhon Gibson, DO [address] [place] [address] [facility] Start: 12-23-2024 End: 12-23-2024 Professional / ancillary services management 12/23/2024 11:00 AM EDT Ancillary Procedure [facility] [address] [facility] [place] [address] [facility] Start: 12-08-2024 End: 12-08-2025 Measurement of glucose 3 hours after glucose challenge for glucose tolerance test Glucose tolerance, 3 hours Lab Routine Elevated glucose tolerance test Expected: 12/08/2024 (Approximate), Expires: 12/08/2025 [facility] Comment on above: Expected: 12/08/2024 (Approximate), Expires: 12/08/2025 Start: 12-08-2024 End: 04-10-2025 US for US OB follow up transabdominal approach Imaging Routine Size of fetus inconsistent with dates in second trimester ([facility]) Expected: 12/08/2024, Expires: 04/10/2025 [facility] Work Phone: Comment on above: Expected: 12/08/2024 , Expires: 04/10/2025 Start: 12-08-2024 End: 12-08-2024 Patient encounter procedure [facility] Comment on above: Arrived Start: 11-17-2024 End: 11-17-2025 CBC panel - Blood by Automated count CBC Lab Routine Diabetes mellitus screening Expected: 11/17/2024 (Approximate), Expires: 11/17/2025 [facility] Work Phone: Comment on above: Expected: 11/17/2024 (Approximate), Expires: 11/17/2025 Start: 11-17-2024 End: 06-30-2026 Measurement of glucose 1 hour after glucose [...] for anatomic survey Expected: 10/16/2024, Expires: 01/16/2025 [facility] Healthcare Comment on above: Expected: 10/16/2024 , Expires: 01/16/2025 Start: 10-16-2024 End: 10-16-2024 Patient encounter procedure [facility] Comment on above: Arrived Start: 09-15-2024 End: 01-15-2025 US for [facility] Work Phone: Comment on above: Expected: 09/15/2024 , Expires: 01/15/2025 Start: 09-15-2024 End: 09-15-2024 Patient encounter procedure 09/15/2024 11:30 AM EDT Routine [facility] [address] [place] [phone] Jhon Gibson, [address] [place] [address] [facility] Start: 09-15-2024 End: 09-15-2024 Professional / ancillary services management 09/15/2024 11:00 AM EDT Ancillary Procedure [facility] [address] [place] [address] [facility] Start: 09-15-2024 End: 09-15-2024 Patient encounter procedure 09/15/2024 10:10 AM EDT Routine [facility] [address] [place] [address] Jhon Gibson, DO [address] [place] [address] [facility] Start: 08-15-2024 End: 08-15-2025 [...] first trimester Expected: 08/15/2024 (Approximate), Expires: 08/15/2025 [facility] Comment on above: Expected: 08/15/2024 (Approximate), Expires: 08/15/2025 Start: 08-15-2024 End: 08-15-2024 ambulatory 08/15/2024 10:00 AM EDT Initial [facility] [address] [place] [address] [facility] Start: 08-15-2024 End: 08-15-2024 Professional / ancillary services management 08/15/2024 9:30 AM EDT Ancillary Procedure [facility] [address] [place] [address] [facility] Start: 01-20-2024 Influenza vaccination Influenza Vacc ine (#1) [facility] Start: 01-17-2024 End: 01-16-2025 CBC panel - Blood by Automated count CBC Lab Routine Dizziness Vision blurred Expected: 01/17/2024 (Approximate), Expires: 01/16/2025 [facility] Healthcare Comment on above: Expected: 01/17/2024 (Approximate), Expires: 01/16/2025 Start: 01-17-2024 End: 01-16-2025 Thyrotropin [Units/volume] in Serum or Plasma TSH Lab Routine Dizziness Vision blurred Expected: 01/17/2024 (Approximate), Expires: 01/16/2025 [facility] Healthcare Comment on above: Expected: 01/17/2024 (Approximate), Expires: 01/16/2025 Start: 01-17-2024 End: 01-17-2024 Patient encounter procedure 01/17/2024 10:00 AM EDT Office Visit [facility] [address] [place] [phone] Isa Carrera PA [address] [address] Arrived [facility] Comment on above: Arrived Start: 07-24-2023 End: 07-24-2023 Patient encounter procedure 07/24/2023 10:00 AM EST Routine [facility] OB [address] [place] [address] Isa Carrera, PA [address] [address] [facility] OB Start: 07-03-2023 End: 07-03-2024 CBC panel - Blood by Automated count CBC Lab Routine Diabetes mellitus screening Expected: 07/03/2023 (Approximate), Expires: 07/03/2024 [facility] Comment on above: Expected: 07/03/2023 (Approximate), Expires: 07/03/2024 Start: 07-03-2023 End: 07-03-2024 Measurement of glucose 1 hour after glucose challenge for glucose tolerance test Glucose tolerance, 1 hour Lab Routine Diabetes mellitus screening Expected: 07/03/2023 (Approximate), Expires: 07/03/2024 [facility] Comment on above: Expected: 07/03/2023 (Approximate), Expires: 07/03/2024 Start: 01-19-2023 Influenza vaccination Influenza Vacc ine (#1) [facility] Bacteria identified in Urine by Culture Urine culture Microbiology Routine Missed menses Ordered: 08/15/2024 [facility] Comment on above: Ordered: 08/15/2024 CBC W Auto Different ial panel - Blood CBC and differential Lab Routine Missed menses , unspecified gestational age Ordered: 08/15/2024 [facility] Comment on above: Ordered: 08/15/2024 CHLAMYDIA TRACHOMATI S (GENITO/STI) CHLAMYDIA TRACHOMATIS (GENITO/STI) Lab Routine Screen for STD (sexually transmitted disease) Ordered: 07/03/2023 [facility] Comment on above: Ordered: 07/03/2023 CHLAMYDIA TRACHOMATI S (GENITO/STI) CHLAMYDIA TRACHOMATIS (GENITO/STI) Lab Routine STD exposure Ordered: 10/16/2024 [facility] Comment on above: Ordered: 10/16/2024 Cytology Cervical or vaginal smear or scraping study Pap Smear Pathology and Cytology Routine Well woman exam with routine gynecological exam Ordered: 01/17/2024 [facility] Work Phone: Comment on above: Ordered: 01/17/2024 Hemoglobin A1c/Hemoglobin.total in Blood Hemoglobin A1c Lab Routine Missed menses , unspecified gestational age Ordered: 08/15/2024 [facility] Comment on above: Ordered: 08/15/2024 Hepatitis B virus surface Ag [Presence] in Serum or Plasma by Immunoassay Hepatitis B surface antigen Lab Routine Missed menses , unspecified gestational age Ordered: 08/15/2024 [facility] Comment on above: Ordered: 08/15/2024 Hepatitis C virus Ab [Presence] in Serum or Plasma by Immunoassay Hepatitis C antibody Lab Routine Missed menses , unspecified gestational age Ordered: 08/15/2024 [facility] Comment on above: Ordered: 08/15/2024 HIV-1/HIV-2 antigen/antibody combination immunoassay HIV-1 and HIV-2 antibodies Lab Routine Missed menses , unspecified gestational age Ordered: 08/15/2024 [facility] Comment on above: Ordered: 08/15/2024 Human papilloma viru s DNA [Presence] in Unspecified specimen by Probe with amplification HPV DNA probe, amplified Microbiology Routine Well woman exam with routine gynecological exam Ordered: 01/17/2024 [facility] Comment on above: Ordered: 01/17/2024 Neisseria gonorrhoea e DNA [Presence] in Unspecified specimen by JOSEFINA with probe detection Neisseria gonorrhea DNA probe, direct Lab Routine Screen for STD (sexually transmitted disease) Ordered: 07/03/2023 [facility] Comment on above: Ordered: 07/03/2023 Neisseria gonorrhoea e DNA [Presence] in Unspecified specimen by JOSEFINA with probe detection Neisseria gonorrhea DNA probe, direct Lab Routine STD exposure Ordered: 10/16/2024 [facility] Comment on above: Ordered: 10/16/2024 Reagin Ab [Presence] in Serum by RPR RPR Lab Routine Missed menses , unspecified gestational age Ordered: 08/15/2024 [facility] Comment on above: Ordered: 08/15/2024 Rubella antibody, IgG Rubella an tibody, IgG Lab Routine Missed menses , unspecified gestational age Ordered: 08/15/2024 [facility] Comment on above: Ordered: 08/15/2024 SURESWAB(R) ADVANCED VAGINITIS PLUS, TMA SURESWAB(R) ADVANCED VAGINITIS PLUS, TMA Pathology and Cytology Routine Screen for STD (sexually transmitted disease) Ordered: 07/03/2023 [facility] Work Phone: Comment on above: Ordered: 07/03/2023 SURESWAB(R) ADVANCED VAGINITIS PLUS, TMA SURESWAB(R) ADVANCED VAGINITIS PLUS, TMA Pathology and Cytology Routine STD exposure Ordered: 10/16/2024 [facility] Work Phone: Comment on above: Ordered: 10/16/2024 Payers Date Payer Category Payer Medicaid [employer] [facility] [id number] 2022-Present [address] [address] [place] [address] [id number] 2022 Medicaid (Managed Care) ADRI URENA [id number] 1990 Unknown [id number] 2.16.840.1.175169.3.579.2. 593 1990 Unknown [id number] 2.16.840.1.114477.3.579.2. 1258 1990 Unknown [id number] 2.16.840.1.489970.3.579.2. 1258 1990 Unknown [id number] 2.16.840.1.139970.3.579.2. 1258 1990 Unknown [id number] 2.16.840.1.286682.3.579.2. 1258 1990 Unknown [id number] 2.16.840.1.545586.3.579.2. 1258 1990 Unknown [id number] 2.16.840.1.573855.3.579.2. 1258 1990 Unknown [id number] 2.16.840.1.644429.3.579.2. 1258 1990 Unknown [id number] 2.16.840.1.783671.3.579.2. 1258 1990 Unknown [id number] 2.16.840.1.340050.3.579.2. 1258 1990 Unknown [id number] 2.16.840.1.675030.3.579.2. 9 1990 Unknown [id number] 2.16.840.1.922229.3.579.2. 1258 1990 Unknown [id number] 2.16.840.1.935612.3.579.2. 1258 1990 Unknown [id number] 2.16.840.1.971742.3.579.2. 1258 1990 Unknown [id number] 2.16.840.1.918466.3.579.2. 1258 1990 Unknown [id number] 2.16.840.1.472819.3.579.2. 9 1959 Private Health Insurance [id number] 1959 Unknown [id number] Social History Date Type Detail Facility Tobacco smoking stat [facility] Tobacco smoking consumption unknown [facility] Start: 01-23-2023 [facility] Start: 1990 Sex Assigned At Female [facility] Start: 05-01-2023 Gender identity Identifies as female gender (finding) [facility] Start: 05-01-2023 Sexual orientation Heterosexual (finding) [facility] Start: 12-03-2024 History of Social function [facility] Work Phone: Start: 12-03-2024 Patient Health Questionnaire 2 item (PHQ-2) [Reported] PHQ-2 Answer Date Recorded Patient Health Questionnaire-2 Score 0 12/03/2024 [facility] Work Phone: Clinical Notes 07-03-2023 to 02-24-2025 Margaret Cunningham NP - 02/24/2025 8:30 AM Estrellita Cunningham NP - 02/17/2025 11:20 AM Mikey Pfeiffer LPN - 02/10/2025 11:10 AM EVARISTO Oliver - 02/03/2025 9:20 AM EDT Note Date & Type Note Facility 02-24-2025 History of Presen t illness Narrative Images from the original note were not included. Reason for Appointment: Patient ID: Merle Cyr is a 35 y.o. female who presents for Routine Visit Patient presents today for Return OB appointment. MEDICATIONS Current Outpatient Medications Medication Instructions diphenhydrAMINE (BENADRYL) 25 mg, Nightly PRN nystatin (Mycostatin) 680916 UNIT/GM powder Topical, 3 times daily ondansetron (ZOFRAN) 4 mg, Oral, Every 6 hours PRN, Take 1 tablet by mouth every 6 hours as needed for nausea. ALLERGIES Allergies Allergen Reactions Banana Swelling PROBLEMS Active Ambulatory Problems Diagnosis Date Noted Post-term , 40-42 weeks of gestation ([facility]) 10/16/2023 40 weeks gestation of ([facility]) 10/16/2023 Resolved Ambulatory Problems Diagnosis Date [...] nursing note reviewed. Exam conducted with a perinatal director present. Vitals: There is no height or weight on file to calculate BMI. BP: 126/84 No LMP recorded. Patient is . ASSESSMENT & PLAN ICD-10-CM 1. Third trimester ([facility]) Z34.93 POCT urinalysis dipstick manually resulted 2. 39 weeks gestation of ([facility]) Z3A.39 Return OB: Patient presents today [...] Margaret Cunningham NP documented in this encounter [facility] 02-17-2025 History of Presen t illness Narrative Reason for Appointment: Patient ID: Merle Cyr is a 35 y.o. female who presents for Routine Visit Patient presents today for Return OB appointment. MEDICATIONS Current Outpatient Medications Medication Instructions diphenhydrAMINE (BENADRYL) 25 mg, Nightly PRN nystatin (Mycostatin) 348527 UNIT/GM powder Topical, 3 times daily ALLERGIES Allergies Allergen Reactions Banana Swelling PROBLEMS Active Ambulatory Problems Diagnosis Date Noted Post-term , 40-42 weeks of gestation ([facility]) 10/16/2023 40 weeks gestation of ([facility]) 10/16/2023 Resolved Ambulatory Problems Diagnosis Date [...] nursing note reviewed. Exam conducted with a perinatal director present. Vitals: There is no height or weight on file to calculate BMI. BP: 122/72 No LMP recorded. Patient is . ASSESSMENT & PLAN ICD-10-CM 1. 38 weeks gestation of ([facility]) Z3A.38 2. Third trimester ([facility]) Z34.93 Return OB: Patient presents today for [...] Margaret Cunningham NP documented in this encounter [facility] 02-10-2025 History of Presen t illness Narrative Reason for Appointment: Patient ID: Merle Cyr is a 34 y.o. female who presents for Routine Visit Patient presents today for Return OB appointment. MEDICATIONS Current Outpatient Medications Medication Instructions diphenhydrAMINE (BENADRYL) 25 mg, Nightly PRN nystatin (Mycostatin) 644555 UNIT/GM powder Topical, 3 times daily ALLERGIES Allergies Allergen Reactions Banana Swelling PROBLEMS Active Ambulatory Problems Diagnosis Date Noted Post-term , 40-42 weeks of gestation ([facility]) 10/16/2023 40 weeks gestation of ([facility]) 10/16/2023 Resolved Ambulatory Problems Diagnosis Date [...] nursing note reviewed. Exam conducted with a perinatal director present. Vitals: There is no height or weight on file to calculate BMI. BP: 106/70 No LMP recorded. Patient is . ASSESSMENT & PLAN ICD-10-CM 1. 37 weeks gestation of ([facility]) Z3A.37 POCT urinalysis dipstick manually resulted 2. Third trimester ([facility]) Z34.93 POCT urinalysis dipstick manually resulted Return OB: Patient presents today for a routine obstetrics appointment. Patient is currently 37w2d . Patient states she is doing well [...] Gibson DO documented in this encounter [facility] 02-03-2025 History of Presen t illness Narrative Reason for Appointment: Patient ID: Merle Cyr is a 34 y.o. female who presents for Routine Visit Patient presents today for Return OB appointment. MEDICATIONS Current Outpatient Medications Medication Instructions diphenhydrAMINE (BENADRYL) 25 mg, Nightly PRN nystatin (Mycostatin) 527387 UNIT/GM powder Topical, 3 times daily ALLERGIES Allergies Allergen Reactions Banana Swelling PROBLEMS Active Ambulatory Problems Diagnosis Date Noted Post-term , 40-42 weeks of gestation ([facility]) 10/16/2023 40 weeks gestation of ([facility]) 10/16/2023 Resolved Ambulatory Problems Diagnosis Date [...] ASSESSMENT & PLAN ICD-10-CM 1. Third trimester ([facility]) Z34.93 POCT urinalysis dipstick manually resulted CULTURE, GROUP B STREP WITH SUSCEPTIBLITY CULTURE, GROUP B STREP WITH SUSCEPTIBLITY 2. 36 weeks gestation of ([facility]) Z3A.36 Patient is doing well but has [...] EVARISTO Jessica documented in this encounter [facility] 01-20-2025 History of Presen t illness Narrative Reason for Appointment: Patient ID: Merle Cyr is a 34 y.o. female who presents for Routine Visit Patient presents today for Return OB appointment. MEDICATIONS Current Outpatient Medications Medication Instructions diphenhydrAMINE (BENADRYL) 25 mg, Nightly PRN nystatin (Mycostatin) 716767 UNIT/GM powder Topical, 3 times daily ALLERGIES Allergies Allergen Reactions Banana Swelling PROBLEMS Active Ambulatory Problems Diagnosis Date Noted Post-term , 40-42 weeks of gestation ([facility]) 10/16/2023 40 weeks gestation of ([facility]) 10/16/2023 Resolved Ambulatory Problems Diagnosis Date [...] nursing note reviewed. Exam conducted with a perinatal director present. Vitals: There is no height or weight on file to calculate BMI. BP: 102/64 No LMP recorded. Patient is . ASSESSMENT & PLAN ICD-10-CM 1. Third trimester ([facility]) Z34.93 POCT urinalysis dipstick manually resulted 2. 34 weeks gestation of ([facility]) Z3A.34 POCT urinalysis dipstick manually resulted Return [...] Gibson DO documented in this encounter [facility] 01-06-2025 History of Presen t illness Narrative Reason for Appointment: Patient ID: Merle Cyr is a 34 y.o. female who presents for Routine Visit Patient presents today for Return OB appointment. MEDICATIONS Current Outpatient Medications Medication Instructions diphenhydrAMINE (BENADRYL) 25 mg, Nightly PRN nystatin (Mycostatin) 527382 UNIT/GM powder Topical, 3 times daily ALLERGIES Allergies Allergen Reactions Banana Swelling PROBLEMS Active Ambulatory Problems Diagnosis Date Noted Post-term , 40-42 weeks of gestation ([facility]) 10/16/2023 40 weeks gestation of ([facility]) 10/16/2023 Resolved Ambulatory Problems Diagnosis Date [...] nursing note reviewed. Exam conducted with a perinatal director present. Vitals: There is no height or weight on file to calculate BMI. BP: 100/60 No LMP recorded. Patient is . ASSESSMENT & PLAN ICD-10-CM 1. 32 weeks gestation of ([facility]) Z3A.32 POCT urinalysis dipstick manually resulted 2. Third trimester ([facility]) Z34.93 POCT urinalysis dipstick manually resulted [...] Gibson DO documented in this encounter [facility] 12-23-2024 History of Presen t illness Narrative Reason for Appointment: Patient ID: Merle Cyr is a 34 y.o. female who presents for Routine Visit Patient presents today for Return OB appointment. MEDICATIONS Current Outpatient Medications Medication Instructions diphenhydrAMINE (BENADRYL) 25 mg, Nightly PRN nystatin (Mycostatin) 557240 UNIT/GM powder Topical, 3 times daily ALLERGIES Allergies Allergen Reactions Banana Swelling PROBLEMS Active Ambulatory Problems Diagnosis Date Noted Post-term , 40-42 weeks of gestation ([facility]) 10/16/2023 40 weeks gestation of ([facility]) 10/16/2023 Resolved Ambulatory Problems Diagnosis Date [...] nursing note reviewed. Exam conducted with a perinatal director present. Vitals: There is no height or weight on file to calculate BMI. BP: 110/70 No LMP recorded. Patient is . ASSESSMENT & PLAN ICD-10-CM 1. 30 weeks gestation of ([facility]) Z3A.30 POCT urinalysis dipstick manually resulted 2. Third trimester ([facility]) Z34.93 POCT urinalysis dipstick manually resulted [...] Carrera PA-C documented in this encounter [facility] 12-08-2024 History of Presen t illness Narrative Reason for Appointment: Patient ID: Merle Cyr is a 34 y.o. female who presents for Routine Visit Patient presents today for Return OB appointment. MEDICATIONS Current Outpatient Medications Medication Instructions diphenhydrAMINE (BENADRYL) 25 mg, Nightly PRN ALLERGIES Allergies Allergen Reactions Banana Swelling PROBLEMS Active Ambulatory Problems Diagnosis Date Noted Post-term , 40-42 weeks of gestation ([facility]) 10/16/2023 40 weeks gestation of ([facility]) 10/16/2023 Resolved Ambulatory Problems Diagnosis Date [...] fetus inconsistent with dates in second trimester ([facility]) O26.842 OB follow up transabdominal approach 2. Second trimester ([facility]) Z34.92 Urine dip 3. 28 weeks gestation of ([facility]) Z3A.28 Urine dip Return OB: Patient [...] EVARISTO Jessica documented in this encounter [facility] 11-17-2024 History of Presen t illness Narrative Reason for Appointment: Patient ID: Merle Cyr is a 34 y.o. female who presents for Routine Visit Patient presents today for Return OB appointment. MEDICATIONS Current Outpatient Medications Medication Instructions diphenhydrAMINE (BENADRYL) 25 mg, Nightly PRN ALLERGIES Allergies Allergen Reactions Banana Swelling PROBLEMS Active Ambulatory Problems Diagnosis Date Noted Post-term , 40-42 weeks of gestation ([facility]) 10/16/2023 40 weeks gestation of ([facility]) 10/16/2023 Resolved Ambulatory Problems Diagnosis Date [...] nursing note reviewed. Exam conducted with a perinatal director present. Vitals: There is no height or weight on file to calculate BMI. BP: 102/72 No LMP recorded. Patient is . ASSESSMENT & PLAN ICD-10-CM 1. Second trimester ([facility]) Z34.92 2. 25 weeks gestation of ([facility]) Z3A.25 3. Diabetes mellitus screening Z13.1 [...] Gibson DO documented in this encounter [facility] 10-16-2024 History of Presen t illness Narrative [...] nursing note reviewed. Exam conducted with a perinatal director present. Vitals: There is no height [...] Gibson DO documented in this encounter [facility] 09-15-2024 History of Presen t illness Narrative [...] or undercooked meat, and stay away from [facility]. Patient has been consulted regarding any [...] Gibson DO documented in this encounter [facility] 08-15-2024 History of Presen t illness Narrative [...] gestation of Nurse Note: Pt unsure of Duff Billion to one at this time. Pt was advised to make sure she does both labs and Duff together if she decides. Follow Up: Patient is to have labs drawn at directed and return to office for initial OB appointment with provider. Patient may call office as needed with any concerns or questions. Nurse Visit Completed by: Trena Roman MA documented in this encounter [facility] 01-17-2024 History of Presen t illness Narrative [...] nursing note reviewed. Exam conducted with a perinatal director present. Vitals: There is no height [...] EVARISTO Jessica documented in this encounter [facility] 07-03-2023 History of Presen t illness Narrative [...] nursing note reviewed. Exam conducted with a perinatal director present. Vitals: There is no height [...] obtained without difficulty and patient was given [facility] order to have obtained. Follow [...] [facility] Diagnosis 37 weeks gestation of ([facility]) Third trimester ([facility]) state, incidental [facility]* Diagnosis Nausea- Primary Nausea alone 38 weeks gestation of ([facility]) Third trimester ([facility]) state, incidental [facility] Diagnosis Folliculitis- Primary Other specified disease of hair and hair follicles Third trimester ([facility]) state, incidental 39 weeks gestation of ([facility]) documented in this encounter [facility] Summary Purpose Family History No Family History Records FoundNo Family History Records Found Advance Directives No Advanced Directives Records FoundNo Advanced Directives Records Found Additional Source Comments INFORMATION SOURCE (unrecogn ized section and content) DATE CREATED AUTHOR 06/17/2021 [facility] DATE CREATED AUTHOR AUTHOR'S ORGANIZ ATION 02/26/2025 [facility] EPIC Reason for Visit (unrecogniz ed section and content) Reason Comments Routine Visit Reason Comments Well Women Visit Reason Comments Amenorrhea Care Teams (unrecognized sec tion and content) Bridge Painter Helper Relationship Specialty Start Date End Date Иван Murphy MD [address] [place] [address] PCP - General Family Medicine 05/03/23 Bridge Painter Helper Relationship Specialty Start Date End Date Иван Murphy MD [address] [place] [address] PCP - General Family Medicine 05/03/23 Bridge Painter Helper Relationship Specialty Start Date End Date Иван Murphy MD [address] [place] [address] PCP - General Family Medicine 05/03/23 Bridge Painter Helper Relationship Specialty Start Date End Date Иван Murphy MD [address] [place] [address] PCP - General Family Medicine 05/03/23 Bridge Painter Helper Relationship Specialty Start Date End Date Иван Murphy MD [address] [place] [address] PCP - General Family Medicine 05/03/23 Bridge Painter Helper Relationship Specialty Start Date End Date Иван Murphy MD [address] [place] [facility] [place] [address] PCP - General Family Medicine 05/03/23 Bridge Painter Helper Relationship Specialty Start Date End Date Иван Murphy MD [address] [place] [facility] [place] [address] PCP - General Family Medicine 05/03/23 Bridge Painter Helper Relationship Specialty Start Date End Date Иван Murphy MD [address] [place] [facility] [place] [address] PCP - General Family Medicine 05/03/23 Bridge Painter Helper Relationship Specialty Start Date End Date Иван Murphy MD [address] [place] [facility] [place] [address] PCP - General Family Medicine 05/03/23 Bridge Painter Helper Relationship Specialty Start Date End Date Иван Murphy MD [address] [place] [facility] [place] [address] PCP - General Family Medicine 05/03/23 Bridge Painter Helper Relationship Specialty Start Date End Date Иван Murphy MD [address] [place] [facility] [place] [address] PCP - General Family Medicine 05/03/23 Bridge Painter Helper Relationship Specialty Start Date End Date Иван Murphy MD [address] [place] [facility] [place] [address] PCP - General Family Medicine 05/03/23 Bridge Painter Helper Relationship Specialty Start Date End Date Иван Murphy MD [address] [place] [address] PCP - General Family Medicine 05/03/23 FOR [...] BE BASED ON THE PRIMARY CLINICAL RECORDS. [employer] [facility]. provides no warranty or guarantee of the accuracy or completeness of information in this document.
--- OUTSIDE RECORDS SUMMARY | 2025-03-03 05:18 | XMS_ITS | Clinical Summary ---
Author Organization [employer] [facility] tem Address [id number] [address] [place] [address] Care Team Providers Care Admissions Clerk Name Role Phone Chencho Murphy MD Primary Care Provider [phone] Allergies Active Allergy Reactions Criticality Noted Date [...] 2001 11/28/1996, 01/08/1995, 1990, Additional history exists Tobacco Screening 2002 Adult BMI Screening 12/05/2023 12/04/2022 Depression Screening 12/05/2023 12/04/2022 COVID-19 Vaccine (2024-2 6 season) 2025 06/28/2020, 05/31/2020 Influenza Vaccine 01/19/2025 Pap Smear [...] specimen type ThinPrep 12/06/2022 4:31 PM EDT [facility] Hpv 16 Negative Negative^N egative 12/07/2022 1:26 PM EDT [facility] Hpv 18 Negative Negative^N egative 12/07/2022 1:26 PM EDT [facility] Other high risk hpv Negative Negative^N egative 12/07/2022 1:26 PM EDT [facility] Comment: HPV types 31,33,35,39,45,52,56,58,59,66 and 68 DNA were undetectable. THINP 12/04/2022 4:31 PM EDT 12/06/2022 4:33 PM EDT us Devika Ryan RESEARCH PHYSICIST-CN[facility] LAB BLOOD ORDERABLES Fin al Result [facility] [address] [place] [address] [facility] [address] [place] [address] from Last 3 Months or Most Recently Relevant to Health Maintenance Insurance [employer] Care Teams Admissions Clerk Relationship Specialty Start Date End Date Chencho Murphy MD PCP - General 09/21/17
--- OUTSIDE RECORDS SUMMARY | 2025-03-03 05:18 | XMS_ITS | Encounter Summary ---
Author Organization [facility] Address [address] [place] [address] Care Team Providers Care Modeling Agency Manager Name Role Phone Chencho Murphy MD Primary Care Provider [phone] Encounter Details Date Type Department Care Team (Late st Contact Info) Description 06/05/2023 Clinisync Result Encounter [facility] External Department Unsolicited Jhon Gibson, DO [address] [facility] [place] [phone] Social History Tobacco Use Types Packs/Day Years [...] EST Narrative 06/05/2023 2:20 PM EST [facility] [address] [place] [address] Ultrasound Report Signed Patient: MERLE GUARDADO MR#: [id number] : 1990 Acct:[id number] Age/Sex: 33 / F ADM Date: 06/05/23 Loc: US Attending Dr: Jhon Gibson D.O. Ordering Physician: Jhon Gibson D.O. Date of Service: 06/05/23 Procedure(s): US OB anatomy Accession Number(s): [id number] cc: Jhon Gibson D.O.; Chencho Murphy M.D. [place] [id number] Patient Name: MERLE GUARDADO MRN: [id number] date: 1990 Sex: F Assigned Patient Location: US Current Patient Location: US Accession/Order Number: [id number] Exam Date: 06/05/2023 13:03 Report Date: 06/05/2023 [...] Signed By: 06/05/23 1420 DD/ 1418 TD/TT: Environmental Health And Safety Intern: Procedure Note Radiology, Radiologist, MD - 06/05/2023 [place] [address] Ultrasound Report Signed Patient: MERLE GUARDADO NMR#: [id number] : 1990Acct:[id number] Age/Sex: 33 / FADM Date: 06/05/23 Loc: US Attending Dr: Jhon Gibson D.O. Ordering Physician: Jhon Gibson D.O. Date of Service: 06/05/23 Procedure(s): US OB anatomy Accession Number(s): [id number] cc: Jhon Gibson D.O.; Chencho Murphy M.D. The [place] [id number] Patient Name: MERLE GUARDADO MRN: [id number] date: 1990 Sex: F Assigned Patient Location: US Current Patient Location: US Accession/Order Number: [id number] Exam Date: 06/05/2023 13:03 Report Date: 06/05/2023 [...] M.D. Signed By:06/05/23 1420 DD/ 1418 TD/TT: Environmental Health And Safety Intern: us Jhon Paige DO [facility] Final Result documented in this encounter Visit Diagnoses Not on filedocumented in this encounter Care Teams Modeling Agency Manager Relationship Specialty Start Date End Date Chencho Murphy MD [address] [place] [address] PCP - General Family Medicine 05/03/23 documented as of this encounter
--- OUTSIDE RECORDS SUMMARY | 2025-03-03 05:18 | XMS_ITS | Encounter Summary ---
Author Organization [facility] Address [address] [place] [address] Care Team Providers Care Fiberglasser Name Role Phone Chencho Murphy MD Primary Care Provider [phone] Encounter Details Date Type Department Care Team (Late st Contact Info) Description 01/23/2024 Orders Only [facility] [address] [place] [phone] Steph Brooks LPN [address] [facility] [place] [address] Social History Tobacco Use Types Packs/Day Years [...] on filedocumented in this encounter Care Teams Fiberglasser Relationship Specialty Start Date End Date Chencho Murphy MD [address] [place] [address] PCP - General Family Medicine 05/03/23 documented as of this encounter
--- OUTSIDE RECORDS SUMMARY | 2025-03-03 05:18 | XMS_ITS | Encounter Summary ---
Author Organization [facility] Address [address] [place] [address] Care Team Providers Care Fresh Food Manager Name Role Phone Chencho Murphy MD Primary Care Provider [phone] Encounter Details Date Type Department Care Team (Late st Contact Info) Description 10/22/2023 Clinisync Result Encounter [facility] External Department Unsolicited Jhon Gibson, DO 102 [facility] [place] [phone] Social History Tobacco Use Types Packs/Day Years [...] AM EDT Narrative 10/22/2023 8:53 AM EDT [facility] [address] [place] [address] Ultrasound Report Signed Patient: MERLE GUARDADO MR#: [id number] : 1990 Acct:[id number] Age/Sex: 33 / F ADM Date: 10/20/23 Loc: US Attending Dr: Jhon Gibson D.O. Ordering Physician: Jhon Gibson D.O. Date of Service: 10/20/23 Procedure(s): US OB BPP w non-stress Accession Number(s): [id number] cc: Jhon Gibson D.O.; Chencho Murphy M.D. The [place] [phone] Patient Name: MERLE GUARDADO MRN: [id number] date: 1990 Sex: F Assigned Patient Location: US Current Patient Location: Accession/Order Number: [id number] Exam Date: 10/20/2023 14:40 Report Date: 10/22/2023 [...] Signed By: 10/22/23 0853 DD/ 0850 TD/TT: Marketing Analytics Lead: Procedure Note Radiology, Radiologist, - 10/22/2023 [place] [address] Ultrasound Report Signed Patient: MERLE GUARDADO NMR#: [id number] : 1990Acct:[id number] Age/Sex: 33 / FADM Date: 10/20/23 Loc: US Attending Dr: Jhon Gibson D.O. Ordering Physician: Jhon Gibson D.O. Date of Service: 10/20/23 Procedure(s): US OB BPP w non-stress Accession Number(s): [id number] cc: Jhon Gibson D.O.; Chencho Murphy M.D. [address] [address] Patient Name: MERLE GUARDADO MRN: [id number] date: 1990 Sex: F Assigned Patient Location: US Current Patient Location: Accession/Order Number: [id number] Exam Date: 10/20/2023 14:40 Report Date: 10/22/2023 [...] 08:50 Dictated By: Bryce Rader M.D. Signed By:10/22/23 0853 DD/ 0850 TD/TT: Marketing Analytics Lead: us Jhon Gibson DO [facility] Final Result documented in this encounter Visit Diagnoses Not on filedocumented in this encounter Care Teams Fresh Food Manager Relationship Specialty Start Date End Date Chencho Murphy MD [address] [place] [address] PCP - General Family Medicine 05/03/23 documented as of this encounter
--- OUTSIDE RECORDS SUMMARY | 2025-03-03 05:18 | XMS_ITS | Encounter Summary ---
Author Organization [facility] Address [address] [place] [address] Care Team Providers Care Sales And Management Trainee Name Role Phone Chencho Murphy MD Primary Care Provider [phone] Encounter Details Date Type Department Care Team (Late st Contact Info) Description 08/21/2023 Clinisync Result Encounter [facility] External Department Unsolicited Jhon Gibson, DO 102 [facility] [place] [address] Social History Tobacco Use Types [...] PM EDT Narrative 08/21/2023 3:03 PM EDT [facility] [address] [place] [address] Ultrasound Report Signed Patient: MERLE GUARDADO MR#: [id number] : 1990 Acct:[id number] Age/Sex: 33 / F ADM Date: 08/21/23 Loc: NOMS Attending Dr: Jhon Gibson D.O. Ordering Physician: Jhon Gibson D.O. Date of Service: 08/21/23 Procedure(s): US OB growth Accession Number(s): [id number] cc: Jhon Gibson D.O.; Chencho Murphy M.D. [place] [address] Patient Name: MERLE GUARDADO MRN: [facility]:[id number] date: 1990 Sex: F Assigned Patient Location: [facility] Current Patient Location: [facility] Accession/Order Number: [id number] Exam Date: 08/21/2023 14:02 Report Date: 08/21/2023 [...] Signed By: 08/21/23 1503 DD/ 1501 TD/TT: Funeral Pre Arrangement Counselor: Procedure Note Radiology, Radiologist, - 08/21/2023 [place] [address] Ultrasound Report Signed Patient: MERLE GUARDADO NMR#: [id number] : 1990Acct:[id number] Age/Sex: 33 / FADM Date: 08/21/23 Loc: NOMS Attending Dr: Jhon Gibson D.O. Ordering Physician: Jhon Gibson D.O. Date of Service: 08/21/23 Procedure(s): US OB growth Accession Number(s): [id number] cc: Jhon Gibson D.O.; Chencho Murphy M.D. The [place] [id number] Patient Name: MERLE GUARDADO MRN: [id number] date: 1990 Sex: F Assigned Patient Location: [facility] Current Patient Location: [facility] Accession/Order Number: [id number] Exam Date: 08/21/2023 14:02 Report Date: 08/21/2023 [...] M.D. Signed By:08/21/23 1503 DD/ 1501 TD/TT: Funeral Pre Arrangement Counselor: us Jhon Paige DO [facility] Final Result documented in this encounter Visit Diagnoses Not on filedocumented in this encounter Care Teams Sales And Management Trainee Relationship Specialty Start Date End Date Chencho Murphy MD [address] [place] [address] PCP - General Family Medicine 05/03/23 documented as of this encounter
--- OUTSIDE RECORDS SUMMARY | 2025-03-03 05:18 | XMS_ITS | Clinical Summary ---
Author Organization [facility] Address [address] [place] [address] Care Team Providers Care Booking Supervisor Name Role Phone Chencho Murphy MD Primary Care Provider [phone] Allergies Active Allergy Reactions Criticality Noted Date Comments Banana Swelling 05/02/2014 Medications diphenhydrAMINE (BENADryl) 25 MG tablet Take 25 mg by mouth as needed at bedtime for itching Active nystatin (Mycostatin) 110036 UNIT/GM powderIndicatio ns:Dermatitis Apply topically in the morning and in the evening and before bedtime. 15 g 1 5 12/09/19 26 Active ondansetron (Zofran) 4 MG tabletIndicatio ns:Nausea Take 1 tablet (4 mg) by mouth every 6 (six) hours if needed for nausea or vomiting for up to 30 doses Take 1 tablet by mouth every 6 hours as needed for nausea. 30 tablet 1 5 Active cephalexin (Keflex) 500 MG capsuleIndicati ons:Folliculiti s Take 1 capsule (500 mg) by mouth 3 (three) times a day for 7 days 21 capsule 5 03/03/20 25 Active Active Problems Problem Noted Date Diagnosed Date Post-term , 40-42 weeks of gestation ([facility]) 10/16/2023 40 weeks gestation of ([facility]) 2023 Estimated Date of Delivery Comme nts Yes 03/01/2025 Based on Ultraso und Encounters Date Type Department Care Team Description 02/24/2025 8:30 AM EDT Routine [facility] [facility] [address] [place] [address] Margaret Cunningham NP Folliculitis (Primary Dx); Third trimester ([facility]); 39 weeks gestation of ([facility]) 02/24/2025 Bamboo flowsheet [facility] [address] [place] [address] Margaret Cunningham NP 02/17/2025 11:20 AM EDT Routine [facility] [place] [facility] [address] [place] [address] Margaret Cunningham NP Nausea (Primary Dx); 38 weeks gestation of ([facility]); Third trimester ([facility]) 02/17/2025 Bamboo flowsheet [facility] [address] [place] [address] Margaret Cunningham NP 02/10/2025 11:10 AM EDT Routine [facility] [place] [facility] [address] [place] [address] Boston Gibson DO 37 weeks gestation of ([facility]); Third trimester ([facility]) 02/10/2025 Bamboo flowsheet [facility] [address] [place] [address] Boston Gibson DO 02/03/2025 9:20 AM EDT Routine [facility] [address] [place] [address] Isa Avendano PA Third trimester ([facility]); 36 weeks gestation of ([facility]) 02/03/2025 Patient Outreach [facility] [place] [address] Isa Fontana LPN 02/03/2025 Bamboo flowsheet [facility] [place] [facility] [address] [place] [address] Isa Avendano PA 01/20/2025 9:30 AM EDT Routine [facility] [address] [place] [phone] Boston Gibson, Third trimester ([facility]); 34 weeks gestation of ([facility]) 01/20/2025 Bamboo flowsheet [facility] [address] [place] [phone] [phone] Boston Gibson, 01/09/2025 Clinisync Result Encounter [facility] External Department Unsolicited Isa Avendano PA 01/06/2025 10:30 AM EDT Routine [facility] [address] [place] [address] Boston Gibson, 32 weeks gestation of ([facility]); Third trimester ([facility]) 01/06/2025 Bamboo flowsheet [facility] [address] [place] [address] [place] [address] Boston Gibson DO 01/02/2025 Patient Outreach [facility] [address] [place] [address] Isa Fontana LPN 12/23/2024 11:30 AM EDT Routine [facility] [address] [place] [address] Boston Gibson, 30 weeks gestation of ([facility]); Third trimester ([facility]) 12/23/2024 11:00 AM EDT Ancillary Procedure [facility] [address] [place] [phone] Size of fetus inconsistent with dates in second trimester ([facility]) 12/08/2024 9:20 AM EDT Routine [facility] [place] [phone] Isa Avendano PA Size of fetus inconsistent with dates in second trimester ([facility]) (Primary Dx); Second trimester ([facility]); 28 weeks gestation of ([facility]); Elevated glucose tolerance test; Dermatitis 12/08/2024 Bamboo flowsheet [facility] [address] [place] [address] Isa Avendano PA 12/05/2024 Clinisync Result Encounter [facility] External Department Unsolicited Boston Gibson DO 12/03/2024 Patient Outreach [facility] [address] [place] [address] Isa Fontana LPN 12/03/2024 Abstract [facility] [address] [place] [address] Isa Fontana LPN from Last 3 Months Social History Tobacco [...] Mass Index - - Plan of Treatment Health Maintenance Due Date Last Done Comments Influenza Vaccine (#1) 2025 Pap Smear 01/16/2027 01/17/2024, 12/05/2022, 11/18 Cervical Cancer Screening 12/05/2027 HPV/Cotest 12/05/2027 12/04/2022 Procedures Procedure Name Priority Date/Time Associated Diagnosis Comments POCT URINALYSIS DIPSTICK Routine 02/24/2025 8:46 AM EDT Third trimester ([facility]) POCT URINALYSIS DIPSTICK Routine 02/17/2025 12:05 PM EDT 38 weeks gestation of ([facility]) POCT URINALYSIS DIPSTICK Routine 02/10/2025 11:42 AM EDT 37 weeks gestation of ([facility]) Third trimester ([facility]) POCT URINALYSIS DIPSTICK Routine 02/03/2025 9:43 AM EDT Third trimester ([facility]) CULTURE, GROUP B STREP WITH SUSCEPTIBLITY Routine 02/03/2025 9:28 AM EDT Third trimester ([facility]) GLUCOSE TOLERANCE 3 HOUR Routine 01/09/2025 8:15 AM EDT POCT URINALYSIS DIPSTICK Routine 01/06/2025 10:58 AM EDT 32 weeks gestation of ([facility]) Third trimester ([facility]) POCT URINALYSIS DIPSTICK Routine 12/23/2024 12:00 PM EDT 30 weeks gestation of ([facility]) Third trimester ([facility]) US OB FOLLOW UP TRANSABDOMINAL APPROACH Routine 12/23/2024 11:19 AM EDT Size of fetus inconsistent with dates in second trimester ([facility]) POCT URINALYSIS DIPSTICK Routine 12/08/2024 9:33 AM EDT Second trimester ([facility]) 28 weeks gestation of ([facility]) ALL CBC WITH AUTO DIFF Routine 10:37 AM EDT GLUCOSE 1 HOUR Routine 12/05/2024 10:37 AM EDT PAP SMEAR Routine 01/17/2024 12:00 AM EDT from Last 3 Months or Most Recently Relevant to Health Maintenance Results * (ABNORMAL) POCT urinalysis dipstick manually resulted (02/24/2025 8:46 AM EDT) Only the most recent of7 resultswithin the time period is included. Color, [...] OF CARE TEST ENTER/EDIT ORDERABLES Final Result * CULTURE, GROUP B STREP WITH SUSCEPTIBLITY (02/03/2025 9:28 AM EDT) Swab 02/03/2025 9:28 AM EDT Isa LOERA LAB BLOOD ORDERABLES Final Resul t EXTERNAL LAB * (ABNORMAL) GLUCOSE TOLERANCE 3 HOUR (01/09/2025 8:15 AM EDT) GLUCOSE TOLERANCE 3 HOUR (H) mg/dL [facility] Comment: GLU FAST 93 (<95) Col: 01/09/25 0815 GLU 1HR 182H (<180) Col: 01/09/25 0918 GLU 2HR 124 (<155) Col: 01/09/25 1019 GLU 3HR 94 (<140) Col: 01/09/25 1119 01/09/2025 8:15 AM EDT 01/09/2025 8:16 AM EDT Narrative [facility] - 01/09/2025 11:42 AM EDT us Isa LOERA LAB BLOOD ORDERABLES Final Resul t [facility] TB * US OB follow up transabdominal approach (12/23/2024 11:19 AM EDT) Anatomical Region Laterality Modality Body Ultrasound 12/23/2024 2:1 8 PM EDT Impressions 12/23/2024 2:40 PM EDT 1. Single, live intrauterine , current sonographic [...] BY: ELECTRONICALLY SIGNED BY: Андрей Montague MD Narrative 12/23/2024 2:40 PM EDT FINDINGS: Comparison made with prior exam November [...] +/- 230 grams (3 pounds, 6 ounces). Procedure Note Андрей Montague MD - 08/05/2025 FINDINGS: Comparison made with prior exam November 08, 2024. A single, live intrauterine is present with normal cardiacrate of 145 beats per minute. Normal activity and amniotic fluidvolume. Morphology is grossly normal. The placenta not fully visualized,likely fundal region, not associated with the internal cervical os whichwas not measured. The current sonographic age is 30 weeks and 1 day, basedon the following measurements: BPD 7.5 cm (29 weeks, 6 days) Head Circumference 27.7 cm (30 weeks, 2 days) Abdominal Circumference 26.0 cm (30 weeks, 1 day) Femur Length 5.8 cm (30 weeks, 3 days) Presentation Transverse Weight (g) by Percentile 35.3 % * These measurements result in an estimated date of delivery of February. The current estimated weight is 1536 grams +/- 230 grams (3pounds, 6 ounces). IMPRESSION: 1. Single, live intrauterine , current sonographic age of 30weeks and 1 day, with an estimated date of delivery of March 02, 2025(prior ANTONIO March 06, 2025). 2. Estimated weight 1536 grams, 35.3% percentile (prior [id number]%) * Estimated Weight (g) by Percentile is based upon an accurateestimated age based on last menstrual period. TRANSCRIBED BY: ELECTRONICALLY SIGNED BY: Андрей Montague MD us Isa LOERA IMG OB US PROCEDURES Final Resul t * (ABNORMAL) GLUCOSE 1 HOUR (12/05/2024 10:37 AM EDT) GLUCOSE 1 HOUR 138(H) <130 mg/dL [facility] 12/05/2024 10:3 7 AM EDT 12/05/2024 10:38 AM EDT Narrative [facility] - 12/05/2024 10:49 AM EDT us Boston Gibson DO LAB BLOOD ORDERABLES Final Resul t [facility] * (ABNORMAL) ALL CBC WITH AUTO DIFF (12/05/2024 10:37 AM EDT) [facility] TB WBC 6.9 4.0 - 11.0 10 3/uL [facility] TBH RBC 3.74(L) 4.20 - 5.40 10 6/uL [facility]H HGB 10.6(L) 12.0 - 16.0 g/dL [facility] TBH HCT 33.3(L) 36.0 - 48.0 % [facility] TBH MCV 89.0 81.0 - 99.0 fL TBH TBH MCH 28.3 26.7 - 34.0 pg TBH TBH MCHC 31.8 29.9 - 35.2 g/dL [facility] TBH RDW 13.0 11.0 - 15.0 % TBH TBH PLT 271 150 - 450 10 3/uL TBH TBH MPV 11.5 9.5 - 13.5 fL TBH NEUTROPHILS PERCENT AUTO 76.8(H) 43.0 - 75.0 % [facility] LYMPHOCYTES PERCENT AUTO 16.7(L) 20.5 - 60.0 % [facility] MONOCYTES PERCENT AUTO 4.8 1.7 - 12.0 % TBH TBH EO % 1.2 0.9 - 7.0 % [facility] BASOPHILS PERCENT AUTO 0.1(L) 0.2 - 2.0 % [facility] IMMATURE GRANULOCYTES PCT AUTO 0.4 0.0 - 0.5 % [facility] NEUTROPHILS ABSOLUTE AUTO 5.3 1.4 - 6.5 10 3/uL [facility] LYMPHOCYTES ABSOLUTE AUTO 1.2 1.2 - 3.8 10 3/uL [facility] MONOCYTES ABSOLUTE AUTO 0.3 0.3 - 0.8 10 3/uL TB[facility] TBH EO # 0.1 0.0 - 0.7 10 3/uL [facility] BASOPHILS ABSOLUTE AUTO 0.0 0.0 - 0.1 10 3/uL [facility] IMMATURE GRANULOCYTES ABS AUTO 0.03 0.00 - 0.03 10 3/uL [facility] 12/05/2024 10:3 7 AM EDT 12/05/2024 10:38 AM EDT Narrative [facility] - 12/05/2024 11:03 AM EDT us Boston Paige DO [facility] Final Result [facility] * Pap Smear (01/17/2024 12:00 AM EDT) Swab Cervical swab / Unknown Paige Nurse [facility] Ob LAB CYTOLOGY ORDERABLES Final Result EXTERNAL LAB from Last 3 Months or Most Recently Relevant to Health Maintenance Insurance [employer] [employer] Care Teams Booking Supervisor Relationship Specialty Start Date End Date Chencho Murphy MD [address] [place] [address] PCP - General Family Medicine 05/03/23
--- OUTSIDE RECORDS SUMMARY | 2025-03-03 05:18 | XMS_ITS | Patient Health Record ---
Author Organization [facility] in [place] Address [address] [place] [address] Care Team Providers Care Cold Meat Cook Name Role Phone Arcadio Murphy Primary Care Provider Allergies No Known Allergies Results Component Value Reference Range Notes RUBELLA AB IGG Reviewed date:09/02/2024 01:10:40 PM Interpretation: Performing Lab: Notes/Report: [facility] , Rubella Antibodies, IgG 2.60 Immune > 0.99 index Performed at: [facility] [employer] [facility] Sql Report Writer: Drake Brooks PhD, Phone: [phone] Immune >0.99 Equivocal 0.90 - 0.[address] [place] [phone] Non-immune <0.90 Performing Lab: [facility] note - [facility] HIV Ab/p24 Ag with Reflex Reviewed date:09/02/2024 01:10:40 PM Interpretation: Performing Lab: Notes/Report: [facility] , HIV Ab/p24 Ag Screen Non Reactive Non Reactive Performed at: [facility] HIV-1/HIV-2 antibodies and HIV-1 p24 antigen were NOT detected. There is no laboratory evidence of HIV infection. [address] [place] [phone] Sql Report Writer: Drake Brooks PhD, Phone: [phone] HIV Negative Performing Lab: see note [facility] HCV Antibody RFX to Quant PC R Reviewed date:09/02/2024 01:10:40 PM Interpretation: Performing Lab: Notes/Report: [facility] , HCV Ab Non Reactive Non Reactive Interpretation: Comment . Sql Report Writer: Drake Brooks PhD, Phone: [phone] Performed at: [facility] [address] [phone] infection. individual), or other evidence exists to indicate HCV Not infected with HCV unless early or acute infection is suspected (which may be delayed in an immunocompromised Performing Lab: see note - [facility] LB US OB cervical length Reviewed date:11/10/2024 02:25:44 PM Interpretation: Performing Lab: Notes/Report: Source Facility: [place] [address] Ultrasound Report Signed Patient: MERLE GUARDADO MR#: [id number] : 1990 Acct:[id number] Age/Sex: 34 / F ADM Date: 11/08/24 Loc: US Attending Dr: Jhon Gibson D.O. Ordering Physician: Jhon Gibson D.O. Date of Service: 11/08/24 Procedure(s): US OB cervical length Accession Number(s): [id number] cc: Jhon Gibson D.O.; Chencho Murphy M.D. [place] [address] Patient Name: MERLE GUARDADO MRN: [id number] date: 1990 Sex: F Assigned Patient Location: Current Patient Location: Accession/Order Number: [id number] Exam Date: 11/10/2024 07:47 Report Date: 11/10/2024 [...] normal limits for appearance and position. The computing consultant had difficulty visualizing the spine and 4 [...] Carmona M.D. 11/10/2024 7:56 AM Dictation Location: [place] [address] Electronically authenticated by: [id number] Y Date: 11/10/2024 07:56 Dictated By: Lizbet Carmona M.D. Signed By: 11/10/24 0759 DD/ 0756 TD/TT: Loading Rack Supervisor: US OB anatomy Reviewed date:11/10/2024 02:25:44 PM Interpretation: Performing Lab: Notes/Report: Source Facility: [place] [address] Ultrasound Report Signed Patient: MERLE GUARDADO MR#: [id number] : 1990 Acct:[id number] Age/Sex: 34 / F ADM Date: 11/08/24 Loc: US Attending Dr: Jhon Gibson D.O. Ordering Physician: Jhon Gibson D.O. Date of Service: 11/08/24 Procedure(s): US OB anatomy Accession Number(s): [id number] cc: Jhon Gibson D.O.; Chencho Murphy M.D. The [place] [address] Patient Name: MERLE GUARDADO MRN: [facility]:[id number] date: 1990 Sex: F Assigned Patient Location: Current Patient Location: Accession/Order Number: [id number] Exam Date: 11/10/2024 07:47 Report Date: 11/10/2024 [...] normal limits for appearance and position. The computing consultant had difficulty visualizing the spine and 4 [...] Carmona M.D. 11/10/2024 7:56 AM Dictation Location: [place] [address] Electronically authenticated by: [id number] Y Date: 11/10/2024 07:56 Dictated By: Lizbet Carmona M.D. Signed By: 11/10/24 0759 DD/ 0756 TD/TT: Loading Rack Supervisor: Kelly Reviewed date:02/18/2025 05:50:47 PM Interpretation: Performing Lab: Notes/Report: [facility] , Clindamycin See Below For Report Clindamycin Resistant Clindamycin Clindamycin Resistant Clindamycin Testing for inducibl e clindamycin resistance was performed Clindamycin Resistant Clindamycin using erythromycin and clindamycin in the D-zone test. Per Clindamycin Resistant Clindamycin the Centers for Disease Control and Prevention (CDC), Clindamycin Resistant Clindamycin erythromycin is no longer an acceptable alternative for Clindamycin Resistant Clindamycin intrapartum group B Streptococcus (GBS) prophylaxis for Clindamycin Resistant Clindamycin penicillin-allergic women at high risk for Clindamycin Resistant Clindamycin anaphylaxis. Clindamycin Resistant Performing Lab: see note LC - [facility] LB US OB cervical length Reviewed date:11/22/2024 07:52:47 PM Interpretation: Performing Lab: Notes/Report: Source Facility: [place] [address] Ultrasound Report Signed Patient: MERLE GUARDADO MR#: [id number] : 1990 Acct:[id number] Age/Sex: 34 / F ADM Date: 11/22/24 Loc: US Attending Dr: Jhon Gibson D.O. Ordering Physician: Jhon Gibson D.O. Date of Service: 11/22/24 Procedure(s): US OB cervical length Accession Number(s): [id number] cc: Jhon Gibson D.O.; Chencho Murphy M.D. [place] [address] Patient Name: MERLE GUARDADO MRN: [id number] date: 1990 Sex: F Assigned Patient Location: US Current Patient Location: US Accession/Order Number: [id number] Exam Date: 11/22/2024 14:25 Report Date: 11/22/2024 [...] Quinones M.D. 11/22/2024 2:27 PM Dictation Location: [place] [address] Electronically authenticated by: [id number] Y Date: 11/22/2024 14:27 Dictated By: Nir Quinones D.O. Signed By: 11/22/24 1430 DD/ 1427 TD/TT: Loading Rack Supervisor: US OB incomplete anatomy Reviewed date:11/22/2024 07:52:47 PM Interpretation: Performing Lab: Notes/Report: Source Facility: [place] [address] Ultrasound Report Signed Patient: MERLE GUARDADO MR#: [id number] : 1990 Acct:[id number] Age/Sex: 34 / F ADM Date: 11/22/24 Loc: US Attending Dr: Jhon Gibson D.O. Ordering Physician: Jhon Gibson D.O. Date of Service: 11/22/24 Procedure(s): US OB incomplete anatomy Accession Number(s): [id number] cc: Jhon Gibson D.O.; Chencho Murphy M.D. [place] [address] Patient Name: MERLE GUARDADO MRN: [id number] date: 1990 Sex: F Assigned Patient Location: US Current Patient Location: US Accession/Order Number: [id number] Exam Date: 11/22/2024 14:25 Report Date: 11/22/2024 [...] Quinones M.D. 11/22/2024 2:27 PM Dictation Location: [place] Electronically authenticated by: [id number] Y Date: 11/22/2024 14:27 Dictated By: Nir Quinones D.O. Signed By: 11/22/24 1430 DD/ 1427 TD/TT: Loading Rack Supervisor: AFP, Serum, Open Spina Bifid a Reviewed date:11/05/2024 05:29:19 PM Interpretation: Performing Lab: Notes/Report: N N ULTRASOUND [id number] 4 20 N 1 Y 211 N [...] MoM 0.77 . OSBR [place] 1 [place] [address] . Interpretation Comment . Services to discuss available options. The [place] detected by this test. This test does not screen for can identify up to 80% of open neural tube defects. Interpretation: Screen Negative amniocentesis be offered to women age 35 and older. or Trisomy 18 is desired, contact Genetic Customer calculated is based on the gestational age provided. [facility] College of Obstetricians and Gynecologists recommends Down Syndrome or Trisomy 18. If screening for Down Syndrome Closed neural tube defects and some open defects may not be This result is screen negative for OSB. The AFP MoM Comment: Comment . For AFP Elevations Sql Report Writer: Andres Faust [facility], Phone: [phone] Romelia Villarreal, Ph.D., [facility] Abbreviation Definitions by the Food and Drug Administration. Genetics Services at 7-087-013-GENE. OSBR - Open Spina Bifida Risk IDD 2.0 Twins 4.5 Multiples Of Median Cutoffs [address]ccann, [facility], [place] [phone] determined by [facility]. It has not been cleared or approved For further inquiries contact [facility] Director IDD - Insulin Dep Diabetes Feliz 2.5 Black 2.8 References: Available Upon Request. Performed at: [facility] This test was developed and its performance characteristics Performing Lab: see note [facility] LB Box Test Reviewed date:09/01/2024 08:29:17 PM Interpretation: Performing Lab: Notes/Report: [facility] , BOX Test Sent Out [facility] BOX Test Reference Lab [facility] BOX Test Date Sent 09/01/24 Performing Lab: see note [facility] LB Urine Culture, Routine Reviewed date:09/03/2024 09:46:27 AM Interpretation: Performing Lab: Notes/Report: [facility] , Urine Culture, Routine See Below For Report Urine Culture, Routine Urine Culture, Routine Mixed urogenital geno Urine Culture, Routine Urine Culture, Routine 10,000-25,000 col jazmin forming units per mL Urine Culture, Routine Urine Culture, Routine Performed at: [facility] Urine Culture, Routine Urine Culture, Routine [address] [place], [place] [id number] Urine Culture, Routine Urine Culture, Routine Sql Report Writer: Frandy Brooks PhD, Phone: [phone] Urine Culture, Routine Performing Lab: see note [facility] SEE REPORT - [employer] Id information not found for OBX-specific line producer legend HBsAg Screen Reviewed date:09/02/2024 01:10:40 PM Interpretation: Performing Lab: Notes/Report: [facility] , HBsAg Screen Negative Negative [address] [place], [place] [id number] Performed at: [facility] Sql Report Writer: Drake Brooks PhD, Phone: [phone] Performing Lab: see note [facility] Rapid Plasma Reagin, Quant Reviewed date:09/02/2024 01:10:40 PM Interpretation: Performing Lab: Notes/Report: [facility] , Rapid Plasma Reagin, Quant Non Reactive NonRea<1:1 titer screening and diagnosis of syphilis. This test is [address] [place], [place] [id number] infection, a reflex cascade that includes both RPR and a treated for syphilis infection. To screen for syphilis Please Note: This test does not meet current guidelines for intended for following treatment response in patients being (039520). Sql Report Writer: Drake Brooks PhD, Phone: [phone] Rapid Plasma Reagin (RPR) Test With Reflex to Quantitative treponema-specific assay should be utilized, such as RPR and Confirmatory Treponema pallidum Antibodies Performed at: [facility] Treponema pallidum (Syphilis) Screening [place] ([id number]) or Performing Lab: see note - [facility] LB Type and Screen Reviewed date:09/01/2024 08:29:17 PM Interpretation: Performing Lab: Notes/Report: [facility] , Blood Type A Positive Antibody Screen NEGATIVE GLYCOHEMOGLOBIN A1C Reviewed date:09/01/2024 08:29:17 PM Interpretation: Performing Lab: Notes/Report: [facility] , Glycohemoglobin A1C 5.2 4.5-6.2 % > 7.0 ADA RECOMMENDED LIMIT 4.0 - 6.0 ACTION SUGGESTED ADA THERAPEUTIC TARGET < 7.0 Estimated Average Glucose 103 Performing Lab: see note ML - [facility] LB DRUG SCREEN RAPID (URINE) Reviewed date:09/01/2024 08:29:17 PM Interpretation: Performing Lab: Notes/Report: [facility] , Cannabinoid Screen Urine NEGATIVE [...] Performing Lab: see note ML - [facility] LB CBC AUTO DIFF Reviewed date:09/01/2024 08:29:17 PM Interpretation: Performing Lab: Notes/Report: [facility] , White Blood Count 7.9 [...] Performing Lab: see note ML - [facility] LB PREG QUANT HCG Reviewed date:07/31/2024 06:53:05 PM Interpretation: Performing Lab: Notes/Report: [facility] , HCG Quantitative [address] 15,000-200,000 6-8 WEEKS 10,000-100,000 5-6 WEEKS 500-10,000 3-4 WEEKS 1,000-50,000 4-5 WEEKS 50-500 1-2 WEEKS 5-50 0.2-1 WEEK 100-5,000 2-3 WEEKS 10,000-100,000 2-3 MONTHS Performing Lab: see note ML - [facility] LB PREG QUANT HCG Reviewed date:07/29/2024 03:40:12 PM Interpretation: Performing Lab: Notes/Report: [facility] , HCG Quantitative 50470 500-10,000 3-4 WEEKS 10,000-100,000 2-3 MONTHS 5-50 0.2-1 WEEK 1,000-50,000 4-5 WEEKS 50-500 1-2 WEEKS 100-5,000 2-3 WEEKS 15,000-200,000 6-8 WEEKS 10,000-100,000 5-6 WEEKS Performing Lab: see note ML - [facility] LB Organism Identification Reviewed date:02/18/2025 05:50:47 PM Interpretation: Performing Lab: Notes/Report: [facility] , Organism Identification See Below For Report Beta hemolytic Strep group B O:BETAGB Organism Identification Isolated Organism Identification See Below For Report Beta hemolytic Strep group B O:BETAGB Organism Identification Isolated Performing Lab: see note LC - [facility] LB Strep Gp B Culture+Rflx Reviewed date:02/18/2025 05:50:47 PM Interpretation: Performing Lab: Notes/Report: [facility] , Strep Gp B Culture+Rflx See Below For Report Strep Gp B Culture+Rflx Strep Gp B Culture+Rflx Culture has been reviewed and is still in progress. Strep Gp B Culture+Rflx Strep Gp B Culture+Rflx Strep Gp B Culture+Rflx Strep Gp B Culture+Rflx *ABNORMAL* Strep Gp B Culture+Rflx Strep Gp B Culture+Rflx Positive Strep Gp B Culture+Rflx Strep Gp B Culture+Rflx Centers for Dise ase Control and Prevention (CDC) and Strep Gp B Culture+Rflx Strep Gp B Culture+Rflx [place] [employer] s of Obstetricians and Gynecologists Strep Gp B Culture+Rflx Strep Gp B Culture+Rflx (ACOG) guideline s for prevention of group B Strep Gp B Culture+Rflx Strep Gp B Culture+Rflx streptococcal (G BS) disease specify co-collection of Strep Gp B Culture+Rflx Strep Gp B Culture+Rflx a vaginal and re ctal swab specimen to maximize Strep Gp B Culture+Rflx Strep Gp B Culture+Rflx sensitivity of G BS detection. Per the CDC and ACOG, Strep Gp B Culture+Rflx Strep Gp B Culture+Rflx swabbing both th e lower vagina and rectum Strep Gp B Culture+Rflx Strep Gp B Culture+Rflx substantially increases the yield of detection Strep Gp B Culture+Rflx Strep Gp B Culture+Rflx compared with sampling the vagina alone. Strep Gp B Culture+Rflx Strep Gp B Culture+Rflx Penicillin G, ampicillin, or cefazolin are indicated Strep Gp B Culture+Rflx Strep Gp B Culture+Rflx for intrapartum prophylaxis of GBS Strep Gp B Culture+Rflx Strep Gp B Culture+Rflx colonization. Re flex susceptibility testing should be Strep Gp B Culture+Rflx Strep Gp B Culture+Rflx performed prior to use of clindamycin only on GBS Strep Gp B Culture+Rflx Strep Gp B Culture+Rflx isolates from penicillin-allergic women who are Strep Gp B Culture+Rflx Strep Gp B Culture+Rflx considered a hig h risk for anaphylaxis. Treatment with Strep Gp B Culture+Rflx Strep Gp B Culture+Rflx vancomycin witho ut additional testing is warranted if Strep Gp B Culture+Rflx Strep Gp B Culture+Rflx resistance to clindamycin is noted. Strep Gp B Culture+Rflx Strep Gp B Culture+Rflx Performed at: - [facility] [place] Strep Gp B Culture+Rflx Strep Gp B Culture+Rflx [address] [place], [place] [phone] Strep Gp B Culture+Rflx Strep Gp B Culture+Rflx Sql Report Writer: Blessing Brooks PhD, Phone: [phone] Strep Gp B Culture+Rflx Performing Lab: see note SEE REPORT - [employer] Id information not found for OBX-specific line producer legend - [facility] LB Glucose 1 Hour Reviewed date:12/06/2024 02:55:09 PM Interpretation: Performing Lab: Notes/Report: [facility] , Glucose 1 Hour 138 <130 mg/dL Performing Lab: see note ML - [facility] LB CBC AUTO DIFF Reviewed date:12/06/2024 02:55:09 PM Interpretation: Performing Lab: Notes/Report: [facility] , White Blood Count 6.9 4.0-11.0 10 [...] 3/uL Performing Lab: see note ML - [facility] LB Glucose Tolerance 3 Hour Reviewed date:01/09/2025 12:42:14 PM Interpretation: Performing Lab: Notes/Report: [facility] , Glucose Tolerance 3 Hour GLU 1HR 182H (<180) Col: 01/09/25 0918 GLU 2HR 124 (<155) Col: 01/09/25 1019 GLU 3HR 94 (<140) Col: 01/09/25 1119 GLU FAST 93 (<95) Col: 01/09/25 0815 Performing Lab: see note ML - [facility] LB Reason For Referral No Information Medications Medication SIG (Take, Route, Frequency, Duration) Notes Start Date End Date Status Tretinoin 0.1 % 1 application in the evening to face Externally Once a day 02/27/2024 Active Ozempic (0.25 or 0.5 MG/DOSE) 2 MG/3ML 0.25 mg Subcutaneous weekly; Duration: 28 days 06/25/2024 Active Social History Tobacco [...] W/U Status Risk Notes Problem Acne vulgaris (51241539) Acne vulgaris (L70.0) Active confirmed Problem Gastroesophageal reflux disease (667784327) GERD (gastroesoph ageal reflux disease) (K21.9) Active confirmed Problem Seasonal allergic rhinitis (658625896) Seasonal allergic rhinitis (J30.2) Active confirmed Vital Signs Blood pressure diastolic 80 mm Hg 06/25/2024 Height 58 in 06/25/2024 Blood pressure systolic 108 mm Hg 06/25/2024 Weight 200.0 lbs 06/25/2024 BMI 41.8 kg/m2 06/25/2024 Encounters Encounter Location Date Provider Diagnosis [address] [address] 06/25/2024 Arcadio Murphy GERD (gastroesophage al reflux disease) K21.[address] [address] 06/26/2024 Arcadio Murphy [address] [address] 07/29/2024 Arcadio Murphy Assessments Encounter Date Diagnosis (ICD Code) Assessment Notes Treatment Notes Treatment Clinical Notes Section Notes 06/25/2024 GERD (gastroesophage al reflux disease) (ICD-10 - K21.9) Plan Of Treatment No Information Insurance Providers Payer Name Payer Address Payer Phone Subscriber Number Group Number Insured Name Patient Relationship to Insured Coverage Start Date Coverage End Date [employer] [place] [employer] [address] [address] [place] [address] [phone] [id number] Merle Guardado Self - patient is the insured Medical (General) History Medical History History ICD Code Seasonal allergic rhinitis J30.2 GERD (gastroesophageal reflux disease) K 21.9 Depression F32.A
--- OUTSIDE RECORDS SUMMARY | 2025-03-03 05:18 | XMS_ITS | Encounter Summary ---
Author Organization [facility] Address [address] [place] [address] Care Team Providers Care Administrator Pesticide Name Role Phone Chencho Murphy MD Primary Care Provider [phone] Encounter Details Date Type Department Care Team (Late st Contact Info) Description 10/24/2023 Abstract [facility] [address] [place] [address] [place] Gibson DO [address] [place] [address] Social History Tobacco Use Types Packs/Day Years [...] on filedocumented in this encounter Care Teams Administrator Pesticide Relationship Specialty Start Date End Date Chencho Murphy MD [address] [facility] [place] [address] PCP - General Family Medicine 05/03/23 documented as of this encounter
--- OUTSIDE RECORDS SUMMARY | 2025-03-03 05:18 | XMS_ITS | Encounter Summary ---
Author Organization [facility] Address [address] [place] [address] Care Team Providers Care Industrial Property Appraiser Name Role Phone Chencho Murphy MD Primary Care Provider [phone] Encounter Details Date Type Department Care Team (Late st Contact Info) Description 12/03/2023 Abstract [facility] [address] [place] [address] Boston Gibson DO [address] [place] [address] Social History Tobacco Use Types Packs/Day Years [...] on filedocumented in this encounter Care Teams Industrial Property Appraiser Relationship Specialty Start Date End Date Chencho Murphy MD [address] [facility] [place] [address] PCP - General Family Medicine 05/03/23 documented as of this encounter
--- OUTSIDE RECORDS SUMMARY | 2025-03-03 05:18 | XMS_ITS | Encounter Summary ---
Author Organization [facility] Address [address] [place] [address] Care Team Providers Care Tobacco Cutter Name Role Phone Chencho Murphy MD Primary Care Provider [phone] Encounter Details Date Type Department Care Team (Late st Contact Info) Description 10/18/2023 Clinisync Result Encounter [facility] External Department Unsolicited Jhon Gibson, DO [address] [facility] [place] [place] [id number] Social History Tobacco Use Types Packs/Day Years [...] AM EDT Narrative 10/18/2023 7:10 AM EDT [facility] [address] [place] [address] Ultrasound Report Signed Patient: MERLE GUARDADO MR#: [id number] : 1990 Acct:[id number] Age/Sex: 33 / F ADM Date: 10/17/23 Loc: US Attending Dr: Jhon Gibson D.O. Ordering Physician: Jhon Gibson D.O. Date of Service: 10/17/23 Procedure(s): US OB BPP w non-stress Accession Number(s): [id number] cc: Jhon Gibson D.O.; Chencho Murphy M.D. The [place] [phone] Patient Name: MERLE GUARDADO MRN: [id number]:[id number] date: 1990 Sex: F Assigned Patient Location: US Current Patient Location: Accession/Order Number: [id number] Exam Date: 10/17/2023 16:44 Report Date: 10/18/2023 [...] Dictated By: Ashley Tobin M.D. Signed By: 10/18/2310 DD/ 6 TD/TT: Senior Loss Control Specialist: Procedure Note Radiology, Radiologist, - 10/18/[address] [address] Ultrasound Report Signed Patient: MERLE GUARDADO NMR#: [id number] : 1990Acct:[id number] Age/Sex: 33 / FADM Date: 10/17/23 Loc: US Attending Dr: Jhon Gibson D.O. Ordering Physician: Jhon Gibson D.O. Date of Service: 10/17/23 Procedure(s): US OB BPP w non-stress Accession Number(s): [id number] cc: Jhon Gibson D.O.; Chencho Murphy M.D. [address] [address] Patient Name: MERLE GUARDADO MRN: [facility]:[id number] date: 1990 Sex: F Assigned Patient Location: US Current Patient Location: Accession/Order Number: [id number] Exam Date: 10/17/2023 16:44 Report Date: 10/18/2023 [...] 07:07 Dictated By: Ashley Tobin M.D. Signed By:10/18/23709 DD/ 6 TD/TT: Senior Loss Control Specialist: us Jhon Gibson DO [facility] Final Result documented in this encounter Visit Diagnoses Not on filedocumented in this encounter Care Teams Tobacco Cutter Relationship Specialty Start Date End Date Chencho Murphy MD [address] [place] [address] PCP - General Family Medicine 05/03/23 documented as of this encounter
--- OUTSIDE RECORDS SUMMARY | 2025-03-03 05:18 | XMS_ITS | Encounter Summary ---
Author Organization [facility] Address [address] [place] [address] Care Team Providers Care School Laboratory Technician Name Role Phone Chencho Murphy MD Primary Care Provider [phone] Encounter Details Date Type Department Care Team (Late st Contact Info) Description 10/18/2023 Clinisync Result Encounter [facility] External Department Unsolicited Jhon Gibson, DO [address] [facility] [place] [address] Social History Tobacco Use Types [...] AM EDT Narrative 10/18/2023 7:11 AM EDT [facility] [address] [place] [address] Ultrasound Report Signed Patient: MERLE GUARDADO MR#: [id number] : 1990 Acct:[id number] Age/Sex: 33 / F ADM Date: 10/17/23 Loc: US Attending Dr: Jhon Gibson D.O. Ordering Physician: Jhon Gibson D.O. Date of Service: 10/17/23 Procedure(s): US OB growth Accession Number(s): [id number] cc: Jhon Gibson D.O.; Chencho Murphy M.D. [place] [address] Patient Name: MERLE GUARDADO MRN: [facility]:[id number] date: 1990 Sex: F Assigned Patient Location: [facility] Current Patient Location: Accession/Order Number: [id number] Exam Date: 10/17/2023 16:44 Report Date: 10/18/2023 [...] Dictated By: Ashley Tobin M.D. Signed By: 10/18/23 0711 DD/ 0708 TD/TT: Spinning Frame Tender: Procedure Note Radiology, Radiologist, - 10/18/2023 The [place] [id number] Ultrasound Report Signed Patient: MERLE GUARDADO NMR#: [id number] : 1990Acct:[id number] Age/Sex: 33 / FADM Date: 10/17/23 Loc: US Attending Dr: Jhon Gibson D.O. Ordering Physician: Jhon Gibson D.O. Date of Service: 10/17/23 Procedure(s): US OB growth Accession Number(s): [id number] cc: Jhon Gibson D.O.; Chencho Murphy M.D. The [address] [address] Patient Name: MERLE GUARDADO MRN: [facility]:[id number] date: 1990 Sex: F Assigned Patient Location: [facility] Current Patient Location: US Accession/Order Number: [id number] Exam Date: 10/17/2023 16:44 Report Date: 10/18/2023 [...] Tobin M.D. Signed By:10/18/23710 DD/ 7 TD/TT: Spinning Frame Tender: us Jhon Paige DO [facility] Final Result documented in this encounter Visit Diagnoses Not on filedocumented in this encounter Care Teams School Laboratory Technician Relationship Specialty Start Date End Date Chencho Murphy MD [address] [place] [phone] PCP - General Family Medicine 05/03/23 documented as of this encounter
--- OUTSIDE RECORDS SUMMARY | 2025-03-03 05:18 | XMS_ITS | Encounter Summary ---
Author Organization [facility] Address [address] [place] [address] Care Team Providers Care Range Feeder Name Role Phone Chencho Murphy MD Primary Care Provider [phone] Encounter Details Date Type Department Care Team (Late st Contact Info) Description 07/03/2023 Clinisync Result Encounter [facility] External Department Unsolicited Jhon Gibson, DO [address] [facility] [place] [address] Social History Tobacco Use Types [...] AM EST Narrative 07/03/2023 10:48 AM EST The [facility] [address] [place] [address] Ultrasound Report Signed Patient: MERLE GUARDADO MR#: [id number] : 1990 Acct:[id number] Age/Sex: 33 / F ADM Date: 07/03/23 Loc: [facility] Attending Dr: Jhon Gibson D.O. Ordering Physician: Jhon Gibson D.O. Date of Service: 07/03/23 Procedure(s): US OB incomplete anatomy Accession Number(s): [id number] cc: Jhon Gibson D.O.; Chencho Murphy M.D. The [place] [id number] Patient Name: MERLE GUARDADO MRN: [facility]:[id number] date: 1990 Sex: F Assigned Patient Location: [facility] Current Patient Location: [facility] Accession/Order Number: [id number] Exam Date: 07/03/2023 09:48 Report Date: 07/03/2023 [...] Dictated By: Ashley Tobin M.D. Signed By: 07/03/23 1048 DD/ 1046 TD/TT: Magnetic Prospecting Supervisor: Procedure Note Radiology, Radiologist, MD - 07/03/2023 [place] [address] Ultrasound Report Signed Patient: MERLE GUARDADO NMR#: [id number] : 1990Acct:[id number] Age/Sex: 33 / FADM Date: 07/03/23 Loc: [facility] Attending Dr: Jhon Gibson D.O. Ordering Physician: Jhon Gibson D.O. Date of Service: 07/03/23 Procedure(s): US OB incomplete anatomy Accession Number(s): [id number] cc: Jhon Gibson D.O.; Chencho Murphy M.D. [address] [id number] Patient Name: MELRE GUARDADO MRN: [id number] date: 1990 Sex: F Assigned Patient Location: [facility] Current Patient Location: [facility] Accession/Order Number: [id number] Exam Date: 07/03/2023 09:48 Report Date: 07/03/2023 [...] 10:46 Dictated By: Ashley Tobin M.D. Signed By:07/03/23 1048 DD/ 1046 TD/TT: Magnetic Prospecting Supervisor: us Jhon Gibson DO [facility] Final Result documented in this encounter Visit Diagnoses Not on filedocumented in this encounter Care Teams Range Feeder Relationship Specialty Start Date End Date Chencho Murphy MD [facility] [place] [phone] PCP - General Family Medicine 05/03/23 documented as of this encounter
--- OUTSIDE RECORDS SUMMARY | 2025-03-03 05:18 | XMS_ITS | Encounter Summary ---
Author Organization [facility] Address [address] [place] [address] Care Team Providers Care Chief Librarian Extension Department Name Role Phone Chencho Murphy MD Primary Care Provider [phone] Encounter Details Date Type Department Care Team (Late st Contact Info) Description 02/24/2025 Bamboo flowsheet [facility] [address] [facility] [place] [address] Margaret Cunningham, MMD UNIT TEACHER [address] [facility] [place] [phone] Social History Tobacco Use Types Packs/Day Years [...] on filedocumented in this encounter Care Teams Chief Librarian Extension Department Relationship Specialty Start Date End Date Chencho Murphy MD [address] [place] [address] PCP - General Family Medicine 05/03/23 documented as of this encounter
--- OUTSIDE RECORDS SUMMARY | 2025-03-03 05:18 | XMS_ITS | Encounter Summary ---
Author Organization [facility] Address [address] [place] [address] Care Team Providers Care Cue Selector Name Role Phone Chencho Murphy MD Primary Care Provider [phone] Encounter Details Date Type Department Care Team (Late st Contact Info) Description 02/17/2025 Bamboo flowsheet [facility] [address] [place] [address] Margaret Cunningham, HAIRSPRING SETTER [address] [facility] [place] [address] Social History Tobacco Use Types Packs/Day Years [...] on filedocumented in this encounter Care Teams Cue Selector Relationship Specialty Start Date End Date Chencho Murphy MD [address] [place] [address] PCP - General Family Medicine 05/03/23 documented as of this encounter
--- OUTSIDE RECORDS SUMMARY | 2025-03-03 05:18 | XMS_ITS | Encounter Summary ---
Author Organization [facility] Address [address] [place] [address] Care Team Providers Care Insulation Installer Name Role Phone Chencho Murphy MD Primary Care Provider [phone] Encounter Details Date Type Department Care Team (Late st Contact Info) Description 08/21/2023 Abstract [facility] [address] [phone] Steph Brooks LPN [address] [place] [address] Social History Tobacco Use Types Packs/Day Years [...] on filedocumented in this encounter Care Teams Insulation Installer Relationship Specialty Start Date End Date Chencho Murphy MD [address] [facility] [place] [address] PCP - General Family Medicine 05/03/23 documented as of this encounter
[2025-03-03] MEDS: 0.9 % SODIUM CHLORIDE 1,000 ML 125 ML IV (06:00)
[2025-03-03] MEDS: OXYTOCIN/0.9 % SODIUM CHLORIDE 10 UNITS/500 ML PLAST..BAG 6 UNIT IV (06:10)
[2025-03-03 06:16] LABS: Hematocrit 32.0 % (36.0-48.0); Hemoglobin 10.6 g/dL (12.0-16.0); Mean Corpuscular HGB Conc 33.1 g/dL (29.9-35.2); Mean Corpuscular Hemoglobin 27.7 pg (26.7-34.0); Mean Corpuscular Volume 83.6 fL (81.0-99.0); Platelet Count 280 10^3/uL (150-450); Red Blood Count 3.83 10^6/uL (4.20-5.40); White Blood Count 7.9 10^3/uL (4.0-11.0)
[2025-03-03 06:26] LABS: Cannabinoid Screen Urine POSITIVE (NEGATIVE); Methamphetamines Screen Urine NEGATIVE (NEGATIVE); Tricyclic Antidepressant Urine NEGATIVE (NEGATIVE)
[2025-03-03] MEDS: AMPICILLIN SODIUM 2,000 MG in 0.9 % SODIUM CHLORIDE 100 ML 200 MG IV (06:43)
[2025-03-03] MEDS: ROPIVACAINE HCL/PF 400 MG/200 ML PREMIX 6 MG EPIDURAL (08:55)
[2025-03-03] MEDS: AMPICILLIN SODIUM 1,000 MG in 0.9 % SODIUM CHLORIDE 50 ML 100 MG IV (09:41)
--- NOTE | 2025-03-03 13:41 | PM.OBPRCVD ---
Procedure Intrapartal events: None Induction method: per misoprostol protocol Delivery augmentation: rupture of membranes Delivery monitor: external FHT and external uterine Route of delivery: Episiotomy Description: midline L&D Laceration Description: perineal - 2nd degree Delivery repair: Vicryl Estimated blood loss (mL): 250 Anesthesia type: Epidural Disposition: floor Delivery date: 03/03/25 Gender: male presentation: vertex Placental delivery description: Spontaneous cord description: 3 Vessels
[2025-03-03] MEDS: BENZOCAINE/MENTHOL 85 GRAM SPRAY BOTTLE 1 APPLIC TOPICAL (14:32)
[2025-03-03] MEDS: IBUPROFEN 600 MG TABLET PO (14:32)
[2025-03-03] MEDS: OXYTOCIN/0.9 % SODIUM CHLORIDE 20 UNITS/1,000 ML PLAST..BAG 125 UNIT IV (14:33)
[2025-03-03] MEDS: GLYCERIN/WITCH HAZEL PADS 1 PAD TOPICAL (14:33)
[2025-03-03] MEDS: ACETAMINOPHEN 325 MG TABLET 650 MG PO (19:30)
[2025-03-03] MEDS: TEMAZEPAM 15 MG CAPSULE PO (21:08)
[2025-03-04] MEDS: IBUPROFEN 600 MG TABLET PO ×2 (02:13→09:31)
[2025-03-04] MEDS: ACETAMINOPHEN 325 MG TABLET 650 MG PO (03:24)
[2025-03-04 03:40] VITALS: BP 110/64; PULSE 72; TEMP 36.7
[2025-03-04 06:23] LABS: Hematocrit 26.6 % (36.0-48.0); Hemoglobin 8.7 g/dL (12.0-16.0); Immature Granulocytes Abs Auto 0.03 10^3/uL (0.00-0.03); Immature Granulocytes Pct Auto 0.4 % (0.0-0.5); Lymphocytes Absolute Auto 2.0 10^3/uL (1.2-3.8); Mean Corpuscular HGB Conc 32.7 g/dL (29.9-35.2); Mean Corpuscular Hemoglobin 27.9 pg (26.7-34.0); Mean Corpuscular Volume 85.3 fL (81.0-99.0); Platelet Count 202 10^3/uL (150-450); Red Blood Count 3.12 10^6/uL (4.20-5.40); White Blood Count 7.4 10^3/uL (4.0-11.0)
--- NOTE | 2025-03-04 07:42 | PM.OBPN ---
OB - PN: Subj Subjective Patient comments: no complaints and pain well controlled status: doing well Exam Constitutional Vital Signs, click to edit/add: Last Vital Signs Temp 98.1 F 03/04/25 03:40 Pulse 72 03/04/25 03:40 Resp 16 03/03/25 15:30 BP 110/64 03/04/25 03:40 O2 Del Method Room Air 03/04/25 03:45 Documenting provider has reviewed patient's vital signs: yes Common normals: no apparent distress Respiratory Common normals: normal respiratory effort and clear to auscultation bilaterally Cardio Common normals: regular rate and regular rhythm GI Common normals: Normal to inspection, nondistended, normoactive bowel sounds present Extremity Common normals: no clubbing, cyanosis or edema and no calf tenderness Results Labs Labs: Short CBC 03/04/25 Range/Units 06:19 WBC 7.4 (4.0-11.0) 10^3/uL Hgb 8.7 L (12.0-16.0) g/dL Hct 26.6 L (36.0-48.0) % Plt Count 202 (150-450) 10^3/uL OB - PN: A/P Plan - Vaginal Delivery day: 1 Plan: routine care, discharge home and follow up 6 weeks Time Spent with Patient Time: Total time spent is greater than 50% in coordination of care (as documented) at patient's floor/unit and/or counseling patient: Total time spent with greater than 50% in coordination of care (as documented) at patient's floor/unit and/or counseling patient: less than 15 minutes
[2025-03-04 08:20] VITALS: BP 121/75; PULSE 83
[2025-03-04] MEDS: DOCUSATE SODIUM 100 MG CAPSULE PO (09:31)
--- NOTE | 2025-03-04 10:35 | SWNOTE1 ---
Pt was positive for Marijuana on admission. No other concerns at this time. NIKKIE met with pt and father of baby in room. There 16 month old son was in room as well. They do have everything they need at home for baby. Pt is not breast feeding, but baby is doing well eating with formula. They do have good support at home as well. They are in the middle of moving to a new home. They are moving to [place] at end of month. Pt has called [facility] already and has those services in place. SW did discuss positive Marijuana drug screen on admission. Pt does admit to smoking Marijuana. She did this due to nausea and pain. Pt does not plan on continuing once home. Pt did not do this around child at the home. 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 They did voice understanding. They did not have any further questions. NIKKIE advised if they did decide to open case, they will contact her directly before coming to the home. Pt and father of baby are appropriate with baby. NIKKIE called and made report to [facility] CPS. HIPAA form filled out and sent to
[2025-03-04 16:56] VITALS: BP 121/67; PULSE 104; TEMP 36.2
== END 2025-03-04 17:10 | disposition home or self-care (01) | DRG 560 ==
PROVIDERS: Admitting Provider Obstetrics & Gynecology; PCP Family Medicine; Visit Provider Obstetrics & Gynecology
DX: O99.824 Streptococcus B carrier state complicating childbirth (principal); O99.324 Drug use complicating childbirth; F12.90 Cannabis use, unspecified, uncomplicated; O70.1 Second degree perineal laceration during delivery; Z3A.40 40 weeks gestation of pregnancy; Z37.0 Single live birth
CPT/HCPCS: 36415; 51702; 59050; 59410; 80307; 80349; 85025; 85027; 86850; 86900; 86901; J0290; J2795